=== PATIENT | male | born 1940 ===

== ENCOUNTER 2020-08-14 17:59 | Emergency (ER) | payer MEDICARE, SELFPAY ==
--- NOTE | ~2020-08-14 | CT_ITS ---
EXAMINATION: CT abdomen pelvis wo con DATE: 08/14/2020 20:51 INDICATION: Generalized body aches, hernia TECHNIQUE: Computed tomography (CT) of the abdomen and pelvis was performed without intravenous contr ast. The dose-length product (DLP) was 477.69 mGy-cm. Automated exposure control and iterative recons truction technique were employed. COMPARISON: None FINDINGS: The examination is limited by the absence of intravenous contrast. There are moderate size right and small left pleural effusions. Cardiomegaly is noted. There is a moderate volume of ascites. Diffuse anasarca is noted. There is mild splenomegaly. An area of linear calcification in the right hepatic lobe may reflect prior injury. The pancreas and adrenal glands are normal. A stone is present in the nondistended gallbladder. Cysts of the kidneys measure up to 3.5 cm on the right. There is ca lcified atherosclerosis of the aorta and many of the other arteries. No pathologically enlarged abdom inal or pelvic lymph nodes are identified. There is no free intraperitoneal gas or evidence of bowel obstruction. Colonic diverticulosis is present without evidence of diverticulitis. There is mild circ umferential thickening of the bladder wall. There is a right inguinal hernia containing a short segme nt of nonobstructed small bowel. A small volume of ascites is also present in the hernia. There are c hanges of anterior fusion at L5-S1. There is moderate lower thoracic spondylosis. IMPRESSION: 1. Moderate size right and small left pleural effusions. 2. Moderate volume of ascites. 3. Mild bladder wall thickening which could reflect cystitis or chronic outlet obstruction. 4. Right inguinal hernia containing a short segment of nonobstructed small bowel. 5. Cholelithiasis. Reviewed, dictated and finalized at location A. ICAL ENGINEERING PROFESSOR IMPRESSION: 1. Moderate size right and small left pleural effusions. 2. Moderate volume of ascites. 3. Mild bladder wall thickening which could reflect cystitis or chronic outlet obstruction. 4. Right inguinal hernia containing a short segment of nonobstructed small sánchez l. 5. Cholelithiasis.
--- NOTE | ~2020-08-14 | XR_ITS ---
EXAMINATION: XR chest 2V DATE: 08/14/2020 19:24 INDICATION: Shortness of breath TECHNIQUE: AP and lateral views of the chest are obtained. COMPARISON: 06/01/2018 FINDINGS: Patchy bilateral opacities are present throughout the lungs. Cardiomegaly is noted. There a re small pleural effusions. No pneumothorax is identified. Calcified atherosclerosis is noted. There is mild thoracic spondylosis. IMPRESSION: 1. Cardiomegaly. 2. Diffuse opacities of the lungs which could reflect chronic interstitial lung disease and/or pneumo mickey and/or pulmonary edema. 3. Small pleural effusions. Reviewed, dictated and finalized at location A. R SECURITY ARCHITECT IMPRESSION: 1. Cardiomegaly. 2. Diffuse opacities of the lungs which could reflect chronic interstitial lung disease and/or pneumonia and/or pulmonary edema. 3. Small pleural effusions.
--- NOTE | ~2020-08-14 | CT_ITS ---
EXAMINATION: CT soft tissue neck chest wo DATE: 08/14/2020 20:51 INDICATION: Right-sided facial edema TECHNIQUE: Computed tomography (CT) of the neck and chest was performed without intravenous contrast. The dose-length product (DLP) was 650.78 mGy-cm. Automated exposure control and iterative reconstruc tion technique were employed. COMPARISON: None FINDINGS: NECK: The examination is limited by absence of intravenous contrast. There is an increase in number o f nonpathologically enlarged cervical lymph nodes. No neck soft tissue mass is identified. The airway is widely patent. CHEST: There are multiple nodules in the upper lobes. The lungs. The largest measures 1.9 x 1.3 cm in the right lung apex. There is moderate emphysema. There are moderate-sized right and small left pleu ral effusions with passive atelectasis of the lower lobes. Cardiomegaly is noted. There is right axil anil and subpectoral lymphadenopathy. Mediastinal lymphadenopathy is also noted. There is calcified c oronary artery atherosclerosis. No pneumothorax is identified. There is moderate thoracic spondylosis . IMPRESSION: 1. Multiple nodules in the upper lobes of the lungs which could reflect multifocal pneumonia. Recomme nd CT follow-up in three months. 2. Mediastinal lymphadenopathy, reactive versus metastatic disease. 3. Right axillary lymphadenopathy which could reflect metastatic disease, lymphoma, or be reactive re lated to COVID vaccination if the shot was administered in the right arm. 4. Moderate size right and small left pleural effusions with passive atelectasis of the lower lobes. 5. Unremarkable noncontrast CT of the neck. Reviewed, dictated and finalized at location A. LL MACHINE OPERATOR IMPRESSION: 1. Multiple nodules in the upper lobes of the lungs which could reflect multifo jean pneumonia. Recommend CT follow-up in three months. 2. Mediastinal lymphadenopathy, reactive versus metastatic disease. 3. Right axillary lymphadenopathy which could reflect metastatic disease, lymph joyec, or be reactive related to COVID vaccination if the shot was administered i n the right arm. 4. Moderate size right and small left pleural effusions with passive atelectasi s of the lower lobes. 5. Unremarkable noncontrast CT of the neck.
[2020-08-14 18:22] VITALS: BP 135/64; PULSE 88; RESP 22; TEMP 36.4; O2SAT 92
--- NOTE | 2020-08-14 18:51 | ECG_ITS ---
Measurements Intervals [place] Rate: 84 P: 67 MS: 162 QRS: 85 QRSD: 124 T: 187 QT: 403 QTc: 477 Interpretive Statements SINUS OR ECTOPIC ATRIAL RHYTHM INTRAVENTRICULAR CONDUCTION DELAY BORDERLINE ST-T WAVE ABNORMALITY- DIFFUSE LEADS BORDERLINE ECG Electronically Signed On 08-15-2020 6:55:06 AUTOMOBILE SALES REPRESENTATIVE by Huang Ramirez D.O.
[2020-08-14 19:02] VITALS: BP 150/74; PULSE 88; RESP 20; O2SAT 90
[2020-08-14 19:13] LABS: Hematocrit 39.8 % (37.0-46.0); Hemoglobin 12.6 g/dL (12.4-15.3); Mean Corpuscular HGB Conc 31.7 g/dL (32.0-36.0); Mean Corpuscular Hemoglobin 31.8 pg (27.0-31.0); Mean Corpuscular Volume 100.5 fL (78.0-102.0); Mean Platelet Volume 12.6 fl (8.7-11.0); Platelet Count Result 111 K/mm3 (150-420); Red Blood Count 3.96 M/mm3 (4.70-6.10); Red Cell Distribution Width 19.3 % (11.6-14.4)
[2020-08-14 19:13] LABS: Add Urine Microscopic? YES; Bilirubin Urine Negative (Negative); Blood Urine Negative (Negative); Color Urine Yellow (Yellow); Glucose Urine UA Negative (Negative); Ketones Urine Negative (Negative); Leukocyte Esterase Ur Negative (Negative); Nitrate Urine Negative (Negative); Protein Urine 2+ (Negative); Specific Grav Ur >= 1.030 (1.010-1.020); pH Urine 5.5 (5.0-8.0)
[2020-08-14 19:19] LABS: White Blood Count 35.1 K/mm3 (4.8-10.8)
[2020-08-14 19:27] LABS: Appearance Urine Cloudy (Clear); Bacteria Urine 4+ /hpf; Granular Casts Urine P /lpf; Squamous Epithelial Cell Urine Few /hpf (Few)
[2020-08-14 19:28] LABS: Mucus Urine Heavy /lpf; White Blood Cell Casts Urine Present /lpf
[2020-08-14 19:30] LABS: BNP 475 pg/mL (0-100)
[2020-08-14 19:31] LABS: Lactic Acid Reflex 1.6 mmol/L (0.4-2.0)
--- NOTE | 2020-08-14 19:34 | ED.WEAKNESS ---
HPI - Weakness General Chief complaint: Weakness Stated complaint: pain Time Seen by Provider: 08/14/20 18:30 Source: patient and family Mode of arrival: ambulatory Limitations: no limitations History of Present Illness HPI Narrative: Patient comes in stating he has been weak, not feeling well, and has had some generalized body aches. He has a right inguinal hernia that has been aggravating him, but not really causing pain. He has had a cough, with clear sputum production. He denies fever or chills. he has had some mild to moderate shortness of breath lately. He complains of breathing hard. He has had malaise. This all started several days ago after he got his covid shot. Covid shot was in left arm. MD Complaint: generalized weakness Onset (ago): day(s) Duration: progressively worsening Location: generalized Related Data Home Medications Medication Instructions Recorded Confirmed allopurinol 300 mg PO DAILY 08/14/20 08/14/20 atorvastatin 40 mg PO HS 08/14/20 08/14/20 duloxetine 30 mg PO BID 08/14/20 08/14/20 finasteride 5 mg PO DAILY 08/14/20 08/14/20 furosemide 40 mg PO BID 08/14/20 08/14/20 lamotrigine 100 mg PO DAILY 08/14/20 08/14/20 levothyroxine 50 mcg PO DAILY 08/14/20 08/14/20 mirtazapine 30 mg PO DAILY 08/14/20 08/14/20 oxycodone-acetaminophen 1 tablet PO QID 08/14/20 08/14/20 pregabalin [Lyrica] 300 mg PO TID 08/14/20 08/14/20 tamsulosin 0.4 mg PO DAILY 08/14/20 08/14/20 zolpidem 5 mg PO DAILY 08/14/20 08/14/20 Allergies Allergy/AdvReac Type Severity Reaction Status Date / Time No Known Allergies Allergy Verified 08/14/20 18:31 Review of Systems Constitutional: Constitutional: Reports no additional constitutional complaints Eyes: Eyes: Reports no additional eye complaints ENT: Reports system reviewed and no additional complaints, except as documented Cardiovascular: Cardiovascular: Reports no additional cardiovascular complaints Respiratory: Respiratory: Reports cough and Reports dyspnea Gastrointestinal: Gastrointestinal: Reports no additional gastrointestinal complaints Genitourinary: Genitourinary: Reports no additional male genitourinary complaints Musculoskeletal: Musculoskeletal: Reports no additional musculoskeletal complaints Integumentary/Breasts: Skin/Breast: Reports system reviewed and no additional complaints, except as docu Neurologic: Reports system reviewed and no additional complaints, except as documented Psychiatric: Psychiatric: Reports no additional psychiatric complaints Endocrine: Endocrine: Reports no additional endocrine complaints Hematologic/Lymphatic: Hematologic/Lymphatic: Reports no additional hematologic/lymphatic complaints Allergic/Immunologic: Allergic/Immunologic: Reports no additional allergic/immunologic complaints PMFSH Past Medical History Medical History (Updated 08/15/20 @ 01:54 by Juan Mahoney MD) Back pain BPH (benign prostatic hyperplasia) Depression Gout Hyperlipidemia Hypothyroid Surgical History Surgical History (Updated 08/15/20 @ 01:36 by Juan Mahoney MD) History of arthroscopic knee surgery Previous back surgery S/P insertion of iliac artery stent Family History Family History (Updated 08/15/20 @ 01:37 by Juan Mahoney MD) Father Alcoholic Mother Skin cancer Social History Social History (Updated 08/15/20 @ 01:38 by Juan Mahoney MD) Social History: smoker since teens 1 PPD Smoking status: Current every day smoker Tobacco type: cigarettes Alcohol use details: denies alcohol use Living arrangements: with family Gender identity (if verbalized by the patient): Male Sexual Orientation (if Verbalized by the Patient): Straight or Heterosexual Exam Const: General: no acute distress and alert Orientation/consciousness: patient oriented x3 Other: Right side of face, and right eye is moderately swollen. HENMT: Head: normal to inspection Ears: external ears normal and TM's normal bi
[2020-08-14 19:37] LABS: Alanine Aminotransferase 17 U/L (16-63); Albumin Level 3.8 g/dL (3.4-5.0); Alkaline Phosphatase 117 U/L (46-116); Anion Gap 11 mmol/L (8-16); Aspartate Amino Transferase 13 U/L (15-37); Bilirubin,Total 0.7 mg/dL (0.00-1.00); Blood Urea Nitrogen 22 mg/dL (7-18); Calcium 8.2 mg/dL (8.5-10.1); Carbon Dioxide 27 mmol/L (21-32); Chloride 104 mmol/L (98-108); Estimated CRCL calculation 24 ml/min; Estimated Glomerular Filt Rate 28; Glucose 188 mg/dL (70-99); Magnesium 2.5 mg/dL (1.8-2.4); Osmolality Calculated 302 mOsm/kg (285-295); Phosphorus 4.9 mg/dL (2.6-4.7); Potassium 3.7 mmol/L (3.5-5.1); Sodium 142 mmol/L (136-145); Total Protein 6.5 g/dL (6.4-8.2)
[2020-08-14 19:42] LABS: Band Neutrophils Percent 3 % (0-6); Basophils Absolute Manual 0.35 K/mm3 (0-0.1); Basophils Percent Manual 1 % (0-1); Eosinophils Absolute Manual 0.35 K/mm3 (0.02-0.5); Eosinophils Percent Manual 1 % (1-6); Lymphocytes Absolute Manual 8.07 K/mm3 (1.1-4.5); Lymphocytes Percent Manual 23 % (18-44); Monocytes Absolute Manual 9.47 K/mm3 (0.1-0.90); Monocytes Percent Manual 27 % (3-9); Neutrophils Absolute Manual 16.84 K/mm3 (1.3-6.7); Neutrophils Percent Manual 45 % (46-73); Platelet Estimate Adequate (Adequate); Total Cells Counted 100
[2020-08-14 19:43] LABS: Anisocytosis 3+ (NORMAL); Large Platelets Present; Macrocytosis 1+ (NORMAL); Microcytosis 2+ (NORMAL); Polychromasia 1+ (NORMAL)
[2020-08-14 19:44] LABS: Atypical Lymphocytes Present; Burr Cells 1+ (NORMAL)
[2020-08-14 19:50] VITALS: O2SAT 88
[2020-08-14 19:55] VITALS: BP 132/69; PULSE 75; RESP 20; O2SAT 95
[2020-08-14 20:50] LABS: SARS-CoV-2 Ag Negative (Negative)
[2020-08-14 21:03] LABS: CRP 1.1 mg/dL (0.0-0.9)
[2020-08-14 21:40] VITALS: BP 128/65; PULSE 80; RESP 20; O2SAT 98
[2020-08-14 22:21] LABS: Erythrocyte Sedimentation Rate 5 mm/hr (0-20)
[2020-08-14 23:03] VITALS: BP 123/69; PULSE 81; RESP 20; O2SAT 95
--- NOTE | 2020-08-15 00:12 | PC.NURSE ---
PT RESTING PER COT , PLAYING ON CELL PHONE. FEMALE AT BEDSIDE. PT DENIES ANY NEEDS AT THIS TIME. CALL TO [facility] PER DR FOR TRANSFER.
[2020-08-15 01:10] LABS: INR 1.2; Partial Thromboplastin Time 31.9 SEC (23.90-30.70); Prothrombin Time 12.3 Seconds (9.50-12.10)
[2020-08-15] MEDS: SODIUM CHLORIDE 0.9% IV 1,000 ML 250 ML IV CONT (01:25)
[2020-08-15 01:54] VITALS: BP 134/58; PULSE 79; RESP 20; TEMP 36.9; O2SAT 99
--- NOTE | 2020-08-15 01:59 | PC.NURSE ---
[facility] CALLED FOR TRANSFER. AWAITING ARRIVAL\
[2020-08-15 02:22] VITALS: BP 132/69; PULSE 76; RESP 20; TEMP 36.9; O2SAT 97
== END 2020-08-15 02:27 | disposition short-term general hospital (02) ==
PROVIDERS: Emergency Provider Emergency Medicine
DX: J18.9 Pneumonia, unspecified organism (principal); Z20.822 Contact with and (suspected) exposure to COVID-19; R06.02 Shortness of breath; E78.5 Hyperlipidemia, unspecified; E03.9 Hypothyroidism, unspecified; F17.200 Nicotine dependence, unspecified, uncomplicated
CPT/HCPCS: 36415; 70490; 71046; 71250; 74176; 80053; 81001; 83605; 83735; 83880; 84100; 84484; 85025; 85610; 85652; 85730; 86140; 87040; 87086; 87426; 93005; 96365; 96374; 99285; C9803; J0456; J0696; J7030

== ENCOUNTER 2020-08-15 03:15 | Inpatient (IN) | payer MEDICARE, SELFPAY ==
[2020-08-15] VITALS (11 sets, daily range): BP systolic 119–150; BP diastolic 50–85; PULSE 68–97; RESP 16–24; TEMP 36.1–36.2; O2SAT 94–99; BMI 24.8
--- NOTE | 2020-08-15 | ECHO_ITS ---
Patient Info Name: John Mohr Age: 80 years : 1940 Gender: Male Ht: 70 in Wt: 173 lbs BSA: 1.98 m2 HR: 77 bpm BP: 150 / 53 mmHg Heart Rhythm: Sinus Rhythm Technical Quality: Good Exam Date: 08/15/2020 1:25 PM Exam Location: [facility] Room: [facility] Patient Status: Inpatient Admit Date: 08/15/2020 Staff Ordering Physician: Arpan Cook MD Assembly Line Machine Operator: Luna Jenkins RDCS Attending Provider: Sarika Abdi PA-C Exam Type: CA echo doppler color flow Study Info Indications - ASSESS LV FXN Complete two-dimensional, color flow and Doppler transthoracic echocardiogram is performed. Summary 1. Complete two-dimensional, color flow and Doppler transthoracic echocardiogram is performed. 2. Left ventricular chamber dimension is moderately enlarged. 3. Left ventricular systolic function is severely reduced, estimated at 25-30%. 4. There is moderate to severe aortic valve stenosis with a peak velocity of 261 cm/s, mean gradient of 15 mmHg, and aortic valve area of 1.0 cm2. 5. The non coronary cusp is heavily calcified and immobilized. There is some excursion of the coronary cusps. 6. Left atrial chamber dimension is moderately enlarged. 7. Moderate tricuspid insufficiency with velocities indicating at least mildly elevated pulmonary artery pressure. Left Ventricle Left ventricular chamber dimension is moderately enlarged. Left ventricular systolic function is severely reduced, estimated at 25-30%. The left ventricular diastolic function is grade I diastolic dysfunction. Right Ventricle Right ventricular chamber dimension is mildly enlarged. Left Atria Left atrial chamber dimension is moderately enlarged. Right Atria Right atrial chamber dimension is normal. Aortic Valve The aortic valve is trileaflet. There is moderate to severe aortic valve stenosis with a peak velocity of 261 cm/s, mean gradient of 15 mmHg, and aortic valve area of 1.0 cm2. There is mild aortic valve regurgitation. The non coronary cusp is heavily calcified and immobilized. There is some excursion of the coronary cusps. Pulmonic Valve The pulmonic valve is normal. There is mild pulmonic regurgitation. Mitral Valve The mitral valve has normal leaflets. There is mild mitral valve regurgitation. Tricuspid Valve The tricuspid valve leaflets are normal. There is moderate tricuspid valve regurgitation. Mild pulmonary hypertension, estimated pulmonary arterial systolic pressure is 39 mmHg. Pericardium/Pleural The pericardium appears normal. Aorta The aortic root size at the sinus of Valsalva is normal. Left Ventricular Outflow Tract Name Value Normal LVOT 2D LVOT Diameter 2.0 cm LVOT Doppler LVOT Peak Velocity 96 cm/s LVOT Peak Gradient 4 mmHg LVOT Mean Gradient 2 mmHg LVOT VTI 19 cm LVOT VTI/AV VTI Ratio 0.3 LVOT Stroke Volume 63 ml LVOT CO 13.3 l/min LVOT CI
--- NOTE | ~2020-08-15 | XR_ITS ---
XR chest 2V 08/31/2020 10:11 Indication: Pleuritic chest pain. CHF. Shortness of breath. Procedure: AP and lateral views of the chest Comparison: No prior studies for comparison. Findings: Cardiomegaly with interstitial edema. Small pleural effusions. There is atherosclerosis. No pneumothorax. No acute osseous abnormality. Impression: 1: Cardiomegaly with interstitial edema. Reviewed, dictated and finalized at location A. Impression: 1: Cardiomegaly with interstitial edema.
--- NOTE | ~2020-08-15 | US_ITS ---
EXAMINATION: US renal BI DATE: 09/04/2020 08:26 INDICATION: Acute kidney injury TECHNIQUE: Multiple grayscale and Doppler ultrasound images of the kidneys were obtained. COMPARISON: None. FINDINGS: The right kidney measures 12.3 x 4.5 x 4.4 cm. Cysts of the right kidney measured 3.7 and 1 .6 cm The left kidney measures 9.7 x 4.2 x 4.6 cm. The kidneys demonstrate normal parenchymal echogen icity. There is no hydronephrosis. The bladder is normal. IMPRESSION: 1. Unremarkable kidneys without hydronephrosis. Reviewed, dictated and finalized at location A.
--- NOTE | ~2020-08-15 | US_ITS ---
EXAMINATION: US thoracentesis DATE: 08/15/2020 15:05 INDICATION: pleural effusion TECHNIQUE: The procedure and its risks, benefits, and alternatives were discussed with the patient. P otential risks discussed included bleeding, infection, and pneumothorax. The patient understood the r isks and agreed to proceed. The skin was prepped and draped in sterile fashion. 1% lidocaine was used for local anesthesia. Under ultrasound guidance, a 5 Fr catheter with trochar was advanced into the right pleural effusion. Fluid was aspirated. The catheter was removed, and a dressing was applied. Th ere were no immediate complications. FINDINGS: Ultrasound images demonstrate a right pleural effusion and the catheter within the fluid. IMPRESSION: 1. Successful ultrasound-guided thoracentesis yielding 1000 mL of joseph-colored fluid. Reviewed, dictated and finalized at location A. ACUTE CARE NURSE IMPRESSION: 1. Successful ultrasound-guided thoracentesis yielding 1000 mL of joseph-colore d fluid.
--- NOTE | ~2020-08-15 | BM_ITS ---
EXAMINATION: CCL bone marrow asp w bx diag DATE: 08/16/2020 10:12 INDICATION: Leukocytosis. TECHNIQUE: A time-out was performed to verify the patient's name, date of , and procedure to b e performed. The procedure including the risks, benefits, and alternatives was discussed with the pat ient. Risks discussed included bleeding and infection. The patient understood the risks and agreed to proceed. The skin overlying the left ilium was prepped and draped in usual sterile fashion. Anesth etic was administered with 1% lidocaine subcutaneously. 50 mcg fentanyl IV was given for pain control . An 11 gauge needle was inserted into the ilium with fluoroscopic guidance. Bone marrow was aspirat ed. An 8 gauge needle was then inserted into the ilium with fluoroscopic guidance. A core bone marrow biopsy was obtained. There were no immediate complications. Fluoroscopy exposure time was 0.0 minute s. The total number of images was 8. FINDINGS: Real-time fluoroscopy demonstrates a marker overlying the left posterior superior iliac spi ne. IMPRESSION: 1. Fluoro-guided bone marrow aspiration. 2. Fluoro-guided bone marrow core biopsy. Reviewed, dictated and finalized at location A. 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
--- NOTE | ~2020-08-15 | NM_ITS ---
EXAMINATION: NM lung vent and perfusion DATE: 08/31/2020 13:45 INDICATION: Pleuritic chest pain. Shortness of breath. TECHNIQUE: 5 mCi Tc-99m MAA administered by intravenous route. Scintigraphic images of the chest wer e obtained. COMPARISON: Chest radiograph dated 08/31/2020 FINDINGS: Nonsegmental perfusion defects at the posterior and lateral aspect of the bilateral lower lobes corre sponding to small bilateral pleural effusions on prior chest radiograph. There is relatively homogene ous perfusion throughout the main tear of the lungs with no other perfusion defects identified. Cardi omegaly. IMPRESSION: 1. Nonsegmental perfusion defects at the bilateral posterior and lateral lung bases corresponding to small bilateral pleural effusions consistent with low probability for pulmonary embolism. Reviewed, dictated and finalized at location A. IMPRESSION: 1. Nonsegmental perfusion defects at the bilateral posterior and lateral lung b ases corresponding to small bilateral pleural effusions consistent with low pro bability for pulmonary embolism.
--- NOTE | ~2020-08-15 | XR_ITS ---
EXAMINATION: XR chest 1V portable INDICATION: Shortness of breath, right pleural effusion TECHNIQUE: Portable AP chest at 0528 hours COMPARISON: 08/14/2020 FINDINGS: Patchy bilateral opacities persist without significant change. There are small pleural fusi ons which is decreased. Cardiomegaly is noted. There is no pneumothorax. IMPRESSION: 1. Decreasing pleural effusions. 2. Patchy bilateral airspace opacities, possibly multifocal pneumonia. Reviewed, dictated and finalized at location A. 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
--- NOTE | ~2020-08-15 | XR_ITS ---
XR chest 2V 09/05/2020 08:54 Indication: CHF. Dyspnea. Procedure: AP and lateral views of the chest Comparison: Comparison to multiple prior studies sequentially, with oldest reviewed study dated 08/17. Findings: Cardiomegaly. Bilateral infiltrates predominantly of the mid and lower lung zones, right gr eater than left. Small pleural effusions. Impression: 1: Extensive bilateral infiltrates, right greater than left, differential diagnosis includes intersti tial edema and pneumonia. 2: Small pleural effusions. 3: Cardiomegaly. Reviewed, dictated and finalized at location B. Impression: 1: Extensive bilateral infiltrates, right greater than left, differential diagn osis includes interstitial edema and pneumonia. 2: Small pleural effusions. 3: Cardiomegaly.
--- NOTE | ~2020-08-15 | XR_ITS ---
EXAMINATION: [id number]_CR DATE: 08/15/2020 14:58 INDICATION: Right pleural effusion status post thoracentesis. TECHNIQUE: Frontal and lateral views of the chest were obtained. COMPARISON: Chest 2 views 08/14/2020, CT abdomen and pelvis 08/14/2020 FINDINGS: There is a diffuse interstitial pattern in the lungs, consistent with mild pulmonary edema. There are small pleural effusions. No pneumothorax. Cardiomegaly is noted. There is mild chronic ant erior wedging of multiple vertebral bodies. IMPRESSION: 1. Mild pulmonary edema. 2. Small pleural effusions. 3. Cardiomegaly. Reviewed, dictated and finalized at location A. 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
--- NOTE | ~2020-08-15 | XR_ITS ---
EXAMINATION: XR chest 1V portable EXAM DATE: 09/08/2020 13:24 INDICATION: Fluid overload. TECHNIQUE: Portable AP frontal chest x-ray was obtained. Comparison is made to prior examination from 09/05/2020. FINDINGS: There is cardiomegaly and pulmonary vascular congestion. Hazy ill-defined bibasilar airspac e disease which is probably combination of layering pleural effusions and edema. Pneumonia not exclud able. No pneumothorax. There is aortic arteriosclerosis. There are no osseous abnormalities identifie d. Mild progression compared to 09/05 x-ray. IMPRESSION: 1. Findings consistent with CHF exacerbation. 2. Pneumonia not excludable. Reviewed, dictated and finalized at location A.
--- NOTE | ~2020-08-15 | NM_ITS ---
EXAMINATION: NM juan stress w perfusion DATE: 09/07/2020 10:14 INDICATION: Congestive heart failure with reduced ejection fraction. TECHNIQUE: Rest images were obtained following intravenous administration of 10 mCi Tc99m tetrofosmin (Myoview). The patient was infused intravenously with Lexiscan (Regadenoson). Then, 31.9 mCi Tc99m t etrofosmin (Myoview) was administered intravenously, and stress images were obtained. Data was recons tructed into short axis and horizontal and vertical long axis SPECT images. Gated SPECT images were a lso obtained. COMPARISON: None. FINDINGS: Moderate severity fixed perfusion defect centered at the mid inferior segment extending to a lesser degree into the inferoapical and basilar inferior segments on both the stress and rest image s. No reversible ischemia. There is mildly enlarged left ventricular chamber size with global hypokin esis resulting in a decreased left ventricular ejection fraction which measures 38%. IMPRESSION: 1. Moderate severity fixed perfusion defect along the inferior wall which could represent either an i nfarct or diaphragmatic attenuation artifact. 2. Left ventricular enlargement and global hypokinesis resulting in decreased left ventricular ejecti on fraction measuring 38%. Reviewed, dictated and finalized at location A. IMPRESSION: 1. Moderate severity fixed perfusion defect along the inferior wall which could represent either an infarct or diaphragmatic attenuation artifact. 2. Left ventricular enlargement and global hypokinesis resulting in decreased l eft ventricular ejection fraction measuring 38%.
--- NOTE | ~2020-08-15 | XR_ITS ---
EXAMINATION: XR chest 1V portable DATE: 09/02/2020 05:25 INDICATION: Wheezing and hypoxia TECHNIQUE: frontal view of the chest was obtained. COMPARISON: Chest radiograph dated 08/31/2020 FINDINGS: Increasing pulmonary vascular congestion with mild increased interstitial pattern consistent with mil d pulmonary edema. Persistent gradient of hazy airspace opacities at the bilateral lower lung zones c onsistent with small bilateral pleural effusions. No pneumothorax. Cardiomegaly. IMPRESSION: 1. Likely congestive heart failure with cardiomegaly, pulmonary vascular congestion and mild pulmonar y edema. 2. Small bilateral pleural effusions. Reviewed, dictated and finalized at location A. IMPRESSION: 1. Likely congestive heart failure with cardiomegaly, pulmonary vascular conges tion and mild pulmonary edema. 2. Small bilateral pleural effusions.
--- NOTE | ~2020-08-15 | XR_ITS ---
EXAMINATION: XR chest 2V DATE: 08/19/2020 13:04 INDICATION: Pleural effusions, congestive heart failure TECHNIQUE: AP and lateral views of the chest are obtained. COMPARISON: 08/17/2020 FINDINGS: Cardiomegaly is noted. Small pleural effusions have developed. There are new opacities of t he lung bases. No pneumothorax is identified. Calcified atherosclerosis is noted. There is moderate t horacic spondylosis. IMPRESSION: 1. Small pleural effusions with bibasilar airspace opacities, consistent with atelectasis versus pneu monia. 2. Cardiomegaly. Reviewed, dictated and finalized at location A. 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 Small pleural effusions with bibasilar airspace opacities, consistent with a telectasis versus pneumonia. 2. Cardiomegaly.
[2020-08-15] MEDS: SODIUM CHLORIDE 0.9% IV 1,000 ML 100 ML IV CONT ×2 (05:19→17:00)
[2020-08-15] MEDS: ACETAMINOPHEN 325 MG TABLET 650 MG PO (05:23)
[2020-08-15 06:11] LABS: Alanine Aminotransferase 18 U/L (4-50); Albumin Level 3.5 g/dL (3.5-5.1); Alkaline Phosphatase 88 U/L (38-126); Anion Gap 7 mmol/L (8-16); Aspartate Amino Transferase 28 U/L (17-59); Bilirubin,Total 0.5 mg/dL (0.2-1.3); Blood Urea Nitrogen 22 mg/dL (9-20); Calcium 7.9 mg/dL (8.4-10.2); Carbon Dioxide 26 mmol/L (22-30); Chloride 107 mmol/L (98-107); Estimated CRCL calculation 30 ml/min; Estimated Glomerular Filt Rate 36; Glucose 120 mg/dL (75-110); Potassium 3.4 mmol/L (3.4-5.0); Sodium 140 mmol/L (137-145)
--- NOTE | 2020-08-15 06:22 | PC.NURSE ---
Call placed to Dr. Keys for a consult. Called cell phone listed. Provider did not answer. Left message for provider to call [facility] for pt details.
[2020-08-15 06:45] LABS: Hematocrit 37.8 % (42.0-52.0); Hemoglobin 11.9 g/dL (14.0-18.0); Immature Platelet Fraction Pct 15.4 % (0.9-11.2); Mean Corpuscular HGB Conc 31.5 g/dl (32-36); Mean Corpuscular Volume 101.6 fl (80-100); Mean Platelet Volume 12.9 fl (7.4-10.4); Platelet Count Result 106 k/mm3 (150-375); Red Blood Count 3.72 M/mm3 (4.6-6.20); Red Cell Distribution Width 19.4 % (11.5-14.5); White Blood Count 44.4 K/mm3 (4.5-10.0)
[2020-08-15 07:39] LABS: Eosinophils Absolute Manual 0.88 K/mm3 (0.02-0.5); Eosinophils Percent Manual 2 % (0-4); Lymphocytes Absolute Manual 11.54 K/mm3 (1.1-4.5); Monocytes Absolute Manual 8.88 K/mm3 (0.1-0.90); Monocytes Percent Manual 20 % (3-9); Neutrophils Percent Manual 52 % (46-73); Total Cells Counted 100
[2020-08-15 07:40] LABS: Anisocytosis 1+ (NORMAL); Burr Cells 1+ (NORMAL); Microcytosis 1+ (NORMAL); Ovalocytes 1+ (NORMAL); Platelet Estimate Decreased (Adequate)
[2020-08-15 07:41] LABS: Atypical Lymphocytes Present
[2020-08-15] MEDS: allopurinoL 300 MG TABLET PO (09:40)
[2020-08-15] MEDS: LEVOTHYROXINE SODIUM 50 MCG TABLET PO (09:40)
[2020-08-15] MEDS: FINASTERIDE 5 MG TABLET PO (09:41)
[2020-08-15] MEDS: lamoTRIgine 100 MG TABLET PO (09:41)
[2020-08-15] MEDS: TAMSULOSIN HCL 0.4 MG CAPSULE PO (09:41)
[2020-08-15] MEDS: PREGABALIN (*CRX) 75 MG CAPSULE 300 MG PO ×3 (09:41→16:59)
[2020-08-15] MEDS: MIRTAZAPINE 30 MG TABLET PO (09:41)
[2020-08-15] MEDS: DULoxetine HCL 30 MG CAPSULE.DR PO ×2 (09:41→20:33)
[2020-08-15 10:01] LABS: Folic Acid 5.5 ng/mL (2.76->20)
--- NOTE | 2020-08-15 10:08 | PM.CNPUL ---
Assessment and Plan Assessment and plan (1) Dyspnea: Code(s): R06.00 - Dyspnea, unspecified Status: Acute Assessment and Plan: 08/15 Patient with 2 months worsening XIAO. Etiology includes pneumonia, lung cancer, right pleural effusion, CHF. Agree with ceftriaxone and azithromycin for now. I have ordered a right pleural thoricentesis to assess for a complicated effusion and will send for chemistries, cultures and cytology to assess for cancer. I have ordered a BNP and will order a echocardiogram to assess LV, RV and valve function. Oncology consult also ordered as well. (2) COPD (chronic obstructive pulmonary disease): Code(s): J44.9 - Chronic obstructive pulmonary disease, unspecified Status: Acute Assessment and Plan: 08/15 Patient with long history of tobacco (66 PY) and paraseptal emphysema on CT scan 08/14/2020. He has mild expiratory wheezes and I will start albuterol, ipratroprium and budesonide nebs for now. If no improvement will consider systemic steroids. Will follow with you. History of Present Illness History of Present Illness Consult date: 08/15/20 Requesting physician: Sarika Abdi PA-C Reason for consult: dyspnea Chief complaint: Leukocytosis,hypoxia,lung nodules Narrative: This an 80-year-old male with a history of benign prostatic hypertrophy, depression, gout, hyperlipidemia, hypothyroidism, inguinal hernia, back surgery x3. Patient presented to the ER on 08/14 with weakness and dyspnea on exertion. Patient states that at baseline prior to 2 months ago that he could walk 1/2 of a block but then would stop for leg pain. Over the last 2 months he has noticed worsening dyspnea on exertion such that now he can still walk a half a block but he is very short of breath while doing this. Patient states that he has no rest shortness of breath. Patient denies fever, denies rigors, denies chest pain, denies hemoptysis, denies weight loss. In the emergency room the patient was noted to have a white blood as blood cell count of 35,100, creatinine of 2.23, a C reactive protein of 1.1 a TSH 4.06, a lactic acid 1.6, SARS-CoV-[address] scan demonstrated multiple upper lobe nodules the largest on the right was 1.9 x 1.3 cm, moderate paraseptal emphysema a moderate right pleural effusion and a small left pleural effusion. There are also right axillary, mediastinal and subpectoral lymphadenopathy. patient was given ceftriaxone and azithromycin and admitted to the floor. Patient states that he is a current smoker from age 14 at 1 pack per day ( 66 pack years). Patient denies vaping or illicit drug use. 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 08/15 Overnight patient he is about the same with some XIAO. Saturations 95% on 1.5 L NC. Review of Systems Review of Systems: All systems reviewed & are unremarkable except as noted in HPI and below Eyes: Eyes: Reports no additional eye complaints ENT: Reports system reviewed and no additional complaints, except as documented and Reports sinus pressure Cardiovascular: Cardiovascular: Reports no additional cardiovascular complaints Respiratory: Respiratory: Reports no additional respiratory complaints Gastrointestinal: Gastrointestinal: Reports no additional gastrointestinal complaints Musculoskeletal: Musculoskeletal: Reports no additional musculoskeletal complaints Integumentary/Breasts: Skin/Breast: Reports system reviewed and no additional complaints, except as docu Neurologic: Reports system reviewed and no additional complaints, except as documented and Reports behavioral changes Psychiatric: Psychiatric: Reports no additional psychiatric complaints and Reports behavioral changes E
[2020-08-15 10:43] LABS: Lactate Dehydrogenase 539 U/L (313-618)
[2020-08-15 10:48] LABS: Platelet Count Result 111 k/mm3 (150-375)
[2020-08-15] MEDS: NICOTINE (*PBKC) 21 MG PATCH 1 PATCH TRANSDERM (10:53)
[2020-08-15 10:57] LABS: Free T4 Free Thyroxine Reflex 0.93 ng/dL (0.78-2.19)
[2020-08-15 11:05] LABS: NT Pro B Type Natriuretic Pept 9100 PG/ML (5-100)
[2020-08-15 11:06] LABS: INR 1.2; Prothrombin Time 15.7 Seconds (11.1-14.7)
[2020-08-15 11:07] LABS: Partial Thromboplastin Time 33.2 SECONDS (22.3-36.8)
--- NOTE | 2020-08-15 11:11 | PM.IMHP ---
H&P: HPI History of Present Illness Date/Time: 08/15/20 11:11 Chief Complaint: XIAO Narrative: John Mohr is a 80 year old male with a past medical history of gout, hyperlipidemia, neuropathy, and enlarged prostate who is a current smoker who presented emergency room for dyspnea on exertion and weakness. Patient states this has been going on for quite some time now but within the last week he started noting some dyspnea on exertion. He says when he is walking around he feels short of breath, has back pain, and his legs hurt. All of these improve once he sits down. He has no chest pain, diaphoresis, arm pain or jaw pain with this. He has never had a blood clot. He denies nausea, vomiting, fevers, chills, night sweats, leg swelling, diarrhea but has had some constipation intermittently. He is a current smoker. He says the back pain hurts in the midback and feels better when he sits down or leans forward. His leg pain is a crampy pain that alleviates when he sits down. He says over 10 years ago he thinks he got a stent in his leg after they did some kind of ultrasound but denies history of PAD or coronary artery disease. He had a stress test a number of years ago but cannot tell me when or which doctor did it. He also had a colonoscopy but he cannot even tell me if it has been in the last 10 years or which doctor performed it. He has had no history of falls or trauma to his back. He states when he was younger he had a doctor tell me he needed some surgery for his valve and he declined to do it. He was then told when he was 78 he would eventually need surgery. He declines a history of kidney disease. Of note, he got a COVID vaccine in his left arm recently. Review of Systems Review of Systems: All systems reviewed & are unremarkable except as noted in HPI and below PMFSH Past Medical History Medical History (Updated 08/15/20 @ 11:49 by Sarika Abdi PA-C) Back pain BPH (benign prostatic hyperplasia) Depression Gout Hyperlipidemia Hypothyroid Neuropathy Surgical History Surgical History History of arthroscopic knee surgery Previous back surgery S/P insertion of iliac artery stent Family History Family History (Updated 08/15/20 @ 01:37 by Juan Mahoney MD) Father Alcoholic Mother Skin cancer Social History Social History (Updated 08/15/20 @ 11:23 by Sarika Abdi PA-C) Social History: Patient does not drink alcohol but smokes 1 pack per day and has done so since he was 14 years old. 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 He would like to be a full code but he would not want to be on life support for a prolonged period of time. He would like his children to be his surrogate decision makers Smoking status: Former smoker Tobacco type: cigarettes Alcohol intake: never Substance use: never Substance use type: does not use Gender identity (if verbalized by the patient): Male Spiritual care concerns: No Meds Home Medications and Allergies Home Medications Medication Instructions Recorded Confirmed Type allopurinol 300 mg PO DAILY 08/14/20 08/15/20 History atorvastatin 40 mg PO HS 08/14/20 08/15/20 History duloxetine 30 mg PO BID 08/14/20 08/15/20 History finasteride 5 mg PO DAILY 08/14/20 08/15/20 History furosemide 40 mg PO BID 08/14/20 08/15/20 History lamotrigine 100 mg PO DAILY 08/14/20 08/15/20 History levothyroxine 50 mcg PO DAILY 08/14/20 08/15/20 History mirtazapine 30 mg PO DAILY 08/14/20 08/15/20 History oxycodone-acetaminophen 1 tablet PO QID 08/14/20 08/15/20 History pregabalin [Lyrica] 300 mg PO TID 08/14/20 08/15/20 History tamsulosin 0.4 mg PO DAILY 08/14/20 08/15/20 History zolpidem 5 mg PO HS 08/14/20 08/15/20 History Allergies Allergy/AdvReac Type Severity Reaction Status Date / Time No Known Allergies Allergy Verified 08/15/20 04:53 Vital Signs Vital Signs - 24 hr 08/15/20 03:2
[2020-08-15 11:26] LABS: D Dimer 0.36 ug/mL (<0.48)
[2020-08-15 11:32] LABS: Influenza Control Positive
[2020-08-15 12:00] LABS: Total Triiodothyronine (T3) 0.68 NG/ML (0.97-1.69)
--- NOTE | 2020-08-15 13:31 | PCOTNOTE ---
Attempted OT evaluation, patient receiving echo. Will continue to attempt.
--- NOTE | 2020-08-15 14:30 | PC.NURSE ---
Patient taken to thoracentesis per stretcher.
[2020-08-15 15:14] LABS: pH Pleural Fluid 7.407 (7.210-7.500)
[2020-08-15 17:04] LABS: Appearance Pleural Fluid Cloudy (Clear); Color Pleural Fluid Yellow (Colorless); Pleural fluid source Pleural fluid
[2020-08-15 17:05] LABS: Lymphocytes Pleural Fluid 28 %; Macrophages Pleural Fluid 61 %; Neutrophils Pleural Fluid 11 % (0-25)
[2020-08-15] MEDS: polyethylene glycoL 3350 17 GM POWD.PACK PO (17:43)
--- NOTE | 2020-08-15 17:49 | PDONCCN ---
HPI - Date of Consult Date/Time: 08/15/20 17:49 Requesting Physician: Sarika Abdi PA-C Primary Care Provider: Peewee Martinez, - Consult Narrative Reason for consult: Leukocytosis, anemia and thrombocytopenia. Narrative: John Mohr is a 80 year old male with history of hyperlipidemia and gout came into the emergency department with complain of generalized weakness and dyspnea on exertion. This symptoms started about a week ago. He denies any fevers and chills. She has also been complaining of lower extremity pain. He denies any night sweats. Denies any new lungs lungs and lymphadenopathy. He denies any melena and hematochezia. Labs showed elevated WBC count of 44,000 with mild anemia with platelet count of 385589. Chest x-ray showed bilateral pleural effusion. He had thoracentesis done with removal of 1000 cc of fluid from the right lung. Review of Systems - Review of Systems All systems reviewed & are unremarkable except as noted in HPI and bel - Neurologic Reports system reviewed and no additional complaints, except as documented, Reports behavioral changes [facility] Medical History: Medical History (Last Updated 08/15/20 @ 11:21 by Sarika Abdi PA-C) Back pain BPH (benign prostatic hyperplasia) Depression Gout Hyperlipidemia Hypothyroid Neuropathy Surgical History: Surgical History (Last Reviewed 08/15/20 @ 11:22 by Sarika Abdi PA-C) History of arthroscopic knee surgery Previous back surgery S/P insertion of iliac artery stent Family History: Family History (Last Updated 08/15/20 @ 01:37 by Juan Mahoney MD) Father Alcoholic Mother Skin cancer - Social History Social History: Social History (Last Updated 08/15/20 @ 11:23 by Sarika Abdi PA-C) Gender Identity: Gender identity (if verbalized by the patient): Male Alcohol Use: Alcohol intake: never Substance Use: Substance use: never Substance use type: does not use Others: Spiritual care concerns: No Smoking Status: Smoking status: Former smoker Tobacco type: cigarettes Approximate Smoking End Date: quit 4 days ago Meds Home Medications Medication Instructions Recorded Confirmed Type allopurinol 300 mg PO DAILY 08/14/20 08/15/20 History atorvastatin 40 mg PO HS 08/14/20 08/15/20 History duloxetine 30 mg PO BID 08/14/20 08/15/20 History finasteride 5 mg PO DAILY 08/14/20 08/15/20 History furosemide 40 mg PO BID 08/14/20 08/15/20 History lamotrigine 100 mg PO DAILY 08/14/20 08/15/20 History levothyroxine 50 mcg PO DAILY 08/14/20 08/15/20 History mirtazapine 30 mg PO DAILY 08/14/20 08/15/20 History oxycodone-acetaminophen 1 tablet PO QID 08/14/20 08/15/20 History pregabalin [Lyrica] 300 mg PO TID 08/14/20 08/15/20 History tamsulosin 0.4 mg PO DAILY 08/14/20 08/15/20 History zolpidem 5 mg PO HS 08/14/20 08/15/20 History Allergies Allergy/AdvReac Type Severity Reaction Status Date / Time No Known Allergies Allergy Verified 08/15/20 04:53 Results - Labs CBC & Chem 7: 08/15/20 10:33 08/15/20 05:03 Labs: Short CBC 08/15/20 08/15/20 Range/Units 05:03 10:33 WBC 44.4 H (4.5-10.0) K/mm3 Hgb 11.9 L (14.0-18.0) g/dL Hct 37.8 L (42.0-52.0) % Plt Count 106 L 111 L (150-375) k/mm3 BMP 08/15/20 05:03 Sodium 140 Potassium 3.4 Chloride 107 Carbon Dioxide 26 BUN 22 H Creatinine 1.80 H Glucose 120 H Calcium 7.9 L Liver Function 08/15/20 Range/Units 05:03 Total Bilirubin 0.5 (0.2-1.3) mg/dL AST 28 (17-59) U/L ALT 18 (4-50) U/L Alkaline Phosphatase 88 (38-126) U/L Albumin 3.5 (3.5-5.1) g/dL Assessment and Plan - Additional Plan Leukocytosis, thrombocytopenia and mild anemia. Patient came into the hospital with complain of generalized weakness and shortness of breath along with dyspnea on exertion for at least couple of weeks duration. Chest x-ray showe
[2020-08-15 18:22] LABS: Iron 77 ug/dL (49-181)
[2020-08-15 18:31] LABS: Percent Iron Saturation 31 % (20-50)
[2020-08-15] MEDS: ATORVASTATIN 40 MG TABLET PO (20:33)
[2020-08-15] MEDS: ZOLPIDEM TARTRATE (*CRX) 5 MG TABLET PO (20:33)
[2020-08-16] VITALS (23 sets, daily range): BP systolic 105–139; BP diastolic 47–68; PULSE 66–83; RESP 16–22; TEMP 35.9–36.4; O2SAT 90–100
[2020-08-16 05:24] LABS: Hemoglobin 11.4 g/dL (14.0-18.0); Mean Corpuscular HGB Conc 31.7 g/dl (32-36); Mean Corpuscular Hemoglobin 32.1 pg (26-34); Mean Corpuscular Volume 101.4 fl (80-100); Mean Platelet Volume 12.5 fl (7.4-10.4); Platelet Count Result 100 k/mm3 (150-375); Red Blood Count 3.55 M/mm3 (4.6-6.20); Red Cell Distribution Width 19.3 % (11.5-14.5); White Blood Count 38.9 K/mm3 (4.5-10.0)
[2020-08-16 05:38] LABS: Anion Gap 7 mmol/L (8-16); Blood Urea Nitrogen 26 mg/dL (9-20); Carbon Dioxide 24 mmol/L (22-30); Chloride 108 mmol/L (98-107); Estimated CRCL calculation 30 ml/min; Estimated Glomerular Filt Rate 36; Glucose 100 mg/dL (75-110); Magnesium 2.3 mg/dL (1.6-2.3); Potassium 3.8 mmol/L (3.4-5.0); Sodium 139 mmol/L (137-145)
[2020-08-16] MEDS: LEVOTHYROXINE SODIUM 50 MCG TABLET PO (06:14)
[2020-08-16] MEDS: SODIUM CHLORIDE 0.9% IV 1,000 ML 100 ML IV CONT (06:15)
[2020-08-16 06:36] LABS: Band Neutrophils Percent 2 % (0-6); Basophils Absolute Manual 0.38 K/mm3 (0.0-0.1); Basophils Percent Manual 1 % (0-1); Blastocytes 6 %; Eosinophils Absolute Manual 0.38 K/mm3 (0.02-0.5); Eosinophils Percent Manual 1 % (0-4); Monocytes Absolute Manual 10.11 K/mm3 (0.1-0.90); Monocytes Percent Manual 26 % (3-9); Neutrophils Absolute Manual 18.67 K/mm3 (1.3-6.7); Neutrophils Percent Manual 46 % (46-73); Total Cells Counted 100
[2020-08-16 06:37] LABS: Platelet Estimate Decreased (Adequate)
[2020-08-16 06:39] LABS: Anisocytosis 2+ (NORMAL); Atypical Lymphocytes Present; Poikilocytosis 1+ (NORMAL)
--- NOTE | 2020-08-16 08:36 | PM.PNPUL ---
Progress Note: A&P Assessment and Plan (1) Dyspnea: Code(s): R06.00 - Dyspnea, unspecified Status: Acute Assessment and Plan: 08/15 Patient with 2 months worsening XIAO. Etiology includes pneumonia, lung cancer, right pleural effusion, CHF. Agree with ceftriaxone and azithromycin for now. I have ordered a right pleural thoricentesis to assess for a complicated effusion and will send for chemistries, cultures and cytology to assess for cancer. I have ordered a BNP and will order a echocardiogram to assess LV, RV and valve function. Oncology consult also ordered as well. 08/16 improved dyspnea post thoricentesis of 100 ml joseph fluid with normal pH, differential mac 61%, N11%, L28%, gram stain with no organisms and no WBC. Other chemistry pending. D dimer negative so unlikely PE, BNP elevated and echo pending. To have bone marrow biopsy later today. No focal infilterates post thoricentesis, continue ceftraixone and azithro for now. Cultures negative. (2) COPD (chronic obstructive pulmonary disease): Code(s): J44.9 - Chronic obstructive pulmonary disease, unspecified Status: Acute Assessment and Plan: 08/15 Patient with long history of tobacco (66 PY) and paraseptal emphysema on CT scan 08/14/2020. He has mild expiratory wheezes and I will start albuterol, ipratroprium and budesonide nebs for now. If no improvement will consider systemic steroids. 08/16 Continue albuterol, ipratroprium and budesonide nebs for now. Will follow with you. Subjective Date/time seen: 08/16/20 08:36 Interval history: 08/15 Narrative: This an 80-year-old male with a history of benign prostatic hypertrophy, depression, gout, hyperlipidemia, hypothyroidism, inguinal hernia, back surgery x3. Patient presented to the ER on 08/14 with weakness and dyspnea on exertion. Patient states that at baseline prior to 2 months ago that he could walk 1/2 of a block but then would stop for leg pain. Over the last 2 months he has noticed worsening dyspnea on exertion such that now he can still walk a half a block but he is very short of breath while doing this. Patient states that he has no rest shortness of breath. Patient denies fever, denies rigors, denies chest pain, denies hemoptysis, denies weight loss. In the emergency room the patient was noted to have a white blood as blood cell count of 35,100, creatinine of 2.23, a C reactive protein of 1.1 a TSH 4.06, a lactic acid 1.6, SARS-CoV-[address] scan demonstrated multiple upper lobe nodules the largest on the right was 1.9 x 1.3 cm, moderate paraseptal emphysema a moderate right pleural effusion and a small left pleural effusion. There are also right axillary, mediastinal and subpectoral lymphadenopathy. patient was given ceftriaxone and azithromycin and admitted to the floor. Patient states that he is a current smoker from age 14 at 1 pack per day ( 66 pack years). Patient denies vaping or illicit drug use. 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 08/15 Overnight patient he is about the same with some XIAO. Saturations 95% on 1.5 L NC. S/P right thoricentesis with 1000 mlamber fluid removed, pH7.41, no cell count as clotted with differential mac 61%, N11,L28%, gram stain with no organisms and no WBC. Other chemistry pending. 08/16 Patient states he had improved breathing immediately post the thoricentesis and states he is breathing better than he has in the last 3 months. Still with XIAO. Saturations 99% on 2 L. Some expiratory wheezes. Review of Systems Review of Systems: All systems reviewed & are unremarkable except as noted in HPI and below Eyes: Eyes: Reports no additional eye complaints ENT: Reports system reviewed and no javad
[2020-08-16] MEDS: PREGABALIN (*CRX) 75 MG CAPSULE 300 MG PO ×3 (09:25→16:23)
[2020-08-16] MEDS: allopurinoL 300 MG TABLET PO (09:25)
[2020-08-16] MEDS: DULoxetine HCL 30 MG CAPSULE.DR PO ×2 (09:25→20:14)
[2020-08-16] MEDS: lamoTRIgine 100 MG TABLET PO (09:25)
[2020-08-16] MEDS: TAMSULOSIN HCL 0.4 MG CAPSULE PO (09:25)
[2020-08-16] MEDS: MIRTAZAPINE 30 MG TABLET PO (09:25)
[2020-08-16] MEDS: FINASTERIDE 5 MG TABLET PO (09:25)
--- NOTE | 2020-08-16 09:36 | PC.NURSE ---
Patient off floor for bone marrow biopsy in bed. IV intact.
--- NOTE | 2020-08-16 09:51 | PCPTNOTE ---
Attempted therapy session, Pt was out of room for procedure. Will attempt therapy again.
--- NOTE | 2020-08-16 10:29 | PC.NURSE ---
S/p bone biopsy to left posterior hip. Tolerated well. Drsg dry and intact to left posterior hip. No c/o pain
--- NOTE | 2020-08-16 10:38 | PC.NURSE ---
Patient returned to room via bed. IV intact. Received report from RN in chest pain center. Patient to be bedrest x1hr
[2020-08-16] MEDS: ALBUTEROL SULFATE NEB 2.5 MG/0.5 ML INH INHALATION ×3 (14:26→20:37)
[2020-08-16] MEDS: IPRATROPIUM BR 0.02% INH SOLN 0.5 MG/2.5 ML VIAL INHALATION ×3 (14:26→20:37)
--- NOTE | 2020-08-16 17:47 | PM.IMPN ---
Progress Note: A&P Assessment and Plan (1) Dyspnea on exertion: Code(s): R06.00 - Dyspnea, unspecified Status: Acute Assessment and Plan: Likely multifactorial. May have in part been related to pleural effusion as he is feeling better after thoracentesis. Pleural studies pending, gram stain negative. pH normal. Could also be due to possible pneumonia, continue azithromycin and ceftriaxone. Could be related to CHF - echo demonstrates EF 25-30%. Possible myelodysplasia - heme/onc following. May need to eventually get a stress test Pulmonology is starting inhalers for COPD (2) Pleural effusion: Code(s): J90 - Pleural effusion, not elsewhere classified Status: Acute Assessment and Plan: R thoracentesis 08/15 yielded 1L joseph fluid. Patient feeling improved. Awaiting further studies. (3) Pneumonia: Qualifiers: Laterality: bilateral Lung location: unspecified part of lung Pneumonia type: due to unspecified organism Qualified Code(s): J18.9 - Pneumonia, unspecified organism Code(s): J18.9 - Pneumonia, unspecified organism Status: Inactive Assessment and Plan: Continue ceftriaxone and azithromycin (4) Thrombocytosis: Code(s): D47.3 - Essential (hemorrhagic) thrombocythemia Status: Acute Assessment and Plan: Very concerning for bone marrow disorder. Could also be due to infection although seems less likely. Peripheral smear reviewed. Appreciate heme/onc recommendations. (5) ELZBIETA (acute kidney injury): Code(s): N17.9 - Acute kidney failure, unspecified Status: Acute Assessment and Plan: Patient's creatinine 2.3 and is improved with IV fluids now stopped. Unknown history or baseline. Monitor renal function and urine output. (6) Lymphadenopathy: Code(s): R59.1 - Generalized enlarged lymph nodes Status: Acute Assessment and Plan: Noted on CT and concerning given his labs, see above. R axillary and mediastinal. Continue heme/onc recommendations. Subjective Date/time seen: 08/16/20 1430 Interval history: Mr. Mohr is a pleasant 80 yo M admitted with dyspnea on exertion, pleural effusions, leukocytosis concerning for a bone marrow disorder. He has underwent thoracentesis yesterday and bone marrow biopsy earlier this morning. He reports his breathing is improved s/p thoracentesis. Denies chest pain. No SOB at rest. He notes penile swelling without much pain that he noticed just this morning which made it a little difficult to urinate. Review of Systems Review of Systems: All systems reviewed & are unremarkable except as noted in HPI and below Exam Narrative: Exam Narrative: General:Male resting comfortably in bedside chair in no acute distress. HEENT: Normocephalic, EOMI, oral mucosa moist. Neck: Supple Resp: Relatively good air movement with some minor crackles at the bases. Tolerating room air. Respirations even and nonlabored. Heart: Rate and rhythm regular. Soft systolic murmur over LSB. Abd: Soft, nontender. No pain to palpation. Positive bowel sounds Skin: Warm and dry Extremities: No swelling, erythema or pain to palpation to the lower extremities. 2+ pedal pulses Neuro: Alert and Oriented x4 . CN 2-12 intact. No focal neurological deficits. Speech is clear. : Palpable inguinal hernia is reducible without color change. Penile swelling + patient says started this morning. Scrotum does not appear edematous. Objective Data Vital Signs Vital Signs: Last Vital Signs Temp 97.6 F 08/16/20 22:00 Pulse 71 08/17/20 04:00 Resp 18 08/17/20 03:03 BP 144/65 H 08/17/20 02:16 Pulse Ox 99 08/17/20 02:16 Intake/Output Intake/Outp
[2020-08-16] MEDS: ZOLPIDEM TARTRATE (*CRX) 5 MG TABLET PO (20:14)
[2020-08-16] MEDS: ATORVASTATIN 40 MG TABLET PO (20:14)
[2020-08-16] MEDS: BUDESONIDE RESPULE NEB 0.5 MG/2 ML AMP INHALATION ×2 (20:34→20:38)
[2020-08-17] VITALS (23 sets, daily range): BP systolic 112–144; BP diastolic 47–65; PULSE 67–88; RESP 16–20; TEMP 36.1–36.3; O2SAT 91–99
--- NOTE | 2020-08-17 02:15 | PC.NURSE ---
Pt woke up feeling short of breath spo2 90% O2 started 2 L and spo2 up to 98%, O2 then decreased to 1 L and spo2 stayed at 98%, skin warm and dry B/P 144/68. Pt repositioned in bed and hob elevated.
[2020-08-17] MEDS: IPRATROPIUM BR 0.02% INH SOLN 0.5 MG/2.5 ML VIAL INHALATION ×4 (02:54→19:43)
[2020-08-17] MEDS: ALBUTEROL SULFATE NEB 2.5 MG/0.5 ML INH INHALATION ×4 (02:54→19:43)
[2020-08-17 05:07] LABS: Hemoglobin 11.2 g/dL (14.0-18.0); Mean Corpuscular Hemoglobin 31.6 pg (26-34); Mean Corpuscular Volume 98.9 fl (80-100); Mean Platelet Volume 11.9 fl (7.4-10.4); Platelet Count Result 105 k/mm3 (150-375); Red Blood Count 3.54 M/mm3 (4.6-6.20); Red Cell Distribution Width 18.7 % (11.5-14.5); White Blood Count 41.1 K/mm3 (4.5-10.0)
[2020-08-17 05:21] LABS: Alanine Aminotransferase 16 U/L (4-50); Albumin Level 3.4 g/dL (3.5-5.1); Alkaline Phosphatase 85 U/L (38-126); Anion Gap 7 mmol/L (8-16); Aspartate Amino Transferase 26 U/L (17-59); Bilirubin,Total 0.5 mg/dL (0.2-1.3); Blood Urea Nitrogen 29 mg/dL (9-20); Calcium 8.1 mg/dL (8.4-10.2); Carbon Dioxide 25 mmol/L (22-30); Chloride 104 mmol/L (98-107); Estimated CRCL calculation 31 ml/min; Estimated Glomerular Filt Rate 39; Glucose 105 mg/dL (75-110); Magnesium 2.3 mg/dL (1.6-2.3); Potassium 3.8 mmol/L (3.4-5.0); Sodium 136 mmol/L (137-145)
[2020-08-17] MEDS: LEVOTHYROXINE SODIUM 50 MCG TABLET PO (05:58)
[2020-08-17 06:14] LABS: Basophils Absolute Manual 0.41 K/mm3 (0.0-0.1); Basophils Percent Manual 1 % (0-1); Eosinophils Absolute Manual 0.41 K/mm3 (0.02-0.5); Eosinophils Percent Manual 1 % (0-4); Lymphocytes Absolute Manual 3.28 K/mm3 (1.1-4.5); Monocytes Absolute Manual 20.13 K/mm3 (0.1-0.90); Monocytes Percent Manual 49 % (3-9); Neutrophils Percent Manual 41 % (46-73); Total Cells Counted 100
[2020-08-17 06:15] LABS: Anisocytosis 1+ (NORMAL); Atypical Lymphocytes Present; Platelet Estimate Decreased (Adequate); Smudge Cells MODERATE
[2020-08-17] MEDS: allopurinoL 300 MG TABLET PO (08:50)
[2020-08-17] MEDS: DULoxetine HCL 30 MG CAPSULE.DR PO ×2 (08:50→20:25)
[2020-08-17] MEDS: FINASTERIDE 5 MG TABLET PO (08:50)
[2020-08-17] MEDS: lamoTRIgine 100 MG TABLET PO (08:51)
[2020-08-17] MEDS: MIRTAZAPINE 30 MG TABLET PO (08:52)
[2020-08-17] MEDS: TAMSULOSIN HCL 0.4 MG CAPSULE PO (08:52)
[2020-08-17] MEDS: PREGABALIN (*CRX) 75 MG CAPSULE 300 MG PO ×3 (08:58→17:17)
--- NOTE | 2020-08-17 09:13 | PM.PNPUL ---
Progress Note: A&P Assessment and Plan (1) Dyspnea: Code(s): R06.00 - Dyspnea, unspecified Status: Acute Assessment and Plan: 08/15 Patient with 2 months worsening XIAO. Etiology includes pneumonia, lung cancer, right pleural effusion, CHF. Agree with ceftriaxone and azithromycin for now. I have ordered a right pleural thoricentesis to assess for a complicated effusion and will send for chemistries, cultures and cytology to assess for cancer. I have ordered a BNP and will order a echocardiogram to assess LV, RV and valve function. Oncology consult also ordered as well. 08/16 improved dyspnea post thoricentesis of 1000 ml joseph fluid with normal pH, differential mac 61%, N11%, L28%, gram stain with no organisms and no WBC. Other chemistry pending. D dimer negative so unlikely PE, BNP elevated and echo pending. To have bone marrow biopsy later today. No focal infilterates post thoricentesis, continue ceftraixone and azithro for now. Cultures negative. 08/17 Remains with XIAO. No reaccumulation of right effusion on CXR. Spoke with pathologist regarding pleural fluid and monocytic looking cells. Patient has 9% blasts on his flow cytometry of bone marrow on preliminary results, further studies at [facility] pending. Other etiologies of dyspnea include patient with LV EF 25-30%, moderate to severe with valve area 1.0 and mean gradient 15. (2) COPD (chronic obstructive pulmonary disease): Code(s): J44.9 - Chronic obstructive pulmonary disease, unspecified Status: Acute Assessment and Plan: 08/15 Patient with long history of tobacco (66 PY) and paraseptal emphysema on CT scan 08/14/2020. He has mild expiratory wheezes and I will start albuterol, ipratroprium and budesonide nebs for now. If no improvement will consider systemic steroids. 08/16 Continue albuterol, ipratroprium and budesonide nebs for now. 08/17 Continued wheezes and I will start solumedrol 40 Q 6 today, continue albuterol, ipratroprium and budesonide nebs for now. On ceftriaxone and azitho. Will follow with you. Subjective Date/time seen: 08/17/20 09:13 Interval history: 08/15 Narrative: This an 80-year-old male with a history of benign prostatic hypertrophy, depression, gout, hyperlipidemia, hypothyroidism, inguinal hernia, back surgery x3. Patient presented to the ER on 08/14 with weakness and dyspnea on exertion. Patient states that at baseline prior to 2 months ago that he could walk 1/2 of a block but then would stop for leg pain. Over the last 2 months he has noticed worsening dyspnea on exertion such that now he can still walk a half a block but he is very short of breath while doing this. Patient states that he has no rest shortness of breath. Patient denies fever, denies rigors, denies chest pain, denies hemoptysis, denies weight loss. In the emergency room the patient was noted to have a white blood as blood cell count of 35,100, creatinine of 2.23, a C reactive protein of 1.1 a TSH 4.06, a lactic acid 1.6, SARS-CoV-[address] scan demonstrated multiple upper lobe nodules the largest on the right was 1.9 x 1.3 cm, moderate paraseptal emphysema a moderate right pleural effusion and a small left pleural effusion. There are also right axillary, mediastinal and subpectoral lymphadenopathy. patient was given ceftriaxone and azithromycin and admitted to the floor. Patient states that he is a current smoker from age 14 at 1 pack per day ( 66 pack years). Patient denies vaping or illicit drug use. 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 08/15 Overnight patient he is about the same with some XIAO. Saturations 95% on 1.5 L NC. S/P right thoricentesis with 1000 mlamber fluid removed, pH7.41, no cell count
[2020-08-17] MEDS: BUDESONIDE RESPULE NEB 0.5 MG/2 ML AMP INHALATION ×2 (09:44→19:43)
[2020-08-17] MEDS: lisinopriL 2.5 MG TABLET PO (10:46)
[2020-08-17] MEDS: methylPREDNISolone SOD SUCC 40 MG VIAL IV PUSH ×2 (10:46→17:18)
[2020-08-17] MEDS: FUROSEMIDE 40 MG TABLET PO (10:46)
[2020-08-17] MEDS: METOPROLOL SUCCINATE EXT REL 12.5 MG TABCR PO (10:47)
--- NOTE | 2020-08-17 11:14 | PC.NURSE ---
1100 Pt states he only takes 150mg TID of lyrica, current order is 300mg Yesika MARTIN on floor made aware. She asked medical underwriter to correct on home medication list and she would change the order.
--- NOTE | 2020-08-17 11:45 | PM.IMPN ---
Progress Note: A&P Assessment and Plan (1) Dyspnea on exertion: Code(s): R06.00 - Dyspnea, unspecified Status: Acute Assessment and Plan: Likely multifactorial. Pleural effusions, , cardiomyopathy, possible PNA can be contributing. Pleural studies pending, gram stain negative. pH normal. Could also be due to possible pneumonia, continue azithromycin and ceftriaxone. Could be related to cardiomyopathy - echo demonstrates EF 25-30% with mod to severe aortic stenosis. Suspected myelodysplasia vs. malignancy - heme/onc following. Pulmonology is starting inhalers for COPD and started IV solu-medrol today. (2) Cardiomyopathy: Qualifiers: Cardiomyopathy type: unspecified Qualified Code(s): I42.9 - Cardiomyopathy, unspecified Code(s): I42.9 - Cardiomyopathy, unspecified Status: Acute Assessment and Plan: Echo demonstrates EF 25% with mod to severe . Started beta blockade and low-dose CARLOS inhibitor. Resumed his home oral lasix at half the dose. Appreciate cardiology input on this complex case. Discussed case with Dr Tilley. Patient will benefit from further ischemic workup. It is noted given the complexity of his case it is possible patient could require higher level of care pending final heme/onc diagnosis awaiting final pathology reports. Further cardiac workup could be performed here if patient does not require transfer. We will await final pathology reports and formulate a plan with Dr Wellington. (3) Aortic stenosis: Qualifiers: Cardiac valve disease etiology: etiology unspecified Qualified Code(s): I35.0 - Nonrheumatic aortic (valve) stenosis Code(s): I35.0 - Nonrheumatic aortic (valve) stenosis Status: Acute Assessment and Plan: See above. Further recommendations to come. (4) Pleural effusion: Code(s): J90 - Pleural effusion, not elsewhere classified Status: Acute Assessment and Plan: R thoracentesis 08/15 yielded 1L joseph fluid. Patient feeling improved. Awaiting final path reports (5) Thrombocytosis: Code(s): D47.3 - Essential (hemorrhagic) thrombocythemia Status: Acute Assessment and Plan: Very concerning for bone marrow disorder. Discussed preliminary path results with Dr Cook and Dr Wellington. Concerning for myelodysplasia or acute leukemia. Peripheral smear reviewed. Appreciate heme/onc recommendations. (6) Pneumonia: Qualifiers: Laterality: bilateral Lung location: unspecified part of lung Pneumonia type: due to unspecified organism Qualified Code(s): J18.9 - Pneumonia, unspecified organism Code(s): J18.9 - Pneumonia, unspecified organism Status: Inactive Assessment and Plan: Continue ceftriaxone and azithromycin (day 3) (7) ELZBIETA (acute kidney injury): Code(s): N17.9 - Acute kidney failure, unspecified Status: Acute Assessment and Plan: Patient's creatinine 2.3 and is improved with IV fluids now stopped. Unknown history or baseline. Monitor renal function and urine output. (8) Lymphadenopathy: Code(s): R59.1 - Generalized enlarged lymph nodes Status: Acute Assessment and Plan: Noted on CT and concerning given his labs, see above. R axillary and mediastinal. Continue heme/onc recommendations. (9) Inguinal hernia: Qualifiers: Obstruction and gangrene presence: without obstruction or gangrene Laterality: unilateral Recurrence: not specified as recurrent Qualified Code(s): K40.90 - Unilateral inguinal hernia, without obstruction or gangrene, not specified as recurrent
--- NOTE | 2020-08-17 13:23 | PCOTNOTE ---
Attempted to see patient this pm, however patient sleeping upon entering and too tired at this time.
--- NOTE | 2020-08-17 14:02 | PCOTNOTE ---
Attempted to see patient this pm, however patient sleeping soundly. Did not disturb patient for this reason.
--- NOTE | 2020-08-17 14:32 | PM.CNCAR ---
Assessment and Plan Assessment and plan (1) Cardiomyopathy: Code(s): I42.9 - Cardiomyopathy, unspecified Status: Acute Assessment and Plan: severe with an EF of 25%. Will increase his metoprolol succinate 25 mg p.o. daily. obviously this is a complicated situation given his likely severe aortic stenosis, underlying cardiomyopathy as well as new malignancy diagnosis. Will await formal biopsy results and Multi disciplinary team will need to formulated a plan/strategy for best treatment protocol. This will likely result in transfer and treatment at a tertiary care facility. Obviously angiogram / left and right heart catheterization to be performed here for further evaluation is cardiomyopathy and aortic stenosis if so desired although again given the complexity of his situation, higher level care may be needed (2) Aortic stenosis: Code(s): I35.0 - Nonrheumatic aortic (valve) stenosis Status: Acute Assessment and Plan: as above. Gentle diuresis but try to avoid over-diuresis given his aortic stenosis. (3) Chronic systolic (congestive) heart failure: Code(s): I50.22 - Chronic systolic (congestive) heart failure Status: Acute Assessment and Plan: Beta-bia and gentle diuresis. Caution with CARLOS-inhibitor given his aortic stenosis (4) Tobacco abuse: Code(s): Z72.0 - Tobacco use Status: Acute Assessment and Plan: recently stopped History of Present Illness History of Present Illness Consult date/time: 08/17/20 14:32 Requesting physician: Yesika Hdz PA-C Consult reason: congestive heart failure Reason For Visit: Leukocytosis,hypoxia,lung nodules Narrative: Date of service 08/17/2020: History: Patient is a 80-year-old male who has a history of murmur and was told he would need a heart operation at some point in time. He however has not routinely seen a boat painter in several years. He came to the hospital because of worsening dyspnea on exertion and weakness. He was found have a pleural effusion significantly elevated white blood cell count as well as COPD and nodules that are concerning for lymphoma. The process of having the workup performed an echocardiogram was performed showing moderate to severe aortic stenosis with severe LV dysfunction. Cardiology consultation was therefore requested. Patient states he has been progressively losing strength in his legs for several months. He has also had some worsening edema for several years. He has been short of breath also for the past couple of months. He is short of breath by doing simple activities such as walking around the house. He denies any syncope, chest pain, paroxysmal nocturnal dyspnea, orthopnea, palpitations or presyncope. He currently is feeling okay at this point but is a bit somnolent upon talking to him today Review of Systems Review of Systems: All systems reviewed & are unremarkable except as noted in HPI and below Constitutional: Constitutional: Reports fatigue, Reports lethargy and Reports weakness Eyes: Eyes: Denies blurry vision ENT: Reports Normal hearing present Cardiovascular: Cardiovascular: Denies chest pain and Reports leg edema Respiratory: Respiratory: Reports dyspnea and Reports dyspnea on exertion Gastrointestinal: Gastrointestinal: Denies abdominal pain Genitourinary: Genitourinary: Denies dysuria and Denies urinary frequency Musculoskeletal: Musculoskeletal: Denies back pain and Denies neck pain Integumentary/Breasts: Skin/Breast: Denies dry skin Neurologic: Denies headache(s) Psychiatric: Psychiatric: Denies anxiety and Denies confusion Endocrine: Endocrine: Denies excessive sweating and Denies fatigue Hematologic/Lymphatic: Hematologic/Lymphatic: Denies easy bleeding Allergic/Immunologic: Allergic/Immunologic: Denies GI upset with certain foods PMFSH Past Medical History Medical History (Reviewed 08/17/20 @ 14:36 by Jared Cortez
--- NOTE | 2020-08-17 15:31 | PC.NURSE ---
On 08/17/20, the student, [Latricia Beltre ], provided care and completed [employer] documentation on this patient. I have reviewed the student's documentation and agree with the findings.
[2020-08-17 17:20] LABS: SARS-CoV-2 RNA PCR Negative
--- NOTE | 2020-08-17 17:26 | WPDONCPN ---
Progress Note: A/P - Additional Plan Leukocytosis, thrombocytopenia and mild anemia. Patient is not status post bone marrow aspiration and biopsy. Initial report showed 9% myeloblast in the bone marrow flow. Final report is pending. This could very well be secondary to myelodysplasia. Patient was started to follow with me in the office for further recommendations. Pleural effusion. Status post right-sided thoracentesis. Final cytology report remains pending. - Time Spent With Patient Total time spent is greater than 50% in coordination of care (as documented) at patient's floor/unit and/or counseling patient: 15 - 25 minutes Subjective Interval history: Leukocytosis Thrombocytopenia and anemia Review of Systems - Review of Systems All systems reviewed & are unremarkable except as noted in HPI and bel - Neurologic Reports system reviewed and no additional complaints, except as documented, Reports hearing normal, Reports behavioral changes, Reports weakness, Denies confusion, Denies headache(s) Exam Vital signs: Temp Pulse Resp BP Pulse Ox 36.1 C L 71 20 125/52 L 91 08/17/20 13:42 08/17/20 16:00 08/17/20 15:15 08/17/20 13:42 08/17/20 15:05 PN: Objective Data - Labs CBC & Chem 7: 08/17/20 04:58 08/17/20 04:58 Labs: Laboratory Results - last 24 hr 08/17/20 08/17/20 04:58 04:58 WBC 41.1 H RBC 3.54 L Hgb 11.2 L Hct 35.0 L MCV 98.9 MCH 31.6 MCHC 32.0 RDW 18.7 H Plt Count 105 L MPV 11.9 H Immature Gran % (Auto) Not Reportable Neut % (Auto) Not Reportable Lymph % (Auto) Not Reportable [place] % (Auto) Not Reportable Eos % (Auto) Not Reportable Baso % (Auto) Not Reportable Lymph # (Auto) Not Reportable [place] # (Auto) Not Reportable Eos # (Auto) Not Reportable Baso # (Auto) Not Reportable Abs Immat Gran (auto) Not Reportable Absolute Neuts (auto) Not Reportable Absolute Nucleated RBC Not Reportable Total Counted 100 Neutrophils % (Manual) 41 L Lymphocytes % (Manual) 8.0 L Monocytes % (Manual) 49 H Eosinophils % (Manual) 1 Basophils % (Manual) 1 Nucleated RBC % Not Reportable Abs Lymphs (Manual) 3.28 Abs Monocytes (Manual) 20.13 H Absolute Eos (Manual) 0.41 Abs Basophils (Manual) 0.41 H Atypical Lymphocytes Present Smudge Cells Moderate Platelet Estimate Decreased Anisocytosis 1+ Sodium 136 L Potassium 3.8 Chloride 104 Carbon Dioxide 25 Anion Gap 7 L BUN 29 H Creatinine 1.70 H Estim Creat Clear Calc 31 Estimated GFR 39 L Glucose 105 Calcium 8.1 L Magnesium 2.3 Total Bilirubin 0.5 AST 26 ALT 16 Alkaline Phosphatase 85 Total Protein 6.0 L Albumin 3.4 L Exam - Vital Signs Vital Signs - 24 hr 08/16/20 20:00 08/16/20 20:38 08/16/20 20:52 Temperature Pulse Rate 83 77 74 Respiratory Rate 18 18 18 Blood Pressure Pulse Oximetry 96 92 08/16/20 22:00 08/17/20 00:00 08/17/20 02:16 Temperature 36.4 C Pulse Rate 73 70 88 Respiratory Rate 18 20 Blood Pressure 131/51 L 144/65 H Pulse Oximetry 95 99 08/17/20 02:54 08/17/20 03:03 08/17/20 04:00 Temperature Pulse Rate 69 67 71 Respiratory Rate 18 18 Blood Pressure Pulse Oximetry 08/17/20 05:48 08/17/20 08:00 08/17/20 09:00 Temperature 36.3 C L 36.1 C L Pulse Rate 73 78 76 Respiratory Rate 18 20 Blood Pressure 113/57 L 126/60 Pulse Oximetry 94 94 08/17/20 09:45 08/17/20 09:55 08/17/20 10:47 Temperature Pulse Rate 86 85 83 Respiratory Rate 20 20 Blood Pressure Pulse Oximetry 99 08/17/20 12:00 08/17/20 13:42 08/17/20 15:05 Temperature 36.1 C L Pulse Rate 80 77 Respiratory Rate 16 Blood Pressure 125/52 L Pulse Oximetry 95 91 08/17/20 15:07 08/17/20 15:15 08/17/20 16:00 Temperature Pulse Rate 76 75 71 Respiratory Rate 20 20 Blood Pressure Pulse Oximetry - Exam HEENT: EOMI, PERRLA Neck: supple. N
[2020-08-17 19:22] LABS: Glucose Pleural Fluid 108 mg/dL; LDH Pleural Fluid 119 U/L; Total Protein Pleural Fluid <3.0 g/dL
[2020-08-17] MEDS: ATORVASTATIN 40 MG TABLET PO (20:25)
[2020-08-17 21:48] LABS: Amylase, Pleural Fluid 40 U/L
[2020-08-18] VITALS (21 sets, daily range): BP systolic 104–127; BP diastolic 49–55; PULSE 69–84; RESP 16–20; TEMP 35.9–36.8; O2SAT 87–95
[2020-08-18] MEDS: ZOLPIDEM TARTRATE (*CRX) 5 MG TABLET PO ×2 (00:16→20:53)
[2020-08-18] MEDS: methylPREDNISolone SOD SUCC 40 MG VIAL IV PUSH ×4 (00:17→17:02)
[2020-08-18] MEDS: IPRATROPIUM BR 0.02% INH SOLN 0.5 MG/2.5 ML VIAL INHALATION ×4 (01:57→20:24)
[2020-08-18] MEDS: ALBUTEROL SULFATE NEB 2.5 MG/0.5 ML INH INHALATION ×4 (01:57→20:24)
[2020-08-18 05:30] LABS: INR 1.2; Prothrombin Time 15.9 Seconds (11.1-14.7)
[2020-08-18 05:58] LABS: Hematocrit 33.6 % (42.0-52.0); Hemoglobin 10.8 g/dL (14.0-18.0); Mean Corpuscular HGB Conc 32.1 g/dl (32-36); Mean Corpuscular Volume 99.4 fl (80-100); Mean Platelet Volume 12.7 fl (7.4-10.4); Platelet Count Result 104 k/mm3 (150-375); Red Blood Count 3.38 M/mm3 (4.6-6.20); Red Cell Distribution Width 18.9 % (11.5-14.5); White Blood Count 34.4 K/mm3 (4.5-10.0)
[2020-08-18] MEDS: LEVOTHYROXINE SODIUM 50 MCG TABLET PO (06:01)
[2020-08-18 06:03] LABS: Alanine Aminotransferase 15 U/L (4-50); Albumin Level 3.4 g/dL (3.5-5.1); Alkaline Phosphatase 79 U/L (38-126); Anion Gap 9 mmol/L (8-16); Aspartate Amino Transferase 21 U/L (17-59); Bilirubin,Total 0.3 mg/dL (0.2-1.3); Blood Urea Nitrogen 34 mg/dL (9-20); Calcium 8.6 mg/dL (8.4-10.2); Carbon Dioxide 22 mmol/L (22-30); Chloride 103 mmol/L (98-107); Estimated CRCL calculation 31 ml/min; Estimated Glomerular Filt Rate 39; Glucose 183 mg/dL (75-110); Magnesium 2.4 mg/dL (1.6-2.3); Potassium 4.3 mmol/L (3.4-5.0); Sodium 134 mmol/L (137-145)
[2020-08-18 06:27] LABS: Eosinophils Absolute Manual 1.03 K/mm3 (0.02-0.5); Eosinophils Percent Manual 3 % (0-4); Lymphocytes Absolute Manual 4.47 K/mm3 (1.1-4.5); Monocytes Absolute Manual 6.53 K/mm3 (0.1-0.90); Monocytes Percent Manual 19 % (3-9); Neutrophils Percent Manual 65 % (46-73); Platelet Estimate Decreased (Adequate); Total Cells Counted 100
[2020-08-18 06:28] LABS: Crenated RBC 1+ (NORMAL)
[2020-08-18 06:29] LABS: Helmet Cells 1+ (NORMAL)
[2020-08-18] MEDS: BUDESONIDE RESPULE NEB 0.5 MG/2 ML AMP INHALATION ×2 (08:52→20:24)
--- NOTE | 2020-08-18 09:15 | PM.PNCARD ---
Progress Note: A&P Assessment and Plan (1) Cardiomyopathy: Qualifiers: Cardiomyopathy type: unspecified Qualified Code(s): I42.9 - Cardiomyopathy, unspecified Code(s): I42.9 - Cardiomyopathy, unspecified Status: Acute Assessment and Plan: severe with an EF of 25%. Continue metoprolol succinate 25 mg p.o. daily. obviously this is a complicated situation given his likely severe aortic stenosis, underlying cardiomyopathy as well as new malignancy diagnosis. Will await formal biopsy results and Multi disciplinary team will need to formulated a plan/strategy for best treatment protocol. This will likely result in transfer and treatment at a tertiary care facility. Obviously angiogram / left and right heart catheterization to be performed here for further evaluation is cardiomyopathy and aortic stenosis if so desired although again given the complexity of his situation, higher level care may be needed (2) Aortic stenosis: Qualifiers: Cardiac valve disease etiology: etiology unspecified Qualified Code(s): I35.0 - Nonrheumatic aortic (valve) stenosis Code(s): I35.0 - Nonrheumatic aortic (valve) stenosis Status: Acute Assessment and Plan: as above. Gentle diuresis but try to avoid over-diuresis given his aortic stenosis. (3) Chronic systolic (congestive) heart failure: Code(s): I50.22 - Chronic systolic (congestive) heart failure Status: Acute Assessment and Plan: Beta-bia and gentle diuresis. Caution with CARLOS-inhibitor given his aortic stenosis Furosemide 20 mg IV x1 now (4) Tobacco abuse: Code(s): Z72.0 - Tobacco use Status: Acute Assessment and Plan: recently stopped Subjective Date/time seen: 08/18/20 09:15 Interval history: Mr. Mohr is a pleasant 80 yo M admitted with dyspnea on exertion, pleural effusions, leukocytosis concerning for a bone marrow disorder. Date of service 08/18/2020: He feels okay but does have some scrotal and penile edema. No chest pain. Breathing is easier. Review of Systems Review of Systems: All systems reviewed & are unremarkable except as noted in HPI and below Constitutional: Constitutional: Denies excessive sweating, Denies fatigue, Denies headache(s), Reports lethargy and Reports weakness Eyes: Eyes: Denies blurry vision ENT: Reports Normal hearing present, Denies headache(s) and Denies neck pain Cardiovascular: Cardiovascular: Denies chest pain, Reports leg edema, Reports dyspnea and Reports dyspnea on exertion Respiratory: Respiratory: Reports dyspnea and Reports dyspnea on exertion Gastrointestinal: Gastrointestinal: Denies abdominal pain Genitourinary: Genitourinary: Denies dysuria and Denies urinary frequency Musculoskeletal: Musculoskeletal: Denies back pain and Denies neck pain Integumentary/Breasts: Skin/Breast: Denies dry skin Neurologic: Reports Normal hearing present, Denies confusion, Denies headache(s) and Reports weakness Psychiatric: Psychiatric: Denies anxiety and Denies confusion Endocrine: Endocrine: Denies excessive sweating and Denies fatigue Hematologic/Lymphatic: Hematologic/Lymphatic: Denies easy bleeding Allergic/Immunologic: Allergic/Immunologic: Denies GI upset with certain foods Exam Narrative: Exam Narrative: Alert and oriented. Appears to be in no acute distress. Appears stated age Const: General: comfortable and no acute distress; No confusion Orientation/consciousness: No confusion HENMT: General nose exam: Normal nares present Eyes: Sclera: sclerae normal Neck: Neck: no JVD Resp: Auscultation: clear to auscultation bilaterally Cardio: Rate: regular rate Rhythm: regular rhythm Heart sounds: Murmur heart sound present GI: GI Palp: Yes Soft to palpation : Other: Scrotal and penile edema noted Skin: General skin exam: normal color Neuro: General: No confusion Cranial nerves: Yes Normal hearing present
--- NOTE | 2020-08-18 09:24 | PM.PNPUL ---
Progress Note: A&P Assessment and Plan (1) Dyspnea: Code(s): R06.00 - Dyspnea, unspecified Status: Acute Assessment and Plan: 08/15 Patient with 2 months worsening XIAO. Etiology includes pneumonia, lung cancer, right pleural effusion, CHF. Agree with ceftriaxone and azithromycin for now. I have ordered a right pleural thoricentesis to assess for a complicated effusion and will send for chemistries, cultures and cytology to assess for cancer. I have ordered a BNP and will order a echocardiogram to assess LV, RV and valve function. Oncology consult also ordered as well. 08/16 improved dyspnea post thoricentesis of 1000 ml joseph fluid with normal pH, differential mac 61%, N11%, L28%, gram stain with no organisms and no WBC. Other chemistry pending. D dimer negative so unlikely PE, BNP elevated and echo pending. To have bone marrow biopsy later today. No focal infilterates post thoricentesis, continue ceftraixone and azithro for now. Cultures negative. 08/17 Remains with XIAO. No reaccumulation of right effusion on CXR. Spoke with pathologist regarding pleural fluid and monocytic looking cells. Patient has 9% blasts on his flow cytometry of bone marrow on preliminary results, further studies at [facility] pending. Other etiologies of dyspnea include patient with LV EF 25-30%, moderate to severe with valve area 1.0 and mean gradient 15 with fluid overload. 08/18 Edema worsening, transudative pleural effusion with LDH 119/serum 539=0.22, T prot < 3/serum 6.0=>0.5, pH 7.41, glucose 108, amylase 40, cultures no growth and bacterial, fungal and AFB stains negative. Wheezes end expiratory today. Day 4 antibiotics. I suspect cardiac disease with fluid overload is major component of SOB, XIAO and wheezes. (2) COPD (chronic obstructive pulmonary disease): Code(s): J44.9 - Chronic obstructive pulmonary disease, unspecified Status: Acute Assessment and Plan: 08/15 Patient with long history of tobacco (66 PY) and paraseptal emphysema on CT scan 08/14/2020. He has mild expiratory wheezes and I will start albuterol, ipratroprium and budesonide nebs for now. If no improvement will consider systemic steroids. 08/16 Continue albuterol, ipratroprium and budesonide nebs for now. Wheezes persist. 08/17 Continued wheezes and I will start solumedrol 40 Q 6 today, continue albuterol, ipratroprium and budesonide nebs for now. On ceftriaxone and azitho (day 3). 08/18 Improved wheezes and will continue solumedrol 40 Q 6 today, continue albuterol, ipratroprium and budesonide nebs for now. Will follow with you. Subjective Date/time seen: 08/18/20 09:24 Interval history: 08/15 Narrative: This an 80-year-old male with a history of benign prostatic hypertrophy, depression, gout, hyperlipidemia, hypothyroidism, inguinal hernia, back surgery x3. Patient presented to the ER on 08/14 with weakness and dyspnea on exertion. Patient states that at baseline prior to 2 months ago that he could walk 1/2 of a block but then would stop for leg pain. Over the last 2 months he has noticed worsening dyspnea on exertion such that now he can still walk a half a block but he is very short of breath while doing this. Patient states that he has no rest shortness of breath. Patient denies fever, denies rigors, denies chest pain, denies hemoptysis, denies weight loss. In the emergency room the patient was noted to have a white blood as blood cell count of 35,100, creatinine of 2.23, a C reactive protein of 1.1 a TSH 4.06, a lactic acid 1.6, SARS-CoV-[address] scan demonstrated multiple upper lobe nodules the largest on the right was 1.9 x 1.3 cm, moderate paraseptal emphysema a moderate right pleural effusion and a small left pleural effusion. There are also right axillary, mediastinal and subpectoral lymphadenopathy. patient was given ceftriaxone and azithromycin and admitted to the floor. Patient states that he is a current smoker from age 14 at 1 pack per day ( 64
--- NOTE | 2020-08-18 09:46 | PM.IMPN ---
Progress Note: A&P Assessment and Plan (1) Dyspnea on exertion: Code(s): R06.00 - Dyspnea, unspecified Status: Acute Assessment and Plan: Likely multifactorial. Pleural effusions, , cardiomyopathy, possible PNA can be contributing. Pleural studies pending, gram stain negative. pH normal. Could also be due to possible pneumonia, continue azithromycin and ceftriaxone. Could be related to cardiomyopathy - echo demonstrates EF 25-30% with mod to severe aortic stenosis. Suspected myelodysplasia vs. malignancy - heme/onc following. Appreciate cardiology and pulmonology input. Discussed case with Dr Joey rutherford and plan to continue IV steroids and nebulizers. (2) Cardiomyopathy: Qualifiers: Cardiomyopathy type: unspecified Qualified Code(s): I42.9 - Cardiomyopathy, unspecified Code(s): I42.9 - Cardiomyopathy, unspecified Status: Acute Assessment and Plan: Echo demonstrates EF 25% with mod to severe . Started beta blockade and low-dose CARLOS inhibitor. Resumed his home oral lasix at half the dose. Appreciate cardiology input on this complex case. Discussed case with Dr Tilley. Patient will benefit from further ischemic workup. It is noted given the complexity of his case it is possible patient could require higher level of care pending final heme/onc diagnosis awaiting final pathology reports. Further cardiac workup could be performed here if patient does not require transfer. We will await final pathology reports and formulate a plan with Dr Wellington. (3) Aortic stenosis: Qualifiers: Cardiac valve disease etiology: etiology unspecified Qualified Code(s): I35.0 - Nonrheumatic aortic (valve) stenosis Code(s): I35.0 - Nonrheumatic aortic (valve) stenosis Status: Acute Assessment and Plan: See above. Further recommendations to come. (4) Pleural effusion: Code(s): J90 - Pleural effusion, not elsewhere classified Status: Acute Assessment and Plan: R thoracentesis 08/15 yielded 1L joseph fluid. Awaiting final path reports. (5) Thrombocytosis: Code(s): D47.3 - Essential (hemorrhagic) thrombocythemia Status: Acute Assessment and Plan: Very concerning for bone marrow disorder. Discussed preliminary path results with Dr Cook and Dr Wellington. Concerning for myelodysplasia or acute leukemia while awaiting final pathology reports. Peripheral smear reviewed. Appreciate heme/onc recommendations. (6) Pneumonia: Qualifiers: Laterality: bilateral Lung location: unspecified part of lung Pneumonia type: due to unspecified organism Qualified Code(s): J18.9 - Pneumonia, unspecified organism Code(s): J18.9 - Pneumonia, unspecified organism Status: Inactive Assessment and Plan: Continue ceftriaxone and azithromycin (day 4) (7) ELZBIETA (acute kidney injury): Code(s): N17.9 - Acute kidney failure, unspecified Status: Acute Assessment and Plan: Patient's creatinine 2.3 and is improved with IV fluids now stopped. Cr remains at 1.7 today. Unknown history or baseline. Monitor renal function and urine output. (8) Lymphadenopathy: Code(s): R59.1 - Generalized enlarged lymph nodes Status: Acute Assessment and Plan: Noted on CT and concerning given his labs, see above. R axillary and mediastinal. Continue heme/onc recommendations. (9) Inguinal hernia: Qualifiers: Laterality: unilateral Obstruction and gangrene presence: without obstruction or gangrene Recurrence: not specified as recurrent Qualified Code(s): K40.90 - Un
[2020-08-18] MEDS: DULoxetine HCL 30 MG CAPSULE.DR PO ×2 (09:51→20:51)
[2020-08-18] MEDS: allopurinoL 300 MG TABLET PO (09:51)
[2020-08-18] MEDS: FINASTERIDE 5 MG TABLET PO (09:51)
[2020-08-18] MEDS: FUROSEMIDE 40 MG TABLET PO (09:51)
[2020-08-18] MEDS: lamoTRIgine 100 MG TABLET PO (09:52)
[2020-08-18] MEDS: lisinopriL 2.5 MG TABLET PO (09:52)
[2020-08-18] MEDS: METOPROLOL SUCCINATE EXT REL 25 MG TABCR PO (09:53)
[2020-08-18] MEDS: TAMSULOSIN HCL 0.4 MG CAPSULE PO (09:53)
[2020-08-18] MEDS: MIRTAZAPINE 30 MG TABLET PO (09:53)
[2020-08-18] MEDS: PREGABALIN (*CRX) 75 MG CAPSULE 150 MG PO ×3 (09:59→17:01)
[2020-08-18] MEDS: FUROSEMIDE INJ 40 MG/4 ML VIAL 20 MG IV PUSH (10:01)
--- NOTE | 2020-08-18 12:12 | PC.NURSE ---
[facility]istic Specialist clarified with Dr. Tilley he only wanted pt to receive one dose of 20mg IVP lasix.
[2020-08-18] MEDS: ATORVASTATIN 40 MG TABLET PO (20:51)
[2020-08-19] VITALS (21 sets, daily range): BP systolic 107–134; BP diastolic 47–60; PULSE 63–82; RESP 16–20; TEMP 35.7–36.8; O2SAT 92–97
[2020-08-19] MEDS: methylPREDNISolone SOD SUCC 40 MG VIAL IV PUSH ×2 (00:34→05:42)
[2020-08-19] MEDS: IPRATROPIUM BR 0.02% INH SOLN 0.5 MG/2.5 ML VIAL INHALATION ×4 (03:21→20:51)
[2020-08-19] MEDS: ALBUTEROL SULFATE NEB 2.5 MG/0.5 ML INH INHALATION ×4 (03:21→20:51)
[2020-08-19] MEDS: LEVOTHYROXINE SODIUM 50 MCG TABLET PO (05:42)
[2020-08-19 05:50] LABS: Alanine Aminotransferase 18 U/L (4-50); Albumin Level 3.5 g/dL (3.5-5.1); Alkaline Phosphatase 77 U/L (38-126); Anion Gap 6 mmol/L (8-16); Aspartate Amino Transferase 24 U/L (17-59); Bilirubin,Total 0.2 mg/dL (0.2-1.3); Blood Urea Nitrogen 42 mg/dL (9-20); Calcium 8.7 mg/dL (8.4-10.2); Carbon Dioxide 23 mmol/L (22-30); Chloride 105 mmol/L (98-107); Estimated CRCL calculation 28 ml/min; Estimated Glomerular Filt Rate 34; Glucose 228 mg/dL (75-110); Magnesium 2.5 mg/dL (1.6-2.3); Potassium 4.4 mmol/L (3.4-5.0); Sodium 134 mmol/L (137-145)
[2020-08-19 07:06] LABS: Hematocrit 35.2 % (42.0-52.0); Hemoglobin 11.1 g/dL (14.0-18.0); Mean Corpuscular HGB Conc 31.5 g/dl (32-36); Mean Corpuscular Hemoglobin 31.9 pg (26-34); Mean Corpuscular Volume 101.1 fl (80-100); Mean Platelet Volume 12.8 fl (7.4-10.4); Platelet Count Result 105 k/mm3 (150-375); Red Blood Count 3.48 M/mm3 (4.6-6.20); Red Cell Distribution Width 19.2 % (11.5-14.5)
[2020-08-19 07:07] LABS: White Blood Count 55.8 K/mm3 (4.5-10.0)
[2020-08-19 07:09] LABS: Lymphocytes Absolute Manual 36.27 K/mm3 (1.1-4.5); Monocytes Absolute Manual 11.16 K/mm3 (0.1-0.90); Monocytes Percent Manual 20 % (3-9); Neutrophils Percent Manual 15 % (46-73); Total Cells Counted 100
[2020-08-19 07:11] LABS: Anisocytosis 1+ (NORMAL); Burr Cells 1+ (NORMAL); Ovalocytes 1+ (NORMAL)
[2020-08-19 07:12] LABS: Atypical Lymphocytes Present
[2020-08-19] MEDS: BUDESONIDE RESPULE NEB 0.5 MG/2 ML AMP INHALATION ×2 (07:20→20:51)
--- NOTE | 2020-08-19 08:45 | PM.PNPUL ---
Progress Note: A&P Assessment and Plan (1) Dyspnea: Code(s): R06.00 - Dyspnea, unspecified Status: Acute Assessment and Plan: 08/15 Patient with 2 months worsening XIAO. Etiology includes pneumonia, lung cancer, right pleural effusion, CHF. Agree with ceftriaxone and azithromycin for now. I have ordered a right pleural thoricentesis to assess for a complicated effusion and will send for chemistries, cultures and cytology to assess for cancer. I have ordered a BNP and will order a echocardiogram to assess LV, RV and valve function. Oncology consult also ordered as well. 08/16 improved dyspnea post thoricentesis of 1000 ml joseph fluid with normal pH, differential mac 61%, N11%, L28%, gram stain with no organisms and no WBC. Other chemistry pending. D dimer negative so unlikely PE, BNP elevated and echo pending. To have bone marrow biopsy later today. No focal infilterates post thoricentesis, continue ceftraixone and azithro for now. Cultures negative. 08/17 Remains with XIAO. No reaccumulation of right effusion on CXR. Spoke with pathologist regarding pleural fluid and monocytic looking cells. Patient has 9% blasts on his flow cytometry of bone marrow on preliminary results, further studies at [facility] pending. Other etiologies of dyspnea include patient with LV EF 25-30%, moderate to severe with valve area 1.0 and mean gradient 15 with fluid overload. 08/18 Edema worsening, transudative pleural effusion with LDH 119/serum 539=0.22, T prot < 3/serum 6.0=>0.5, pH 7.41, glucose 108, amylase 40, cultures no growth and bacterial, fungal and AFB stains negative. Wheezes end expiratory today. Day 4 antibiotics. I suspect cardiac disease with fluid overload is major component of SOB, XIAO and wheezes. 08/19 Remains fluid positive with worsening oxygenation, now on 3L. Cardiology and hospitlist to aggressively diurese as toelrated by cardiac and renal systems. (2) COPD (chronic obstructive pulmonary disease): Code(s): J44.9 - Chronic obstructive pulmonary disease, unspecified Status: Acute Assessment and Plan: 08/15 Patient with long history of tobacco (66 PY) and paraseptal emphysema on CT scan 08/14/2020. He has mild expiratory wheezes and I will start albuterol, ipratroprium and budesonide nebs for now. If no improvement will consider systemic steroids. 08/16 Continue albuterol, ipratroprium and budesonide nebs for now. Wheezes persist. 08/17 Continued wheezes and I will start solumedrol 40 Q 6 today, continue albuterol, ipratroprium and budesonide nebs for now. On ceftriaxone and azitho (day 2). 08/18 Improved wheezes and will continue solumedrol 40 Q 6 today, continue albuterol, ipratroprium and budesonide nebs for now. D 3 antibiotics. 08/19 Cpontinued wheezes despite 48 hours high dose steroids. Suspect wheezing and worsing oxygenation due to fluid overload and doubt related to COPD exacerbation and change to prednisone 50 Q day, continue albuterol, ipratroprium and budesonide nebs for now. D4 antibiotics. DC azithro on 08/20 and continue ceftriaxone through 08/22. Will follow with you. (3) Bone marrow disease: Code(s): D75.9 - Disease of blood and blood-forming organs, unspecified Status: Acute Assessment and Plan: Patient with 9% blasts on bone marrow biopsy. Oncology to guide treatment options. Subjective Date/time seen: 08/19/20 08:45 Interval history: 08/15 Narrative: This an 80-year-old male with a history of benign prostatic hypertrophy, depression, gout, hyperlipidemia, hypothyroidism, inguinal hernia, back surgery x3. Patient presented to the ER on 08/14 with weakness and dyspnea on exertion. Patient states that at baseline prior to 2 months ago that he could walk 1/2 of a block but then would stop for leg pain. Over the last 2 months he has noticed worsening dyspnea on exertion such that now he can still walk a half a block but he is very short of breath while doing this. Patient states that he h
--- NOTE | 2020-08-19 09:48 | PM.PNCARD ---
Progress Note: A&P Assessment and Plan (1) Cardiomyopathy: Qualifiers: Cardiomyopathy type: unspecified Qualified Code(s): I42.9 - Cardiomyopathy, unspecified Code(s): I42.9 - Cardiomyopathy, unspecified Status: Acute Assessment and Plan: severe with an EF of 25%. Will increase his metoprolol succinate 25 mg p.o. daily. obviously this is a complicated situation given his likely severe aortic stenosis, underlying cardiomyopathy as well as new malignancy diagnosis. Will await formal biopsy results and Multi disciplinary team will need to formulate a plan/strategy for best treatment protocol. This will likely result in transfer and treatment at a tertiary care facility. Obviously angiogram / left and right heart catheterization to be performed here for further evaluation is cardiomyopathy and aortic stenosis if so desired although again given the complexity of his situation, higher level care may be needed. Continue oral furosemide but will give a small boost of IV furosemide at 20 mg x 1 because of worsening dyspnea today. Nebulizer to be given also (2) Aortic stenosis: Qualifiers: Cardiac valve disease etiology: etiology unspecified Qualified Code(s): I35.0 - Nonrheumatic aortic (valve) stenosis Code(s): I35.0 - Nonrheumatic aortic (valve) stenosis Status: Acute Assessment and Plan: as above. Gentle diuresis but try to avoid over-diuresis given his aortic stenosis. (3) Chronic systolic (congestive) heart failure: Code(s): I50.22 - Chronic systolic (congestive) heart failure Status: Acute Assessment and Plan: Beta-bia and gentle diuresis. Caution with CARLOS-inhibitor given his aortic stenosis (4) Tobacco abuse: Code(s): Z72.0 - Tobacco use Status: Acute Assessment and Plan: recently stopped Subjective Date/time seen: 08/19/20 09:48 Interval history: Mr. Mohr is a pleasant 80 yo M admitted with dyspnea on exertion, pleural effusions, leukocytosis concerning for a bone marrow disorder. Date of service 08/19/2020: Scrotal and penile edema have improved. He is more short of breath today and wheezy. No chest pain. Review of Systems Review of Systems: All systems reviewed & are unremarkable except as noted in HPI and below Constitutional: Constitutional: Denies excessive sweating, Denies fatigue, Denies headache(s), Reports lethargy and Reports weakness Eyes: Eyes: Denies blurry vision ENT: Reports Normal hearing present, Denies headache(s) and Denies neck pain Cardiovascular: Cardiovascular: Denies chest pain, Reports leg edema, Reports dyspnea and Reports dyspnea on exertion Respiratory: Respiratory: Reports dyspnea and Reports dyspnea on exertion Gastrointestinal: Gastrointestinal: Denies abdominal pain Genitourinary: Genitourinary: Denies dysuria and Denies urinary frequency Musculoskeletal: Musculoskeletal: Denies back pain and Denies neck pain Integumentary/Breasts: Skin/Breast: Denies dry skin Neurologic: Reports Normal hearing present, Denies confusion, Denies headache(s) and Reports weakness Psychiatric: Psychiatric: Denies anxiety and Denies confusion Endocrine: Endocrine: Denies excessive sweating and Denies fatigue Hematologic/Lymphatic: Hematologic/Lymphatic: Denies easy bleeding Allergic/Immunologic: Allergic/Immunologic: Denies GI upset with certain foods Exam Narrative: Exam Narrative: Alert and oriented. Appears to be in no acute distress. Appears stated age Const: General: comfortable and no acute distress; No confusion Orientation/consciousness: No confusion HENMT: General nose exam: Normal nares present Eyes: Sclera: sclerae normal Neck: Neck: no JVD Resp: Auscultation: wheezes Cardio: Rate: regular rate Rhythm: regular rhythm Heart sounds: Murmur heart sound present : Other: Scrotal and penile edema noted Skin: General skin exam: normal color Neuro
[2020-08-19] MEDS: allopurinoL 300 MG TABLET PO (10:19)
[2020-08-19] MEDS: FINASTERIDE 5 MG TABLET PO (10:20)
[2020-08-19] MEDS: lamoTRIgine 100 MG TABLET PO (10:20)
[2020-08-19] MEDS: MIRTAZAPINE 30 MG TABLET PO (10:21)
[2020-08-19] MEDS: FUROSEMIDE 40 MG TABLET PO (10:21)
[2020-08-19] MEDS: METOPROLOL SUCCINATE EXT REL 25 MG TABCR PO (10:22)
[2020-08-19] MEDS: TAMSULOSIN HCL 0.4 MG CAPSULE PO (10:23)
[2020-08-19] MEDS: DULoxetine HCL 30 MG CAPSULE.DR PO ×2 (10:23→20:24)
[2020-08-19] MEDS: lisinopriL 2.5 MG TABLET PO (10:24)
[2020-08-19] MEDS: PREGABALIN (*CRX) 75 MG CAPSULE 150 MG PO ×3 (10:24→17:48)
[2020-08-19] MEDS: predniSONE 10 MG TABLET 50 MG PO (10:30)
[2020-08-19] MEDS: FUROSEMIDE INJ 40 MG/4 ML VIAL 20 MG IV PUSH (10:58)
--- NOTE | 2020-08-19 12:55 | PCOTNOTE ---
Attempted OT treatment, but unable to complete as patient leaving room for a chest x-ray. Will attempt again later.
--- NOTE | 2020-08-19 13:57 | PC.NURSE ---
On 08/19/20, the student, [Costa Logan ], provided care and completed [employer] documentation on this patient. I have reviewed the student's documentation and agree with the findings.
--- NOTE | 2020-08-19 14:32 | WPDONCPN ---
Progress Note: A/P - Additional Plan Leukocytosis, thrombocytopenia and anemia. Status post bone marrow biopsy. Bone marrow biopsy flow cytometry showed 9% myeloblasts concerning for myelodysplasia/myeloproliferative disorder. Final pathology report is pending. Patient will follow-up with me in the office to discuss final pathology report and further recommendations. If this turned out to be myelodysplasia/myeloproliferative disorder then we will try hypomethylating agent in my office. I have also discussed this case with Dr. Tilley in cardiology. Based on his final pathology report cardiac treatment will be decided. Pleural effusion. Cytology came back negative for malignancy. This is likely secondary to cardiomyopathy. Continue medical treatment with diuretics under the supervision of Dr. Tilley. - Time Spent With Patient Total time spent is greater than 50% in coordination of care (as documented) at patient's floor/unit and/or counseling patient: 15 - 25 minutes Subjective Interval history: Leukocytosis Thrombocytopenia and anemia Review of Systems - Review of Systems Patient seems to be doing better and denies any worsening of shortness of breath. Denies any fevers and chills. No bleeding and bruising. - Neurologic Reports system reviewed and no additional complaints, except as documented, Reports hearing normal, Reports behavioral changes, Reports weakness, Denies confusion, Denies headache(s) Exam Narrative: Lungs are clear to auscultation bilaterally with occasional wheezing Cardiovascular regular rate rhythm no murmurs Abdomen soft nontender nondistended bowel sounds are positive Extremities no edema PN: Objective Data - Labs CBC & Chem 7: 08/19/20 05:15 08/19/20 05:15 Labs: Laboratory Results - last 24 hr 08/19/20 08/19/20 05:15 05:15 WBC 55.8 H* RBC 3.48 L Hgb 11.1 L Hct 35.2 L MCV 101.1 H MCH 31.9 MCHC 31.5 L RDW 19.2 H Plt Count 105 L MPV 12.8 H Immature Gran % (Auto) Not Reportable Neut % (Auto) Not Reportable Lymph % (Auto) Not Reportable Cascade % (Auto) Not Reportable Eos % (Auto) Not Reportable Baso % (Auto) Not Reportable Lymph # (Auto) Not Reportable Cascade # (Auto) Not Reportable Eos # (Auto) Not Reportable Baso # (Auto) Not Reportable Abs Immat Gran (auto) Not Reportable Absolute Neuts (auto) Not Reportable Absolute Nucleated RBC Not Reportable Total Counted 100 Neutrophils % (Manual) 15 L Lymphocytes % (Manual) 65.0 H Monocytes % (Manual) 20 H Nucleated RBC % Not Reportable Abs Lymphs (Manual) 36.27 H Abs Monocytes (Manual) 11.16 H Atypical Lymphocytes Present Platelet Estimate Slightly decreased Anisocytosis 1+ Ovalocytes 1+ Damian Cells 1+ Sodium 134 L Potassium 4.4 Chloride 105 Carbon Dioxide 23 Anion Gap 6 L BUN 42 H Creatinine 1.90 H Estim Creat Clear Calc 28 Estimated GFR 34 L Glucose 228 H Calcium 8.7 Magnesium 2.5 H Total Bilirubin 0.2 AST 24 ALT 18 Alkaline Phosphatase 77 Total Protein 6.0 L Albumin 3.5
--- NOTE | 2020-08-19 17:50 | PM.IMPN ---
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 Status: Acute Assessment and Plan: Patient presented with weakness and marked leukocytosis. Bone marrow biopsy performed 08/17. Discussed with pathologist from [facility] as well as Dr Wellington late this afternoon regarding the final path report from biopsy which is consistent with chronic myelomonocytic leukemia (CMML). Dr Wellington recommends patient can be discharged from heme/onc standpoint and follow up with him in the office in 1 to 2 weeks. He described treatment plan may be close observation/monitoring vs. if he would develop a critical cytopenia he may be a candidate to start with hypomethylating agent therapy. It seems the patient will benefit now choosing to pursue further cardiac intervention at this point (cath/discussion of TAVR). Will discuss with team tomorrow if this needs to happen as a tertiary care transfer or short-interval outpatient referral after discharge. (2) Dyspnea on exertion: Code(s): R06.00 - Dyspnea, unspecified Status: Acute Assessment and Plan: Likely multifactorial. Pleural effusions, , cardiomyopathy, possible PNA, emphysema/COPD can be contributing. Appreciate cardiology and pulmonology input. (3) Cardiomyopathy: Qualifiers: Cardiomyopathy type: unspecified Qualified Code(s): I42.9 - Cardiomyopathy, unspecified Code(s): I42.9 - Cardiomyopathy, unspecified Status: Acute Assessment and Plan: Echo demonstrates EF 25% with mod to severe . Started beta blockade and low-dose CARLOS inhibitor. Diuresing with Lasix limited by renal function. Appreciate cardiology input on this complex case. Discussed case with Dr Tilley. Patient will benefit from further ischemic workup and could potentially benefit from TAVR. Have been awaiting final pathology reports to create a treatment plan. (4) Aortic stenosis: Qualifiers: Cardiac valve disease etiology: etiology unspecified Qualified Code(s): I35.0 - Nonrheumatic aortic (valve) stenosis Code(s): I35.0 - Nonrheumatic aortic (valve) stenosis Status: Acute Assessment and Plan: See above. (5) Pleural effusion: Code(s): J90 - Pleural effusion, not elsewhere classified Status: Acute Assessment and Plan: R thoracentesis 08/15 yielded 1L joseph fluid. Pleural fluid Gram stain is negative. Studies consistent with transudative effusion likely related to CHF. Pleural fluid path with no malignant cells. (6) 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 Qualified Code(s): J43.9 - Emphysema, unspecified Code(s): J44.9 - Chronic obstructive pulmonary disease, unspecified Status: Chronic Assessment and Plan: Appreciate pulmonology input. IV solu-medrol transitioned to oral prednisone. Continues on nebulized bronchodilator therapy. (7) Pneumonia: Qualifiers: Laterality: bilateral Lung location: unspecified part of lung Pneumonia type: due to unspecified organism Qualified Code(s): J18.9 - Pneumonia, unspecified organism Code(s): J18.9 - Pneumonia, unspecified organism Status: Inactive Assessment and Plan: Continue ceftriaxone and azithromycin (day 4) (8) ELZBIETA (acute kidney injury): Code(s): N17.9 - Acute kidney kristina
[2020-08-19] MEDS: polyethylene glycoL 3350 17 GM POWD.PACK PO (18:31)
[2020-08-19] MEDS: ZOLPIDEM TARTRATE (*CRX) 5 MG TABLET PO (20:24)
[2020-08-19] MEDS: ATORVASTATIN 40 MG TABLET PO (20:24)
[2020-08-20] VITALS (19 sets, daily range): BP systolic 103–132; BP diastolic 52–62; PULSE 62–81; RESP 14–22; TEMP 35.8–36.4; O2SAT 92–100
[2020-08-20] MEDS: IPRATROPIUM BR 0.02% INH SOLN 0.5 MG/2.5 ML VIAL INHALATION ×4 (01:58→20:07)
[2020-08-20] MEDS: ALBUTEROL SULFATE NEB 2.5 MG/0.5 ML INH INHALATION ×4 (01:58→20:07)
[2020-08-20 05:49] LABS: Hematocrit 34.9 % (42.0-52.0); Hemoglobin 11.2 g/dL (14.0-18.0); Mean Corpuscular HGB Conc 32.1 g/dl (32-36); Mean Corpuscular Hemoglobin 31.5 pg (26-34); Mean Corpuscular Volume 98.3 fl (80-100); Mean Platelet Volume 12.9 fl (7.4-10.4); Platelet Count Result 122 k/mm3 (150-375); Red Blood Count 3.55 M/mm3 (4.6-6.20); Red Cell Distribution Width 18.9 % (11.5-14.5)
[2020-08-20 06:03] LABS: Alanine Aminotransferase 28 U/L (4-50); Albumin Level 3.5 g/dL (3.5-5.1); Alkaline Phosphatase 78 U/L (38-126); Anion Gap 8 mmol/L (8-16); Aspartate Amino Transferase 34 U/L (17-59); Bilirubin,Total 0.3 mg/dL (0.2-1.3); Blood Urea Nitrogen 49 mg/dL (9-20); Calcium 8.5 mg/dL (8.4-10.2); Carbon Dioxide 23 mmol/L (22-30); Chloride 104 mmol/L (98-107); Estimated CRCL calculation 28 ml/min; Estimated Glomerular Filt Rate 34; Glucose 210 mg/dL (75-110); INR 1.2; Magnesium 2.4 mg/dL (1.6-2.3); Potassium 4.4 mmol/L (3.4-5.0); Prothrombin Time 15.8 Seconds (11.1-14.7); Sodium 135 mmol/L (137-145)
[2020-08-20] MEDS: LEVOTHYROXINE SODIUM 50 MCG TABLET PO (06:06)
[2020-08-20 06:56] LABS: White Blood Count 63.6 K/mm3 (4.5-10.0)
[2020-08-20 07:08] LABS: Band Neutrophils Percent 2 % (0-6); Lymphocytes Absolute Manual 18.44 K/mm3 (1.1-4.5); Monocytes Absolute Manual 6.36 K/mm3 (0.1-0.90); Monocytes Percent Manual 10 % (3-9); Neutrophils Absolute Manual 38.79 K/mm3 (1.3-6.7); Neutrophils Percent Manual 59 % (46-73); Total Cells Counted 100
[2020-08-20 07:14] LABS: Anisocytosis 1+ (NORMAL); Burr Cells 1+ (NORMAL); Platelet Estimate Decreased (Adequate)
[2020-08-20] MEDS: PREGABALIN (*CRX) 75 MG CAPSULE 150 MG PO ×3 (08:03→17:47)
[2020-08-20] MEDS: TAMSULOSIN HCL 0.4 MG CAPSULE PO (08:04)
[2020-08-20] MEDS: MIRTAZAPINE 30 MG TABLET PO (08:04)
[2020-08-20] MEDS: METOPROLOL SUCCINATE EXT REL 25 MG TABCR PO (08:04)
[2020-08-20] MEDS: lisinopriL 2.5 MG TABLET PO (08:04)
[2020-08-20] MEDS: predniSONE 10 MG TABLET 50 MG PO (08:04)
[2020-08-20] MEDS: allopurinoL 300 MG TABLET PO (08:04)
[2020-08-20] MEDS: lamoTRIgine 100 MG TABLET PO (08:04)
[2020-08-20] MEDS: FUROSEMIDE 40 MG TABLET PO (08:04)
[2020-08-20] MEDS: polyethylene glycoL 3350 17 GM POWD.PACK PO (08:04)
[2020-08-20] MEDS: FINASTERIDE 5 MG TABLET PO (08:04)
[2020-08-20] MEDS: DULoxetine HCL 30 MG CAPSULE.DR PO ×2 (08:04→22:18)
[2020-08-20] MEDS: BUDESONIDE RESPULE NEB 0.5 MG/2 ML AMP INHALATION ×2 (08:46→20:07)
--- NOTE | 2020-08-20 09:55 | PM.IMPN ---
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 Status: Acute Assessment and Plan: Patient presented with weakness and marked leukocytosis. Bone marrow biopsy performed 08/17. WBC 63,000 today. Discussed with pathologist from [facility] as well as Dr Wellington late yesterday regarding the final path report from biopsy which is consistent with chronic myelomonocytic leukemia (CMML). I explained to patient this morning. Dr Wellington recommends patient can be discharged from heme/onc standpoint and follow up with him in the office in 1 to 2 weeks. He described he may be a candidate to start with hypomethylating agent therapy outpatient. (2) Dyspnea on exertion: Code(s): R06.00 - Dyspnea, unspecified Status: Acute Assessment and Plan: Likely multifactorial. Pleural effusions, , cardiomyopathy, possible PNA, emphysema/COPD can be contributing. Appreciate cardiology and pulmonology input. (3) Cardiomyopathy: Qualifiers: Cardiomyopathy type: unspecified Qualified Code(s): I42.9 - Cardiomyopathy, unspecified Code(s): I42.9 - Cardiomyopathy, unspecified Status: Acute Assessment and Plan: Echo demonstrates EF 25% with mod to severe . Started beta blockade and low-dose CARLOS inhibitor. More aggressive diuresis with Lasix limited by renal function. Appreciate cardiology input on this complex case. Discussed with Dr Rolon. Cath +/- TAVR workup would be performed elsewhere. (4) Aortic stenosis: Qualifiers: Cardiac valve disease etiology: etiology unspecified Qualified Code(s): I35.0 - Nonrheumatic aortic (valve) stenosis Code(s): I35.0 - Nonrheumatic aortic (valve) stenosis Status: Acute Assessment and Plan: See above. (5) Pleural effusion: Code(s): J90 - Pleural effusion, not elsewhere classified Status: Acute Assessment and Plan: R thoracentesis 08/15 yielded 1L joseph fluid. Pleural fluid Gram stain is negative. Studies consistent with transudative effusion likely related to CHF. Pleural fluid path with no malignant cells. (6) 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 Qualified Code(s): J43.9 - Emphysema, unspecified Code(s): J44.9 - Chronic obstructive pulmonary disease, unspecified Status: Chronic Assessment and Plan: Appreciate pulmonology input. Maintained on oral prednisone. Continues on nebulized bronchodilator therapy. (7) Pneumonia: Qualifiers: Laterality: bilateral Lung location: unspecified part of lung Pneumonia type: due to unspecified organism Qualified Code(s): J18.9 - Pneumonia, unspecified organism Code(s): J18.9 - Pneumonia, unspecified organism Status: Inactive Assessment and Plan: Continue ceftriaxone and azithromycin (day 5) (8) ELZBIETA (acute kidney injury): Code(s): N17.9 - Acute kidney failure, unspecified Status: Acute Assessment and Plan: Patient's creatinine remains at 1.9 today. Unknown history or baseline. Monitor renal function and urine output. (9) Lymphadenopathy: Code(s): R59.1 - Generalized enlarged lymph nodes Status: Acute Assessment and Plan: Noted on CT also with MARY lung nodules, see above. Angie gayle
--- NOTE | 2020-08-20 17:22 | PM.PNCARD ---
Progress Note: A&P Assessment and Plan (1) Cardiomyopathy: Qualifiers: Cardiomyopathy type: unspecified Qualified Code(s): I42.9 - Cardiomyopathy, unspecified Code(s): I42.9 - Cardiomyopathy, unspecified Status: Acute Assessment and Plan: severe with an EF of 25%. Continue metoprolol succinate 25 mg p.o. daily. Discussed multiple options including risks and benefits with worsening renal failure, stroke, bleeding complications with coronary angiography and possible percutaneous intervention/stent implantation depending on anatomy and or possible need for CABG due to severe multivessel CAD. Patient is not the best candidate for systemic anticoagulation and or dual antiplatelet therapy due to thrombocytopenia and recent MDS. Etiology of cardiomyopathy remains unknown at this time. Also discussed nonischemic etiologies. Oncology recommends outpatient follow-up to discuss therapy for therapy options. We discussed risks and limitations with invasive workup in general and particular limitations if initiated at this hospital vs referral to tertiary center with surgical backup. Patient verbalized understanding and agreed with plan of care. At this time, the plan will be to further optimize medical therapy in hopes to improve his symptoms with further recommendations based upon his response to therapy. (2) Aortic stenosis: Qualifiers: Cardiac valve disease etiology: etiology unspecified Qualified Code(s): I35.0 - Nonrheumatic aortic (valve) stenosis Code(s): I35.0 - Nonrheumatic aortic (valve) stenosis Status: Acute Assessment and Plan: Moderate to severe. Further clarification would be beneficial but likely on an outpatient basis. Gentle diuresis trying to avoid over-diuresis, however, patient remains uncomfortable and significantly short of breath with current management. Explained the dangers with hypotension. (3) Chronic systolic (congestive) heart failure: Code(s): I50.22 - Chronic systolic (congestive) heart failure Status: Acute Assessment and Plan: Remains significant volume overload and decompensated. Will give IV Lasix 40 mg IV tonight and observe response carefully. Arsenio BB thus far. Caution with CARLOS-inhibitor given his aortic stenosis (4) Tobacco abuse: Code(s): Z72.0 - Tobacco use Status: Acute Assessment and Plan: recently stopped (5) ELZBIETA (acute kidney injury): Code(s): N17.9 - Acute kidney failure, unspecified Status: Acute Assessment and Plan: We also discussed at length complicated management particular given his renal failure in combination with for LV function, severe aortic stenosis, underlying lung disease, new diagnosis MDS, and decompensated heart failure. We also discussed renal failure risks with contrast exposure with coronary angiography the potential serious complications in this regard. Subjective Date/time seen: Date of service: 08/20/20 17:22 Interval history: Mr. Mohr is a pleasant 80 yo M admitted with dyspnea on exertion, pleural effusions, MDS, cardiomyopathy, aortic stenosis Complains of ongoing severe shortness of breath with any activity. It coughing, complains of ongoing scrotal and penile edema. Does not feel all that well in general. No chest pain. Very lengthy discussion held with the patient 36 minutes at bedside. All questions answered to his satisfaction Review of Systems Review of Systems: All systems reviewed & are unremarkable except as noted in HPI and below Constitutional: Constitutional: Denies excessive sweating, Denies fatigue, Denies headache(s), Reports lethargy and Reports weakness Eyes: Eyes: Denies blurry vision ENT: Reports Normal hearing present, Denies headache(s) and Denies neck pain Cardiovascular: Cardiovascular: Denies chest pain, Reports leg edema, Reports dyspnea and Reports dyspnea on exertion Respiratory: Respiratory: Reports dyspnea and Re
[2020-08-20] MEDS: FUROSEMIDE INJ 40 MG/4 ML VIAL IV PUSH (18:38)
--- NOTE | 2020-08-20 19:04 | PM.PNPUL ---
Progress Note: A&P Assessment and Plan (1) Dyspnea: Code(s): R06.00 - Dyspnea, unspecified Status: Acute Assessment and Plan: 08/15 Patient with 2 months worsening XIAO. Etiology includes pneumonia, lung cancer, right pleural effusion, CHF. Agree with ceftriaxone and azithromycin for now. I have ordered a right pleural thoracentesis to assess for a complicated effusion and will send for chemistries, cultures and cytology to assess for cancer. I have ordered a BNP and will order a echocardiogram to assess LV, RV and valve function. Oncology consult also ordered as well. 08/16 improved dyspnea post thoracentesis of 1000 ml joseph fluid with normal pH, differential mac 61%, N11%, L28%, gram stain with no organisms and no WBC. Other chemistry pending. D dimer negative so unlikely PE, BNP elevated and echo pending. To have bone marrow biopsy later today. No focal infiltrates post thoracentesis, continue ceftriaxone and azithro for now. Cultures negative. 08/17 Remains with XIAO. No reaccumulation of right effusion on . Spoke with pathologist regarding pleural fluid and monocytic looking cells. Patient has 9% blasts on his flow cytometry of bone marrow on preliminary results, further studies at [facility] pending. Other etiologies of dyspnea include patient with LV EF 25-30%, moderate to severe with valve area 1.0 and mean gradient 15 with fluid overload. 08/18 Edema worsening, transudative pleural effusion with LDH 119/serum 539=0.22, T prot < 3/serum 6.0=>0.5, pH 7.41, glucose 108, amylase 40, cultures no growth and bacterial, fungal and AFB stains negative. Wheezes end expiratory today. Day 4 antibiotics. I suspect cardiac disease with fluid overload is major component of SOB, XIAO and wheezes. 08/19 Remains fluid positive with worsening oxygenation, now on 3L. Cardiology and hospitalist to aggressively diurese as tolerated by cardiac and renal systems. 08/20 Increased diuretic with good output. O2 at 2 L/min, lower. 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 He has mild expiratory wheezes and I will start albuterol, ipratroprium and budesonide nebs for now. If no improvement will consider systemic steroids. 08/16 Continue albuterol, ipratroprium and budesonide nebs for now. Wheezes persist. 08/17 Continued wheezes and I will start solumedrol 40 Q 6 today, continue albuterol, ipratropium and budesonide nebs for now. On ceftriaxone and azitho (day 2). 08/18 Improved wheezes and will continue solumedrol 40 Q 6 today, continue albuterol, ipratropium and budesonide nebs for now. D 3 antibiotics. 08/19 Continued wheezes despite 48 hours high dose steroids. Suspect wheezing and worsening oxygenation due to fluid overload and doubt related to COPD exacerbation and change to prednisone 50 Q day, continue albuterol, ipratropium and budesonide nebs for now. D4 antibiotics. DC azithro on 08/20 and continue ceftriaxone through 08/22. (3) Bone marrow disease: Code(s): D75.9 - Disease of blood and blood-forming organs, unspecified Status: Acute Assessment and Plan: Patient with 9% blasts on bone marrow biopsy. Oncology to guide treatment options. Subjective Date/time seen: 08/20/20 19:04 John oMhr is an 80 year old man with pleural effusions and shortness of breath, had 1 L thoracentesis 08/15/2020 with no evidence of lung malignancy. His bone marrow bx shows 9% blasts, and he will f/u w Dr Wellington as an outpatient for possible Rx of myelodysplastic d/o if path is consistent with MDS. He has a visitor at the bedside. Diuretic was increased, and he is responding well. Will be here a few more
[2020-08-20] MEDS: ATORVASTATIN 40 MG TABLET PO (22:18)
[2020-08-20] MEDS: ZOLPIDEM TARTRATE (*CRX) 5 MG TABLET PO (22:19)
[2020-08-20] MEDS: CALCIUM CARBONATE (TUMS) 500 MG (200 MG ELEMENTAL) PO (22:19)
[2020-08-21] VITALS (24 sets, daily range): BP systolic 117–143; BP diastolic 49–87; PULSE 68–81; RESP 16–22; TEMP 35.8–36.5; O2SAT 92–95
[2020-08-21] MEDS: IPRATROPIUM BR 0.02% INH SOLN 0.5 MG/2.5 ML VIAL INHALATION ×4 (01:47→19:35)
[2020-08-21] MEDS: ALBUTEROL SULFATE NEB 2.5 MG/0.5 ML INH INHALATION ×4 (01:47→19:35)
--- NOTE | 2020-08-21 03:07 | PC.NURSE ---
Daylight Savings Time For Daylight Savings Time Ending in the Fall - Clocks are moved back. For Daylight Savings Time Beginning in the Spring - Clocks are moved ahead. For [facility], the time of change occurs at 0200 hrs. Time is taken from the tray server. This entry on the patient's chart recognizes the change in time reflected during documentation. Example: 2 entries for vital signs may be charted for 0200 hrs.
[2020-08-21 05:26] LABS: Hematocrit 33.5 % (42.0-52.0); Hemoglobin 10.8 g/dL (14.0-18.0); Mean Corpuscular HGB Conc 32.2 g/dl (32-36); Mean Corpuscular Hemoglobin 31.4 pg (26-34); Mean Corpuscular Volume 97.4 fl (80-100); Mean Platelet Volume 12.5 fl (7.4-10.4); Platelet Count Result 128 k/mm3 (150-375); Red Blood Count 3.44 M/mm3 (4.6-6.20); Red Cell Distribution Width 18.9 % (11.5-14.5)
[2020-08-21 05:42] LABS: Alanine Aminotransferase 46 U/L (4-50); Albumin Level 3.4 g/dL (3.5-5.1); Alkaline Phosphatase 82 U/L (38-126); Anion Gap 5 mmol/L (8-16); Aspartate Amino Transferase 38 U/L (17-59); Bilirubin,Total 0.3 mg/dL (0.2-1.3); Blood Urea Nitrogen 51 mg/dL (9-20); Calcium 8.4 mg/dL (8.4-10.2); Carbon Dioxide 27 mmol/L (22-30); Chloride 103 mmol/L (98-107); Estimated CRCL calculation 30 ml/min; Estimated Glomerular Filt Rate 36; Glucose 264 mg/dL (75-110); Magnesium 2.4 mg/dL (1.6-2.3); Potassium 4.6 mmol/L (3.4-5.0); Sodium 135 mmol/L (137-145)
[2020-08-21] MEDS: LEVOTHYROXINE SODIUM 50 MCG TABLET PO (05:45)
[2020-08-21 05:50] LABS: White Blood Count 51.5 K/mm3 (4.5-10.0)
[2020-08-21 05:53] LABS: Band Neutrophils Percent 2 % (0-6); Lymphocytes Absolute Manual 15.45 K/mm3 (1.1-4.5); Monocytes Absolute Manual 7.72 K/mm3 (0.1-0.90); Monocytes Percent Manual 15 % (3-9); Neutrophils Absolute Manual 28.32 K/mm3 (1.3-6.7); Neutrophils Percent Manual 53 % (46-73); Platelet Estimate Adequate (Adequate); Total Cells Counted 100
[2020-08-21] MEDS: BUDESONIDE RESPULE NEB 0.5 MG/2 ML AMP INHALATION ×2 (08:17→19:35)
[2020-08-21] MEDS: SALINE 0.65% NAS SOLN 44 ML BTL 1 SPRAY NASAL (08:45)
[2020-08-21] MEDS: allopurinoL 300 MG TABLET PO (08:46)
[2020-08-21] MEDS: METOPROLOL SUCCINATE EXT REL 25 MG TABCR PO (08:46)
[2020-08-21] MEDS: PREGABALIN (*CRX) 75 MG CAPSULE 150 MG PO ×3 (08:46→16:28)
[2020-08-21] MEDS: TAMSULOSIN HCL 0.4 MG CAPSULE PO (08:46)
[2020-08-21] MEDS: DULoxetine HCL 30 MG CAPSULE.DR PO ×2 (08:46→20:47)
[2020-08-21] MEDS: MIRTAZAPINE 30 MG TABLET PO (08:46)
[2020-08-21] MEDS: lamoTRIgine 100 MG TABLET PO (08:47)
[2020-08-21] MEDS: polyethylene glycoL 3350 17 GM POWD.PACK PO (08:47)
[2020-08-21] MEDS: FINASTERIDE 5 MG TABLET PO (08:47)
[2020-08-21] MEDS: predniSONE 10 MG TABLET 50 MG PO (08:47)
[2020-08-21] MEDS: FUROSEMIDE INJ 40 MG/4 ML VIAL IV PUSH ×2 (08:54→16:28)
[2020-08-21 09:53] LABS: Hemoglobin A1C 6.1 % (<5.7)
--- NOTE | 2020-08-21 15:17 | PM.PNCARD ---
Progress Note: A&P Assessment and Plan (1) Cardiomyopathy: Qualifiers: Cardiomyopathy type: unspecified Qualified Code(s): I42.9 - Cardiomyopathy, unspecified Code(s): I42.9 - Cardiomyopathy, unspecified Status: Acute Assessment and Plan: EF 25%. Continue metoprolol succinate 25 mg p.o. daily. Discussed multiple options including risks and benefits with worsening renal failure, stroke, bleeding complications with coronary angiography and possible percutaneous intervention/stent implantation depending on anatomy and or possible need for CABG due to severe multivessel CAD. Patient is not the best candidate for systemic anticoagulation and or dual antiplatelet therapy due to thrombocytopenia and recent MDS. Etiology of cardiomyopathy remains unknown at this time. Also discussed nonischemic etiologies. - Focus on symptomatic management at this time diuresis as tolerated. Further workup and evaluation as clinically appropriate once he is further stabilized. (2) Aortic stenosis: Qualifiers: Cardiac valve disease etiology: etiology unspecified Qualified Code(s): I35.0 - Nonrheumatic aortic (valve) stenosis Code(s): I35.0 - Nonrheumatic aortic (valve) stenosis Status: Acute Assessment and Plan: Moderate to severe. Further clarification would be beneficial but likely on an outpatient basis. Gentle diuresis trying to avoid over-diuresis, however, patient remains uncomfortable and significantly short of breath with current management. Explained the dangers with hypotension. (3) Chronic systolic (congestive) heart failure: Code(s): I50.22 - Chronic systolic (congestive) heart failure Status: Acute Assessment and Plan: Remains significant volume overload and decompensated. Continue IV Lasix b.i.d. although per documentation +fluid balance to date. Inotrope a consideration,will monitor Arsenio BB thus far. Caution with CARLOS-inhibitor given his aortic stenosis. Entresto vs CARLOS-I or ARB as renal function permits (4) Tobacco abuse: Code(s): Z72.0 - Tobacco use Status: Acute Assessment and Plan: Recently quit smoking (5) ELZBIETA (acute kidney injury): Code(s): N17.9 - Acute kidney failure, unspecified Status: Acute Assessment and Plan: Stable, creatinine 1.8. Continue to monitor closely. Electrolytes stable. (6) 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 Qualified Code(s): J43.9 - Emphysema, unspecified Code(s): J44.9 - Chronic obstructive pulmonary disease, unspecified Status: Chronic Assessment and Plan: Significant diffuse expiratory wheezes. continue bronchodilator therapy, currently on prednisone per pulmonology. 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 New diagnosis. Subjective Date/time seen: Date of service:08/21/20 15:17 Interval history: Mr. Mohr is a pleasant 80 yo M admitted with dyspnea on exertion, pleural effusions, MDS, cardiomyopathy, aortic stenosis States he still feels quite short of breath but admits may be a little bit better today. He is urinating much more with IV Lasix. Edema about the same. No chest pain. No new issues overnight. Review of Systems Review of Systems: All systems reviewed & are unremarkable except as noted in HPI and below Constitutional: Constitutional: Denies excessive sweating, Denies fatigue, Denies headache(s), Reports lethargy and Reports weakness Eyes: Eyes: Denies blurry vision ENT: Reports Normal hearing present, Denies headache(s
--- NOTE | 2020-08-21 15:21 | PM.IMPN ---
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 Bone marrow biopsy performed 08/17. WBC 51,500 today. Final path report from biopsy is consistent with chronic myelomonocytic leukemia (CMML). Has been discussed with patient. Patient also had bilateral lung nodules. Dr Wellington recommends patient can be discharged from heme/onc standpoint and follow up with him in the office in 1 to 2 weeks. He described he may be a candidate to start with hypomethylating agent therapy outpatient. (2) Dyspnea on exertion: Code(s): R06.00 - Dyspnea, unspecified Status: Acute Assessment and Plan: Likely multifactorial. Pleural effusions, , cardiomyopathy and fluid overload, possible PNA, emphysema/COPD can be contributing. Appreciate cardiology and pulmonology input. (3) Cardiomyopathy: Qualifiers: Cardiomyopathy type: unspecified Qualified Code(s): I42.9 - Cardiomyopathy, unspecified Code(s): I42.9 - Cardiomyopathy, unspecified Status: Acute Assessment and Plan: Echo demonstrates EF 25% with mod to severe . Appreciate cardiology input on this complex case. Discussed with Dr Rolon. Cath +/- TAVR workup would be performed elsewhere. Maintained on metoprolol, lisinopril held. Remains on IV Lasix 40mg BID. (4) Aortic stenosis: Qualifiers: Cardiac valve disease etiology: etiology unspecified Qualified Code(s): I35.0 - Nonrheumatic aortic (valve) stenosis Code(s): I35.0 - Nonrheumatic aortic (valve) stenosis Status: Acute Assessment and Plan: See above. (5) Pleural effusion: Code(s): J90 - Pleural effusion, not elsewhere classified Status: Acute Assessment and Plan: R thoracentesis 08/15 yielded 1L joseph fluid. Pleural fluid Gram stain is negative. Studies consistent with transudative effusion likely related to CHF. Pleural fluid path with no malignant cells. (6) 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 Qualified Code(s): J43.9 - Emphysema, unspecified Code(s): J44.9 - Chronic obstructive pulmonary disease, unspecified Status: Chronic Assessment and Plan: Appreciate pulmonology input. Maintained on oral prednisone. Continues on nebulized bronchodilator therapy. (7) Pneumonia: Qualifiers: Laterality: bilateral Lung location: unspecified part of lung Pneumonia type: due to unspecified organism Qualified Code(s): J18.9 - Pneumonia, unspecified organism Code(s): J18.9 - Pneumonia, unspecified organism Status: Inactive Assessment and Plan: Completed 5-day course of ceftriaxone and azithromycin. (8) ELZBIETA (acute kidney injury): Code(s): N17.9 - Acute kidney failure, unspecified Status: Acute Assessment and Plan: Patient's creatinine remains at 1.8 today. Unknown history or baseline. Monitor renal function and urine output. (9) Lymphadenopathy: Code(s): R59.1 - Generalized enlarged lymph nodes Status: Acute Assessment and Plan: Noted on CT also with MARY lung nodules, see above. R axillary and mediastinal lymphadenopathy. Continue heme/onc recomm
[2020-08-21] MEDS: ATORVASTATIN 40 MG TABLET PO (20:47)
[2020-08-21] MEDS: ZOLPIDEM TARTRATE (*CRX) 5 MG TABLET PO (20:47)
[2020-08-22] VITALS (20 sets, daily range): BP systolic 120–141; BP diastolic 56–78; PULSE 66–88; RESP 16–20; TEMP 35.9–36.1; O2SAT 92–100
[2020-08-22] MEDS: ALBUTEROL SULFATE NEB 2.5 MG/0.5 ML INH INHALATION ×4 (02:25→20:48)
[2020-08-22] MEDS: IPRATROPIUM BR 0.02% INH SOLN 0.5 MG/2.5 ML VIAL INHALATION ×4 (02:25→20:48)
[2020-08-22 04:51] LABS: Hematocrit 33.6 % (42.0-52.0); Hemoglobin 10.8 g/dL (14.0-18.0); Mean Corpuscular HGB Conc 32.1 g/dl (32-36); Mean Corpuscular Hemoglobin 31.7 pg (26-34); Mean Corpuscular Volume 98.5 fl (80-100); Mean Platelet Volume 11.8 fl (7.4-10.4); Platelet Count Result 114 k/mm3 (150-375); Red Blood Count 3.41 M/mm3 (4.6-6.20); Red Cell Distribution Width 19.2 % (11.5-14.5)
[2020-08-22 05:08] LABS: Anion Gap 5 mmol/L (8-16); Blood Urea Nitrogen 54 mg/dL (9-20); Calcium 8.4 mg/dL (8.4-10.2); Carbon Dioxide 28 mmol/L (22-30); Chloride 103 mmol/L (98-107); Estimated CRCL calculation 33 ml/min; Estimated Glomerular Filt Rate 42; Glucose 283 mg/dL (75-110); Magnesium 2.4 mg/dL (1.6-2.3); Potassium 4.5 mmol/L (3.4-5.0); Sodium 136 mmol/L (137-145)
[2020-08-22 05:19] LABS: White Blood Count 51.5 K/mm3 (4.5-10.0)
[2020-08-22 05:28] LABS: Band Neutrophils Percent 2 % (0-6); Lymphocytes Absolute Manual 24.72 K/mm3 (1.1-4.5); Monocytes Absolute Manual 7.21 K/mm3 (0.1-0.90); Monocytes Percent Manual 14 % (3-9); Neutrophils Absolute Manual 19.57 K/mm3 (1.3-6.7); Neutrophils Percent Manual 36 % (46-73); Total Cells Counted 100
[2020-08-22 05:29] LABS: Platelet Estimate Adequate (Adequate)
[2020-08-22] MEDS: LEVOTHYROXINE SODIUM 50 MCG TABLET PO (05:53)
[2020-08-22] MEDS: BUDESONIDE RESPULE NEB 0.5 MG/2 ML AMP INHALATION ×2 (08:07→20:48)
[2020-08-22] MEDS: MIRTAZAPINE 30 MG TABLET PO (09:05)
[2020-08-22] MEDS: FINASTERIDE 5 MG TABLET PO (09:05)
[2020-08-22] MEDS: METOPROLOL SUCCINATE EXT REL 25 MG TABCR PO (09:05)
[2020-08-22] MEDS: FUROSEMIDE INJ 40 MG/4 ML VIAL IV PUSH (09:05)
[2020-08-22] MEDS: PREGABALIN (*CRX) 75 MG CAPSULE 150 MG PO ×3 (09:05→17:40)
[2020-08-22] MEDS: DULoxetine HCL 30 MG CAPSULE.DR PO ×2 (09:05→20:39)
[2020-08-22] MEDS: allopurinoL 300 MG TABLET PO (09:05)
[2020-08-22] MEDS: predniSONE 10 MG TABLET 50 MG PO (09:05)
[2020-08-22] MEDS: TAMSULOSIN HCL 0.4 MG CAPSULE PO (09:05)
--- NOTE | 2020-08-22 10:10 | PM.PNPUL ---
Progress Note: A&P Assessment and Plan (1) Dyspnea: Code(s): R06.00 - Dyspnea, unspecified Status: Acute Assessment and Plan: 08/15 Patient with 2 months worsening XIAO. Etiology includes pneumonia, lung cancer, right pleural effusion, CHF. Agree with ceftriaxone and azithromycin for now. I have ordered a right pleural thoracentesis to assess for a complicated effusion and will send for chemistries, cultures and cytology to assess for cancer. I have ordered a BNP and will order a echocardiogram to assess LV, RV and valve function. Oncology consult also ordered as well. 08/16 improved dyspnea post thoracentesis of 1000 ml joseph fluid with normal pH, differential mac 61%, N11%, L28%, gram stain with no organisms and no WBC. Other chemistry pending. D dimer negative so unlikely PE, BNP elevated and echo pending. To have bone marrow biopsy later today. No focal infiltrates post thoracentesis, continue ceftriaxone and azithro for now. Cultures negative. 08/17 Remains with XIAO. No reaccumulation of right effusion on . Spoke with pathologist regarding pleural fluid and monocytic looking cells. Patient has 9% blasts on his flow cytometry of bone marrow on preliminary results, further studies at [facility] pending. Other etiologies of dyspnea include patient with LV EF 25-30%, moderate to severe with valve area 1.0 and mean gradient 15 with fluid overload. 08/18 Edema worsening, transudative pleural effusion with LDH 119/serum 539=0.22, T prot < 3/serum 6.0=>0.5, pH 7.41, glucose 108, amylase 40, cultures no growth and bacterial, fungal and AFB stains negative. Wheezes end expiratory today. Day 4 antibiotics. I suspect cardiac disease with fluid overload is major component of SOB, XIAO and wheezes. 08/19 Remains fluid positive with worsening oxygenation, now on 3L. Cardiology and hospitalist to aggressively diurese as tolerated by cardiac and renal systems. 08/20 Increased diuretic with good output. O2 at 2 L/min, lower. 08/21 Continue diuresis as toelrated by renal and cardiac systems (cardiomyopathy and ). 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 He has mild expiratory wheezes and I will start albuterol, ipratroprium and budesonide nebs for now. If no improvement will consider systemic steroids. 08/16 Continue albuterol, ipratroprium and budesonide nebs for now. Wheezes persist. 08/17 Continued wheezes and I will start solumedrol 40 Q 6 today, continue albuterol, ipratropium and budesonide nebs for now. On ceftriaxone and azitho (day 2). 08/18 Improved wheezes and will continue solumedrol 40 Q 6 today, continue albuterol, ipratropium and budesonide nebs for now. D 3 antibiotics. 08/19 Continued wheezes despite 48 hours high dose steroids. Suspect wheezing and worsening oxygenation due to fluid overload and doubt related to COPD exacerbation and change to prednisone 50 Q day, continue albuterol, ipratropium and budesonide nebs for now. D4 antibiotics. DC azithro on 08/20 and continue ceftriaxone through 08/22. 08/22 DC prednisone later today after 6 days. continue albuterol, ipratropium and budesonide nebs for now. Lasdt dose of ceftriaxone today. Spoke with son Tyrone regarding lung issues of COPD and fluid overload. He is aware of cancer in bone marrow as well. (3) Bone marrow disease: Code(s): D75.9 - Disease of blood and blood-forming organs, unspecified Status: Acute Assessment and Plan: Patient with 9% blasts on bone marrow biopsy. Oncology to guide treatment options as outpatient. Subjective Date/time seen: 08/22/20 10:10 Interval history: 08/15 Narrative: This an 8
--- NOTE | 2020-08-22 10:15 | PM.PNCARD ---
Progress Note: A&P Assessment and Plan (1) Cardiomyopathy: Qualifiers: Cardiomyopathy type: unspecified Qualified Code(s): I42.9 - Cardiomyopathy, unspecified Code(s): I42.9 - Cardiomyopathy, unspecified Status: Acute Assessment and Plan: EF 25%. Continue metoprolol succinate 25 mg p.o. daily. Prognosis guarded given multiple comorbidities. Patient well aware. - Focus on symptomatic management at this time diuresis as tolerated. Further workup at outside facility and evaluation as clinically appropriate once he is further stabilized. -Ideally, would add Spironolactone but given renal failure will need to be very cautious. (2) Aortic stenosis: Qualifiers: Cardiac valve disease etiology: etiology unspecified Qualified Code(s): I35.0 - Nonrheumatic aortic (valve) stenosis Code(s): I35.0 - Nonrheumatic aortic (valve) stenosis Status: Acute Assessment and Plan: Moderate to severe. Further clarification would be beneficial but likely on an outpatient basis. Gentle diuresis trying to avoid over-diuresis, however, patient remains uncomfortable and significantly short of breath with current management. Explained the dangers with hypotension. (3) Chronic systolic (congestive) heart failure: Code(s): I50.22 - Chronic systolic (congestive) heart failure Status: Acute Assessment and Plan: Remains significant volume overload and decompensated. - DC IV Lasix. Change to Bumex 1 mg IV BID. Arsenio BB thus far. Would favor Entresto, start very low half tablet 24/26mg BID. Will consider in AM if BP and renal function remain stable. (4) Tobacco abuse: Code(s): Z72.0 - Tobacco use Status: Acute Assessment and Plan: Recently quit smoking (5) ELZBIETA (acute kidney injury): Code(s): N17.9 - Acute kidney failure, unspecified Status: Acute Assessment and Plan: Stable, creatinine 1.6 Slightly improved. Continue to monitor closely. Electrolytes stable. (6) 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 Qualified Code(s): J43.9 - Emphysema, unspecified Code(s): J44.9 - Chronic obstructive pulmonary disease, unspecified Status: Chronic Assessment and Plan: Expiratory wheezes improved. continue bronchodilator therapy, currently on prednisone per pulmonology. 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 New diagnosis. Subjective Date/time seen: Date of service: 08/22/20 10:15 Interval history: Mr. Mohr is a pleasant 80 yo M admitted with dyspnea on exertion, pleural effusions, MDS, cardiomyopathy, aortic stenosis He does feel better today. Less wheezing, still short of breath with activity but improved. Notes he urinates a bit more weak after Lasix. No dizziness. No palpitations or chest pain. Intermittent coughing and wheezing. Review of Systems Review of Systems: All systems reviewed & are unremarkable except as noted in HPI and below Constitutional: Constitutional: Denies excessive sweating, Denies fatigue, Denies headache(s), Reports lethargy and Reports weakness Eyes: Eyes: Denies blurry vision ENT: Reports Normal hearing present, Denies headache(s) and Denies neck pain Cardiovascular: Cardiovascular: Denies chest pain, Reports leg edema, Reports dyspnea and Reports dyspnea on exertion Respiratory: Respiratory: Reports dyspnea and Reports dyspnea on exertion Gastrointestinal: Gastrointestinal: Denies abdominal pain Genitourinary: Genitourinary: Denies dysuria and Denies urinary f
[2020-08-22] MEDS: lamoTRIgine 100 MG TABLET PO (11:21)
--- NOTE | 2020-08-22 16:10 | PM.IMPN ---
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 <Yesika Hdz PA-C - Last Filed: 08/22/20 20:59> Code(s): C93.10 - 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 <Yesika Hdz PA-C - Last Filed: 08/22/20 20:59> Status: Acute <Yesika Hdz PA-C - Last Filed: 08/22/20 20:59> Assessment and Plan: Patient presented with weakness, XIAO and marked leukocytosis. WBC 51,500 today. Final path report from bone marrow biopsy 08/17 is consistent with chronic myelomonocytic leukemia (CMML). Has been discussed with patient and family. Patient also has bilateral lung nodules. Dr Wellington recommends patient can be discharged from heme/onc standpoint and follow up with him in the office in 1 to 2 weeks. He described he may be a candidate to start with hypomethylating agent therapy outpatient. <Yesika Hdz PA-C - Last Filed: 08/22/20 20:59> (2) Dyspnea on exertion: Code(s): R06.00 - Dyspnea, unspecified <Yesika Hdz PA-C - Last Filed: 08/22/20 20:59> Status: Acute <Yesika Hdz PA-C - Last Filed: 08/22/20 20:59> Assessment and Plan: Likely multifactorial. Pleural effusions, , cardiomyopathy and fluid overload, possible PNA, emphysema/COPD can be contributing. Appreciate cardiology and pulmonology input. <Yesika Hdz PA-C - Last Filed: 08/22/20 20:59> (3) Cardiomyopathy: Qualifiers: Cardiomyopathy type: unspecified Qualified Code(s): I42.9 - Cardiomyopathy, unspecified <JIMMY CrawfordC - Last Filed: 08/22/20 20:59> Code(s): I42.9 - Cardiomyopathy, unspecified <JIMMY CrawfordC - Last Filed: 08/22/20 20:59> Status: Acute <JIMMY CrawfordC - Last Filed: 08/22/20 20:59> Assessment and Plan: Echo demonstrates EF 25% with mod to severe . Decompensated with fluid overload. Appreciate cardiology input on this complex case. Discussed with Dr Rolon. Cath +/- TAVR workup would be performed elsewhere. Maintained on metoprolol, lisinopril held. Had been on Lasix 40mg IV BID which cardiology has changed to Bumex today. Continue aggressive diuresis as hemodynamics and renal function can tolerate. <JIMMY CrawfordC - Last Filed: 08/22/20 20:59> (4) Aortic stenosis: Qualifiers: Cardiac valve disease etiology: etiology unspecified Qualified Code(s): I35.0 - Nonrheumatic aortic (valve) stenosis <Yesika Hdz PA-C - Last Filed: 08/22/20 20:59> Code(s): I35.0 - Nonrheumatic aortic (valve) stenosis <JIMMY CrawfordC - Last Filed: 08/22/20 20:59> Status: Acute <JIMMY CrawfordC - Last Filed: 08/22/20 20:59> Assessment and Plan: See above. <JIMMY CrawfordC - Last Filed: 08/22/20 20:59> (5) Pleural effusion: Code(s): J90 - Pleural effusion, not elsewhere classified <Yesika Hdz PA-C - Last Filed: 08/22/20 20:59> Status: Acute <Yesika Hdz PA-C - Last Filed: 08/22/20 20:59> Assessment and Plan: R thoracentesis 08/15 yielded 1L joseph fluid. Pleural fluid Gram stain is negative. Studies consistent with transudative effusion likely related to CHF. Pleural fluid path with no malignant cells. Continue diuresis. <Yesika Hdz PA-C - Last Filed: 08/22/20 20:59> (6) 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 type: unspec
[2020-08-22] MEDS: BUMETANIDE INJ 1 MG/4 ML VIAL IV PUSH (17:41)
[2020-08-22] MEDS: ATORVASTATIN 40 MG TABLET PO (20:39)
[2020-08-22 21:20] LABS: Glucose Point of Care 373 (65-105)
[2020-08-22] MEDS: ZOLPIDEM TARTRATE (*CRX) 5 MG TABLET PO (23:56)
[2020-08-23] VITALS (30 sets, daily range): BP systolic 113–136; BP diastolic 42–76; PULSE 71–88; RESP 16–20; TEMP 36.1–36.4; O2SAT 86–97
[2020-08-23 00:01] LABS: Glucose Point of Care 353 (65-105)
[2020-08-23] MEDS: IPRATROPIUM BR 0.02% INH SOLN 0.5 MG/2.5 ML VIAL INHALATION ×5 (02:00→21:46)
[2020-08-23] MEDS: ALBUTEROL SULFATE NEB 2.5 MG/0.5 ML INH INHALATION ×5 (02:00→21:46)
[2020-08-23] MEDS: LEVOTHYROXINE SODIUM 50 MCG TABLET PO (05:39)
[2020-08-23 05:40] LABS: Hematocrit 35.3 % (42.0-52.0); Hemoglobin 11.2 g/dL (14.0-18.0); Mean Corpuscular HGB Conc 31.7 g/dl (32-36); Mean Corpuscular Hemoglobin 31.7 pg (26-34); Mean Platelet Volume 11.8 fl (7.4-10.4); Platelet Count Result 117 k/mm3 (150-375); Red Blood Count 3.53 M/mm3 (4.6-6.20); Red Cell Distribution Width 19.1 % (11.5-14.5)
[2020-08-23 05:52] LABS: Alanine Aminotransferase 69 U/L (4-50); Albumin Level 3.7 g/dL (3.5-5.1); Alkaline Phosphatase 100 U/L (38-126); Anion Gap 5 mmol/L (8-16); Aspartate Amino Transferase 47 U/L (17-59); Bilirubin,Total 0.4 mg/dL (0.2-1.3); Blood Urea Nitrogen 51 mg/dL (9-20); Calcium 8.8 mg/dL (8.4-10.2); Carbon Dioxide 30 mmol/L (22-30); Chloride 102 mmol/L (98-107); Estimated CRCL calculation 38 ml/min; Estimated Glomerular Filt Rate 49; Glucose 259 mg/dL (75-110); Magnesium 2.3 mg/dL (1.6-2.3); Potassium 4.3 mmol/L (3.4-5.0); Sodium 137 mmol/L (137-145)
[2020-08-23 06:04] LABS: White Blood Count 56.1 K/mm3 (4.5-10.0)
[2020-08-23 06:09] LABS: Atypical Lymphocytes Present; Lymphocytes Absolute Manual 7.85 K/mm3 (1.1-4.5); Monocytes Absolute Manual 16.26 K/mm3 (0.1-0.90); Monocytes Percent Manual 29 % (3-9); Neutrophils Percent Manual 57 % (46-73); Platelet Estimate Decreased (Adequate); Total Cells Counted 100
[2020-08-23] MEDS: BUDESONIDE RESPULE NEB 0.5 MG/2 ML AMP INHALATION (07:21)
[2020-08-23] MEDS: INSULIN ASPART (*BKC) 100 UNITS/ML SUB-Q ×3 (07:41→17:50)
[2020-08-23] MEDS: DULoxetine HCL 30 MG CAPSULE.DR PO ×2 (09:08→20:28)
[2020-08-23] MEDS: METOPROLOL SUCCINATE EXT REL 25 MG TABCR PO (09:08)
[2020-08-23] MEDS: FINASTERIDE 5 MG TABLET PO (09:08)
[2020-08-23] MEDS: lamoTRIgine 100 MG TABLET PO (09:08)
[2020-08-23] MEDS: PREGABALIN (*CRX) 75 MG CAPSULE 150 MG PO ×3 (09:08→17:42)
[2020-08-23] MEDS: MIRTAZAPINE 30 MG TABLET PO (09:08)
[2020-08-23] MEDS: allopurinoL 300 MG TABLET PO (09:08)
[2020-08-23] MEDS: BUMETANIDE INJ 1 MG/4 ML VIAL IV PUSH ×2 (09:08→17:43)
[2020-08-23] MEDS: TAMSULOSIN HCL 0.4 MG CAPSULE PO (09:08)
[2020-08-23 09:39] LABS: Glucose Point of Care 202 (65-105)
--- NOTE | 2020-08-23 09:40 | PM.PNPUL ---
Progress Note: A&P Assessment and Plan (1) Dyspnea: Code(s): R06.00 - Dyspnea, unspecified Status: Acute Assessment and Plan: 08/15 Patient with 2 months worsening XIAO. Etiology includes pneumonia, lung cancer, right pleural effusion, CHF. Agree with ceftriaxone and azithromycin for now. I have ordered a right pleural thoracentesis to assess for a complicated effusion and will send for chemistries, cultures and cytology to assess for cancer. I have ordered a BNP and will order a echocardiogram to assess LV, RV and valve function. Oncology consult also ordered as well. 08/16 improved dyspnea post thoracentesis of 1000 ml joseph fluid with normal pH, differential mac 61%, N11%, L28%, gram stain with no organisms and no WBC. Other chemistry pending. D dimer negative so unlikely PE, BNP elevated and echo pending. To have bone marrow biopsy later today. No focal infiltrates post thoracentesis, continue ceftriaxone and azithro for now. Cultures negative. 08/17 Remains with XIAO. No reaccumulation of right effusion on . Spoke with pathologist regarding pleural fluid and monocytic looking cells. Patient has 9% blasts on his flow cytometry of bone marrow on preliminary results, further studies at [facility] pending. Other etiologies of dyspnea include patient with LV EF 25-30%, moderate to severe with valve area 1.0 and mean gradient 15 with fluid overload. 08/18 Edema worsening, transudative pleural effusion with LDH 119/serum 539=0.22, T prot < 3/serum 6.0=>0.5, pH 7.41, glucose 108, amylase 40, cultures no growth and bacterial, fungal and AFB stains negative. Wheezes end expiratory today. Day 4 antibiotics. I suspect cardiac disease with fluid overload is major component of SOB, XIAO and wheezes. 08/19 Remains fluid positive with worsening oxygenation, now on 3L. Cardiology and hospitalist to aggressively diurese as tolerated by cardiac and renal systems. 08/20 Increased diuretic with good output. O2 at 2 L/min, lower. 08/21 Continue diuresis as tolerated by renal and cardiac systems (has cardiomyopathy and ). 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 He has mild expiratory wheezes and I will start albuterol, ipratroprium and budesonide nebs for now. If no improvement will consider systemic steroids. 08/16 Continue albuterol, ipratroprium and budesonide nebs for now. Wheezes persist. 08/17 Continued wheezes and I will start solumedrol 40 Q 6 today, continue albuterol, ipratropium and budesonide nebs for now. On ceftriaxone and azitho (day 2). 08/18 Improved wheezes and will continue solumedrol 40 Q 6 today, continue albuterol, ipratropium and budesonide nebs for now. D 3 antibiotics. 08/19 Continued wheezes despite 48 hours high dose steroids. Suspect wheezing and worsening oxygenation due to fluid overload and doubt related to COPD exacerbation and change to prednisone 50 Q day, continue albuterol, ipratropium and budesonide nebs for now. D4 antibiotics. DC azithro on 08/20 and continue ceftriaxone through 08/22. 08/22 DC prednisone later today after 6 days. continue albuterol, ipratropium and budesonide nebs for now. Last dose of ceftriaxone today. Spoke with son Tyrone regarding lung issues of COPD and fluid overload. He is aware of cancer in bone marrow as well. 08/23 Improving off systemic steroids and antibiotics. Will change albuterol and ipratroprium to Q 6 while awake and discontinue budesonide 0.5 mg Q 12 neb. Will order home O2 assessment today and apnea link on room air tonight to determine if he qualifies for oxygen. (3) Bone marrow disease: Code(s): D75.9 - Disease of blood a
--- NOTE | 2020-08-23 10:42 | PCDIET ---
Weekly nutritional screen. Patient is tolerating current diet with adequate intake. BMI 24.9. No nutritional needs at this time.
[2020-08-23 11:43] LABS: Glucose Point of Care 299 (65-105)
--- NOTE | 2020-08-23 11:53 | HOMEO2EVAL ---
Home Oxygen Evaluation RC: Home Oxygen (O2) Evaluation Start: 08/23/20 10:07 Freq: ONCE Status: Active Protocol: RPE Activity Type Activity Date Activity User E-Sign Co-Sign Detail Recorded Client Recorded Date Recorded By Document 08/23/20 11:20 CLARKE [id number] 08/23/20 11:53 CLARKE Document 08/23/20 11:22 CLARKE [email or web address] 08/23/20 11:53 CLARKE Document 08/23/20 11:25 CLARKE [email or web address] 08/23/20 11:53 CLARKE Document 08/23/20 11:26 CLARKE [email or web address] 08/23/20 11:53 CLARKE Document 08/23/20 11:27 CLARKE [email or web address] 08/23/20 11:53 CLARKE Document 08/23/20 11:40 CLARKE [id number] 08/23/20 11:53 CLARKE 08/23/20 08/23/20 08/23/20 11:20 11:22 11:25 Home O2 Evaluation Test Phase Resting Resting Exercise Oxygen Delivery Room Air Nasal Cannula Nasal Cannula Oxygen Flow Rate (L/min) 1 1 Pulse Oximetry (90-100 %) 87 L 92 86 L Ambulation Distance (feet) Home Oxygen Evaluation Comments Treatment Charges O2 Evaluation - Inpatient 08/23/20 08/23/20 08/23/20 11:26 11:27 11:40 Home O2 Evaluation Test Phase Exercise Exercise Resting Oxygen Delivery Nasal Cannula Nasal Cannula Nasal Cannula Oxygen Flow Rate (L/min) 2 3 1 Pulse Oximetry (90-100 %) 87 L 90 93 Ambulation Distance (feet) 250 Home Oxygen Evaluation Comments Pt requires 1 liter at rest and 3 liters with exertion. Pt used walker with gait belt Treatment Charges
--- NOTE | 2020-08-23 11:58 | PCRCNOTE ---
Home O2 eval done, pt requires 1 l rest and 3 l withe exertion. Will arrange o2 set up with [facility] contact from [facility] is Lainey at [phone]. Tank will be brought to hospital room for transport home prior to d/c
--- NOTE | 2020-08-23 13:57 | PCPTNOTE ---
The PT treatment was unable to be completed today due to patient refusal. Will continue per Plan of Care frequency and duration.
--- NOTE | 2020-08-23 16:20 | PM.PNCARD ---
Progress Note: A&P Assessment and Plan (1) Cardiomyopathy: Qualifiers: Cardiomyopathy type: unspecified Qualified Code(s): I42.9 - Cardiomyopathy, unspecified Code(s): I42.9 - Cardiomyopathy, unspecified Status: Acute Assessment and Plan: EF 25%. Continue metoprolol succinate 25 mg p.o. daily. Prognosis guarded given multiple comorbidities. Patient well aware. - Focus on symptomatic management at this time diuresis as tolerated. Further workup at outside facility and evaluation as clinically appropriate once he is further stabilized. -Ideally, would add Spironolactone but given renal failure will need to be very cautious. (2) Aortic stenosis: Qualifiers: Cardiac valve disease etiology: etiology unspecified Qualified Code(s): I35.0 - Nonrheumatic aortic (valve) stenosis Code(s): I35.0 - Nonrheumatic aortic (valve) stenosis Status: Acute Assessment and Plan: Moderate to severe. Further clarification would be beneficial but likely on an outpatient basis. Gentle diuresis trying to avoid over-diuresis, however, patient remains uncomfortable and significantly short of breath with current management. Explained the dangers with hypotension. (3) Chronic systolic (congestive) heart failure: Code(s): I50.22 - Chronic systolic (congestive) heart failure Status: Acute Assessment and Plan: Remains significant volume overload and decompensated. -Continue Bumex 1 mg IV BID. Arsenio BB thus far. Would favor Entresto, start very low half tablet 24/26mg BID concerned about severity. -Not making much progress, respiratory status improved predominantly due to steroids and bronchodilator therapy. -Add Metolazone 2.5mg daily in AM. (4) Tobacco abuse: Code(s): Z72.0 - Tobacco use Status: Acute Assessment and Plan: Recently quit smoking (5) ELZBIETA (acute kidney injury): Code(s): N17.9 - Acute kidney failure, unspecified Status: Acute Assessment and Plan: Stable, creatinine 1.4 Slightly improved. Continue to monitor closely. Electrolytes stable. (6) 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 Qualified Code(s): J43.9 - Emphysema, unspecified Code(s): J44.9 - Chronic obstructive pulmonary disease, unspecified Status: Chronic Assessment and Plan: Expiratory wheezes improved. Continue bronchodilator therapy, steroids completed. Appreciate pulmonology recommendations. 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 New diagnosis. Subjective Date/time seen: Date of service:08/23/20 16:20 Interval history: Mr. Mohr is a pleasant 80 yo M admitted with dyspnea on exertion, pleural effusions, MDS, cardiomyopathy, aortic stenosis Breathing is little easier but still short of breath with activity. States he is urinating more on Bumex but still has significant edema and feels that this progresses quite slow. No chest pain, palpitations or dizziness. No other new complaints. Review of Systems Review of Systems: All systems reviewed & are unremarkable except as noted in HPI and below Constitutional: Constitutional: Denies excessive sweating, Denies fatigue, Denies headache(s), Reports lethargy and Reports weakness Eyes: Eyes: Denies blurry vision ENT: Reports Normal hearing present, Denies headache(s) and Denies neck pain Cardiovascular: Cardiovascular: Denies chest pain, Reports leg edema, Reports dyspnea and Reports dyspnea on exertion Respiratory: Respiratory: Reports dyspnea and Reports
--- NOTE | 2020-08-23 17:44 | PM.IMPN ---
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 Status: Acute Assessment and Plan: Will follow up in the outpatient setting with Hem/Onc Supportive care (2) Chronic systolic (congestive) heart failure: Code(s): I50.22 - Chronic systolic (congestive) heart failure Status: Acute Assessment and Plan[facility] ([facility]) Aortic stenosis: Qualifiers: Cardiac valve disease etiology: etiology unspecified Qualified Code(s): I35.0 - Nonrheumatic aortic (valve) stenosis Code(s): I35.0 - Nonrheumatic aortic (valve) stenosis Status: Acute Assessment and Plan: on beta blockade (4) Cardiomyopathy: Qualifiers: Cardiomyopathy type: unspecified Qualified Code(s): I42.9 - Cardiomyopathy, unspecified Code(s): I42.9 - Cardiomyopathy, unspecified Status: Acute Assessment and Plan: EF=25% (5) Lymphadenopathy: Code(s): R59.1 - Generalized enlarged lymph nodes Status: Acute Assessment and Plan: Likely secondary to cml (6) Thrombocytosis: Code(s): D47.3 - Essential (hemorrhagic) thrombocythemia Status: Acute Assessment and Plan: Continue to monitor (7) Pleural effusion: Code(s): J90 - Pleural effusion, not elsewhere classified Status: Acute Assessment and Plan: S/l thoracentesis (8) Dyspnea on exertion: Code(s): R06.00 - Dyspnea, unspecified Status: Acute Assessment and Plan: Multiple factors contributing Supportive care (9) 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 Qualified Code(s): J43.9 - Emphysema, unspecified Code(s): J44.9 - Chronic obstructive pulmonary disease, unspecified Status: Chronic Assessment and Plan: Continue breathing treatments. Subjective Date/time seen: 08/23/20 17:44 'I feel ok Review of Systems Review of Systems: Narrative: Still sob Constitutional: Comments: generalized malaise, generalized weakness. Cardiovascular: Comments: sob. Respiratory: Comments: sob Gastrointestinal: Comments: no n/v/abdominal pain Exam Narrative: Exam Narrative: Lying in bed. Const: General: no acute distress and ill appearing Nutritional Appearance: average body habitus Orientation/consciousness: patient oriented x3 HENMT: Head: normocephalic Ears: hearing grossly normal bilaterally General nose exam: Normal external nose present Face and sinus: normal facial exam Eyes: General: appearance normal, both eyes and all related structures Pupils: Equal, round and reactive pupils present EOM: EOMs intact bilaterally Neck: Neck: no lymphadenopathy, supple and no JVD Resp: Effort & Inspection: normal respiratory effort and able to speak in complete sentences Auscultation: clear to auscultation bilaterally Cardio: Rate: regular rate Rhythm: regular rhythm GI: GI Palp: Yes Soft to palpation and Yes No hepatosplenomegaly present Skin: Rashes: no rashes Neuro: General: patient oriented x3 and CN's II-XI intact bilaterally Cranial nerves: Yes CN's II-XII intact bilaterally and Yes Equal, round and reactive pupils present Cognition (Neuro): normal cognition Speech: normal speech Motor exam (neuro): 5/5 motor strength present throughout Extrem: General: no pedal edema Objective Data Vital Signs Vital Signs: Vital Signs - 24 hr 08/22/20 20:00 08/22/20 20:48 08/22/20 21:04 Temperature Pulse Rate 83 74 77 Respiratory Rate 20 18 Blood Pressure Pulse Oximetry 92 08/22/20 22:57 08/23/20 00:00 08/23/20 02:00 Tem
[2020-08-23 17:55] LABS: Glucose Point of Care 226 (65-105)
[2020-08-23] MEDS: ATORVASTATIN 40 MG TABLET PO (20:29)
[2020-08-23] MEDS: ZOLPIDEM TARTRATE (*CRX) 5 MG TABLET PO (20:29)
[2020-08-23 21:12] LABS: Glucose Point of Care 222 (65-105)
[2020-08-24] VITALS (24 sets, daily range): BP systolic 103–124; BP diastolic 44–60; PULSE 69–83; RESP 14–20; TEMP 35.8–36.6; O2SAT 92–96
[2020-08-24] MEDS: LEVOTHYROXINE SODIUM 50 MCG TABLET PO (06:22)
[2020-08-24 07:54] LABS: Glucose Point of Care 107 (65-105)
[2020-08-24] MEDS: ALBUTEROL SULFATE NEB 2.5 MG/0.5 ML INH INHALATION ×4 (08:12→20:09)
[2020-08-24] MEDS: IPRATROPIUM BR 0.02% INH SOLN 0.5 MG/2.5 ML VIAL INHALATION ×4 (08:12→20:09)
[2020-08-24] MEDS: MIRTAZAPINE 30 MG TABLET PO (08:24)
[2020-08-24] MEDS: METOPROLOL SUCCINATE EXT REL 25 MG TABCR PO (08:24)
[2020-08-24] MEDS: FINASTERIDE 5 MG TABLET PO (08:24)
[2020-08-24] MEDS: allopurinoL 300 MG TABLET PO (08:24)
[2020-08-24] MEDS: PREGABALIN (*CRX) 75 MG CAPSULE 150 MG PO ×3 (08:24→17:09)
[2020-08-24] MEDS: DULoxetine HCL 30 MG CAPSULE.DR PO ×2 (08:24→20:42)
[2020-08-24] MEDS: BUMETANIDE INJ 1 MG/4 ML VIAL IV PUSH ×2 (08:24→17:09)
[2020-08-24] MEDS: lamoTRIgine 100 MG TABLET PO (08:24)
[2020-08-24] MEDS: TAMSULOSIN HCL 0.4 MG CAPSULE PO (08:24)
[2020-08-24] MEDS: metOLazone 2.5 MG TABLET PO (08:25)
--- NOTE | 2020-08-24 08:25 | PM.PNPUL ---
Progress Note: A&P Assessment and Plan (1) Dyspnea: Code(s): R06.00 - Dyspnea, unspecified Status: Acute Assessment and Plan: 08/15 Patient with 2 months worsening XIAO. Etiology includes pneumonia, lung cancer, right pleural effusion, CHF. Agree with ceftriaxone and azithromycin for now. I have ordered a right pleural thoracentesis to assess for a complicated effusion and will send for chemistries, cultures and cytology to assess for cancer. I have ordered a BNP and will order a echocardiogram to assess LV, RV and valve function. Oncology consult also ordered as well. 08/16 improved dyspnea post thoracentesis of 1000 ml joseph fluid with normal pH, differential mac 61%, N11%, L28%, gram stain with no organisms and no WBC. Other chemistry pending. D dimer negative so unlikely PE, BNP elevated and echo pending. To have bone marrow biopsy later today. No focal infiltrates post thoracentesis, continue ceftriaxone and azithro for now. Cultures negative. 08/17 Remains with XIAO. No reaccumulation of right effusion on . Spoke with pathologist regarding pleural fluid and monocytic looking cells. Patient has 9% blasts on his flow cytometry of bone marrow on preliminary results, further studies at [facility] pending. Other etiologies of dyspnea include patient with LV EF 25-30%, moderate to severe with valve area 1.0 and mean gradient 15 with fluid overload. 08/18 Edema worsening, transudative pleural effusion with LDH 119/serum 539=0.22, T prot < 3/serum 6.0=>0.5, pH 7.41, glucose 108, amylase 40, cultures no growth and bacterial, fungal and AFB stains negative. Wheezes end expiratory today. Day 4 antibiotics. I suspect cardiac disease with fluid overload is major component of SOB, XIAO and wheezes. 08/19 Remains fluid positive with worsening oxygenation, now on 3L. Cardiology and hospitalist to aggressively diurese as tolerated by cardiac and renal systems. 08/20 Increased diuretic with good output. O2 at 2 L/min, lower. 08/21 Continue diuresis as tolerated by renal and cardiac systems (has cardiomyopathy and which will require further outpatient workup). Hospitalist and [employer]er [employer] managing. 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 He has mild expiratory wheezes and I will start albuterol, ipratroprium and budesonide nebs for now. 08/16 Continue albuterol, ipratroprium and budesonide nebs for now. Wheezes persist. 08/17 Continued wheezes and I will start solumedrol 40 Q 6 today, continue albuterol, ipratropium and budesonide nebs for now. On ceftriaxone and azitho (day 2). 08/18 Improved wheezes and will continue solumedrol 40 Q 6 today, continue albuterol, ipratropium and budesonide nebs for now. D 3 antibiotics. 08/19 Continued wheezes despite 48 hours high dose steroids. Suspect wheezing and worsening oxygenation due to fluid overload and doubt related to COPD exacerbation and change to prednisone 50 Q day, continue albuterol, ipratropium and budesonide nebs for now. D4 antibiotics. DC azithro on 08/20 and continue ceftriaxone through 08/22. 08/22 DC prednisone later today after 6 days. continue albuterol, ipratropium and budesonide nebs for now. Last dose of ceftriaxone today. Spoke with son Tyrone regarding lung issues of COPD and fluid overload. He is aware of cancer in bone marrow as well. 08/23 Improving off systemic steroids and antibiotics. Will change albuterol and ipratroprium to Q 6 while awake and discontinue budesonide 0.5 mg Q 12 neb. Will order home O2 assessment today and apnea link on room air tonight to determine if he qualifies for oxygen. 08/24 On 2L NC with sats 96%. Patient w
--- NOTE | 2020-08-24 10:53 | PM.PNCARD ---
Progress Note: A&P Assessment and Plan (1) Cardiomyopathy: Qualifiers: Cardiomyopathy type: unspecified Qualified Code(s): I42.9 - Cardiomyopathy, unspecified Code(s): I42.9 - Cardiomyopathy, unspecified Status: Acute Assessment and Plan: EF 25%. Continue metoprolol succinate 25 mg p.o. daily. Prognosis guarded given multiple comorbidities. Patient well aware. Ideally would add Entresto 1/2 tablet twice daily as BP and renal function allow but severity also a concern. Check BMP in a.m.. -Add spironolactone 25mg in AM. - Focus on symptomatic management at this time diuresis as tolerated. Further workup at outside facility and evaluation as clinically appropriate once he is further stabilized. (2) Aortic stenosis: Qualifiers: Cardiac valve disease etiology: etiology unspecified Qualified Code(s): I35.0 - Nonrheumatic aortic (valve) stenosis Code(s): I35.0 - Nonrheumatic aortic (valve) stenosis Status: Acute Assessment and Plan: Moderate to severe. Further clarification would be beneficial but likely on an outpatient basis. Gentle diuresis trying to avoid over-diuresis, however, patient remains uncomfortable and significantly short of breath with current management. Explained the dangers with hypotension. (3) Chronic systolic (congestive) heart failure: Code(s): I50.22 - Chronic systolic (congestive) heart failure Status: Acute Assessment and Plan: Remains significant volume overload and decompensated and is not ready for discharge at this point. We have been very cautious with diuresis to avoid potential dangers and symptomatic hypotension and worsening renal failure. Balance with aggressive diuresis with safety difficult. Tolerating thus far. -Continue Bumex 1 mg IV BID and metolazone. Anticipate metolazone to be short-term use. Arsenio BB thus far. Would favor Entresto, start very low half tablet 24/26mg BID concerned about severity. -Not making much progress, respiratory status improved predominantly due to steroids and bronchodilator therapy. 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 Continue bronchodilator therapy, steroids completed. Appreciate pulmonology recommendations. 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 New diagnosis. Subjective Date/time seen: Date of service: 08/24/20 10:53 Interval history: Mr. Mohr is a pleasant 80 yo M admitted with dyspnea on exertion, pleural effusions, MDS, cardiomyopathy, aortic stenosis Breathing is little easier but still short of breath with activity. States he is still quite uncomfortable and having more pain near his groin due to swelling. He states he is urinating more is afraid if he stops the IV and medicine and is sent home he will feel worse. No chest pain, dizziness. Review of Systems Review of Systems: All systems reviewed & are unremarkable except as noted in HPI and below Constitutional: Constitutional: Denies excessive sweating, De
[2020-08-24 11:46] LABS: Glucose Point of Care 155 (65-105)
--- NOTE | 2020-08-24 14:47 | PM.IMPN ---
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 Status: Acute Assessment and Plan: Status post bone marrow bx WITH FOLLOW-UP IN THE OUTPATIENT SETTING WITH HEM/ONC (2) Tobacco abuse: Code(s): Z72.0 - Tobacco use Status: Acute Assessment and Plan: Nicotine patch as needed With concern regarding tobacco cessation (3) Cardiomyopathy: Qualifiers: Cardiomyopathy type: unspecified Qualified Code(s): I42.9 - Cardiomyopathy, unspecified Code(s): I42.9 - Cardiomyopathy, unspecified Status: Acute Assessment and Plan: Ejection fraction calculated at 20 to 25% Currently diuresing Very tenuous situation as patient with significant aortic stenosis as well Strict I/O's Monitor electrolytes Monitor BUN and creatinine Appreciate cardiology note Overall guarded prognosis (4) Thrombocytosis: Code(s): D47.3 - Essential (hemorrhagic) thrombocythemia Status: Acute Assessment and Plan: Likely secondary to myelodysplastic syndrome Follow-up with Hem/Onc (5) Pleural effusion: Code(s): J90 - Pleural effusion, not elsewhere classified Status: Acute Assessment and Plan: A status post thoracentesis Repeat chest x-ray does not show reaccumulation of fluid (6) Dyspnea on exertion: Code(s): R06.00 - Dyspnea, unspecified Status: Acute Assessment and Plan: Some improvement Cardiac largest component (7) 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 Qualified Code(s): J43.9 - Emphysema, unspecified Code(s): J44.9 - Chronic obstructive pulmonary disease, unspecified Status: Chronic Assessment and Plan: Does not appear to be exacerbated Appreciate Pulmonology note. (8) Chronic systolic (congestive) heart failure: Code(s): I50.22 - Chronic systolic (congestive) heart failure Status: Acute Assessment and Plan: Diuresing Follow cardiology recs Subjective Date/time seen: 08/24/20 14:47 Patient is still with shortness of breath Review of Systems Review of Systems: Narrative: Shortness of breath Constitutional: Comments: No fevers, no rigors, no chills. Cardiovascular: Comments: Shortness of breath Respiratory: Comments: No cough, sputum production Gastrointestinal: Comments: No nausea, no vomiting, no abdominal pain, no diarrhea. Musculoskeletal: Comments: No muscle pain or joint pain Integumentary/Breasts: Comments: No rashes Neurologic: Comments: No sensorimotor deficit Exam Narrative: Exam Narrative: Sitting in chair participating with OT in therapy Const: General: no acute distress, alert, awake, Physically active and ill appearing Nutritional Appearance: well nourished Orientation/consciousness: patient oriented x3 HENMT: Head: normal to inspection and normocephalic Ears: hearing grossly normal bilaterally General nose exam: Normal external nose present Face and sinus: normal facial exam Eyes: General: appearance normal, both eyes and all related structures Pupils: Equal, round and reactive pupils present EOM: EOMs intact bilaterally Neck: Neck: no lymphadenopathy, supple and no JVD Resp: Auscultation: diminished lung sounds Cardio: Rate: regular rate Rhythm: regular rhythm GI: GI Palp: Yes Soft to palpation and Yes No hepatosplenomegaly present Skin: Rashes: no rashes Neuro: Cranial nerves: Yes CN's II-XII intact bilaterally and Yes Equal, round and reactive pupils present Cognition (Neuro): normal cognition Speech: normal speech Gait exam (Neuro): Normal gait present Motor exam (neuro): 10/12
--- NOTE | 2020-08-24 15:20 | PC.NURSE ---
On 08/24/20, the student, [ Kristen Galindo], provided care and completed [facility] documentation on this patient. I have reviewed the student's documentation and agree with the findings.
[2020-08-24 15:53] LABS: Hematocrit 35.8 % (42.0-52.0); Hemoglobin 11.5 g/dL (14.0-18.0); Mean Corpuscular HGB Conc 32.1 g/dl (32-36); Mean Corpuscular Hemoglobin 32.5 pg (26-34); Mean Corpuscular Volume 101.1 fl (80-100); Mean Platelet Volume 11.7 fl (7.4-10.4); Platelet Count Result 92 k/mm3 (150-375); Red Blood Count 3.54 M/mm3 (4.6-6.20); Red Cell Distribution Width 19.4 % (11.5-14.5)
[2020-08-24 16:06] LABS: Anion Gap 4 mmol/L (8-16); Blood Urea Nitrogen 52 mg/dL (9-20); Calcium 8.6 mg/dL (8.4-10.2); Carbon Dioxide 34 mmol/L (22-30); Chloride 99 mmol/L (98-107); Estimated CRCL calculation 35 ml/min; Estimated Glomerular Filt Rate 45; Glucose 167 mg/dL (75-110); Magnesium 2.2 mg/dL (1.6-2.3); Phosphorus 3.3 mg/dL (2.5-4.5); Potassium 3.6 mmol/L (3.4-5.0); Sodium 137 mmol/L (137-145)
[2020-08-24 16:29] LABS: Band Neutrophils Percent 3 % (0-6); Eosinophils Percent Manual 1 % (0-4); Monocytes Percent Manual 37 % (3-9); Neutrophils Percent Manual 41 % (46-73); Platelet Estimate Decreased (Adequate); Total Cells Counted 100
[2020-08-24 16:30] LABS: Anisocytosis 3+ (NORMAL)
[2020-08-24 16:49] LABS: Glucose Point of Care 160 (65-105)
[2020-08-24] MEDS: ZOLPIDEM TARTRATE (*CRX) 5 MG TABLET PO (20:42)
[2020-08-24] MEDS: ATORVASTATIN 40 MG TABLET PO (20:42)
[2020-08-24 21:11] LABS: Glucose Point of Care 137 (65-105)
[2020-08-25] VITALS (24 sets, daily range): BP systolic 110–122; BP diastolic 40–52; PULSE 63–97; RESP 14–20; TEMP 35.7–36.9; O2SAT 91–98
[2020-08-25 05:54] LABS: Hematocrit 34.3 % (42.0-52.0); Mean Corpuscular HGB Conc 32.1 g/dl (32-36); Mean Corpuscular Volume 99.7 fl (80-100); Mean Platelet Volume 11.8 fl (7.4-10.4); Platelet Count Result 92 k/mm3 (150-375); Red Blood Count 3.44 M/mm3 (4.6-6.20)
[2020-08-25 05:55] LABS: Anion Gap 5 mmol/L (8-16); Blood Urea Nitrogen 53 mg/dL (9-20); Calcium 8.3 mg/dL (8.4-10.2); Carbon Dioxide 35 mmol/L (22-30); Chloride 99 mmol/L (98-107); Estimated CRCL calculation 35 ml/min; Estimated Glomerular Filt Rate 45; Glucose 114 mg/dL (75-110); Magnesium 2.2 mg/dL (1.6-2.3); Potassium 3.5 mmol/L (3.4-5.0); Sodium 139 mmol/L (137-145)
[2020-08-25] MEDS: LEVOTHYROXINE SODIUM 50 MCG TABLET PO (06:21)
[2020-08-25 06:25] LABS: White Blood Count 58.2 K/mm3 (4.5-10.0)
[2020-08-25] MEDS: ALBUTEROL SULFATE NEB 2.5 MG/0.5 ML INH INHALATION ×4 (07:47→19:22)
[2020-08-25] MEDS: IPRATROPIUM BR 0.02% INH SOLN 0.5 MG/2.5 ML VIAL INHALATION ×4 (07:48→19:22)
[2020-08-25 08:42] LABS: Glucose Point of Care 120 (65-105)
[2020-08-25] MEDS: PREGABALIN (*CRX) 75 MG CAPSULE 150 MG PO ×3 (08:55→17:34)
[2020-08-25] MEDS: DULoxetine HCL 30 MG CAPSULE.DR PO ×2 (08:55→21:00)
[2020-08-25] MEDS: metOLazone 2.5 MG TABLET PO (08:56)
[2020-08-25] MEDS: FINASTERIDE 5 MG TABLET PO (08:56)
[2020-08-25] MEDS: allopurinoL 300 MG TABLET PO (08:56)
[2020-08-25] MEDS: METOPROLOL SUCCINATE EXT REL 25 MG TABCR PO (08:56)
[2020-08-25] MEDS: BUMETANIDE INJ 1 MG/4 ML VIAL IV PUSH ×2 (08:56→17:34)
[2020-08-25] MEDS: lamoTRIgine 100 MG TABLET PO (08:56)
[2020-08-25] MEDS: TAMSULOSIN HCL 0.4 MG CAPSULE PO (08:56)
[2020-08-25] MEDS: SPIRONOLACTONE 25 MG TABLET PO (08:56)
[2020-08-25] MEDS: MIRTAZAPINE 30 MG TABLET PO (08:56)
[2020-08-25 11:39] LABS: Glucose Point of Care 163 (65-105)
--- NOTE | 2020-08-25 15:07 | PM.PNCARD ---
Progress Note: A&P Assessment and Plan (1) Cardiomyopathy: Qualifiers: Cardiomyopathy type: unspecified Qualified Code(s): I42.9 - Cardiomyopathy, unspecified Code(s): I42.9 - Cardiomyopathy, unspecified Status: Acute Assessment and Plan: EF 25%. Very complicated clinical picture and management. Several alternative options but all with significant risk. Discussed continues IV Lasix, however, patient is not demonstrated adequate response to Lasix and Bumex thus far. Given severe LV dysfunction may benefit more from inotrope therapy. Significant risk particularly if tachyarrhythmia and or hypotension given severity of aortic stenosis. Will initiate low-dose dobutamine at 2.5 micrograms/kilogram per minute and observe very closely. If significant hypotension SBP <100mmHg and/or tachyarrhythmia discontinue. I discussed these risks and potential benefits in detail. Patient states he needs something as he is very uncomfortable and needs help. In that case, patient should be transferred to tertiary facility for further workup and management on an inpatient basis. Our options are very limited here at [facility]. -Need to hold off on adding Entresto 1/2 tablet twice daily as yet. Prognosis guarded given multiple comorbidities. Patient well aware. (2) Aortic stenosis: Qualifiers: Cardiac valve disease etiology: etiology unspecified Qualified Code(s): I35.0 - Nonrheumatic aortic (valve) stenosis Code(s): I35.0 - Nonrheumatic aortic (valve) stenosis Status: Acute Assessment and Plan: Moderate to severe. Further clarification would be beneficial but likely on an outpatient basis. As above. Explained the dangers with hypotension. (3) Chronic systolic (congestive) heart failure: Code(s): I50.22 - Chronic systolic (congestive) heart failure Status: Acute Assessment and Plan: Remains significant volume overload and decompensated and is not ready for discharge at this point. We have been very cautious with diuresis to avoid potential dangers and symptomatic hypotension and worsening renal failure. Balance with aggressive diuresis with safety difficult. Tolerating thus far. -Continue Bumex 1 mg IV BID and metolazone. -hold spironolactone on dobutamine. Arsenio BB thus far. Would favor Entresto, start very low half tablet 24/26mg BID concerned about severity. -Not making much progress, respiratory status improved predominantly due to steroids and bronchodilator therapy. 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 Continue bronchodilator therapy, steroids completed. Appreciate pulmonology recommendations. 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 New diagnosis. Subjective Date/time seen: Date of service: 08/25/20 15:07 Interval history: Mr. Mohr is a pleasant 80 yo M admitted with dyspnea on exertion, pleural effusions, MDS, cardiomyopathy, aortic stenosis Breathing is little easier but still short of breath
--- NOTE | 2020-08-25 15:55 | PM.IMPN ---
Progress Note: A&P Assessment and Plan (1) Cardiomyopathy: Qualifiers: Cardiomyopathy type: unspecified Qualified Code(s): I42.9 - Cardiomyopathy, unspecified Code(s): I42.9 - Cardiomyopathy, unspecified Status: Acute Assessment and Plan: patient with advanced congestive heart failure ejection fraction of 20-25 % appreciate cardiology note agree with transfer to tertiary center (2) Chronic systolic (congestive) heart failure: Code(s): I50.22 - Chronic systolic (congestive) heart failure Status: Acute Assessment and Plan: some refractoriness to diuretic therapy not much improvement (3) CMML (chronic myelomonocytic leukemia): Qualifiers: Leukemia Active/Remission status: without remission Qualified Code(s): C93.10 - 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 Code(s): C93.10 - 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 Status: Acute Assessment and Plan: oncology follow-up (4) Thrombocytosis: Code(s): D47.3 - Essential (hemorrhagic) thrombocythemia Status: Acute Assessment and Plan: likely secondary to myeloproliferative disease (5) Dyspnea on exertion: Code(s): R06.00 - Dyspnea, unspecified Status: Acute Assessment and Plan: not much improvement most likely secondary to his advanced congestive heart failure (6) 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 Qualified Code(s): J43.9 - Emphysema, unspecified Code(s): J44.9 - Chronic obstructive pulmonary disease, unspecified Status: Chronic Assessment and Plan: does not appear to be exacerbated Subjective Date/time seen: 08/25/20 15:55 I feel very uncomfortable. Review of Systems Review of Systems: Narrative: scrotal and b/l le swelling. Cardiovascular: Comments: sob, swelling of the LE. Respiratory: Comments: sob. Exam Const: General: comfortable, no acute distress, well developed, alert and awake Nutritional Appearance: average body habitus Orientation/consciousness: patient oriented x3 HENMT: Head: normal to inspection, normocephalic and atraumatic Ears: hearing grossly normal bilaterally Face and sinus: normal facial exam Eyes: General: appearance normal, both eyes and all related structures Pupils: Equal, round and reactive pupils present EOM: EOMs intact bilaterally Neck: Neck: full ROM, no lymphadenopathy and no JVD Thyroid: thyroid normal Lymphatic: no lymphadenopathy noted Resp: Effort & Inspection: normal respiratory effort and able to speak in complete sentences Auscultation: clear to auscultation bilaterally Cardio: Jugular venous distension: no JVD Rate: regular rate Rhythm: regular rhythm Heart sounds: S1 normal heart sound present and S2 normal heart sound present GI: GI Palp: Yes Soft to palpation and Yes No hepatosplenomegaly present : General: Yes other (scrotal edema.) Skin: Rashes: no rashes Wounds: no wounds Neuro: General: patient oriented x3 and CN's II-XI intact bilaterally Cranial nerves: Yes CN's II-XII intact bilaterally and Yes Equal, round and reactive pupils present Cognition (Neuro): normal cognition Speech: normal speech Gait exam (Neuro): Normal gait present Motor exam (neuro): 5/5 motor strength present throughout Extrem: General: edema bilateral (3+) Objective Data Vital Signs Vital Signs: Vital Signs - 24 hr 08/24/20 16:00 08/24/20 16:15 08/24/20 16:20 Temperature Pulse Rate 70 76 76 Respiratory Rate 18 18 Blood Pressure Pulse Oximetry 08/24/20 18:00 08/24/20 20:00 08/24/20 20:05 Temperature 97.4 F L Pulse Rate 75 80 83 Respiratory Rate 16 18 Blood Pressure 111/44 L Pulse Oximetry 92 95 08/24/20 20:09 08/24/20 20:17 08/24/20 21:46 Temperature 97.8 F Pulse Rate 79 80 83 Respiratory Rate 18 18 16
--- NOTE | 2020-08-25 16:25 | PC.NURSE ---
This patient, John Mohr, was transferred to [facility] on 08/25/20 at 1625. Personal belongings sent with patient. Report given to PRAKASH Lopez. Appropriate documentation sent with patient.
--- NOTE | 2020-08-25 16:30 | PC.NURSE ---
This patient, John Mohr, was received from [facility] on 08/25/20 at 1630. Report received from PRAKASH Disla. Patient oriented to unit policies and routines
[2020-08-25] MEDS: DOBUTamine 250 MG/D5W 250 ML 250 MG/250 ML BAG 11.79 MG IV CONT (16:35)
[2020-08-25 17:15] LABS: Glucose Point of Care 198 (65-105)
[2020-08-25 20:33] LABS: Glucose Point of Care 186 (65-105)
[2020-08-25] MEDS: ATORVASTATIN 40 MG TABLET PO (21:00)
[2020-08-25] MEDS: ZOLPIDEM TARTRATE (*CRX) 5 MG TABLET PO (21:00)
[2020-08-26] VITALS (25 sets, daily range): BP systolic 105–129; BP diastolic 39–54; PULSE 73–91; RESP 16–26; TEMP 35.8–36.4; O2SAT 90–98
[2020-08-26 05:43] LABS: Alanine Aminotransferase 66 U/L (4-50); Albumin Level 3.5 g/dL (3.5-5.1); Alkaline Phosphatase 97 U/L (38-126); Anion Gap 5 mmol/L (8-16); Aspartate Amino Transferase 44 U/L (17-59); Bilirubin,Total 0.6 mg/dL (0.2-1.3); Blood Urea Nitrogen 51 mg/dL (9-20); Calcium 8.6 mg/dL (8.4-10.2); Carbon Dioxide 35 mmol/L (22-30); Chloride 96 mmol/L (98-107); Estimated CRCL calculation 35 ml/min; Estimated Glomerular Filt Rate 45; Glucose 122 mg/dL (75-110); Potassium 3.7 mmol/L (3.4-5.0); Sodium 136 mmol/L (137-145)
[2020-08-26] MEDS: LEVOTHYROXINE SODIUM 50 MCG TABLET PO (06:12)
[2020-08-26 07:15] LABS: Glucose Point of Care 127 (65-105)
[2020-08-26] MEDS: IPRATROPIUM BR 0.02% INH SOLN 0.5 MG/2.5 ML VIAL INHALATION ×4 (08:42→20:36)
[2020-08-26] MEDS: ALBUTEROL SULFATE NEB 2.5 MG/0.5 ML INH INHALATION ×4 (08:42→20:36)
[2020-08-26] MEDS: metOLazone 2.5 MG TABLET PO (09:30)
[2020-08-26] MEDS: MIRTAZAPINE 30 MG TABLET PO (09:30)
[2020-08-26] MEDS: allopurinoL 300 MG TABLET PO (09:30)
[2020-08-26] MEDS: DULoxetine HCL 30 MG CAPSULE.DR PO ×2 (09:30→20:30)
[2020-08-26] MEDS: FINASTERIDE 5 MG TABLET PO (09:30)
[2020-08-26] MEDS: BUMETANIDE INJ 1 MG/4 ML VIAL IV PUSH ×2 (09:30→17:29)
[2020-08-26] MEDS: lamoTRIgine 100 MG TABLET PO (09:30)
[2020-08-26] MEDS: TAMSULOSIN HCL 0.4 MG CAPSULE PO (09:30)
[2020-08-26] MEDS: SPIRONOLACTONE 25 MG TABLET PO (09:31)
[2020-08-26] MEDS: PREGABALIN (*CRX) 75 MG CAPSULE 150 MG PO ×3 (09:33→17:28)
--- NOTE | 2020-08-26 10:41 | PM.PNCARD ---
Progress Note: A&P Additional Plan 80-year-old man with: Decompensated congestive heart failure due to left ventricular systolic failure as well as aortic valve stenosis. After reviewing the entire chart the patient seems to have significant but probably not critical aortic valve stenosis. Valve area was 1.0 cm2. I am going to recommend starting a modest dose of Entresto today which will probably help quite a bit in terms of treating his systolic heart failure. I told the patient today that I would probably not recommend transferring him to a tertiary care center since we do not have a definitive diagnosis regarding his hematologic malignancy and certainly aortic valve replacement should not be considered an option until we have a more definitive decision in that regard. Hopefully he will tolerate addition of a very small dose of Entresto. Obviously a challenging/difficult clinical situation but at this point I do not believe there is good reason to transfer this gentleman to a tertiary care center as a workup is a candidate for aortic valve replacement until we have his hematologic malignancy clarified. Arpan Mcadams MD [facility] Subjective Date/time seen: Date of service: 08/26/20 10:41 Interval history: Mr. Mohr is a pleasant 80 yo M admitted with dyspnea on exertion, pleural effusions, MDS, cardiomyopathy, aortic stenosis. Preliminary bone marrow results indicate patient have some sort of chronic monocytic leukemia. Final results apparently pending analysis at [facility] laboratory. Patient is sitting in bed eating his breakfast appears to be in no distress reports that his breathing is much better than it was on admission he still has a fair amount of lower extremity edema, penile and scrotal edema. This however does seem to be getting better now. Exam Narrative: Exam Narrative: Alert and oriented. Appears to be in no acute distress. Appears stated age Const: General: comfortable and no acute distress; No confusion Orientation/consciousness: No confusion HENMT: General nose exam: Normal nares present Eyes: Sclera: sclerae normal Neck: Neck: no JVD Resp: Auscultation: crackles (faint crackles at bases), wheezes expiratory wheezes (Much improved aeration, minimal wheezing) and diminished lung sounds Cardio: Rate: regular rate Rhythm: regular rhythm Heart sounds: Murmur heart sound present systolic GI: Inspection: Abdominal wall edema (subcutaneous edema) and distended : Other: Scrotal and penile edema noted tender lower abdomen to palpation no erythema redness noted. Skin: General skin exam: normal color Neuro: General: No confusion Cranial nerves: Yes Normal hearing present Cognition (Neuro): normal cognition Speech: normal speech Extrem: General: edema (2+ up to lower back) bilateral Psych: Mental Status: mental status grossly normal Objective Data Vital Signs Vital Signs: Vital Signs - 24 hr 08/25/20 10:52 08/25/20 11:48 08/25/20 11:50 Temperature 36.8 C Pulse Rate 90 97 89 Respiratory Rate 20 20 20 Blood Pressure 122/51 L Pulse Oximetry 96 91 08/25/20 12:00 08/25/20 14:00 08/25/20 16:04 Temperature 35.7 C L Pulse Rate 79 75 68 Respiratory Rate 20 20 Blood Pressure 115/52 L Pulse Oximetry 96 08/25/20 16:30 08/25/20 16:35 08/25/20 17:28 Temperature 36.9 C Pulse Rate 74 74 70 Respiratory Rate 16 Blood Pressure 110/52 L 110/52 L Pulse Oximetry 96 94 08/25/20 18:00 08/25/20 19:23 08/25/20 19:32 Temperature Pulse Rate 82 80 78 Respiratory Rate 14 18 Blood Pressure Pulse Oximetry 94 08/25/20 20:00 08/25/20 22:00 08/25/20 23:42 Temperature 36.3 C L 36.0 C L Pulse Rate 80 88 80 Respiratory Rate 16 16 Blood Pressure 119/51 L 122/48 L Pulse Oximetry 95 96 08/26/20 00:00 08/26/20 02:00 08/26/20 04:00 Temperature 36.2 C L Pulse Rate 77 78 76 Respiratory Rate 18 Blood Pressure 119/47 L Pulse
[2020-08-26 11:57] LABS: Glucose Point of Care 191 (65-105)
--- NOTE | 2020-08-26 11:58 | PCOTNOTE ---
Per RN, hold therapy this date due to patient on Dobutamine drip. Will need to check with Physician tomorrow prior to continuing therapy services.
[2020-08-26] MEDS: DOBUTamine 250 MG/D5W 250 ML 250 MG/250 ML BAG 11.79 MG IV CONT (12:34)
--- NOTE | 2020-08-26 12:52 | PCPTNOTE ---
Per RN to hold therapy today due to Dobutamine drip and check w/ Dr tomorrow for continuing therapy services.
--- NOTE | 2020-08-26 15:37 | PM.IMPN ---
Progress Note: A&P Assessment and Plan (1) Acute on chronic systolic (congestive) heart failure: Code(s): I50.23 - Acute on chronic systolic (congestive) heart failure Status: Acute Assessment and Plan: patient is still with significant edema in bilateral lower extremity and scrotal diuresing cardiology planning to start him on Entresto appreciate cardiology note strict i/o (2) Cardiomyopathy: Qualifiers: Cardiomyopathy type: unspecified Qualified Code(s): I42.9 - Cardiomyopathy, unspecified Code(s): I42.9 - Cardiomyopathy, unspecified Status: Acute Assessment and Plan: will be started on Entresto (3) Aortic stenosis: Qualifiers: Cardiac valve disease etiology: etiology unspecified Qualified Code(s): I35.0 - Nonrheumatic aortic (valve) stenosis Code(s): I35.0 - Nonrheumatic aortic (valve) stenosis Status: Acute Assessment and Plan: continue to monitor patient with significant comorbidities (4) Tobacco abuse: Code(s): Z72.0 - Tobacco use Status: Acute Assessment and Plan: encouraged cessation (5) Dyspnea on exertion: Code(s): R06.00 - Dyspnea, unspecified Status: Acute Assessment and Plan: improved (6) 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 Qualified Code(s): J43.9 - Emphysema, unspecified Code(s): J44.9 - Chronic obstructive pulmonary disease, unspecified Status: Chronic Assessment and Plan: does not appear to be on exacerbation (7) CMML (chronic myelomonocytic leukemia): Qualifiers: Leukemia Active/Remission status: without remission Qualified Code(s): C93.10 - 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 Code(s): C93.10 - 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 Status: Acute Assessment and Plan: will follow-up in the outpatient setting supportive care in the meantime Subjective Date/time seen: 08/26/20 15:37 I feel better Review of Systems Review of Systems: Narrative: patient with shortness of breath however improved today no new complaint All systems reviewed & are unremarkable except as noted in HPI and below Constitutional: Comments: no fevers no rigors no chills Cardiovascular: Comments: bilateral lower extremity swelling Respiratory: Comments: no cough no sputum produced Gastrointestinal: Comments: no nausea no vomiting no diarrhea Genitourinary: Comments: scrotal swelling Musculoskeletal: Comments: bilateral lower extremity swelling Integumentary/Breasts: Comments: no rashes Neurologic: Comments: no sensorimotor deficit Exam Const: General: comfortable, no acute distress, well developed, alert and awake Nutritional Appearance: average body habitus Orientation/consciousness: patient oriented x3 HENMT: Head: normal to inspection, normocephalic and atraumatic Ears: hearing grossly normal bilaterally Face and sinus: normal facial exam Eyes: General: appearance normal, both eyes and all related structures Pupils: Equal, round and reactive pupils present EOM: EOMs intact bilaterally Neck: Neck: full ROM, no lymphadenopathy and no JVD Thyroid: thyroid normal Lymphatic: no lymphadenopathy noted Resp: Effort & Inspection: normal respiratory effort and able to speak in complete sentences Auscultation: clear to auscultation bilaterally Cardio: Jugular venous distension: no JVD Rate: regular rate Rhythm: regular rhythm Heart sounds: S1 normal heart sound present, S2 normal heart sound present and Murmur heart sound present GI: GI Palp: Yes Soft to palpation and Yes No hepatosplenomegaly present : General: Yes deferred Skin: Rashes: no rashes Wounds: no wounds Neuro: General: patient oriented x3 and CN's II-XI intact bilaterally Cranial nerves: Yes CN's II
[2020-08-26 17:29] LABS: Glucose Point of Care 135 (65-105)
[2020-08-26 20:22] LABS: Glucose Point of Care 183 (65-105)
[2020-08-26] MEDS: ATORVASTATIN 40 MG TABLET PO (20:30)
[2020-08-26] MEDS: SACUBITRIL/VALSARTAN 12-13 MG TABLET 1 TAB PO (20:31)
[2020-08-26] MEDS: ZOLPIDEM TARTRATE (*CRX) 5 MG TABLET PO (22:48)
[2020-08-27] VITALS (27 sets, daily range): BP systolic 76–119; BP diastolic 38–64; PULSE 74–90; RESP 16–26; TEMP 35.7–36.3; O2SAT 89–96
[2020-08-27] MEDS: LEVOTHYROXINE SODIUM 50 MCG TABLET PO (05:48)
[2020-08-27] MEDS: IPRATROPIUM BR 0.02% INH SOLN 0.5 MG/2.5 ML VIAL INHALATION ×3 (07:42→20:12)
[2020-08-27] MEDS: ALBUTEROL SULFATE NEB 2.5 MG/0.5 ML INH INHALATION ×3 (07:42→20:12)
--- NOTE | 2020-08-27 07:46 | PCOTNOTE ---
Per Physician, patient medically okay to continue therapy services. RN and physician request orthostatics be taken when treating patient. Therapy team notified.
--- NOTE | 2020-08-27 08:11 | PC.NURSE ---
Pt BP 78/[address] Mims notified. New order to hold all BP medications at this time as well as Dobutamine drip. Will recheck later and reasses BP medications at that time.
--- NOTE | 2020-08-27 08:16 | PCPTNOTE ---
Hold therapy this date per RN. Pt's BP is too low and Pt will be unable to tolerate therapy this date. Will continue per POC 08/28/20.
--- NOTE | 2020-08-27 08:16 | PCOTNOTE ---
Per RN, hold therapy this date due to low BP. Check with RN/Physician tomorrow for medical appropriateness to continue therapy services or put patient on therapy hold.
--- NOTE | 2020-08-27 08:17 | PCPTNOTE ---
Per nursing, patient's BP is very low, lying supine in bed, and he is deferred for therapy treatment today. Will see tomorrow as appropriate
[2020-08-27 08:25] LABS: Hematocrit 32.1 % (42.0-52.0); Hemoglobin 10.5 g/dL (14.0-18.0); Immature Platelet Fraction Pct 9.9 % (0.9-11.2); Mean Corpuscular HGB Conc 32.7 g/dl (32-36); Mean Corpuscular Hemoglobin 31.7 pg (26-34); Mean Platelet Volume 12.3 fl (7.4-10.4); Platelet Count Result 64 k/mm3 (150-375); Red Blood Count 3.31 M/mm3 (4.6-6.20); Red Cell Distribution Width 18.6 % (11.5-14.5)
[2020-08-27] MEDS: MIRTAZAPINE 30 MG TABLET PO (08:25)
[2020-08-27] MEDS: PREGABALIN (*CRX) 75 MG CAPSULE 150 MG PO ×3 (08:25→16:56)
[2020-08-27] MEDS: DULoxetine HCL 30 MG CAPSULE.DR PO ×2 (08:25→20:10)
[2020-08-27] MEDS: allopurinoL 300 MG TABLET PO (08:25)
[2020-08-27] MEDS: lamoTRIgine 100 MG TABLET PO (08:26)
[2020-08-27] MEDS: FINASTERIDE 5 MG TABLET PO (08:26)
[2020-08-27] MEDS: TAMSULOSIN HCL 0.4 MG CAPSULE PO (08:26)
[2020-08-27 08:33] LABS: White Blood Count 50.5 K/mm3 (4.5-10.0)
[2020-08-27 08:41] LABS: Alanine Aminotransferase 49 U/L (4-50); Albumin Level 3.5 g/dL (3.5-5.1); Alkaline Phosphatase 93 U/L (38-126); Anion Gap 5 mmol/L (8-16); Aspartate Amino Transferase 34 U/L (17-59); Bilirubin,Total 0.7 mg/dL (0.2-1.3); Blood Urea Nitrogen 54 mg/dL (9-20); Calcium 8.5 mg/dL (8.4-10.2); Carbon Dioxide 38 mmol/L (22-30); Chloride 93 mmol/L (98-107); Estimated CRCL calculation 28 ml/min; Estimated Glomerular Filt Rate 34; Glucose 146 mg/dL (75-110); Potassium 3.8 mmol/L (3.4-5.0); Sodium 136 mmol/L (137-145)
[2020-08-27 09:02] LABS: Anisocytosis 1+ (NORMAL); Band Neutrophils Percent 2 % (0-6); Hypochromasia 1+ (NORMAL); Lymphocytes Absolute Manual 8.58 K/mm3 (1.1-4.5); Monocytes Absolute Manual 18.18 K/mm3 (0.1-0.90); Monocytes Percent Manual 36 % (3-9); Neutrophils Absolute Manual 23.73 K/mm3 (1.3-6.7); Neutrophils Percent Manual 45 % (46-73); Ovalocytes 1+ (NORMAL); Platelet Estimate Decreased (Adequate); Total Cells Counted 100
[2020-08-27 09:03] LABS: Poikilocytosis 1+ (NORMAL); Stomatocytes 1+ (NORMAL)
[2020-08-27 10:02] LABS: Glucose Point of Care 150 (65-105)
--- NOTE | 2020-08-27 10:08 | PC.NURSE ---
Rechecked BP after holding Dobutamine for 2 hours and non-administering BP medications this AM. BP in right arm was 62/41, BP in left arm was 67/40. Pt is asymptomatic at this time. Notified Dr. Mims of current BP readings. New order for 250ml bolus to run over 2 hours and recheck BP one hour after completion of bolus. Manual BP in left arm was. 76/44
--- NOTE | 2020-08-27 10:23 | PM.PNCARD ---
Progress Note: A&P Assessment and Plan (1) Cardiomyopathy: Qualifiers: Cardiomyopathy type: unspecified Qualified Code(s): I42.9 - Cardiomyopathy, unspecified Code(s): I42.9 - Cardiomyopathy, unspecified Status: Acute Assessment and Plan: EF 25%. Very complicated clinical picture and management. Prognosis guarded given multiple comorbidities. Patient well aware. (2) Aortic stenosis: Qualifiers: Cardiac valve disease etiology: etiology unspecified Qualified Code(s): I35.0 - Nonrheumatic aortic (valve) stenosis Code(s): I35.0 - Nonrheumatic aortic (valve) stenosis Status: Acute Assessment and Plan: Moderate to severe. Further clarification would be beneficial but likely on an outpatient basis. (3) Chronic systolic (congestive) heart failure: Code(s): I50.22 - Chronic systolic (congestive) heart failure Status: Acute Assessment and Plan: Patient has responded well to dobutamine 2.5 mcgs with no arrhythmias, Bumex 1 mg IV BID and metolazone, diuresing with smaller effusions and less edema.. Between that and starting Entresto last night he has low blood pressure this morning so the dobutamine and other medications have been held. Giving 250 cc of normal saline bolus and will follow-up later on today. (4) Hypotension: Code(s): I95.9 - Hypotension, unspecified Status: Acute Assessment and Plan: Holding diuretics and meds, giving IV NS. 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 Continue bronchodilator therapy, steroids completed. Appreciate pulmonology recommendations. 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 New diagnosis. OPT FU planned. Subjective Date/time seen: 08/27/20 10:23 Interval history: Mr. Mohr is a pleasant 80 yo M admitted with dyspnea on exertion, pleural effusions, MDS, cardiomyopathy, aortic stenosis. Preliminary bone marrow results indicate patient have some sort of chronic monocytic leukemia. Final results apparently pending analysis at [facility] laboratory. 08/26/2020: Patient is sitting in bed eating his breakfast appears to be in no distress reports that his breathing is much better than it was on admission he still has a fair amount of lower extremity edema, penile and scrotal edema. This however does seem to be getting better now. Was started on Entresto 24/26 mg half a tablet daily. Date of service 08/27/2020: Patient has had trouble with low blood pressure this morning, in the 80s earlier, and most recently in 60's. No distress. Dobutamine and morning meds were held. Diuresed 1700 cc yesterday and already 2300 cc today. Patient happy to report his breathing is fine and his scrotal and leg edema improved. Remains on O2. Review of Systems Constitutional: Constitutional: Denies weakness E
[2020-08-27] MEDS: SODIUM CHLORIDE 0.9% IV 250 ML 100 ML IV CONT (10:30)
[2020-08-27 11:52] LABS: Glucose Point of Care 142 (65-105)
--- NOTE | 2020-08-27 15:19 | PM.IMPN ---
Progress Note: A&P Assessment and Plan (1) Hypotension: Code(s): I95.9 - Hypotension, unspecified Status: Acute Assessment and Plan: blood pressure was in the 60s systolic he has responded well to a 250 cc bolus appreciate cardiology note (2) Acute on chronic systolic (congestive) heart failure: Code(s): I50.23 - Acute on chronic systolic (congestive) heart failure Status: Acute Assessment and Plan: the patient has being aggressively diuresed further diuresis is defer to cardiology Strict I/O's (3) CMML (chronic myelomonocytic leukemia): Qualifiers: Leukemia Active/Remission status: without remission Qualified Code(s): C93.10 - 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 Code(s): C93.10 - 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 Status: Acute Assessment and Plan: workup in progress (4) Cardiomyopathy: Qualifiers: Cardiomyopathy type: unspecified Qualified Code(s): I42.9 - Cardiomyopathy, unspecified Code(s): I42.9 - Cardiomyopathy, unspecified Status: Acute Assessment and Plan: supportive care continue home med patient was started on Entresto however holding meds due to his hypotension this morning (5) 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 Qualified Code(s): J43.9 - Emphysema, unspecified Code(s): J44.9 - Chronic obstructive pulmonary disease, unspecified Status: Chronic Assessment and Plan: does not appear to be exacerbated not actively wheezing (6) Tobacco abuse: Code(s): Z72.0 - Tobacco use Status: Acute Assessment and Plan: encouraged tobacco cessation Subjective Date/time seen: 08/27/20 15:19 patient presently asleep Review of Systems Review of Systems: Narrative: has expressed his improvement in his shortness of breath scrotal edema bilateral lower extremity Exam Const: General: comfortable, no acute distress, well developed, alert and awake Nutritional Appearance: average body habitus Orientation/consciousness: patient oriented x3 HENMT: Head: normal to inspection, normocephalic and atraumatic Ears: hearing grossly normal bilaterally Face and sinus: normal facial exam Eyes: General: appearance normal, both eyes and all related structures Pupils: Equal, round and reactive pupils present EOM: EOMs intact bilaterally Neck: Neck: full ROM, no lymphadenopathy and no JVD Thyroid: thyroid normal Lymphatic: no lymphadenopathy noted Resp: Effort & Inspection: normal respiratory effort and able to speak in complete sentences Auscultation: clear to auscultation bilaterally Cardio: Jugular venous distension: no JVD Rate: regular rate Rhythm: regular rhythm Heart sounds: S1 normal heart sound present and S2 normal heart sound present GI: GI Palp: Yes Soft to palpation and Yes No hepatosplenomegaly present : General: Yes deferred Skin: Rashes: no rashes Wounds: no wounds Neuro: General: patient oriented x3 and CN's II-XI intact bilaterally Cranial nerves: Yes CN's II-XII intact bilaterally and Yes Equal, round and reactive pupils present Cognition (Neuro): normal cognition Speech: normal speech Gait exam (Neuro): Normal gait present Motor exam (neuro): 5/5 motor strength present throughout Extrem: General: normal to inspection, full ROM, no joint enlargement and edema bilateral Objective Data Vital Signs Vital Signs: Vital Signs - 24 hr 08/26/20 16:00 08/26/20 16:19 08/26/20 16:29 Temperature 97.1 F L Pulse Rate 83 80 84 Respiratory Rate 20 18 18 Blood Pressure 128/54 L Pulse Oximetry 98 08/26/20 17:56 08/26/20 18:00 08/26/20 20:00 Temperature 96.9 F L Pulse Rate 85 91 88 Respiratory Rate 18 Blood Pressure 129/48 L Pulse Oximetry 94 08/26/20 20:38 08/26/20 20:47 08/26/20
[2020-08-27 16:13] LABS: Glucose Point of Care 113 (65-105)
[2020-08-27] MEDS: BUMETANIDE INJ 1 MG/4 ML VIAL IV PUSH (16:56)
[2020-08-27] MEDS: ATORVASTATIN 40 MG TABLET PO (20:09)
[2020-08-27 20:19] LABS: Glucose Point of Care 133 (65-105)
[2020-08-27] MEDS: ZOLPIDEM TARTRATE (*CRX) 5 MG TABLET PO (23:17)
[2020-08-28] VITALS (25 sets, daily range): BP systolic 96–143; BP diastolic 47–67; PULSE 53–94; RESP 18–22; TEMP 35.6–36.5; O2SAT 92–97
[2020-08-28] MEDS: LEVOTHYROXINE SODIUM 50 MCG TABLET PO (06:12)
[2020-08-28] MEDS: ALBUTEROL SULFATE NEB 2.5 MG/0.5 ML INH INHALATION ×3 (08:33→20:44)
[2020-08-28] MEDS: IPRATROPIUM BR 0.02% INH SOLN 0.5 MG/2.5 ML VIAL INHALATION ×3 (08:33→20:45)
[2020-08-28 08:37] LABS: Glucose Point of Care 91 (65-105)
[2020-08-28] MEDS: lamoTRIgine 100 MG TABLET PO (08:46)
[2020-08-28] MEDS: allopurinoL 300 MG TABLET PO (08:46)
[2020-08-28] MEDS: PREGABALIN (*CRX) 75 MG CAPSULE 150 MG PO ×3 (08:46→18:23)
[2020-08-28] MEDS: BUMETANIDE INJ 1 MG/4 ML VIAL IV PUSH (08:46)
[2020-08-28] MEDS: DULoxetine HCL 30 MG CAPSULE.DR PO ×2 (08:46→20:23)
[2020-08-28] MEDS: FINASTERIDE 5 MG TABLET PO (08:47)
[2020-08-28] MEDS: metOLazone 2.5 MG TABLET PO (08:47)
[2020-08-28] MEDS: TAMSULOSIN HCL 0.4 MG CAPSULE PO (08:47)
[2020-08-28] MEDS: MIRTAZAPINE 30 MG TABLET PO (08:47)
[2020-08-28] MEDS: polyethylene glycoL 3350 17 GM POWD.PACK PO (09:02)
--- NOTE | 2020-08-28 10:06 | PM.PNCARD ---
Progress Note: A&P Assessment and Plan (1) Chronic systolic (congestive) heart failure: Code(s): I50.22 - Chronic systolic (congestive) heart failure Status: Acute Assessment and Plan: Patient has responded well to dobutamine 2.5 mcgs with no arrhythmias, Bumex 1 mg IV BID and metolazone, diuresed. Unfortunately between that and starting Entresto he developed hypotension with BP in the 60s and 70s 08/27/20, so the dobutamine and other medications were held and he was given a saline bolus. Bumex resumed last night. BP better this morning. Resume metoprolol. Cont Bumex, spironolactone and metolazone. Perhaps try an CARLOS or retry low dose Entresto when diuretics reduced and fluid status re-equilibrates. Order daily BMPs. (2) Cardiomyopathy: Qualifiers: Cardiomyopathy type: unspecified Qualified Code(s): I42.9 - Cardiomyopathy, unspecified Code(s): I42.9 - Cardiomyopathy, unspecified Status: Acute Assessment and Plan: EF 25%. Very complicated clinical picture and management. Prognosis guarded given multiple comorbidities. Patient well aware. (3) Aortic stenosis: Qualifiers: Cardiac valve disease etiology: etiology unspecified Qualified Code(s): I35.0 - Nonrheumatic aortic (valve) stenosis Code(s): I35.0 - Nonrheumatic aortic (valve) stenosis Status: Acute Assessment and Plan: Moderate to severe. Further clarification would be beneficial but likely on an outpatient basis. Management may need to be modified depending on tx of leukemia. (4) Hypotension: Code(s): I95.9 - Hypotension, unspecified Status: Acute Assessment and Plan: Resolved. 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 Continue bronchodilator therapy, steroids completed. Appreciate pulmonology recommendations. 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 New diagnosis. OPT FU planned. Subjective Date/time seen: 08/28/20 10:06 Interval history: Mr. Mohr is a pleasant 80 yo M admitted with dyspnea on exertion, pleural effusions, MDS, cardiomyopathy, aortic stenosis. Preliminary bone marrow results indicate patient have some sort of chronic monocytic leukemia. Final results apparently pending analysis at [facility] laboratory. 08/26/2020: Patient is sitting in bed eating his breakfast appears to be in no distress reports that his breathing is much better than it was on admission he still has a fair amount of lower extremity edema, penile and scrotal edema. This however does seem to be getting better now. Was started on Entresto 24/26 mg half a tablet daily. 08/27/2020: Patient has had trouble with low blood pressure this morning, in the 80s earlier, and most recently in 60's. No distress. Dobutamine and morning meds were held. Diuresed 1700 cc yesterday and already 2300 cc to
[2020-08-28 11:00] LABS: Anion Gap 7 mmol/L (8-16); Blood Urea Nitrogen 66 mg/dL (9-20); Calcium 8.8 mg/dL (8.4-10.2); Carbon Dioxide 39 mmol/L (22-30); Chloride 92 mmol/L (98-107); Estimated CRCL calculation 24 ml/min; Estimated Glomerular Filt Rate 29; Glucose 125 mg/dL (75-110); Potassium 3.4 mmol/L (3.4-5.0); Sodium 138 mmol/L (137-145)
[2020-08-28] MEDS: SPIRONOLACTONE 25 MG TABLET PO (12:15)
[2020-08-28 12:22] LABS: Glucose Point of Care 108 (65-105)
--- NOTE | 2020-08-28 13:59 | PM.IMPN ---
Progress Note: A&P Assessment and Plan (1) Hypotension: Code(s): I95.9 - Hypotension, unspecified Status: Acute Assessment and Plan: much improved appreciate cardiology and follow cardiology recommendations (2) Acute on chronic systolic (congestive) heart failure: Code(s): I50.23 - Acute on chronic systolic (congestive) heart failure Status: Acute Assessment and Plan: improved patient with ejection fraction 20-25% agree with Entresto once patient more compensated from hemodynamics standpoint however patient with blood tanmay proliferative disorder which complicates picture (3) CMML (chronic myelomonocytic leukemia): Qualifiers: Leukemia Active/Remission status: without remission Qualified Code(s): C93.10 - 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 Code(s): C93.10 - 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 Status: Acute Assessment and Plan: is status post bone marrow biopsy awaiting results will follow-up in the outpatient setting with hematology oncology (4) Tobacco abuse: Code(s): Z72.0 - Tobacco use Status: Acute Assessment and Plan: will concern regarding tobacco cessation (5) Cardiomyopathy: Qualifiers: Cardiomyopathy type: unspecified Qualified Code(s): I42.9 - Cardiomyopathy, unspecified Code(s): I42.9 - Cardiomyopathy, unspecified Status: Acute Assessment and Plan: planning to start Entresto once patient has reach a more balanced euvolemic status (6) Dyspnea on exertion: Code(s): R06.00 - Dyspnea, unspecified Status: Acute Assessment and Plan: improved (7) 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 Qualified Code(s): J43.9 - Emphysema, unspecified Code(s): J44.9 - Chronic obstructive pulmonary disease, unspecified Status: Chronic Assessment and Plan: continue home meds does not appear to be exacerbated continue to monitor Subjective Date/time seen: 08/28/20 13:59 I feel much better Review of Systems Review of Systems: Narrative: patient is still with some swelling of bilateral lower extremities and scrotum Constitutional: Comments: no fevers no rigors no chest Cardiovascular: Comments: no chest pain Respiratory: Comments: no cough no sputum production Gastrointestinal: Comments: no nausea no vomiting no diarrhea no abdominal Genitourinary: Comments: scrotal swelling Musculoskeletal: Comments: no muscle or joint pain Integumentary/Breasts: Comments: no rashes Neurologic: Comments: no sensorimotor deficit Exam Const: General: comfortable, no acute distress, well developed, alert and awake Nutritional Appearance: average body habitus Orientation/consciousness: patient oriented x3 HENMT: Head: normal to inspection, normocephalic and atraumatic Ears: hearing grossly normal bilaterally Face and sinus: normal facial exam Eyes: General: appearance normal, both eyes and all related structures Pupils: Equal, round and reactive pupils present EOM: EOMs intact bilaterally Neck: Neck: full ROM, no lymphadenopathy and no JVD Thyroid: thyroid normal Lymphatic: no lymphadenopathy noted Resp: Effort & Inspection: normal respiratory effort and able to speak in complete sentences Auscultation: clear to auscultation bilaterally Cardio: Jugular venous distension: no JVD Rate: regular rate Rhythm: regular rhythm Heart sounds: S1 normal heart sound present and S2 normal heart sound present GI: GI Palp: Yes Soft to palpation and Yes No hepatosplenomegaly present : General: Yes deferred Skin: Rashes: no rashes Wounds: no wounds Neuro: General: patient oriented x3 and CN's II-XI intact bilaterally Cranial nerves: Yes CN's II-XII intact bilaterally and Yes Equal, round and reactive pupil
[2020-08-28 16:26] LABS: Glucose Point of Care 127 (65-105)
[2020-08-28 20:08] LABS: Glucose Point of Care 138 (65-105)
[2020-08-28] MEDS: ATORVASTATIN 40 MG TABLET PO (20:23)
[2020-08-28] MEDS: ZOLPIDEM TARTRATE (*CRX) 5 MG TABLET PO (23:17)
[2020-08-29] VITALS (24 sets, daily range): BP systolic 92–122; BP diastolic 45–75; PULSE 71–91; RESP 18–22; TEMP 35.9–36.3; O2SAT 91–100
[2020-08-29 04:56] LABS: Anion Gap 6 mmol/L (8-16); Blood Urea Nitrogen 66 mg/dL (9-20); Calcium 8.7 mg/dL (8.4-10.2); Carbon Dioxide 37 mmol/L (22-30); Chloride 94 mmol/L (98-107); Estimated CRCL calculation 27 ml/min; Estimated Glomerular Filt Rate 32; Glucose 117 mg/dL (75-110); Potassium 3.9 mmol/L (3.4-5.0); Sodium 137 mmol/L (137-145)
[2020-08-29] MEDS: LEVOTHYROXINE SODIUM 50 MCG TABLET PO (06:05)
[2020-08-29 08:08] LABS: Glucose Point of Care 96 (65-105)
[2020-08-29] MEDS: ALBUTEROL SULFATE NEB 2.5 MG/0.5 ML INH INHALATION ×3 (08:52→20:11)
[2020-08-29] MEDS: IPRATROPIUM BR 0.02% INH SOLN 0.5 MG/2.5 ML VIAL INHALATION ×3 (08:52→20:11)
--- NOTE | 2020-08-29 09:05 | PM.PNCARD ---
Progress Note: A&P Additional Plan 80-year-old man with: Congestive heart failure LV systolic dysfunction and at least moderate if not severe aortic valve stenosis. Patient is approaching clinical state of euvolemia. He will soon be able to be discharged. Unfortunately hemodynamics did not tolerate even a very small amount of Entresto which I attempted to start over the weekend. I will resume Bumex orally in anticipation of discharge relatively soon. He will follow up with Oncology regarding the final hematologic diagnosis regarding his leukemia and we will determine after we have that prognosis clarified whether he is a candidate for aortic valve procedures. Arpna Mcadams MD [facility] Subjective Date/time seen: 08/29/20 09:05 Interval history: Mr. Mohr is a pleasant 80 yo M admitted with dyspnea on exertion, pleural effusions, MDS, cardiomyopathy, aortic stenosis. Preliminary bone marrow results indicate patient have some sort of chronic monocytic leukemia. Final results apparently pending analysis at [facility] laboratory. 08/26/2020: Patient is sitting in bed eating his breakfast appears to be in no distress reports that his breathing is much better than it was on admission he still has a fair amount of lower extremity edema, penile and scrotal edema. This however does seem to be getting better now. Was started on Entresto 24/26 mg half a tablet daily. 08/27/2020: Patient has had trouble with low blood pressure this morning, in the 80s earlier, and most recently in 60's. No distress. Dobutamine and morning meds were held. Diuresed 1700 cc yesterday and already 2300 cc today. Patient happy to report his breathing is fine and his scrotal and leg edema improved. Remains on O2. Date of service 08/28/2020: Feeling good this morning, no shortness breath or dizziness when up to the bathroom. Lower extremity edema and scrotal edema has improved. BP is better this morning. Remains on 2 L nasal prong. Bumex resumed yesterday afternoon, Good diuresis yesterday, -[address] Maza, going to start physical therapy. No BMP yet today. Date of service 08/29/2020: Patient continues to diurese well. He offers no significant complaints no longer short of breath. Has minimal lower extremity edema at this time. Told patient that it is not likely that this will completely resolve at the time of his discharge. No further problems with hypotension after Entresto was discontinued. Exam Narrative: Exam Narrative: Old male in bed, alert and no distress Const: General: comfortable and no acute distress; No confusion Orientation/consciousness: No confusion HENMT: General nose exam: Normal nares present and no epistaxis Mouth: Yes moist mucous membranes Eyes: Sclera: sclerae normal EOM: EOMs intact bilaterally Neck: Neck: supple and no JVD Resp: Effort & Inspection: normal respiratory effort Auscultation: crackles (faint crackles at bases), wheezes (Scattered mild wheezes) expiratory wheezes (Much improved aeration, minimal wheezing) and diminished lung sounds Other: Decreased breath sounds in the right lower lobe, left side is clear Cardio: Rate: regular rate Rhythm: regular rhythm Heart sounds: Murmur heart sound present (2/6 harsh YU upper sternal border) systolic GI: Inspection: Abdominal wall edema (subcutaneous edema) and distended Other: May still have some ascites : Other: Minimal bipedal edema remains. Skin: General skin exam: normal color and no rashes or lesions noted Neuro: General: deep tendon reflexes 2+ bilaterally and No confusion Cranial nerves: Yes Normal hearing present Cognition (Neuro): normal cognition Speech: normal speech Extrem: General: edema (Mild lower tibial edema right more than left) bilateral Psych: Mental Status: mental status grossly normal Affect: normal affect Objective Data Vital Signs Vital Signs: Vital Signs - 24 hr
[2020-08-29] MEDS: lamoTRIgine 100 MG TABLET PO (09:57)
[2020-08-29] MEDS: PREGABALIN (*CRX) 75 MG CAPSULE 150 MG PO ×3 (09:57→18:03)
[2020-08-29] MEDS: SPIRONOLACTONE 25 MG TABLET PO (09:57)
[2020-08-29] MEDS: MIRTAZAPINE 30 MG TABLET PO (09:57)
[2020-08-29] MEDS: TAMSULOSIN HCL 0.4 MG CAPSULE PO (09:57)
[2020-08-29] MEDS: allopurinoL 300 MG TABLET PO (09:57)
[2020-08-29] MEDS: FINASTERIDE 5 MG TABLET PO (09:57)
[2020-08-29] MEDS: DULoxetine HCL 30 MG CAPSULE.DR PO ×2 (09:57→20:12)
[2020-08-29 11:47] LABS: Glucose Point of Care 129 (65-105)
--- NOTE | 2020-08-29 12:49 | PM.IMPN ---
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 Status: Acute Assessment and Plan: patient is status post bone marrow biopsy will follow in the outpatient setting with Hematology-Oncology (3) Hypotension: Code(s): I95.9 - Hypotension, unspecified Status: Acute Assessment and Plan: has improved will continue to monitor patient with ejection fraction of 20-25 most likely this would remain a problem for the patient (4) Cardiomyopathy: Qualifiers: Cardiomyopathy type: unspecified Qualified Code(s): I42.9 - Cardiomyopathy, unspecified Code(s): I42.9 - Cardiomyopathy, unspecified Status: Acute Assessment and Plan: not able to start Entresto continue supportive continue beta blockers (5) 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 Qualified Code(s): J43.9 - Emphysema, unspecified Code(s): J44.9 - Chronic obstructive pulmonary disease, unspecified Status: Chronic Assessment and Plan: does not appear to be excessively not actively with continue home med (6) Tobacco abuse: Code(s): Z72.0 - Tobacco use Status: Acute Assessment and Plan: patient is still a current day every day smoker encourage tobacco cessation Subjective Date/time seen: I feel much better Review of Systems Review of Systems: Narrative: patient with shortness of breath with exertion and at rest bilateral lower extremity edema and scrotal edema patient states that the edema has gone down significantly she denies any other issues at this time Constitutional: Comments: no fevers no rigors no chills Cardiovascular: Comments: no PND no orthopnea Respiratory: Comments: no cough no sputum for Gastrointestinal: Comments: no nausea no vomiting no diarrhea no constipation no abdominal pain Genitourinary: Comments: scrotal and penile edema Musculoskeletal: Comments: bilateral lower extremity edema Integumentary/Breasts: Comments: no rashes Neurologic: Comments: no sensorimotor deficit Exam Narrative: Exam Narrative: chronically ill-looking in laying in bed in no acute distress Const: General: comfortable, no acute distress, well developed, alert and awake Nutritional Appearance: average body habitus Orientation/consciousness: patient oriented x3 HENMT: Head: normal to inspection, normocephalic and atraumatic Ears: hearing grossly normal bilaterally Face and sinus: normal facial exam Eyes: General: appearance normal, both eyes and all related structures Pupils: Equal, round and reactive pupils present EOM: EOMs intact bilaterally Neck: Neck: full ROM, no lymphadenopathy and no JVD Thyroid: thyroid normal Lymphatic: no lymphadenopathy noted Resp: Effort & Inspection: normal respiratory effort and able to speak in complete sentences Auscultation: clear to auscultation bilaterally Cardio: Jugular venous distension: no JVD Rate: regular rate Rhythm: regular rhythm Heart sounds: S1 normal heart sound present and S2 normal heart sound present GI: GI Palp: Yes Soft to palpation and Yes No hepatosplenomegaly present : General: Yes deferred Skin: Rashes: no rashes Wounds: no wounds Neuro: General: patient oriented x3 and CN's II-XI intact bilaterally Cranial nerves:
[2020-08-29 13:27] LABS: Hematocrit 36.4 % (42.0-52.0); Hemoglobin 11.8 g/dL (14.0-18.0); Mean Corpuscular HGB Conc 32.4 g/dl (32-36); Mean Corpuscular Hemoglobin 31.9 pg (26-34); Mean Corpuscular Volume 98.4 fl (80-100); Mean Platelet Volume 13.2 fl (7.4-10.4); Platelet Count Result 68 k/mm3 (150-375); Red Cell Distribution Width 18.5 % (11.5-14.5)
[2020-08-29 13:39] LABS: Anion Gap 5 mmol/L (8-16); Blood Urea Nitrogen 65 mg/dL (9-20); Calcium 9.2 mg/dL (8.4-10.2); Carbon Dioxide 38 mmol/L (22-30); Chloride 95 mmol/L (98-107); Estimated CRCL calculation 27 ml/min; Estimated Glomerular Filt Rate 32; Glucose 95 mg/dL (75-110); Potassium 4.3 mmol/L (3.4-5.0); Sodium 138 mmol/L (137-145)
[2020-08-29 13:51] LABS: White Blood Count 50.5 K/mm3 (4.5-10.0)
[2020-08-29 13:54] LABS: Atypical Lymphocytes Present; Eosinophils Absolute Manual 1.01 K/mm3 (0.02-0.5); Eosinophils Percent Manual 2 % (0-4); Lymphocytes Absolute Manual 11.61 K/mm3 (1.1-4.5); Monocytes Absolute Manual 18.18 K/mm3 (0.1-0.90); Monocytes Percent Manual 36 % (3-9); Neutrophils Percent Manual 39 % (46-73); Platelet Estimate Decreased (Adequate); Total Cells Counted 100
[2020-08-29 13:57] LABS: Anisocytosis 1+ (NORMAL); Poikilocytosis 1+ (NORMAL)
[2020-08-29] MEDS: BUMETANIDE 1 MG TABLET PO ×2 (14:09→18:04)
[2020-08-29] MEDS: METOPROLOL SUCCINATE EXT REL 25 MG TABCR PO (14:09)
[2020-08-29 17:09] LABS: Glucose Point of Care 116 (65-105)
[2020-08-29] MEDS: ZOLPIDEM TARTRATE (*CRX) 5 MG TABLET PO (20:12)
[2020-08-29] MEDS: ATORVASTATIN 40 MG TABLET PO (20:12)
[2020-08-29 20:36] LABS: Glucose Point of Care 148 (65-105)
[2020-08-30] VITALS (21 sets, daily range): BP systolic 97–116; BP diastolic 41–58; PULSE 70–86; RESP 16–22; TEMP 36.3–36.6; O2SAT 91–98
[2020-08-30] MEDS: LEVOTHYROXINE SODIUM 50 MCG TABLET PO (05:51)
[2020-08-30] MEDS: BUMETANIDE 1 MG TABLET PO ×2 (05:51→17:21)
[2020-08-30 08:46] LABS: Glucose Point of Care 167 (65-105)
[2020-08-30] MEDS: IPRATROPIUM BR 0.02% INH SOLN 0.5 MG/2.5 ML VIAL INHALATION ×3 (08:57→19:29)
[2020-08-30] MEDS: ALBUTEROL SULFATE NEB 2.5 MG/0.5 ML INH INHALATION ×3 (08:57→19:29)
--- NOTE | 2020-08-30 09:10 | PM.PNCARD ---
Progress Note: A&P Assessment and Plan (1) Chronic systolic (congestive) heart failure: Code(s): I50.22 - Chronic systolic (congestive) heart failure Status: Acute Assessment and Plan: Smptomatically better. BP better this morning. Continue current medical treatment including gentle diuresis. Monitor electrolytes and renal function closely. Caution with spironolactone due to renal failure. (2) Cardiomyopathy: Qualifiers: Cardiomyopathy type: unspecified Qualified Code(s): I42.9 - Cardiomyopathy, unspecified Code(s): I42.9 - Cardiomyopathy, unspecified Status: Acute Assessment and Plan: EF 25%. Prognosis guarded given multiple comorbidities. Patient well aware. (3) Aortic stenosis: Qualifiers: Cardiac valve disease etiology: etiology unspecified Qualified Code(s): I35.0 - Nonrheumatic aortic (valve) stenosis Code(s): I35.0 - Nonrheumatic aortic (valve) stenosis Status: Acute Assessment and Plan: Patient will need evaluation by hematology oncology to assess his overall prognosis. If patient has reasonable life expectancy, then would recommend outpatient dobutamine echo to differentiate between pseudo versus true aortic stenosis in light of underlying LV systolic dysfunction. (4) Hypotension: Code(s): I95.9 - Hypotension, unspecified Status: Acute Assessment and Plan: Resolved. 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 Continue bronchodilator therapy, steroids completed. Appreciate pulmonology recommendations. 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 New diagnosis. OPT FU planned. Subjective Date/time seen: 08/30/20 09:10 Interval history: Mr. Mohr is a pleasant 80 yo M admitted with dyspnea on exertion, pleural effusions, MDS, cardiomyopathy, aortic stenosis. Preliminary bone marrow results indicate patient have some sort of chronic monocytic leukemia. Final results apparently pending analysis at [facility] laboratory. 08/26/2020: Patient is sitting in bed eating his breakfast appears to be in no distress reports that his breathing is much better than it was on admission he still has a fair amount of lower extremity edema, penile and scrotal edema. This however does seem to be getting better now. Was started on Entresto 24/26 mg half a tablet daily. 08/27/2020: Patient has had trouble with low blood pressure this morning, in the 80s earlier, and most recently in 60's. No distress. Dobutamine and morning meds were held. Diuresed 1700 cc yesterday and already 2300 cc today. Patient happy to report his breathing is fine and his scrotal and leg edema improved. Remains on O2. Date of service 08/28/2020: Feeling good this morning, no shortness breath or dizziness when up to the bathroom. Lower extremity edema and scrotal
[2020-08-30] MEDS: FINASTERIDE 5 MG TABLET PO (10:38)
[2020-08-30] MEDS: allopurinoL 300 MG TABLET PO (10:38)
[2020-08-30] MEDS: SPIRONOLACTONE 25 MG TABLET PO (10:38)
[2020-08-30] MEDS: PREGABALIN (*CRX) 75 MG CAPSULE 150 MG PO ×2 (10:38→17:21)
[2020-08-30] MEDS: DULoxetine HCL 30 MG CAPSULE.DR PO ×2 (10:38→21:09)
[2020-08-30] MEDS: TAMSULOSIN HCL 0.4 MG CAPSULE PO (10:38)
[2020-08-30] MEDS: lamoTRIgine 100 MG TABLET PO (10:38)
[2020-08-30] MEDS: MIRTAZAPINE 30 MG TABLET PO (10:38)
[2020-08-30] MEDS: polyethylene glycoL 3350 17 GM POWD.PACK PO (10:39)
--- NOTE | 2020-08-30 10:59 | PM.IMPN ---
Progress Note: A&P Assessment and Plan (1) Hypotension: Code(s): I95.9 - Hypotension, unspecified Status: Acute Assessment and Plan: who currently holding p.o. 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 Status: Acute Assessment and Plan: will follow-up in the outpatient setting status post bone marrow biopsy (4) Tobacco abuse: Code(s): Z72.0 - Tobacco use Status: Acute Assessment and Plan: counseling regarding tobacco cessation (5) Aortic stenosis: Qualifiers: Cardiac valve disease etiology: etiology unspecified Qualified Code(s): I35.0 - Nonrheumatic aortic (valve) stenosis Code(s): I35.0 - Nonrheumatic aortic (valve) stenosis Status: Acute Assessment and Plan: moderate to severe according to echocardiogram however pay patient with new proliferative blood disorder complicates picture and halts/ obscures further management (6) Cardiomyopathy: Qualifiers: Cardiomyopathy type: unspecified Qualified Code(s): I42.9 - Cardiomyopathy, unspecified Code(s): I42.9 - Cardiomyopathy, unspecified Status: Acute Assessment and Plan: has been unable to start Entresto due to hypotension (7) Dyspnea on exertion: Code(s): R06.00 - Dyspnea, unspecified Status: Acute Assessment and Plan: improved after diuretics (8) 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 Qualified Code(s): J43.9 - Emphysema, unspecified Code(s): J44.9 - Chronic obstructive pulmonary disease, unspecified Status: Chronic Assessment and Plan: not actively wheezing continue breathing treatments as needed Subjective Date/time seen: 08/30/20 10:59 Objective Data Vital Signs Vital Signs: Vital Signs - 24 hr 08/29/20 12:00 08/29/20 14:00 08/29/20 14:09 Temperature 96.7 F L Pulse Rate 78 80 77 Respiratory Rate 20 Blood Pressure 107/75 Pulse Oximetry 97 08/29/20 14:36 08/29/20 14:43 08/29/20 16:00 Temperature Pulse Rate 84 83 80 Respiratory Rate 18 18 Blood Pressure Pulse Oximetry 94 08/29/20 17:26 08/29/20 18:00 08/29/20 20:00 Temperature 96.8 F L 97.2 F L Pulse Rate 77 79 76 Respiratory Rate 22 H 18 Blood Pressure 100/46 L 92/50 L Pulse Oximetry 95 98 08/29/20 20:11 08/29/20 20:23 08/29/20 22:00 Temperature Pulse Rate 71 79 81 Respiratory Rate 18 18 Blood Pressure Pulse Oximetry 93 08/29/20 23:44 08/29/20 23:50 08/30/20 00:00 Temperature 97.4 F L Pulse Rate 91 77 Respiratory Rate 18 Blood Pressure 100/45 L Pulse Oximetry 91 94 08/30/20 02:00 08/30/20 04:00 08/30/20 06:00 Temperature 97.3 F L Pulse Rate 78 73 70 Respiratory Rate 18 Blood Pressure 107/41 L Pulse Oximetry 96 08/30/20 08:00 08/30/20 08:58 08/30/20 09:07 Temperature 97.9 F Pulse Rate 79 76 77 Respiratory Rate 20 20 20 Blood Pressure 114/41 L Pulse Oximetry 98 93 Intake/Output Intake/Output: Intake & Output 08/27/20 08/28/20 08/29/20 08/30/20 23:59 23:59 23:59 23:59 Intake Total 723 1360 1240 Output Total 3300 1975 1800 900 [facility] -[phone] Meds/Results Medications: Active Med
--- NOTE | 2020-08-30 11:02 | PCDIET ---
Weekly nutritional screen. Patient is tolerating current diet with adequate intake. Patient reports appetite is even better than is was at home. Weight loss appears to be related to diuresis. No nutritional needs at this time.
[2020-08-30 12:31] LABS: Glucose Point of Care 103 (65-105)
[2020-08-30 17:08] LABS: Glucose Point of Care 131 (65-105)
[2020-08-30] MEDS: METOPROLOL SUCCINATE EXT REL 25 MG TABCR PO (17:21)
[2020-08-30] MEDS: ZOLPIDEM TARTRATE (*CRX) 5 MG TABLET PO (21:09)
[2020-08-30] MEDS: ATORVASTATIN 40 MG TABLET PO (21:09)
[2020-08-31] VITALS (28 sets, daily range): BP systolic 79–112; BP diastolic 40–59; PULSE 66–102; RESP 16–22; TEMP 36.1–36.6; O2SAT 86–99
[2020-08-31] MEDS: LEVOTHYROXINE SODIUM 50 MCG TABLET PO (06:44)
[2020-08-31] MEDS: BUMETANIDE 1 MG TABLET PO ×2 (06:44→17:51)
[2020-08-31] MEDS: lamoTRIgine 100 MG TABLET PO (08:16)
[2020-08-31] MEDS: DULoxetine HCL 30 MG CAPSULE.DR PO ×2 (08:16→21:10)
[2020-08-31] MEDS: SPIRONOLACTONE 25 MG TABLET PO (08:16)
[2020-08-31] MEDS: TAMSULOSIN HCL 0.4 MG CAPSULE PO (08:16)
[2020-08-31] MEDS: FINASTERIDE 5 MG TABLET PO (08:16)
[2020-08-31] MEDS: PREGABALIN (*CRX) 75 MG CAPSULE 150 MG PO ×3 (08:16→17:51)
[2020-08-31] MEDS: allopurinoL 300 MG TABLET PO (08:16)
[2020-08-31] MEDS: MIRTAZAPINE 30 MG TABLET PO (08:18)
[2020-08-31 08:25] LABS: Glucose Point of Care 77 (65-105)
[2020-08-31] MEDS: ALBUTEROL SULFATE NEB 2.5 MG/0.5 ML INH INHALATION ×3 (09:21→20:57)
[2020-08-31] MEDS: IPRATROPIUM BR 0.02% INH SOLN 0.5 MG/2.5 ML VIAL INHALATION ×3 (09:21→20:57)
--- NOTE | 2020-08-31 09:22 | PM.PNCARD ---
Progress Note: A&P Assessment and Plan (1) Chest pain: Code(s): R07.9 - Chest pain, unspecified Status: Acute Assessment and Plan: New pleuritic CP this a.m. Most likely muscle strain for paroxysms of coughing but need to r/o PE. Hesitant to start full AC while awaiting for results as pt has progressive thrombocytopenia, 68K this a.m. START DVT prophylaxis with Lovenox CXR, VQ scan (not able to do CTA 2nd renal dysfxn) (2) Chronic systolic (congestive) heart failure: Code(s): I50.22 - Chronic systolic (congestive) heart failure Status: Acute Assessment and Plan: Symptomatically better. BP stable Continue current medical treatment including gentle diuresis. Caution with spironolactone due to renal failure, will need periodic check of potassium level. Might retry [place] as an outpatient when he is not undergoing active diuresis, add at a low-dose. Check BMP today, check home O2 needs, perhaps home today? (3) Cardiomyopathy: Qualifiers: Cardiomyopathy type: unspecified Qualified Code(s): I42.9 - Cardiomyopathy, unspecified Code(s): I42.9 - Cardiomyopathy, unspecified Status: Acute Assessment and Plan: EF 25%. Prognosis guarded given multiple comorbidities. Patient well aware. (4) Aortic stenosis: Qualifiers: Cardiac valve disease etiology: etiology unspecified Qualified Code(s): I35.0 - Nonrheumatic aortic (valve) stenosis Code(s): I35.0 - Nonrheumatic aortic (valve) stenosis Status: Acute Assessment and Plan: Reviewed again with patient. Patient will need evaluation by hematology oncology to assess his overall prognosis. If patient has reasonable life expectancy, then would recommend outpatient dobutamine echo to differentiate between pseudo versus true aortic stenosis in light of underlying LV systolic dysfunction. (5) Hypotension: Code(s): I95.9 - Hypotension, unspecified Status: Acute Assessment and Plan: Resolved. (6) ELZBIETA (acute kidney injury): Code(s): N17.9 - Acute kidney failure, unspecified Status: Acute Assessment and Plan: Stable, follow renal function and electrolytes daily No BMP yet available today. 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 Continue bronchodilator therapy, steroids completed. Appreciate pulmonology recommendations. 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 New diagnosis. Progressive thrombocytopenia -- needs to be followed OPT FU planned. Subjective Date/time seen: 08/31/20 09:22 Interval history: Mr. Mohr is a pleasant 80 yo M admitted with dyspnea on exertion, pleural effusions, CHF, cardiomyopathy, aortic stenosis. Preliminary bone marrow results indicate patient have some sort of chronic monocytic leukemia. Final results apparently pending analysis at [facility] laboratory. 08/26/2020: Patient is sitting in bed eating his breakfast appears to be in no distress reports that his breathing is much bett
--- NOTE | 2020-08-31 09:24 | PCPTNOTE ---
Attempted to see patient this am. Patient reported 5/10 dull chest pain with deep breathing at subjective portion of session. Therapist informed R.N. R.N advised to come back later. Patient's bed alarm donned. Will plan to continue treatment per plan of care.
--- NOTE | 2020-08-31 09:55 | ECG_ITS ---
Measurements Intervals [place] Rate: 81 P: GA: 0 QRS: 71 QRSD: 122 T: -87 QT: 395 QTc: 460 Interpretive Statements ECTOPIC ARIAL RHYTHM ATRIAL TRIPLET INTRAVENTRICULAR CONDUCTION DELAY ST-T WAVE ABNORMALITY IN LATERAL LEADS- CONSIDER ISCHEMIA ABNORMAL ECG Electronically Signed On 08-31-2020 13:04:01 CDT by Huang Ramirez D.O.
[2020-08-31 10:16] LABS: Anion Gap 11 mmol/L (8-16); Blood Urea Nitrogen 73 mg/dL (9-20); Calcium 8.8 mg/dL (8.4-10.2); Carbon Dioxide 31 mmol/L (22-30); Chloride 97 mmol/L (98-107); Estimated CRCL calculation 23 ml/min; Estimated Glomerular Filt Rate 27; Glucose 131 mg/dL (75-110); Potassium 3.8 mmol/L (3.4-5.0); Sodium 139 mmol/L (137-145)
[2020-08-31 10:54] LABS: Troponin I < 0.012 ng/mL (0.000-0.034)
--- NOTE | 2020-08-31 11:07 | HOMEO2EVAL ---
Home Oxygen Evaluation RC: Home Oxygen (O2) Evaluation Start: 08/31/20 09:30 Freq: ONCE Status: Active Protocol: RPE Activity Type Activity Date Activity User E-Sign Co-Sign Detail Recorded Client Recorded Date Recorded By Document 08/31/20 10:00 [email or web address] [email or web address] 08/31/20 11:07 DJO Document 08/31/20 10:05 [email or web address] [email or web address] 08/31/20 11:07 DJO Document 08/31/20 10:15 [email or web address] [email or web address] 08/31/20 11:07 DJO Document 08/31/20 10:15 [email or web address] [email or web address] 08/31/20 11:07 DJO Document 08/31/20 11:04 [email or web address] [email or web address] 08/31/20 11:07 DJO 08/31/20 08/31/20 08/31/20 10:00 10:05 10:15 Home O2 Evaluation Test Phase Resting Exercise Exercise Oxygen Delivery Room Air Room Air Nasal Cannula Oxygen Flow Rate (L/min) 1 Pulse Oximetry (90-100 %) 93 86 L 88 L Pulse Rate (60-100 beats/min) 73 95 99 Ambulation Distance (feet) Treatment Charges O2 Evaluation - Inpatient 08/31/20 08/31/20 10:15 11:04 Home O2 Evaluation Test Phase Resting Exercise Oxygen Delivery Room Air Nasal Cannula Oxygen Flow Rate (L/min) 2 Pulse Oximetry (90-100 %) 93 90 Pulse Rate (60-100 beats/min) 89 98 Ambulation Distance (feet) 100 Treatment Charges
--- NOTE | 2020-08-31 11:09 | HOMEO2EVAL ---
Home Oxygen Evaluation RC: Home Oxygen (O2) Evaluation Start: 08/31/20 09:30 Freq: ONCE Status: Active Protocol: RPE Activity Type Activity Date Activity User E-Sign Co-Sign Detail Recorded Client Recorded Date Recorded By Document 08/31/20 10:00 [email or web address] [email or web address] 08/31/20 11:07 DJO Document 08/31/20 10:05 [email or web address] [email or web address] 08/31/20 11:07 DJO Document 08/31/20 10:15 [email or web address] [email or web address] 08/31/20 11:07 DJO Document 08/31/20 10:35 [email or web address] [email or web address] 08/31/20 11:07 DJO Document 08/31/20 10:20 [email or web address] [email or web address] 08/31/20 11:07 DJO 08/31/20 08/31/20 08/31/20 10:00 10:05 10:15 Home O2 Evaluation Test Phase Resting Exercise Exercise Oxygen Delivery Room Air Room Air Nasal Cannula Oxygen Flow Rate (L/min) 1 Pulse Oximetry (90-100 %) 93 86 L 88 L Pulse Rate (60-100 beats/min) 73 95 99 Ambulation Distance (feet) Treatment Charges O2 Evaluation - Inpatient 08/31/20 08/31/20 10:35 10:20 Home O2 Evaluation Test Phase Resting Exercise Oxygen Delivery Room Air Nasal Cannula Oxygen Flow Rate (L/min) 2 Pulse Oximetry (90-100 %) 93 90 Pulse Rate (60-100 beats/min) 89 98 Ambulation Distance (feet) 100 Treatment Charges
[2020-08-31 13:05] LABS: Glucose Point of Care 143 (65-105)
--- NOTE | 2020-08-31 16:23 | PCPTNOTE ---
The patient treatment was not able to be completed on 08-31-2020 due to patient declined due to fatigue. Will plan to continue treatment per plan of care.
[2020-08-31 16:30] LABS: Glucose Point of Care 156 (65-105)
--- NOTE | 2020-08-31 16:50 | PM.IMPN ---
Progress Note: A&P Assessment and Plan (1) Hypotension: Code(s): I95.9 - Hypotension, unspecified Status: Acute Assessment and Plan: imprved and resolved. with stopping his entresto. 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 (4) Tobacco abuse: Code(s): Z72.0 - Tobacco use Status: Acute Assessment and Plan: counseling regarding tobacco cessation (5) Aortic stenosis: Qualifiers: Cardiac valve disease etiology: etiology unspecified Qualified Code(s): I35.0 - Nonrheumatic aortic (valve) stenosis Code(s): I35.0 - Nonrheumatic aortic (valve) stenosis Status: Acute Assessment and Plan: moderate to severe according to echocardiogram however patient with new proliferative blood disorder complicates picture and halts/ obscures further management (6) Cardiomyopathy: Qualifiers: Cardiomyopathy type: unspecified Qualified Code(s): I42.9 - Cardiomyopathy, unspecified Code(s): I42.9 - Cardiomyopathy, unspecified Status: Acute Assessment and Plan: has been unable to start Entresto due to hypotension (7) Dyspnea on exertion: Code(s): R06.00 - Dyspnea, unspecified Status: Acute Assessment and Plan: improved after diuretics (8) 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 he has some swelling in the legs. no nasuea, vomitg. eating well. no fever, chills. Review of Systems Review of Systems: All systems reviewed & are unremarkable except as noted in HPI and below Constitutional: Constitutional: Denies body ache(s), Denies fatigue, Denies lethargy and Reports weakness Eyes: Eyes: Denies blurry vision and Denies photophobia ENT: Denies Normal hearing present and Denies tinnitus Cardiovascular: Cardiovascular: Denies chest pain, Denies diaphoresis, Denies lightheadedness and Denies palpitations Respiratory: Respiratory: Denies dyspnea and Denies dyspnea on exertion Gastrointestinal: Gastrointestinal: Denies melena, Denies nausea and Denies vomiting Genitourinary: Genitourinary: Denies dysuria and Denies urinary frequency Musculoskeletal: Musculoskeletal: Denies back pain and Denies joint swelling Integumentary/Breasts: Skin/Breast: Denies dry skin and Denies rash Neurologic: Denies headache(s) and Denies numbness Psychiatric: Psychiatric: Denies anxiety, Denies confusion and Denies depression Exam Narrative: Exam Narrative: chronically ill-looking Const: General: comfortable, no acute distress, well developed, alert, awake, Physically active and ill appearing Nutritional Appearance: average body habitus and well nourished Orientation/consciousness: patient oriented x3 HENMT: Head: normal to i
[2020-08-31] MEDS: METOPROLOL SUCCINATE EXT REL 25 MG TABCR PO (17:51)
[2020-08-31 20:18] LABS: Glucose Point of Care 201 (65-105)
[2020-08-31] MEDS: ZOLPIDEM TARTRATE (*CRX) 5 MG TABLET PO (21:10)
[2020-08-31] MEDS: ATORVASTATIN 40 MG TABLET PO (21:10)
[2020-08-31] MEDS: SODIUM CHLORIDE 0.9% IV 500 ML 999 ML IV CONT (23:53)
[2020-09-01] VITALS (21 sets, daily range): BP systolic 84–116; BP diastolic 40–78; PULSE 58–85; RESP 12–931; TEMP 36.2–36.8; O2SAT 93–100
[2020-09-01] MEDS: SODIUM CHLORIDE 0.9% IV 500 ML IV CONT (02:45)
[2020-09-01 05:12] LABS: Hematocrit 32.9 % (42.0-52.0); Hemoglobin 10.7 g/dL (14.0-18.0); Immature Platelet Fraction Pct 17.8 % (0.9-11.2); Mean Corpuscular HGB Conc 32.5 g/dl (32-36); Mean Corpuscular Hemoglobin 31.9 pg (26-34); Mean Corpuscular Volume 98.2 fl (80-100); Mean Platelet Volume 13.7 fl (7.4-10.4); Platelet Count Result 61 k/mm3 (150-375); Red Blood Count 3.35 M/mm3 (4.6-6.20); Red Cell Distribution Width 18.1 % (11.5-14.5)
[2020-09-01 05:29] LABS: Anion Gap 10 mmol/L (8-16); Blood Urea Nitrogen 85 mg/dL (9-20); Calcium 8.5 mg/dL (8.4-10.2); Carbon Dioxide 27 mmol/L (22-30); Chloride 101 mmol/L (98-107); Estimated CRCL calculation 19 ml/min; Estimated Glomerular Filt Rate 22; Glucose 146 mg/dL (75-110); Potassium 4.3 mmol/L (3.4-5.0); Sodium 138 mmol/L (137-145)
[2020-09-01 06:14] LABS: White Blood Count 55.1 K/mm3 (4.5-10.0)
[2020-09-01] MEDS: LEVOTHYROXINE SODIUM 50 MCG TABLET PO (06:43)
[2020-09-01] MEDS: ALBUTEROL SULFATE NEB 2.5 MG/0.5 ML INH INHALATION ×3 (07:52→19:37)
[2020-09-01] MEDS: IPRATROPIUM BR 0.02% INH SOLN 0.5 MG/2.5 ML VIAL INHALATION ×3 (07:52→19:37)
[2020-09-01 08:34] LABS: Glucose Point of Care 113 (65-105)
[2020-09-01] MEDS: TAMSULOSIN HCL 0.4 MG CAPSULE PO (09:32)
[2020-09-01] MEDS: allopurinoL 300 MG TABLET PO (09:32)
[2020-09-01] MEDS: DULoxetine HCL 30 MG CAPSULE.DR PO ×2 (09:32→20:54)
[2020-09-01] MEDS: lamoTRIgine 100 MG TABLET PO (09:32)
[2020-09-01] MEDS: FINASTERIDE 5 MG TABLET PO (09:32)
[2020-09-01] MEDS: MIRTAZAPINE 30 MG TABLET PO (09:32)
[2020-09-01] MEDS: polyethylene glycoL 3350 17 GM POWD.PACK PO (09:34)
--- NOTE | 2020-09-01 11:17 | PM.IMPN ---
Progress Note: A&P Assessment and Plan (1) Hypotension: Code(s): I95.9 - Hypotension, unspecified Status: Acute Assessment and Plan: ejection fraction of 20-25% Will adjust the medications to address the hypertension. 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 (4) Tobacco abuse: Code(s): Z72.0 - Tobacco use Status: Acute Assessment and Plan: counseling regarding tobacco cessation (5) Aortic stenosis: Qualifiers: Cardiac valve disease etiology: etiology unspecified Qualified Code(s): I35.0 - Nonrheumatic aortic (valve) stenosis Code(s): I35.0 - Nonrheumatic aortic (valve) stenosis Status: Acute Assessment and Plan: moderate to severe according to echocardiogram however patient with new proliferative blood disorder complicates picture and halts/ obscures further management (6) Cardiomyopathy: Qualifiers: Cardiomyopathy type: unspecified Qualified Code(s): I42.9 - Cardiomyopathy, unspecified Code(s): I42.9 - Cardiomyopathy, unspecified Status: Acute Assessment and Plan: has been unable to start Entresto due to hypotension (7) Dyspnea on exertion: Code(s): R06.00 - Dyspnea, unspecified Status: Acute Assessment and Plan: improved after diuretics (8) 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 Additional Plan Will continue current plan of care and treatment. Patient blood pressure medications were put on hold off on no blood pressure. Will continue to monitor patient. Patient creatinine is getting worse. Will consult nephrology. Monitor labs. Subjective Date/time seen: 09/01/20 11:17 Interval history: Patient was seen during the morning rounds today. Patient complains of having generalized weakness. Mild shortness of breath no chest pain. No abdominal pain, no nausea or vomiting. Mood stable. Review of Systems Review of Systems: All systems reviewed & are unremarkable except as noted in HPI and below Constitutional: Constitutional: Denies body ache(s), Denies fatigue, Denies headache(s), Denies lethargy and Reports weakness Eyes: Eyes: Denies blurry vision and Denies photophobia ENT: Denies Normal hearing present, Denies headache(s) and Denies tinnitus Cardiovascular: Cardiovascular: Denies chest pain, Denies diaphoresis, Denies lightheadedness, Denies palpitations, Denies dyspnea and Denies dyspnea on exertion Respiratory: Respiratory: Denies dyspnea and Denies dyspnea on exertion Gastrointestinal: Gastrointestinal: Denies melena, Denies nausea and Denies vomiting Genitourinary: Genito
[2020-09-01 12:34] LABS: Glucose Point of Care 100 (65-105)
--- NOTE | 2020-09-01 14:28 | PM.PNCARD ---
Progress Note: A&P Assessment and Plan (1) Chronic systolic (congestive) heart failure: Code(s): I50.22 - Chronic systolic (congestive) heart failure Status: Acute Assessment and Plan: Cardiomyopathy, EF 25%. Symptomatically better, near euvolemic. BP low at times, 80-105 mmHg. Metoprolol has been DC'd because of his blood pressure and worsening renal failure. Hope to resume in the next couple of days; the only cardiomyopathy medication he is still taking is spironolactone, and that with caution due to his ELZBIETA. Might retry Amber as an outpatient when he is not undergoing active diuresis, add at a low-dose. (2) Paroxysmal atrial fibrillation: Code(s): I48.0 - Paroxysmal atrial fibrillation Status: Acute Assessment and Plan: New problem of atrial fib, noted on telemetry/rhythm strips. Heart rate is controlled. Cannot anticoagulate because of thrombocytopenia. Will start amiodarone 200 mg b.i.d.. (3) Aortic stenosis: Qualifiers: Cardiac valve disease etiology: etiology unspecified Qualified Code(s): I35.0 - Nonrheumatic aortic (valve) stenosis Code(s): I35.0 - Nonrheumatic aortic (valve) stenosis Status: Acute Assessment and Plan: Reviewed again with patient. Patient will need evaluation by hematology oncology to assess his overall prognosis. If patient has reasonable life expectancy, then would recommend outpatient dobutamine echo to differentiate between pseudo versus true aortic stenosis in light of underlying LV systolic dysfunction. Could also consider transesophageal ECHO to planimetry of the aortic valve area. Thrombocytopenia may interfere with any TAVR plans as well. (4) ELZBIETA (acute kidney injury): Code(s): N17.9 - Acute kidney failure, unspecified Status: Acute Assessment and Plan: Acute kidney injury/chronic kidney disease. Likely due to diuretics, poor perfusion (2nd to cardiomyopathy and a fib) and low blood pressure. Patient looks near euvolemic; will stop his Bumex and metolazone Give back some fluid, starting with NS 250 cc's at 75 cc's/hr, unless renal disagrees. (5) Hypotension: Code(s): I95.9 - Hypotension, unspecified Status: Acute Assessment and Plan: An ongoing problem especially during IV diuresis. Will hold diuretics (Bumex 1 mg qd and metolazone 2.5 mg qd). May need to discontinue finasteride or tamsulosin all is well because of low blood pressures. 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 New diagnosis. Progressive thrombocytopenia -- needs to be followed OPT FU planned. (7) Chest pain: Code(s): R07.9 - Chest pain, unspecified Status: Acute Assessment and Plan: New pleuritic CP 08/31/2020 Most likely muscle strain for paroxysms of coughing. V/Q scan was negative. Resolved. Subjective Date/time seen: 09/01/20 14:28 Interval history: Mr. Mohr is a pleasant 80 yo M admitted with dyspnea on exertion, pleural effusions, CHF, cardiomyopathy, aortic stenosis. Preliminary bone marrow results indicate patient have some sort of chronic monocytic leukemia. Final results apparently pending analysis at [facility] laboratory. 08/26/2020: Patient is sitting in bed eating his breakfast appears to be in no distress reports that his breathing is much better than it was on admissio
--- NOTE | 2020-09-01 15:26 | PM.CNNEP ---
Assessment and Plan Assessment and plan (1) ELZBIETA (acute kidney injury): Code(s): N17.9 - Acute kidney failure, unspecified Status: Acute Assessment and Plan: unclear what baseline kidney function/creatinine is however, suspect he has some underlying renal insufficiency [age, vascular disease, diuretics, component of cardiorenal syndrome(?)] cysts on kidney from abdominal CT scan associated with atherosclerotic disease check formal renal ultrasound urine electroltyes, urine eosinophils and assess for proteinuria agree with trial of IVFs today follow repeat labs (2) Acute on chronic systolic (congestive) heart failure: Code(s): I50.23 - Acute on chronic systolic (congestive) heart failure Status: Acute Assessment and Plan: as noted by Echo -- EF 20 - 25% complicated by aortic stenosis as well Cardiology diuretics on hold given #1 and hypotension agree with trial of IVFs today (3) Hypotension: Code(s): I95.9 - Hypotension, unspecified Status: Acute Assessment and Plan: due to cardiomyopathy versus overdiuresis trial of IVFs today follow hemodynamics off anti-HTN medications (4) Aortic stenosis: Qualifiers: Cardiac valve disease etiology: etiology unspecified Qualified Code(s): I35.0 - Nonrheumatic aortic (valve) stenosis Code(s): I35.0 - Nonrheumatic aortic (valve) stenosis Status: Acute Assessment and Plan: Cardiology recommendations noted will further testing once acute medical issues stabilize (5) Leukocytosis: Code(s): D72.829 - Elevated white blood cell count, unspecified Status: Acute Assessment and Plan: in association with anemia and thrombocytopenia s/p bone marrow biopsy -- flow cytometry showed 9% myeloblasts 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 His voume status is better but given his cardiomyopathy, decreased renal perfusion, persistent hypotension, dialysis maybe challenging and difficult for him to tolerate in general -- furthermore, this may not change his prognosis with regard to his aortic stenosis and possible myelodysplasia/myeloproliferative disorder. He was not very receptive to the idea of dialysis although he did not specifically say he would not do it either. Will continue to follow. History of Present Illness Reason for Consult Consult date: 09/01/20 Reason for consult: acute renal failure (on chronic disease[?]) Chief Complaint Chief complaint: Leukocytosis,hypoxia,lung nodules History of Present Illness Narrative: 80 year old male with a past medical history as outlined below who presented to [facility] ER with complaints of shortness of breath and weakness approximately 2 weeks ago. The patient states the symptoms have been going on for quite a while now but was only in the last week prior to admission that he noticed the symptoms worsening particularly with regard to his shortness of breath and noticeable dyspnea on exertion. Specifically, he says he feels short of breath with any type of physical activity including walking associated with back pain and leg pain. The symptoms usually improve when he rests or sits down. He denies any chest pain, diaphoresis, nausea, vomiting, fevers, chills, night sweats, diarrhea or worsening lower extremity edema. Workup and evaluation emergency room demonstrated the patient to be hemodynamically stable but routine blood tests demonstrated a significant leukocytosis, mild anemia, and thrombocytopenia. His chest x-ray was significant for a right pleural effusion as well. There was some concern that these laboratory abnormalities may be a suggesti
[2020-09-01 16:54] LABS: Glucose Point of Care 104 (65-105)
[2020-09-01] MEDS: AMIODARONE HCL 200 MG TABLET PO (17:24)
[2020-09-01] MEDS: SODIUM CHLORIDE 0.9% IV 250 ML 75 ML IV CONT (17:25)
[2020-09-01] MEDS: ATORVASTATIN 40 MG TABLET PO (20:53)
[2020-09-01 21:04] LABS: Glucose Point of Care 189 (65-105)
[2020-09-02] VITALS (26 sets, daily range): BP systolic 98–131; BP diastolic 43–59; PULSE 57–87; RESP 12–24; TEMP 35.9–36.6; O2SAT 93–99
[2020-09-02] MEDS: IPRATROPIUM BR 0.02% INH SOLN 0.5 MG/2.5 ML VIAL INHALATION ×3 (02:10→21:29)
[2020-09-02 02:16] LABS: Alveolar/Arterial O2 Gradient 88.7 mmHg; Carboxyhemoglobin 0.6 % THb (0-2.0); Fractional Inspired Oxygen 28 %; HCO3 ABG 23.1 mEq/l (22.0-26.0); Methemoglobin ABG 0.2 %THb (0-1.5); Oxygen Content ABG 15.1 %vol (16.0-22.0); Oxyhemoglobin 90.2 % THb (90.0-100.0); PCO2 ABG 36.4 mmHg (35.0-45.0); PO2 FiO2 Ratio Arterial Blood 2.43 %; Total Hemoglobin 11.9 g/dL (12.0-18.0); pH ABG 7.421 (7.350-7.450)
[2020-09-02 02:17] LABS: Device NASAL CANNULA; Modified Allen's Test Pass; Site Drawn LEFT RADIAL
[2020-09-02 02:47] LABS: Hemoglobin 10.9 g/dL (14.0-18.0); Immature Platelet Fraction Pct 19.6 % (0.9-11.2); Mean Corpuscular Hemoglobin 32.2 pg (26-34); Mean Corpuscular Volume 97.3 fl (80-100); Platelet Count Result 64 k/mm3 (150-375); Red Blood Count 3.39 M/mm3 (4.6-6.20)
[2020-09-02 03:00] LABS: Phosphorus 8.2 mg/dL (2.5-4.5); Uric Acid 6.5 mg/dL (3.5-8.5)
[2020-09-02 03:01] LABS: Anion Gap 13 mmol/L (8-16); Blood Urea Nitrogen 97 mg/dL (9-20); Calcium 8.6 mg/dL (8.4-10.2); Carbon Dioxide 26 mmol/L (22-30); Chloride 100 mmol/L (98-107); Estimated CRCL calculation 17 ml/min; Estimated Glomerular Filt Rate 19; Glucose 126 mg/dL (75-110); Potassium 4.5 mmol/L (3.4-5.0); Sodium 139 mmol/L (137-145)
[2020-09-02 03:03] LABS: White Blood Count 57.5 K/mm3 (4.5-10.0)
--- NOTE | 2020-09-02 03:07 | PM.EVENT ---
Event Note Event Note Event Note: Nursing staff called me to tell me that the patient was having visual hallucinations. The patient was reporting that his hallucinations were starting out is benign in nature but were becoming terrifying. Review of patient's chart demonstrates that the patient has significant uremia. Stat BMP CBC, uric acid and phosphorus levels were drawn. The patient's BUN has continued to climb from 222 on 08/14/2020 up to 97 currently. I have requested that nursing staff call Nephrology in the morning to update them as to the trend in the patient's labs. The patient was also noted have hyperphosphatemia. Will defer management to Nephrology. Uric acid was normal at 6.5. The patient's leukocytosis remains in the mid 70s consistent with his recent diagnosis of CMML.
[2020-09-02] MEDS: LEVOTHYROXINE SODIUM 50 MCG TABLET PO (05:21)
[2020-09-02 07:58] LABS: Glucose Point of Care 126 (65-105)
[2020-09-02] MEDS: AMIODARONE HCL 200 MG TABLET PO ×2 (08:16→16:50)
[2020-09-02] MEDS: MIRTAZAPINE 30 MG TABLET PO (08:16)
[2020-09-02] MEDS: lamoTRIgine 100 MG TABLET PO (08:16)
[2020-09-02] MEDS: allopurinoL 300 MG TABLET PO (08:16)
[2020-09-02] MEDS: DULoxetine HCL 30 MG CAPSULE.DR PO ×2 (08:16→20:59)
[2020-09-02] MEDS: ALBUTEROL SULFATE NEB 2.5 MG/0.5 ML INH INHALATION ×3 (08:39→21:29)
--- NOTE | 2020-09-02 09:59 | PM.IMPN ---
Progress Note: A&P Assessment and Plan (1) Hypotension: Code(s): I95.9 - Hypotension, unspecified Status: Acute Assessment and Plan: ejection fraction of 20-25% Blood pressure is slightly better today. 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 (4) Tobacco abuse: Code(s): Z72.0 - Tobacco use Status: Acute Assessment and Plan: counseling regarding tobacco cessation (5) Aortic stenosis: Qualifiers: Cardiac valve disease etiology: etiology unspecified Qualified Code(s): I35.0 - Nonrheumatic aortic (valve) stenosis Code(s): I35.0 - Nonrheumatic aortic (valve) stenosis Status: Acute Assessment and Plan: moderate to severe according to echocardiogram however patient with new proliferative blood disorder complicates picture and halts/ obscures further management (6) Cardiomyopathy: Qualifiers: Cardiomyopathy type: unspecified Qualified Code(s): I42.9 - Cardiomyopathy, unspecified Code(s): I42.9 - Cardiomyopathy, unspecified Status: Acute Assessment and Plan: has been unable to start Entresto due to hypotension (7) Dyspnea on exertion: Code(s): R06.00 - Dyspnea, unspecified Status: Acute Assessment and Plan: improved after diuretics (8) 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 Additional Plan Will continue current plan of care and treatment. Patient blood pressure medications were put on hold off on no blood pressure. Will continue to monitor patient. Patient creatinine is getting worse. Nephrology consult noted. Monitor labs. Continue physical therapy. Subjective Date/time seen: 09/02/20 09:59 Interval history: Patient was seen during the morning rounds today. Patient weakness is slightly better. Patient still has mild shortness of breath. No chest pain. No abdominal pain, no nausea or vomiting. Mood stable. No other complaints. Review of Systems Review of Systems: All systems reviewed & are unremarkable except as noted in HPI and below Constitutional: Constitutional: Denies body ache(s), Denies fatigue, Denies headache(s), Denies lethargy and Reports weakness Eyes: Eyes: Denies blurry vision and Denies photophobia ENT: Denies Normal hearing present, Denies headache(s) and Denies tinnitus Cardiovascular: Cardiovascular: Denies chest pain, Denies diaphoresis, Denies lightheadedness, Denies palpitations, Denies dyspnea and Denies dyspnea on exertion Respiratory: Respiratory: Denies dyspnea and Denies dyspnea on exertion Gastrointestinal: Gastrointestinal: Denies melena, Denies nausea a
--- NOTE | 2020-09-02 10:29 | PCOTNOTE ---
Attempted to see patient, patient sleeping soundly. Patient asked therapist to attempt this PM to be seen for OT. Will try again then.
--- NOTE | 2020-09-02 11:38 | PCPTNOTE ---
PT attempted to see patient 2x this A.M.. Patient sleeping on first attempt and patient requested PT return in afternoon on second attempt. Patient states he did not feel well due to lack of sleep last night. PT will continue to follow per plan of care.
--- NOTE | 2020-09-02 12:09 | P.PNNP_ITS ---
Progress Note: A&P Assessment and Plan (1) ELZBIETA (acute kidney injury): Code(s): N17.9 - Acute kidney failure, unspecified Status: Acute Assessment and Plan: * unclear what baseline kidney function/creatinine is * however, suspect he has some underlying renal insufficiency due multiple risk factors [age, vascular disease, diuretics, component of cardiorenal syndrome(?)] * cysts on kidney from abdominal CT scan associated with atherosclerotic disease * check formal renal ultrasound * urine electrolytes, urine eosinophils and assess for proteinuria * although elevated BUN/azotemia concerning, would watch for another day as perhaps better BP may help improve renal perfusion and overal kidney function * follow repeat labs and UOP (2) Acute on chronic systolic (congestive) heart failure: Code(s): I50.23 - Acute on chronic systolic (congestive) heart failure Status: Acute Assessment and Plan: * as noted by Echo -- EF 20 - 25% * complicated by aortic stenosis as well * Cardiology * diuretics on hold given #1 and hypotension (3) Hypotension: Code(s): I95.9 - Hypotension, unspecified Status: Acute Assessment and Plan: * due to cardiomyopathy versus overdiuresis * follow hemodynamics off anti-HTN medications (4) Aortic stenosis: Qualifiers: Cardiac valve disease etiology: etiology unspecified Qualified Code(s): I35.0 - Nonrheumatic aortic (valve) stenosis Code(s): I35.0 - Nonrheumatic aortic (valve) stenosis Status: Acute Assessment and Plan: * Cardiology recommendations noted * will need further testing once acute medical issues stabilize (5) Leukocytosis: Code(s): D72.829 - Elevated white blood cell count, unspecified Status: Acute Assessment and Plan: * in association with anemia and thrombocytopenia * s/p bone marrow biopsy -- flow cytometry showed 9% myeloblasts 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 Subjective Date/time seen: 09/02/20 12:09 Visual hallucination yesterday evening (patient was aware of it as well) with the concern uremia/azotemia maybe to blame for this; breathing/respiratory status seems stable in spite of worsening renal function; hemodynamics appear better today as well in comparison to yesterday (diuretics and BP medications are all on hold). Exam Narrative: Exam Narrative: General: elderly male in [facility] Heart: normal S1 and S2; no rub Lungs: clear to auscultation anteriorly Abdomen: soft, nontender, nondistended, positive bowel sounds Extremities: no cyanosis or clubbing; trace edema Skin: warm and dry Objective Data Vital Signs Vital Signs: Vital Signs Temp Pulse Resp BP Pulse Ox 09/02/20 10:07 65 20 95 09/02/20 10:00 62 09/02/20 08:43 65 20 09/02/20 08:16 59 L 09/02/20 08:00 60 97 09/02/20 07:34 36.1 C L 72 22 H 98/52 L 97 09/02/20 06:00 60 09/02/20 04:00 36.6 C 57 L 22 H 106/43 L 99 09/02/20 02:23 78 20 09/02/20 02:10 83 22 H 95 09/02/20 02:09 99 09/02/20 02:00 87 09/02/20 00:00 82 09/01/20 23:47 36.2 C L 71 20 116/44 L 99 09/01/20 22:00 66 09/01/20 20:00 36.3 C L 65 20 101/40 L 100 09/01/20 19:47 61 18
--- NOTE | 2020-09-02 12:09 | PM.PNNEP ---
Progress Note: A&P Assessment and Plan (1) ELZBIETA (acute kidney injury): Code(s): N17.9 - Acute kidney failure, unspecified Status: Acute Assessment and Plan: unclear what baseline kidney function/creatinine is however, suspect he has some underlying renal insufficiency due multiple risk factors [age, vascular disease, diuretics, component of cardiorenal syndrome(?)] cysts on kidney from abdominal CT scan associated with atherosclerotic disease check formal renal ultrasound urine electrolytes, urine eosinophils and assess for proteinuria although elevated BUN/azotemia concerning, would watch for another day as perhaps better BP may help improve renal perfusion and overal kidney function follow repeat labs and UOP (2) Acute on chronic systolic (congestive) heart failure: Code(s): I50.23 - Acute on chronic systolic (congestive) heart failure Status: Acute Assessment and Plan: as noted by Echo -- EF 20 - 25% complicated by aortic stenosis as well Cardiology diuretics on hold given #1 and hypotension (3) Hypotension: Code(s): I95.9 - Hypotension, unspecified Status: Acute Assessment and Plan: due to cardiomyopathy versus overdiuresis follow hemodynamics off anti-HTN medications (4) Aortic stenosis: Qualifiers: Cardiac valve disease etiology: etiology unspecified Qualified Code(s): I35.0 - Nonrheumatic aortic (valve) stenosis Code(s): I35.0 - Nonrheumatic aortic (valve) stenosis Status: Acute Assessment and Plan: Cardiology recommendations noted will need further testing once acute medical issues stabilize (5) Leukocytosis: Code(s): D72.829 - Elevated white blood cell count, unspecified Status: Acute Assessment and Plan: in association with anemia and thrombocytopenia s/p bone marrow biopsy -- flow cytometry showed 9% myeloblasts 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 Subjective Date/time seen: 09/02/20 12:09 Visual hallucination yesterday evening (patient was aware of it as well) with the concern uremia/azotemia maybe to blame for this; breathing/respiratory status seems stable in spite of worsening renal function; hemodynamics appear better today as well in comparison to yesterday (diuretics and BP medications are all on hold). Exam Narrative: Exam Narrative: General: elderly male in [place] Heart: normal S1 and S2; no rub Lungs: clear to auscultation anteriorly Abdomen: soft, nontender, nondistended, positive bowel sounds Extremities: no cyanosis or clubbing; trace edema Skin: warm and dry Objective Data Vital Signs Vital Signs: Vital Signs Temp Pulse Resp BP Pulse Ox 09/02/20 10:07 65 20 95 09/02/20 10:00 62 09/02/20 08:43 65 20 09/02/20 08:16 59 L 09/02/20 08:00 60 97 09/02/20 07:34 36.1 C L 72 22 H 98/52 L 97 09/02/20 06:00 60 09/02/20 04:00 36.6 C 57 L 22 H 106/43 L 99 09/02/20 02:23 78 20 09/02/20 02:10 83 22 H 95 09/02/20 02:09 99 09/02/20 02:00 87 09/02/20 00:00 82 09/01/20 23:47 36.2 C L 71 20 116/44 L 99 09/01/20 22:00 66 09/01/20 20:00 36.3 C L 65 20 101/40 L 100 09/01/20 19:47 61 18 09/01/20 19:37 67 16 93 09/01/20 18:00 64 09/01/20 17:24 69 09/01/20 16:00 36.6 C 59 L 12 113/66 95 09/01/20 14:07 69 18 09/01/20 14:00 85 09/01/20 13:57 67 18 Intake/Output Intake/Output: Intake & Output 08/30/20 08/31/20 09/01/20 09/02/20 23:59 23:59 23:59 23:59 Intake Total 1070 1110 1390 270 Output Total 1840 1500 940 150 Balance -770 -390 450 120 Meds/Results Medications: Active Medications Generic Name Dose Route Start Last Admin Trade Name Courtney PRN Reason Stop Dose Admin Acetaminophen 650 mg 08/15/20 04:49 08/15/20 05:2
--- NOTE | 2020-09-02 12:18 | PM.PNCARD ---
Progress Note: A&P Additional Plan 80-year-old man with: Complex picture of congestive heart failure with LV systolic dysfunction and at least moderate if not severe aortic valve stenosis. Heart failure is reasonably well compensated in terms of volume overload at this time but management has been very challenging because of hypotension and now because of worsening renal insufficiency. Hallucinations last evening are probably the result of azotemia. Diuretics are on hold. Patient also developed atrial fibrillation during this hospitalization he is receiving amiodarone and is maintaining sinus rhythm at this time. Concurrent diagnosis of myelomonocytic leukemia with prognosis potentially significantly affecting his decisions regarding long-term treatment of aortic valve disease. Simply observe the patient today and hopefully with holding diuretics his azotemia will improve and I would support decision to discharge him relatively soon so had that his oncologist can provide follow-up regarding his malignancy and prognosis. Arpan Mcadams MD [facility] Subjective Date/time seen: 09/02/20 12:18 Interval history: Mr. Mohr is a pleasant 80 yo M admitted with dyspnea on exertion, pleural effusions, CHF, cardiomyopathy, aortic stenosis. Preliminary bone marrow results indicate patient have some sort of chronic monocytic leukemia. Final results apparently pending analysis at [facility] laboratory. 08/26/2020: Patient is sitting in bed eating his breakfast appears to be in no distress reports that his breathing is much better than it was on admission he still has a fair amount of lower extremity edema, penile and scrotal edema. This however does seem to be getting better now. Was started on Entresto 24/26 mg half a tablet daily. 08/27/2020: Patient has had trouble with low blood pressure this morning, in the 80s earlier, and most recently in 60's. No distress. Dobutamine and morning meds were held. Diuresed 1700 cc yesterday and already 2300 cc today. Patient happy to report his breathing is fine and his scrotal and leg edema improved. Remains on O2. 08/28/2020: Feeling good this morning, no shortness breath or dizziness when up to the bathroom. Lower extremity edema and scrotal edema has improved. BP is better this morning. Remains on 2 L nasal prong. Bumex resumed yesterday afternoon, Good diuresis yesterday, -[address] Maza, going to start physical therapy. No BMP yet today. 08/29/2020: Patient continues to diurese well. He offers no significant complaints no longer short of breath. Has minimal lower extremity edema at this time. Told patient that it is not likely that this will completely resolve at the time of his discharge. No further problems with hypotension after Entresto was discontinued. 08/30/2020-Patient reports improvement in shortness of breath. Denies chest pain, dizziness, palpitations. 08/31/2020: Patient feels pretty well, up and about in his room with no shortness of breath or lightheadedness. Mentioned some pleuritic CP, an ache, in center of chest that started this a.m. Says he coughs a lot in the morning, brings up milky sputum. Still has some edema. Still on oxygen, 2 L. No recent BMP; ordered. V-Q scan was neg for PE. Date of service 09/01/2020: Patient went into atrial fibrillation last night with a controlled ventricular response, converted to sinus rhythm. Patient feels he is back to normal except when he tries to walk ?all hell breaks loose.? He gets very weak and shaky and has poor balance. Denies any troubles with lightheadedness or shortness of breath. No further CP. Physical tx working w/ pt. Date of service 09/01/2020: Patient is very comfortable sleeping flat in bed when I entered the room to see him upon awakening offers no significant complaints. No longer having any shortness of breath. As noted in the chart he had some significant visual hallu
[2020-09-02 12:39] LABS: Glucose Point of Care 126 (65-105)
[2020-09-02 16:31] LABS: Glucose Point of Care 167 (65-105)
[2020-09-02 20:44] LABS: Glucose Point of Care 182 (65-105)
[2020-09-02] MEDS: TAMSULOSIN HCL 0.4 MG CAPSULE PO (20:59)
[2020-09-02] MEDS: FINASTERIDE 5 MG TABLET PO (20:59)
[2020-09-02] MEDS: ATORVASTATIN 40 MG TABLET PO (20:59)
[2020-09-03] VITALS (21 sets, daily range): BP systolic 113–135; BP diastolic 40–46; PULSE 64–73; RESP 18–22; TEMP 36–36.2; O2SAT 92–98
[2020-09-03] MEDS: ALPRAZolam (*CRX) 0.5 MG TABLET PO (02:02)
[2020-09-03] MEDS: ALBUTEROL SULFATE NEB 2.5 MG/0.5 ML INH 5 MG INHALATION (04:43)
[2020-09-03 05:16] LABS: Hematocrit 31.1 % (42.0-52.0); Hemoglobin 10.3 g/dL (14.0-18.0); Immature Platelet Fraction Pct 16.3 % (0.9-11.2); Mean Corpuscular HGB Conc 33.1 g/dl (32-36); Mean Corpuscular Volume 96.6 fl (80-100); Mean Platelet Volume 13.8 fl (7.4-10.4); Platelet Count Result 74 k/mm3 (150-375); Red Blood Count 3.22 M/mm3 (4.6-6.20); Red Cell Distribution Width 17.8 % (11.5-14.5); White Blood Count 43.2 K/mm3 (4.5-10.0)
[2020-09-03 05:26] LABS: Anion Gap 9 mmol/L (8-16); Blood Urea Nitrogen 95 mg/dL (9-20); Calcium 8.5 mg/dL (8.4-10.2); Carbon Dioxide 28 mmol/L (22-30); Chloride 101 mmol/L (98-107); Estimated CRCL calculation 20 ml/min; Estimated Glomerular Filt Rate 23; Glucose 114 mg/dL (75-110); Potassium 3.7 mmol/L (3.4-5.0); Sodium 138 mmol/L (137-145)
[2020-09-03] MEDS: LEVOTHYROXINE SODIUM 50 MCG TABLET PO (07:04)
[2020-09-03] MEDS: ALBUTEROL SULFATE NEB 2.5 MG/0.5 ML INH INHALATION ×3 (07:55→19:18)
[2020-09-03] MEDS: IPRATROPIUM BR 0.02% INH SOLN 0.5 MG/2.5 ML VIAL INHALATION ×3 (07:55→19:18)
--- NOTE | 2020-09-03 09:05 | PM.IMPN ---
Progress Note: A&P Assessment and Plan (1) Hypotension: Code(s): I95.9 - Hypotension, unspecified Status: Acute Assessment and Plan: ejection fraction of 20-25% bp stable. (2) Acute on chronic systolic (congestive) heart failure: Code(s): I50.23 - Acute on chronic systolic (congestive) heart failure Status: Acute Assessment and Plan: seems to be to have reached a more euvolemic status, renal function is slightly better today. 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 (4) Tobacco abuse: Code(s): Z72.0 - Tobacco use Status: Acute Assessment and Plan: counseling regarding tobacco cessation (5) Aortic stenosis: Qualifiers: Cardiac valve disease etiology: etiology unspecified Qualified Code(s): I35.0 - Nonrheumatic aortic (valve) stenosis Code(s): I35.0 - Nonrheumatic aortic (valve) stenosis Status: Acute Assessment and Plan: moderate to severe according to echocardiogram however patient with new proliferative blood disorder complicates picture and halts/ obscures further management (6) Cardiomyopathy: Qualifiers: Cardiomyopathy type: unspecified Qualified Code(s): I42.9 - Cardiomyopathy, unspecified Code(s): I42.9 - Cardiomyopathy, unspecified Status: Acute Assessment and Plan: has been unable to start Entresto due to hypotension (7) Dyspnea on exertion: Code(s): R06.00 - Dyspnea, unspecified Status: Acute Assessment and Plan: improved after diuretics (8) 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 renal function slightly better today. resumptionof diureiss per renal team. Subjective Date/time seen: 09/03/20 09:05 Interval history: no overnight events, he reports some shortness of breath on exertion but else doing okay. no other new complaints. he denies any increase in swelling in legs. no cough no chest pain. he wants to get something to be able to cough out his mucus Review of Systems Review of Systems: All systems reviewed & are unremarkable except as noted in HPI and below Constitutional: Constitutional: Denies body ache(s), Denies fatigue, Denies headache(s), Denies lethargy and Reports weakness Eyes: Eyes: Denies blurry vision and Denies photophobia ENT: Denies Normal hearing present, Denies headache(s) and Denies tinnitus Cardiovascular: Cardiovascular: Denies chest pain, Denies diaphoresis, Denies lightheadedness, Denies palpitations, Reports dyspnea and Reports dyspnea on exertion Respiratory: Respiratory: Reports dyspnea and Reports dyspnea on exertion Gastrointestinal: Gastrointestinal: Denies melena, Denies nausea and Denies vomiting Genitourinary: Genitourinary: Denies dysuria and Denies urinary frequency Musculoskeletal: Musculoskeletal: Denies back pain, Denies joint swelling and Denies numbness Integumentary/Breasts: Skin/Breast: Den
[2020-09-03] MEDS: SPIRONOLACTONE 25 MG TABLET PO (09:45)
[2020-09-03] MEDS: MIRTAZAPINE 30 MG TABLET PO (09:45)
[2020-09-03] MEDS: AMIODARONE HCL 200 MG TABLET PO ×2 (09:45→16:50)
[2020-09-03] MEDS: DULoxetine HCL 30 MG CAPSULE.DR PO ×2 (09:46→20:31)
[2020-09-03] MEDS: allopurinoL 300 MG TABLET PO (09:46)
[2020-09-03] MEDS: lamoTRIgine 100 MG TABLET PO (09:46)
--- NOTE | 2020-09-03 10:35 | PM.PNCARD ---
Progress Note: A&P Assessment and Plan (1) Chronic systolic (congestive) heart failure: Code(s): I50.22 - Chronic systolic (congestive) heart failure Status: Acute Assessment and Plan: Cardiomyopathy, EF 25%. Symptomatically better, near euvolemic. BP low at times, 80-105 mmHg. Metoprolol has been DC'd because of his blood pressure and worsening renal failure. Hope to resume in the next couple of days; the only cardiomyopathy medication he is still taking is spironolactone, and that with caution due to his ELZBIETA. Will reinitiate low-dose metoprolol 6.25 mg p.o. b.i.d. (2) Paroxysmal atrial fibrillation: Code(s): I48.0 - Paroxysmal atrial fibrillation Status: Acute Assessment and Plan: New problem of atrial fib, noted on telemetry/rhythm strips. Heart rate is controlled. Cannot anticoagulate because of thrombocytopenia. Continue amiodarone 200 mg b.i.d.. (3) Aortic stenosis: Qualifiers: Cardiac valve disease etiology: etiology unspecified Qualified Code(s): I35.0 - Nonrheumatic aortic (valve) stenosis Code(s): I35.0 - Nonrheumatic aortic (valve) stenosis Status: Acute Assessment and Plan: Reviewed again with patient. Patient will need evaluation by hematology oncology to assess his overall prognosis. If patient has reasonable life expectancy, then would recommend outpatient dobutamine echo to differentiate between pseudo versus true aortic stenosis in light of underlying LV systolic dysfunction. Could also consider transesophageal ECHO to planimetry of the aortic valve area. Thrombocytopenia may interfere with any TAVR plans as well. (4) ELZBIETA (acute kidney injury): Code(s): N17.9 - Acute kidney failure, unspecified Status: Acute Assessment and Plan: Kidney injury is stable and creatinine is slightly better today (5) Hypotension: Code(s): I95.9 - Hypotension, unspecified Status: Acute Assessment and Plan: An ongoing problem especially during IV diuresis. Will hold diuretics (Bumex 1 mg qd) May need to discontinue finasteride or tamsulosin all is well because of low blood pressures. 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 New diagnosis. Progressive thrombocytopenia -- needs to be followed OPT FU planned. (7) Chest pain: Code(s): R07.9 - Chest pain, unspecified Status: Acute Assessment and Plan: New pleuritic CP 08/31/2020 Most likely muscle strain for paroxysms of coughing. V/Q scan was negative. Resolved. Subjective Date/time seen: 09/03/20 10:35 Interval history: Mr. Mohr is a pleasant 80 yo M admitted with dyspnea on exertion, pleural effusions, CHF, cardiomyopathy, aortic stenosis. Preliminary bone marrow results indicate patient have some sort of chronic monocytic leukemia. Final results apparently pending analysis at [facility] laboratory. 08/26/2020: Patient is sitting in bed eating his breakfast appears to be in no distress reports that his breathing is much better than it was on admission he still has a fair amount of lower extremity edema, penile and scrotal edema. This however does seem to be getting better now. Was started on Entresto 24/26 mg half a tablet daily. 08/27/2020: Patient has had trouble with low blood pressure this morning, in the 80s earlier, and most recently i
[2020-09-03] MEDS: HYDROcodone/acetaminophen (*CRX) 5-325 MG TABLET 1 TAB PO (13:24)
--- NOTE | 2020-09-03 13:37 | PC.NURSE ---
This patient, John Mohr, was transferred to [facility] on 09/03/20 at 1337. Personal belongings sent with patient. Report given to Candy RANDALL. Appropriate documentation sent with patient.
--- NOTE | 2020-09-03 13:46 | PC.NURSE ---
This patient, John Mohr, was received from IMU on 09/03/20 at 1347. Patient/family oriented to unit policies and routines. Report received from PRAKASH Alanis.
--- NOTE | 2020-09-03 14:34 | PM.PNNEP ---
Progress Note: A&P Assessment and Plan (1) ELZBIETA (acute kidney injury): Code(s): N17.9 - Acute kidney failure, unspecified Status: Acute Assessment and Plan: unclear what baseline kidney function/creatinine is however, suspect he has some underlying renal insufficiency due multiple risk factors [age, vascular disease, diuretics, component of cardiorenal syndrome(?)] cysts on kidney from abdominal CT scan associated with atherosclerotic disease although elevated BUN/azotemia concerning, would continue watchful waiting for now as perhaps better BP may help improve renal perfusion and overall kidney function follow repeat labs and UOP (2) Acute on chronic systolic (congestive) heart failure: Code(s): I50.23 - Acute on chronic systolic (congestive) heart failure Status: Acute Assessment and Plan: as noted by Echo -- EF 20 - 25% complicated by aortic stenosis as well Cardiology diuretics on hold (aside from spironolactone) given #1 and hypotension (3) Hypotension: Code(s): I95.9 - Hypotension, unspecified Status: Acute Assessment and Plan: doing better at this time due to cardiomyopathy versus overdiuresis follow hemodynamics off anti-HTN medications (4) Aortic stenosis: Qualifiers: Cardiac valve disease etiology: etiology unspecified Qualified Code(s): I35.0 - Nonrheumatic aortic (valve) stenosis Code(s): I35.0 - Nonrheumatic aortic (valve) stenosis Status: Acute Assessment and Plan: Cardiology recommendations noted will need further testing once acute medical issues stabilize (5) Leukocytosis: Code(s): D72.829 - Elevated white blood cell count, unspecified Status: Acute Assessment and Plan: in association with anemia and thrombocytopenia s/p bone marrow biopsy -- flow cytometry showed 9% myeloblasts 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 Subjective Date/time seen: 09/03/20 14:34 Swelling and edema are stable but states he feels a little short of breath today; however, better urine output overnight and since this AM (only on spironolactone currently); blood pressure appears to be doing significantly better; no issues/events overnight or earlier this AM. Exam Narrative: Exam Narrative: General: elderly male in NAD Heart: normal S1 and S2; no rub Lungs: clear to auscultation anteriorly Abdomen: soft, nontender, nondistended, positive bowel sounds Extremities: no cyanosis or clubbing; noedema Skin: warm and intact Objective Data Vital Signs Vital Signs: Vital Signs Temp Pulse Resp BP Pulse Ox 09/03/20 13:53 66 20 09/03/20 13:46 67 20 09/03/20 12:00 36.1 C L 70 18 125/45 L 97 09/03/20 10:00 67 09/03/20 09:45 70 09/03/20 08:05 66 20 09/03/20 08:00 66 92 09/03/20 07:57 69 20 92 09/03/20 07:42 36.2 C L 66 20 135/44 L 97 09/03/20 06:00 67 09/03/20 04:52 70 20 09/03/20 04:43 69 20 09/03/20 04:00 36.1 C L 70 20 121/40 L 96 09/03/20 02:00 72 09/03/20 00:00 70 09/02/20 23:59 35.9 C L 75 20 130/59 L 98 09/02/20 23:52 98 09/02/20 22:00 64 09/02/20 21:43 62 20 09/02/20 21:32 60 20 95 09/02/20 21:29 60 20 09/02/20 20:00 36.1 C L 70 24 H 131/53 L 97 09/02/20 18:00 67 09/02/20 16:50 65 09/02/20 16:00 36.1 C L 66 12 112/52 L 95 Intake/Output Intake/Output: Intake & Output 08/31/20 09/01/20 09/02/20 09/03/20 23:59 23:59 23:59 23:59 Intake Total 1110 1390 510 852 Output Total 1500 229 870 2918 Balance -390 981 -117 -398 Meds/Results Medications: Active Medications Generic Name Dose Route Start Last Admin Trade Name Leobardoq PRN Reason Stop Dose Admin Acetaminophen 650 mg 08/15/20 04:49 08/15/20 05:23 Acetaminophen 325 Mg Tablet
[2020-09-03] MEDS: FINASTERIDE 5 MG TABLET PO (20:31)
[2020-09-03] MEDS: guaiFENesin 12 HR 600 MG TABCR PO (20:31)
[2020-09-03] MEDS: ATORVASTATIN 40 MG TABLET PO (20:31)
[2020-09-03] MEDS: TAMSULOSIN HCL 0.4 MG CAPSULE PO (20:32)
[2020-09-03] MEDS: PREGABALIN (*CRX) 50 MG CAPSULE PO (20:32)
[2020-09-03] MEDS: METOPROLOL TARTRATE 6.25 MG TABLET PO (21:16)
[2020-09-03 21:51] LABS: Creatinine Urine 59.2 mg/dL; Total Protein Urine Random 74 mg/dL; Ur Ttl Prot Creatinine Ratio 1.25 mg/mg (0-0.20)
[2020-09-03 21:54] LABS: Sodium Urine Random 46 meq/L
[2020-09-03 22:30] LABS: Eosinophil Urine None Seen % (None Seen)
--- NOTE | 2020-09-03 22:39 | PC.NURSE ---
2100 Lopressor dose was not scanning. It would say medication not found. Called Pharmacy, Alfonso three times and he trialed many things and couldn't resolve the issue as to why it wouldn't scan. Administered drug had another nurse, Jenny Vazquez driver license reviewing officer it with me.
[2020-09-04] VITALS (17 sets, daily range): BP systolic 104–128; BP diastolic 45–58; PULSE 54–79; RESP 18–20; TEMP 35.9–36.4; O2SAT 93–97
[2020-09-04] MEDS: LEVOTHYROXINE SODIUM 50 MCG TABLET PO (05:34)
[2020-09-04 05:56] LABS: Albumin Level 3.4 g/dL (3.5-5.1); Anion Gap 8 mmol/L (8-16); Blood Urea Nitrogen 79 mg/dL (9-20); Calcium 8.7 mg/dL (8.4-10.2); Carbon Dioxide 29 mmol/L (22-30); Chloride 104 mmol/L (98-107); Estimated CRCL calculation 20 ml/min; Estimated Glomerular Filt Rate 23; Glucose 116 mg/dL (75-110); Phosphorus 5.1 mg/dL (2.5-4.5); Potassium 3.9 mmol/L (3.4-5.0); Sodium 141 mmol/L (137-145)
[2020-09-04] MEDS: guaiFENesin 12 HR 600 MG TABCR PO ×2 (08:45→20:52)
[2020-09-04] MEDS: DULoxetine HCL 30 MG CAPSULE.DR PO ×2 (08:45→20:52)
[2020-09-04] MEDS: PREGABALIN (*CRX) 50 MG CAPSULE PO ×2 (08:45→20:52)
[2020-09-04] MEDS: MIRTAZAPINE 30 MG TABLET PO (08:45)
[2020-09-04] MEDS: lamoTRIgine 100 MG TABLET PO (08:45)
[2020-09-04] MEDS: SPIRONOLACTONE 25 MG TABLET PO (08:45)
[2020-09-04] MEDS: AMIODARONE HCL 200 MG TABLET PO (08:46)
[2020-09-04] MEDS: allopurinoL 300 MG TABLET PO (08:46)
--- NOTE | 2020-09-04 08:54 | PM.PNCARD ---
Progress Note: A&P Assessment and Plan (1) Chronic systolic (congestive) heart failure: Code(s): I50.22 - Chronic systolic (congestive) heart failure Status: Acute Assessment and Plan: Cardiomyopathy, EF 25%. Symptomatically better, near euvolemic. BP low at times, 80-105 mmHg. Metoprolol has been DC'd because of his blood pressure and worsening renal failure. Hope to resume in the next couple of days; the only cardiomyopathy medication he is still taking is spironolactone, and that with caution due to his ELZBIETA. Continue low-dose metoprolol 6.25 mg p.o. b.i.d. (2) Paroxysmal atrial fibrillation: Code(s): I48.0 - Paroxysmal atrial fibrillation Status: Acute Assessment and Plan: New problem of atrial fib, noted on telemetry/rhythm strips. Heart rate is controlled. Cannot anticoagulate because of thrombocytopenia. Reduce amiodarone 200 mg p.o. daily (3) Aortic stenosis: Qualifiers: Cardiac valve disease etiology: etiology unspecified Qualified Code(s): I35.0 - Nonrheumatic aortic (valve) stenosis Code(s): I35.0 - Nonrheumatic aortic (valve) stenosis Status: Acute Assessment and Plan: Reviewed again with patient. Patient will need evaluation by hematology oncology to assess his overall prognosis. If patient has reasonable life expectancy, then would recommend outpatient dobutamine echo to differentiate between pseudo versus true aortic stenosis in light of underlying LV systolic dysfunction. Could also consider transesophageal ECHO to planimetry of the aortic valve area. Thrombocytopenia may interfere with any TAVR plans as well. (4) ELZBIETA (acute kidney injury): Code(s): N17.9 - Acute kidney failure, unspecified Status: Acute Assessment and Plan: Kidney injury is stable and creatinine is slightly better today (5) Hypotension: Code(s): I95.9 - Hypotension, unspecified Status: Acute Assessment and Plan: Will hold diuretics (Bumex 1 mg qd) May need to discontinue finasteride or tamsulosin all is well because of low blood pressures. 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 New diagnosis. Progressive thrombocytopenia -- needs to be followed OPT FU planned. (7) Chest pain: Code(s): R07.9 - Chest pain, unspecified Status: Acute Assessment and Plan: New pleuritic CP 08/31/2020 Most likely muscle strain for paroxysms of coughing. V/Q scan was negative. Resolved. Subjective Date/time seen: 09/04/20 08:54 Interval history: Mr. Mohr is a pleasant 80 yo M admitted with dyspnea on exertion, pleural effusions, CHF, cardiomyopathy, aortic stenosis. Preliminary bone marrow results indicate patient have some sort of chronic monocytic leukemia. Final results apparently pending analysis at [facility] laboratory. 08/26/2020: Patient is sitting in bed eating his breakfast appears to be in no distress reports that his breathing is much better than it was on admission he still has a fair amount of lower extremity edema, penile and scrotal edema. This however does seem to be getting better now. Was started on Entresto 24/26 mg half a tablet daily. 08/27/2020: Patient has had trouble with low blood pressure this morning, in the 80s earlier, and most recently in 60's. No distress. Dobutamine and morning meds were
[2020-09-04] MEDS: polyethylene glycoL 3350 17 GM POWD.PACK PO (09:00)
[2020-09-04] MEDS: METOPROLOL TARTRATE 6.25 MG TABLET PO ×2 (09:03→21:50)
--- NOTE | 2020-09-04 09:23 | PM.IMPN ---
Progress Note: A&P Assessment and Plan (1) Hypotension: Code(s): I95.9 - Hypotension, unspecified Status: Acute Assessment and Plan: ejection fraction of 20-25% Blood pressure is slightly better today. Will continue current treatment and monitor blood pressure closely. 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 (4) Tobacco abuse: Code(s): Z72.0 - Tobacco use Status: Acute Assessment and Plan: counseling regarding tobacco cessation (5) Aortic stenosis: Qualifiers: Cardiac valve disease etiology: etiology unspecified Qualified Code(s): I35.0 - Nonrheumatic aortic (valve) stenosis Code(s): I35.0 - Nonrheumatic aortic (valve) stenosis Status: Acute Assessment and Plan: moderate to severe according to echocardiogram however patient with new proliferative blood disorder complicates picture and halts/ obscures further management (6) Cardiomyopathy: Qualifiers: Cardiomyopathy type: unspecified Qualified Code(s): I42.9 - Cardiomyopathy, unspecified Code(s): I42.9 - Cardiomyopathy, unspecified Status: Acute Assessment and Plan: has been unable to start Entresto due to hypotension (7) Dyspnea on exertion: Code(s): R06.00 - Dyspnea, unspecified Status: Acute Assessment and Plan: improving with diuretics (8) 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 Additional Plan Will continue current plan of care and treatment. Will continue to monitor patient's blood pressure closely. Nephrology consult noted. Monitor labs. Continue physical therapy. Subjective Date/time seen: 09/04/20 09:23 Interval history: Mr. Mohr is a pleasant 80 yo M admitted with dyspnea on exertion, pleural effusions, CHF, cardiomyopathy, aortic stenosis. Preliminary bone marrow results indicate patient have some sort of chronic monocytic leukemia. Final results apparently pending analysis at [facility] laboratory. Patient was seen during the morning rounds today. Her mild shortness of breath. No chest pain. No abdominal pain, no nausea, no vomiting. Mood stable. Review of Systems Review of Systems: All systems reviewed & are unremarkable except as noted in HPI and below Constitutional: Constitutional: Denies body ache(s), Denies fatigue, Denies headache(s), Denies lethargy and Reports weakness Eyes: Eyes: Denies blurry vision and Denies photophobia ENT: Denies Normal hearing present, Denies headache(s) and Denies tinnitus Cardiovascular: Cardiovascular: Denies chest pain, Denies diaphoresis, Denies lighthead
--- NOTE | 2020-09-04 12:28 | PM.PNNEP ---
Progress Note: A&P Assessment and Plan (1) ELZBIETA (acute kidney injury): Code(s): N17.9 - Acute kidney failure, unspecified Status: Acute Assessment and Plan: unclear what baseline kidney function/creatinine is however, suspect he has some underlying renal insufficiency due multiple risk factors [age, vascular disease, diuretics, component of cardiorenal syndrome(?)] cysts on kidney from abdominal CT scan associated with atherosclerotic disease although elevated BUN/azotemia concerning, would continue watchful waiting for now as perhaps better BP may help improve renal perfusion and overall kidney function this may be a situation where we have to accept a higher creatinine given his need for diuretics/cardiac medications to keep his cardiac and volume status stable follow repeat labs and UOP (2) Acute on chronic systolic (congestive) heart failure: Code(s): I50.23 - Acute on chronic systolic (congestive) heart failure Status: Acute Assessment and Plan: as noted by Echo -- EF 20 - 25% complicated by aortic stenosis as well Cardiology diuretics on hold (aside from spironolactone) given #1 and hypotension however, will eventually need to restart loop diuretics (particularly given his complaints of shortness of breath) (3) Hypotension: Code(s): I95.9 - Hypotension, unspecified Status: Acute Assessment and Plan: doing better at this time due to cardiomyopathy versus overdiuresis(?) follow hemodynamics off anti-HTN medications (4) Aortic stenosis: Qualifiers: Cardiac valve disease etiology: etiology unspecified Qualified Code(s): I35.0 - Nonrheumatic aortic (valve) stenosis Code(s): I35.0 - Nonrheumatic aortic (valve) stenosis Status: Acute Assessment and Plan: Cardiology recommendations noted will need further testing once acute medical issues stabilize (5) Leukocytosis: Code(s): D72.829 - Elevated white blood cell count, unspecified Status: Acute Assessment and Plan: in association with anemia and thrombocytopenia s/p bone marrow biopsy -- flow cytometry showed 9% myeloblasts 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 Subjective Date/time seen: 09/04/20 12:28 He appears to be doing fairly well -- does report some mild shortness of breath although it is more pronouced with exertional activities; no other apparent issues or complaints voiced at this time; reasonable urine output in the last 24 - 48 hours (only taking spironolactone) associated with better hemodynamics. Exam Narrative: Exam Narrative: General: elderly male in NAD Heart: normal S1 and S2; no rub Lungs: clear to auscultation anteriorly Abdomen: soft, nontender, nondistended, positive bowel sounds Extremities: no cyanosis or clubbing; no edema Skin: no rash or nodules Objective Data Vital Signs Vital Signs: Vital Signs Temp Pulse Resp BP Pulse Ox 09/04/20 12:00 35.9 C L 61 20 118/46 L 95 09/04/20 11:57 62 09/04/20 09:03 64 09/04/20 08:46 64 09/04/20 08:36 65 95 09/04/20 08:00 35.9 C L 70 20 93 09/04/20 04:00 36.4 C L 64 18 104/49 L 96 09/04/20 00:00 35.9 C L 67 20 109/46 L 97 09/03/20 21:16 73 09/03/20 20:00 36.0 C L 73 22 H 113/46 L 97 09/03/20 19:19 66 20 94 09/03/20 16:50 64 09/03/20 16:00 68 09/03/20 15:41 67 95 09/03/20 13:53 66 20 09/03/20 13:46 67 20 Intake/Output Intake/Output: Intake & Output 09/01/20 09/02/20 09/03/20 09/04/20 23:59 23:59 23:59 23:59 Intake Total 7009 500 4290 480 Output Total 652 794 0833 500 Balance 450 -190 -478 -20 Meds/Results Medications: Active Medications Generic Name Dose Route Start Last Admin Trade Name Freq PRN Reason Stop Dose Admin Acetaminophen 650 mg 08/15/20 04:49
[2020-09-04] MEDS: ALBUTEROL SULFATE NEB 2.5 MG/0.5 ML INH INHALATION ×2 (13:03→19:40)
[2020-09-04] MEDS: IPRATROPIUM BR 0.02% INH SOLN 0.5 MG/2.5 ML VIAL INHALATION ×2 (13:04→19:41)
[2020-09-04] MEDS: ATORVASTATIN 40 MG TABLET PO (20:52)
[2020-09-04] MEDS: FINASTERIDE 5 MG TABLET PO (20:52)
[2020-09-04] MEDS: TAMSULOSIN HCL 0.4 MG CAPSULE PO (20:52)
--- NOTE | 2020-09-04 21:00 | PC.NURSE ---
09/04/2020 21:00 Lopressor isn't scanning. I called pharmacy and they were unable to solve the problem. I was told by pharmacy I will have to administer medication without scanning. Maria L Chung and I verified it was the correct medication and dosage.
[2020-09-05] VITALS (23 sets, daily range): BP systolic 98–123; BP diastolic 48–62; PULSE 48–99; RESP 16–20; TEMP 36.1–36.7; O2SAT 93–99
[2020-09-05] MEDS: ALPRAZolam (*CRX) 0.5 MG TABLET PO (01:49)
[2020-09-05] MEDS: LEVOTHYROXINE SODIUM 50 MCG TABLET PO (05:30)
[2020-09-05 05:33] LABS: Immature Platelet Fraction Pct 14.9 % (0.9-11.2); Mean Corpuscular HGB Conc 32.3 g/dl (32-36); Mean Corpuscular Hemoglobin 31.3 pg (26-34); Mean Corpuscular Volume 97.2 fl (80-100); Mean Platelet Volume 13.3 fl (7.4-10.4); Platelet Count Result 61 k/mm3 (150-375); Red Blood Count 3.19 M/mm3 (4.6-6.20); White Blood Count 41.4 K/mm3 (4.5-10.0)
[2020-09-05 05:45] LABS: Alanine Aminotransferase 71 U/L (4-50); Alkaline Phosphatase 143 U/L (38-126); Anion Gap 6 mmol/L (8-16); Aspartate Amino Transferase 47 U/L (17-59); Bilirubin,Total 0.7 mg/dL (0.2-1.3); Blood Urea Nitrogen 74 mg/dL (9-20); Calcium 8.8 mg/dL (8.4-10.2); Carbon Dioxide 29 mmol/L (22-30); Chloride 103 mmol/L (98-107); Estimated CRCL calculation 20 ml/min; Estimated Glomerular Filt Rate 23; Glucose 150 mg/dL (75-110); Potassium 3.9 mmol/L (3.4-5.0); Sodium 138 mmol/L (137-145)
[2020-09-05] MEDS: IPRATROPIUM BR 0.02% INH SOLN 0.5 MG/2.5 ML VIAL INHALATION ×3 (07:45→20:17)
[2020-09-05] MEDS: ALBUTEROL SULFATE NEB 2.5 MG/0.5 ML INH INHALATION ×3 (07:45→20:17)
[2020-09-05] MEDS: MIRTAZAPINE 30 MG TABLET PO (08:25)
[2020-09-05] MEDS: PREGABALIN (*CRX) 50 MG CAPSULE PO ×2 (08:25→21:17)
[2020-09-05] MEDS: DULoxetine HCL 30 MG CAPSULE.DR PO ×2 (08:25→21:18)
[2020-09-05] MEDS: allopurinoL 300 MG TABLET PO (08:25)
[2020-09-05] MEDS: SPIRONOLACTONE 25 MG TABLET PO (08:25)
[2020-09-05] MEDS: guaiFENesin 12 HR 600 MG TABCR PO ×2 (08:25→21:18)
[2020-09-05] MEDS: lamoTRIgine 100 MG TABLET PO (08:25)
[2020-09-05] MEDS: AMIODARONE HCL 200 MG TABLET PO (08:26)
[2020-09-05] MEDS: METOPROLOL TARTRATE 6.25 MG TABLET PO ×2 (09:06→21:32)
--- NOTE | 2020-09-05 09:24 | PM.PNCARD ---
Progress Note: A&P Assessment and Plan (1) Chronic systolic (congestive) heart failure: Code(s): I50.22 - Chronic systolic (congestive) heart failure Status: Acute Assessment and Plan: Cardiomyopathy, EF 25%. Symptomatically better, near euvolemic. BP low at times, 80-105 mmHg. Metoprolol has been DC'd because of his blood pressure and worsening renal failure. Hope to resume in the next couple of days; the only cardiomyopathy medication he is still taking is spironolactone, and that with caution due to his ELZBIETA. Continue low-dose metoprolol 6.25 mg p.o. b.i.d. (2) Paroxysmal atrial fibrillation: Code(s): I48.0 - Paroxysmal atrial fibrillation Status: Acute Assessment and Plan: New problem of atrial fib, noted on telemetry/rhythm strips. Heart rate is controlled. Cannot anticoagulate because of thrombocytopenia. Continue amiodarone 200 mg p.o. daily (3) Aortic stenosis: Qualifiers: Cardiac valve disease etiology: etiology unspecified Qualified Code(s): I35.0 - Nonrheumatic aortic (valve) stenosis Code(s): I35.0 - Nonrheumatic aortic (valve) stenosis Status: Acute Assessment and Plan: Reviewed again with patient. Patient will need evaluation by hematology oncology to assess his overall prognosis. If patient has reasonable life expectancy, then would recommend outpatient dobutamine echo to differentiate between pseudo versus true aortic stenosis in light of underlying LV systolic dysfunction. Could also consider transesophageal ECHO to planimetry of the aortic valve area. Thrombocytopenia may interfere with any TAVR plans as well. (4) ELZBIETA (acute kidney injury): Code(s): N17.9 - Acute kidney failure, unspecified Status: Acute Assessment and Plan: Kidney injury is stable and creatinine is slightly better today (5) Hypotension: Code(s): I95.9 - Hypotension, unspecified Status: Acute Assessment and Plan: Will Resume Bumex 1 mg daily May need to discontinue finasteride or tamsulosin all is well because of low blood pressures. 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 New diagnosis. Progressive thrombocytopenia -- needs to be followed OPT FU planned. (7) Chest pain: Code(s): R07.9 - Chest pain, unspecified Status: Acute Assessment and Plan: New pleuritic CP 08/31/2020 Most likely muscle strain for paroxysms of coughing. V/Q scan was negative. Resolved. Subjective Date/time seen: 09/05/20 09:24 Interval history: Mr. Mohr is a pleasant 80 yo M admitted with dyspnea on exertion, pleural effusions, CHF, cardiomyopathy, aortic stenosis. Preliminary bone marrow results indicate patient have some sort of chronic monocytic leukemia. Final results apparently pending analysis at [facility] laboratory. 08/26/2020: Patient is sitting in bed eating his breakfast appears to be in no distress reports that his breathing is much better than it was on admission he still has a fair amount of lower extremity edema, penile and scrotal edema. This however does seem to be getting better now. Was started on Entresto 24/26 mg half a tablet daily. 08/27/2020: Patient has had trouble with low blood pressure this morning, in the 80s earlier, and most recently in 60's. No distress. Dobutamine and morning meds were held
--- NOTE | 2020-09-05 10:29 | PCPTNOTE ---
Patient declined treatment this session due to fatigue. Patient requests PT return later today.
[2020-09-05] MEDS: BUMETANIDE 1 MG TABLET PO (10:34)
--- NOTE | 2020-09-05 12:59 | PM.IMPN ---
Progress Note: A&P Assessment and Plan (1) Acute on chronic systolic (congestive) heart failure: Code(s): I50.23 - Acute on chronic systolic (congestive) heart failure Status: Acute Assessment and Plan: Patient is a very close to euvolemic state Continue to monitor intake and output Currently on Bumex Fluid restriction Appreciate Cardiology note (2) Leukocytosis: Code(s): D72.829 - Elevated white blood cell count, unspecified Status: Acute Assessment and Plan: Likely secondary to bone marrow disease With follow-up in the outpatient setting (3) Paroxysmal atrial fibrillation: Code(s): I48.0 - Paroxysmal atrial fibrillation Status: Acute Assessment and Plan: Rate controlled On amiodarone No anticoagulation due to thrombocytopenia Continue to monitor (4) Acute on chronic renal failure: Code(s): N17.9 - Acute kidney failure, unspecified; N18.9 - Chronic kidney disease, unspecified Status: Acute Assessment and Plan: Continue to monitor Creatinine has seemed to plateau (5) Aortic stenosis: Qualifiers: Cardiac valve disease etiology: etiology unspecified Qualified Code(s): I35.0 - Nonrheumatic aortic (valve) stenosis Code(s): I35.0 - Nonrheumatic aortic (valve) stenosis Status: Acute Assessment and Plan: He is started on metoprolol at a low dose. 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 Subjective Date/time seen: 09/05/20 12:59 I feel much better my swelling has gone down. Review of Systems Review of Systems: Narrative: sob with activity ROS unobtainable: Yes unobtainable due to endotracheal tube Constitutional: Comments: No fevers no rigors no chills Cardiovascular: Comments: Shortness of breath with activity Respiratory: Comments: No cough no sputum production Gastrointestinal: Comments: No nausea no vomiting no diarrhea no abdominal pain Genitourinary: Comments: scrotal swelling Musculoskeletal: Comments: No joint or muscle pain Integumentary/Breasts: Comments: No rashes Neurologic: Comments: No sensorimotor deficit Exam Narrative: Exam Narrative: Patient is sitting in bed in no acute distress Const: General: comfortable, no acute distress, well developed, alert and awake Nutritional Appearance: average body habitus Orientation/consciousness: patient oriented x3 HENMT: Head: normal to inspection, normocephalic and atraumatic Ears: hearing grossly normal bilaterally Face and sinus: normal facial exam Eyes: General: appearance normal, both eyes and all related structures Pupils: Equal, round and reactive pupils present EOM: EOMs intact bilaterally Neck: Neck: full ROM, no lymphadenopathy and no JVD Thyroid: thyroid normal Lymphatic: no lymphadenopathy noted Resp: Effort & Inspection: normal respiratory effort and able to speak in complete sentences Auscultation: clear to auscultation bilaterally Cardio: Jugular venous distension: no JVD Rate: regular rate Rhythm: regular rhythm Heart sounds: S1 normal heart sound present and S2 normal heart sound present GI: GI Palp: Yes Soft to palpation and Yes No h
--- NOTE | 2020-09-05 14:07 | PM.PNNEP ---
Progress Note: A&P Assessment and Plan (1) ELZBIETA (acute kidney injury): Code(s): N17.9 - Acute kidney failure, unspecified Status: Acute Assessment and Plan: unclear what baseline kidney function/creatinine is however, suspect he has some underlying renal insufficiency due multiple risk factors [age, vascular disease, diuretics, component of cardiorenal syndrome(?)] cysts on kidney from abdominal CT scan associated with atherosclerotic disease although elevated BUN/azotemia concerning, would continue watchful waiting for now as perhaps better BP may help improve renal perfusion and overall kidney function this may be a situation where we have to accept a higher creatinine given his need for diuretics/cardiac medications to keep his cardiac and volume status stable follow repeat labs and UOP (2) Acute on chronic systolic (congestive) heart failure: Code(s): I50.23 - Acute on chronic systolic (congestive) heart failure Status: Acute Assessment and Plan: as noted by Echo -- EF 20 - 25% complicated by aortic stenosis as well Cardiology diuretics on hold (aside from spironolactone) given #1 and hypotension however, will eventually need to restart loop diuretics (particularly given his complaints of shortness of breath) (3) Hypotension: Code(s): I95.9 - Hypotension, unspecified Status: Acute Assessment and Plan: doing better at this time due to cardiomyopathy versus overdiuresis(?) follow hemodynamics off anti-HTN medications (4) Dyspnea: Code(s): R06.00 - Dyspnea, unspecified Status: Acute Assessment and Plan: how much is related to COPD versus cardiomyopathy versus aortic stenosis(?) versus all of it... diuretics on hold already on nebulizer treatments and supplemental oxygen (5) Aortic stenosis: Qualifiers: Cardiac valve disease etiology: etiology unspecified Qualified Code(s): I35.0 - Nonrheumatic aortic (valve) stenosis Code(s): I35.0 - Nonrheumatic aortic (valve) stenosis Status: Acute Assessment and Plan: Cardiology recommendations noted will need further testing once acute medical issues stabilize (6) Leukocytosis: Code(s): D72.829 - Elevated white blood cell count, unspecified Status: Acute Assessment and Plan: in association with anemia and thrombocytopenia s/p bone marrow biopsy -- flow cytometry showed 9% myeloblasts 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 Subjective Date/time seen: 09/05/20 14:08 States he feels a bit more short of breath today (due to lung disease rather than heart failure??) but admits his swelling/edema have improved significantly; no other acute issues or complaints voiced at this time. Exam Narrative: Exam Narrative: General: elderly male in NAD Heart: normal S1 and S2; no rub Lungs: some scattered wheezes noted Abdomen: soft, nontender, nondistended, positive bowel sounds Extremities: no cyanosis or clubbing; trace edema Skin: warm and dry Objective Data Vital Signs Vital Signs: Vital Signs Temp Pulse Resp BP Pulse Ox 09/05/20 12:00 80 09/05/20 10:39 36.1 C L 99 20 98/52 L 95 09/05/20 09:06 64 09/05/20 08:33 98 09/05/20 08:26 64 09/05/20 08:05 64 120/62 09/05/20 08:00 63 09/05/20 07:59 70 16 09/05/20 07:47 53 L 16 94 09/05/20 04:00 88 09/05/20 01:48 36.3 C L 63 20 105/52 L 99 09/05/20 00:00 71 09/04/20 21:50 70 09/04/20 21:27 36.3 C L 54 L 18 107/57 L 97 09/04/20 20:00 79 97 09/04/20 19:52 77 20 09/04/20 19:45 63 20 97 09/04/20 16:00 36.4 C L 63 20 106/45 L 96 Intake/Output Intake/Output: Intake & Output 09/02/20 09/03/20 09/04/20 09/05/20 23:59 23:59 23:59 23:59 Intake Total 510 1072 1320 370 Output Total
--- NOTE | 2020-09-05 14:07 | P.PNNP_ITS ---
Progress Note: A&P Assessment and Plan (1) ELZBIETA (acute kidney injury): Code(s): N17.9 - Acute kidney failure, unspecified Status: Acute Assessment and Plan: * unclear what baseline kidney function/creatinine is * however, suspect he has some underlying renal insufficiency due multiple risk factors [age, vascular disease, diuretics, component of cardiorenal syndrome(?)] * cysts on kidney from abdominal CT scan associated with atherosclerotic disease * although elevated BUN/azotemia concerning, would continue watchful waiting for now as perhaps better BP may help improve renal perfusion and overall kidney function * this may be a situation where we have to accept a higher creatinine given his need for diuretics/cardiac medications to keep his cardiac and volume status stable * follow repeat labs and UOP (2) Acute on chronic systolic (congestive) heart failure: Code(s): I50.23 - Acute on chronic systolic (congestive) heart failure Status: Acute Assessment and Plan: * as noted by Echo -- EF 20 - 25% * complicated by aortic stenosis as well * Cardiology * diuretics on hold (aside from spironolactone) given #1 and hypotension * however, will eventually need to restart loop diuretics (particularly given his complaints of shortness of breath) (3) Hypotension: Code(s): I95.9 - Hypotension, unspecified Status: Acute Assessment and Plan: * doing better at this time * due to cardiomyopathy versus overdiuresis(?) * follow hemodynamics off anti-HTN medications (4) Dyspnea: Code(s): R06.00 - Dyspnea, unspecified Status: Acute Assessment and Plan: * how much is related to COPD versus cardiomyopathy versus aortic stenosis(?) versus all of it... * diuretics on hold * already on nebulizer treatments and supplemental oxygen (5) Aortic stenosis: Qualifiers: Cardiac valve disease etiology: etiology unspecified Qualified Code(s): I35.0 - Nonrheumatic aortic (valve) stenosis Code(s): I35.0 - Nonrheumatic aortic (valve) stenosis Status: Acute Assessment and Plan: * Cardiology recommendations noted * will need further testing once acute medical issues stabilize (6) Leukocytosis: Code(s): D72.829 - Elevated white blood cell count, unspecified Status: Acute Assessment and Plan: * in association with anemia and thrombocytopenia * s/p bone marrow biopsy -- flow cytometry showed 9% myeloblasts 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 Subjective Date/time seen: 09/05/20 14:08 States he feels a bit more short of breath today (due to lung disease rather than heart failure??) but admits his swelling/edema have improved significantly; no other acute issues or complaints voiced at this time. Exam Narrative: Exam Narrative: General: elderly male in NAD Heart: normal S1 and S2; no rub Lungs: some scattered wheezes noted Abdomen: soft, nontender, nondistended, positive bowel sounds Extremities: no cyanosis or clubbing; trace edema Skin: warm and dry Objective Data Vital Signs Vital Signs: Vital Signs Temp Pulse Resp BP Pulse Ox 09/05/20 12:00 80 09/05/20 10:39 36.1 C L 99 20 98/52 L 95 09/05/20 09:06 64 09/05/20 08:33 98 09/05/20 08:26 64 09/05/20 08:05 64 120/62
[2020-09-05] MEDS: FINASTERIDE 5 MG TABLET PO (21:17)
[2020-09-05] MEDS: TAMSULOSIN HCL 0.4 MG CAPSULE PO (21:18)
[2020-09-05] MEDS: ATORVASTATIN 40 MG TABLET PO (21:18)
[2020-09-06] VITALS (23 sets, daily range): BP systolic 105–132; BP diastolic 52–68; PULSE 54–86; RESP 16–22; TEMP 36–36.3; O2SAT 91–98
[2020-09-06] MEDS: LEVOTHYROXINE SODIUM 50 MCG TABLET PO (05:31)
[2020-09-06] MEDS: ALBUTEROL SULFATE NEB 2.5 MG/0.5 ML INH INHALATION ×3 (08:00→20:08)
[2020-09-06] MEDS: IPRATROPIUM BR 0.02% INH SOLN 0.5 MG/2.5 ML VIAL INHALATION ×3 (08:00→20:08)
[2020-09-06 08:31] LABS: Hematocrit 31.2 % (42.0-52.0); Hemoglobin 10.2 g/dL (14.0-18.0); Immature Platelet Fraction Pct 13.1 % (0.9-11.2); Mean Corpuscular HGB Conc 32.7 g/dl (32-36); Mean Corpuscular Hemoglobin 32.1 pg (26-34); Mean Corpuscular Volume 98.1 fl (80-100); Mean Platelet Volume 12.9 fl (7.4-10.4); Platelet Count Result 56 k/mm3 (150-375); Red Blood Count 3.18 M/mm3 (4.6-6.20); Red Cell Distribution Width 18.2 % (11.5-14.5)
[2020-09-06 08:41] LABS: Albumin Level 3.9 g/dL (3.5-5.1); Anion Gap 9 mmol/L (8-16); Blood Urea Nitrogen 71 mg/dL (9-20); Calcium 8.5 mg/dL (8.4-10.2); Carbon Dioxide 26 mmol/L (22-30); Chloride 104 mmol/L (98-107); Estimated CRCL calculation 19 ml/min; Estimated Glomerular Filt Rate 22; Glucose 118 mg/dL (75-110); Phosphorus 6.3 mg/dL (2.5-4.5); Sodium 139 mmol/L (137-145)
[2020-09-06 08:59] LABS: Eosinophils Absolute Manual 0.33 K/mm3 (0.02-0.5); Eosinophils Percent Manual 1 % (0-4); Lymphocytes Absolute Manual 6.27 K/mm3 (1.1-4.5); Monocytes Absolute Manual 14.52 K/mm3 (0.1-0.90); Monocytes Percent Manual 44 % (3-9); Neutrophils Percent Manual 36 % (46-73); Platelet Estimate Decreased (Adequate); Total Cells Counted 100
[2020-09-06 09:00] LABS: Anisocytosis 1+ (NORMAL); Ovalocytes 1+ (NORMAL); Poikilocytosis 1+ (NORMAL)
[2020-09-06 09:01] LABS: Hypochromasia 1+ (NORMAL)
[2020-09-06] MEDS: guaiFENesin 12 HR 600 MG TABCR PO ×2 (09:42→20:18)
[2020-09-06] MEDS: PREGABALIN (*CRX) 50 MG CAPSULE PO ×2 (09:42→20:22)
[2020-09-06] MEDS: allopurinoL 300 MG TABLET PO (09:43)
[2020-09-06] MEDS: DULoxetine HCL 30 MG CAPSULE.DR PO ×2 (09:43→20:18)
[2020-09-06] MEDS: METOPROLOL TARTRATE 6.25 MG TABLET PO ×2 (09:43→20:23)
[2020-09-06] MEDS: AMIODARONE HCL 200 MG TABLET PO (09:45)
[2020-09-06] MEDS: lamoTRIgine 100 MG TABLET PO (09:46)
[2020-09-06] MEDS: MIRTAZAPINE 30 MG TABLET PO (09:46)
--- NOTE | 2020-09-06 11:26 | PM.PNCARD ---
Progress Note: A&P Assessment and Plan (1) Chronic systolic (congestive) heart failure: Code(s): I50.22 - Chronic systolic (congestive) heart failure Status: Acute Assessment and Plan: CHF with reduced EF, EF 25%. Moderate symptomatic improvement, near euvolemic. Continue low-dose metoprolol 6.25 mg p.o. b.i.d. Caution with spironolactone due to renal failure Since patient has renal failure at present with significantly elevated creatinine levels, will proceed with noninvasive ischemic evaluation with pharmacological MPI to check for any significant myocardial ischemia. This will help risk stratify the patient while we are waiting for his overall clinical condition including renal insufficiency to improve. (2) Paroxysmal atrial fibrillation: Code(s): I48.0 - Paroxysmal atrial fibrillation Status: Acute Assessment and Plan: New problem of atrial fib, noted on telemetry/rhythm strips. Heart rate is controlled. Cannot anticoagulate because of thrombocytopenia. Continue amiodarone 200 mg p.o. daily (3) Aortic stenosis: Qualifiers: Cardiac valve disease etiology: etiology unspecified Qualified Code(s): I35.0 - Nonrheumatic aortic (valve) stenosis Code(s): I35.0 - Nonrheumatic aortic (valve) stenosis Status: Acute Assessment and Plan: Discussed with the patient. Patient will need evaluation by hematology oncology to assess his overall prognosis. If patient has reasonable life expectancy, then would recommend outpatient dobutamine echo to differentiate between pseudo versus true aortic stenosis in light of underlying LV systolic dysfunction. Thrombocytopenia may interfere with any TAVR plans as well. 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 New diagnosis. Progressive thrombocytopenia -- needs to be followed OPT FU planned. (7) Chest pain: Code(s): R07.9 - Chest pain, unspecified Status: Acute Assessment and Plan: No recurrent chest pain. Stable at present Subjective Date/time seen: 09/06/20 11:26 Interval history: Mr. Mohr is a pleasant 80 yo M admitted with dyspnea on exertion, pleural effusions, CHF, cardiomyopathy, aortic stenosis. Preliminary bone marrow results indicate patient have some sort of chronic monocytic leukemia. Final results apparently pending analysis at [facility] laboratory. 08/26/2020: Patient is sitting in bed eating his breakfast appears to be in no distress reports that his breathing is much better than it was on admission he still has a fair amount of lower extremity edema, penile and scrotal edema. This however does seem to be getting better now. Was started on Entresto 24/26 mg half a tablet daily. 08/27/2020: Patient has had trouble with low blood pressure this morning, in the 80s earlier, and most recently in 60's. No distress. Dobutamine and morning meds were held. Diuresed 1700 cc yesterday and already 2300 cc today. Patient happy to report his breathing is fine and his scrotal and leg edema
--- NOTE | 2020-09-06 11:31 | P.PNNP_ITS ---
Progress Note: A&P Assessment and Plan (1) ELZBIETA (acute kidney injury): Code(s): N17.9 - Acute kidney failure, unspecified Status: Acute Assessment and Plan: * unclear what baseline kidney function/creatinine is * however, suspect he has some underlying renal insufficiency due multiple risk factors [age, vascular disease, diuretics, component of cardiorenal syndrome(?)] * cysts on kidney from abdominal CT scan associated with atherosclerotic disease * although elevated BUN/azotemia concerning, would continue watchful waiting for now as perhaps better BP may help improve renal perfusion and overall kidney function * this may be a situation where we have to accept a higher creatinine given his need for diuretics/cardiac medications to keep his cardiac and volume status stable * follow repeat labs and UOP (2) Acute on chronic systolic (congestive) heart failure: Code(s): I50.23 - Acute on chronic systolic (congestive) heart failure Status: Acute Assessment and Plan: * as noted by Echo -- EF 20 - 25% * complicated by aortic stenosis as well * Cardiology * restarted on bumex in conjunctio with spironolactone * follow I/Os and respiratory status (3) Hypotension: Code(s): I95.9 - Hypotension, unspecified Status: Acute Assessment and Plan: * doing better at this time * due to cardiomyopathy versus overdiuresis(?) * follow hemodynamics off anti-HTN medications (4) Dyspnea: Code(s): R06.00 - Dyspnea, unspecified Status: Acute Assessment and Plan: * how much is related to COPD versus cardiomyopathy versus aortic stenosis(?) versus all of it... * diuretics restarted * already on nebulizer treatments and supplemental oxygen (5) Aortic stenosis: Qualifiers: Cardiac valve disease etiology: etiology unspecified Qualified Code(s): I35.0 - Nonrheumatic aortic (valve) stenosis Code(s): I35.0 - Nonrheumatic aortic (valve) stenosis Status: Acute Assessment and Plan: * Cardiology recommendations noted * will need further testing once acute medical issues stabilize (6) Leukocytosis: Code(s): D72.829 - Elevated white blood cell count, unspecified Status: Acute Assessment and Plan: * in association with anemia and thrombocytopenia * s/p bone marrow biopsy -- flow cytometry showed 9% myeloblasts 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 Subjective Date/time seen: 09/06/20 11:31 Still having issues with shortness of breath although no worse than yesterday; restarted on loop diuretic therapy by Cardiology (which seems reasonably); non- invasive ischemic evaluation to be done as well; no other acute issues or complaints voiced at this time. Exam Narrative: Exam Narrative: General: elderly male in NAD Heart: normal S1 and S2; no rub Lungs: decreased at bases Abdomen: soft, nontender, nondistended, positive bowel sounds Extremities: no cyanosis or clubbing; trace edema Skin: warm and intact Objective Data Vital Signs Vital Signs: Vital Signs Temp Pulse Resp BP Pulse Ox 09/06/20 10:00 36.2 C L 63 18 114/52 L 96 09/06/20 09:45 64 09/06/20 09:43 64 09/06/20 08:58 36.3 C L 62 22 H 110/68 96 09/06/20 08:12 80 20 09/06/20 08:00 65 20 93 09/06/20 05:49 36.
--- NOTE | 2020-09-06 11:31 | PM.PNNEP ---
Progress Note: A&P Assessment and Plan (1) ELZBIETA (acute kidney injury): Code(s): N17.9 - Acute kidney failure, unspecified Status: Acute Assessment and Plan: unclear what baseline kidney function/creatinine is however, suspect he has some underlying renal insufficiency due multiple risk factors [age, vascular disease, diuretics, component of cardiorenal syndrome(?)] cysts on kidney from abdominal CT scan associated with atherosclerotic disease although elevated BUN/azotemia concerning, would continue watchful waiting for now as perhaps better BP may help improve renal perfusion and overall kidney function this may be a situation where we have to accept a higher creatinine given his need for diuretics/cardiac medications to keep his cardiac and volume status stable follow repeat labs and UOP (2) Acute on chronic systolic (congestive) heart failure: Code(s): I50.23 - Acute on chronic systolic (congestive) heart failure Status: Acute Assessment and Plan: as noted by Echo -- EF 20 - 25% complicated by aortic stenosis as well Cardiology restarted on bumex in conjunctio with spironolactone follow I/Os and respiratory status (3) Hypotension: Code(s): I95.9 - Hypotension, unspecified Status: Acute Assessment and Plan: doing better at this time due to cardiomyopathy versus overdiuresis(?) follow hemodynamics off anti-HTN medications (4) Dyspnea: Code(s): R06.00 - Dyspnea, unspecified Status: Acute Assessment and Plan: how much is related to COPD versus cardiomyopathy versus aortic stenosis(?) versus all of it... diuretics restarted already on nebulizer treatments and supplemental oxygen (5) Aortic stenosis: Qualifiers: Cardiac valve disease etiology: etiology unspecified Qualified Code(s): I35.0 - Nonrheumatic aortic (valve) stenosis Code(s): I35.0 - Nonrheumatic aortic (valve) stenosis Status: Acute Assessment and Plan: Cardiology recommendations noted will need further testing once acute medical issues stabilize (6) Leukocytosis: Code(s): D72.829 - Elevated white blood cell count, unspecified Status: Acute Assessment and Plan: in association with anemia and thrombocytopenia s/p bone marrow biopsy -- flow cytometry showed 9% myeloblasts 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 Subjective Date/time seen: 09/06/20 11:31 Still having issues with shortness of breath although no worse than yesterday; restarted on loop diuretic therapy by Cardiology (which seems reasonably); non-invasive ischemic evaluation to be done as well; no other acute issues or complaints voiced at this time. Exam Narrative: Exam Narrative: General: elderly male in NAD Heart: normal S1 and S2; no rub Lungs: decreased at bases Abdomen: soft, nontender, nondistended, positive bowel sounds Extremities: no cyanosis or clubbing; trace edema Skin: warm and intact Objective Data Vital Signs Vital Signs: Vital Signs Temp Pulse Resp BP Pulse Ox 09/06/20 10:00 36.2 C L 63 18 114/52 L 96 09/06/20 09:45 64 09/06/20 09:43 64 09/06/20 08:58 36.3 C L 62 22 H 110/68 96 09/06/20 08:12 80 20 09/06/20 08:00 65 20 93 09/06/20 05:49 36.3 C L 58 L 22 H 110/58 L 97 09/06/20 04:00 86 09/06/20 02:00 36.1 C L 75 20 105/62 98 09/06/20 00:00 72 09/05/20 21:32 76 09/05/20 21:17 36.2 C L 78 18 109/58 L 97 09/05/20 20:25 59 L 18 09/05/20 20:17 48 L 18 93 09/05/20 20:00 66 97 09/05/20 18:00 36.7 C 82 18 123/51 L 98 09/05/20 16:00 60 09/05/20 15:36 36.1 C L 81 16 97 09/05/20 15:17 36.2 C L 59 L 20 102/48 L 95 09/05/20 15:07 62 18 09/05/20 14:57 57 L 18 09/05/20 12:00 80 Intake/Output Inta
--- NOTE | 2020-09-06 12:22 | PM.IMPN ---
Progress Note: A&P Assessment and Plan (1) Acute on chronic systolic (congestive) heart failure: Code(s): I50.23 - Acute on chronic systolic (congestive) heart failure Status: Acute Assessment and Plan: has been diuresed appears to be close to euvolemic state appreciate cardiology note on spironolactone (2) Paroxysmal atrial fibrillation: Code(s): I48.0 - Paroxysmal atrial fibrillation Status: Acute Assessment and Plan: rate control no anticoagulation due to thrombocytopenia on amiodarone (3) Acute on chronic renal failure: Code(s): N17.9 - Acute kidney failure, unspecified; N18.9 - Chronic kidney disease, unspecified Status: Acute Assessment and Plan: appears to have plateaued continue to monitor appreciate nephrology note (4) Hypotension: Code(s): I95.9 - Hypotension, unspecified Status: Acute Assessment and Plan: patient with low ejection fraction proceed with caution (5) Aortic stenosis: Qualifiers: Cardiac valve disease etiology: etiology unspecified Qualified Code(s): I35.0 - Nonrheumatic aortic (valve) stenosis Code(s): I35.0 - Nonrheumatic aortic (valve) stenosis Status: Acute Assessment and Plan: will be evaluated in the outpatient setting continue to monitor low-dose beta-bia (6) Cardiomyopathy: Qualifiers: Cardiomyopathy type: unspecified Qualified Code(s): I42.9 - Cardiomyopathy, unspecified Code(s): I42.9 - Cardiomyopathy, unspecified Status: Acute Assessment and Plan: on spironolactone nuclear medicine myocardial perfusion test was not able to start Entresto (7) Tobacco abuse: Code(s): Z72.0 - Tobacco use Status: Acute Assessment and Plan: encouraged tobacco cessation (8) CMML (chronic myelomonocytic leukemia): Qualifiers: Leukemia Active/Remission status: without remission Qualified Code(s): C93.10 - 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 Code(s): C93.10 - 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 Status: Acute Assessment and Plan: will follow-up in the patient's (9) 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 Qualified Code(s): J43.9 - Emphysema, unspecified Code(s): J44.9 - Chronic obstructive pulmonary disease, unspecified Status: Chronic Assessment and Plan: not actively wheezing nebulizer treatments p.r.n. as needed (10) Dyspnea: Code(s): R06.00 - Dyspnea, unspecified Status: Acute Assessment and Plan: likely secondary to congestive heart failure (11) Leukocytosis: Code(s): D72.829 - Elevated white blood cell count, unspecified Status: Acute Assessment and Plan: patient with chronic myelomonocytic leukemia Subjective Date/time seen: 09/06/20 12:22 I am still short of breath Review of Systems Review of Systems: Narrative: patient states that he feels better for the most part but is still having shortness of breath, no new issues overnight Constitutional: Comments: no fevers no rigors noted Cardiovascular: Comments: shortness of breath Respiratory: Comments: no cough no sputum production Gastrointestinal: Comments: no nausea no vomiting no abdominal pain Musculoskeletal: Comments: no joint pain or muscle pain Integumentary/Breasts: Comments: no rash Neurologic: Comments: no sensorimotor deficit Exam Narrative: Exam Narrative: chronically ill-looking laying in bed Const: General: comfortable, no acute distress, well developed, alert and awake Nutritional Appearance: average body habitus Orientation/consciousness: patient oriented x3 HENMT: Head: normal to inspection, normocephalic and atraumatic Ears: hearing grossly normal bilaterally Face and sinus: nor
--- NOTE | 2020-09-06 12:25 | PCDIET ---
Weekly nutritional screen. Patient is tolerating current diet with adequate intake. No weight loss reported. No nutritional needs at this time.
[2020-09-06] MEDS: ATORVASTATIN 40 MG TABLET PO (20:18)
[2020-09-06] MEDS: FINASTERIDE 5 MG TABLET PO (20:18)
[2020-09-06] MEDS: TAMSULOSIN HCL 0.4 MG CAPSULE PO (20:18)
--- NOTE | 2020-09-06 21:00 | PC.NURSE ---
09/06/2099 21:00 Lopressor was not scanning. I called pharmacy and they were unable to solve problem. I was told by pharmacy i will have to administer without scanning. Lorri Liu and I verified it was the correct medication and dosage.
[2020-09-07] VITALS (19 sets, daily range): BP systolic 107–143; BP diastolic 46–61; PULSE 57–85; RESP 16–18; TEMP 35.8–36.5; O2SAT 93–97
[2020-09-07] MEDS: ALPRAZolam (*CRX) 0.5 MG TABLET PO (01:00)
--- NOTE | 2020-09-07 01:56 | PC.NURSE ---
09/05/2020 21:00 Lopressor not scanning. I called pharmacy and they were unable to to solve problem. I was told by pharmacy i will have to administer medications without scanning. Maria L Chung and I verified it was the correct medication and dosage.
[2020-09-07] MEDS: LEVOTHYROXINE SODIUM 50 MCG TABLET PO (05:58)
[2020-09-07] MEDS: DULoxetine HCL 30 MG CAPSULE.DR PO ×2 (10:01→20:59)
[2020-09-07] MEDS: PREGABALIN (*CRX) 50 MG CAPSULE PO ×2 (10:02→20:59)
[2020-09-07] MEDS: AMIODARONE HCL 200 MG TABLET PO (10:02)
[2020-09-07] MEDS: MIRTAZAPINE 30 MG TABLET PO (10:02)
--- NOTE | 2020-09-07 10:02 | PM.PNCARD ---
Progress Note: A&P Assessment and Plan (1) Chronic systolic (congestive) heart failure: Code(s): I50.22 - Chronic systolic (congestive) heart failure Status: Acute Assessment and Plan: CHF with reduced EF, EF 25%. Moderate symptomatic improvement, near euvolemic. Increase metoprolol to 12.5 mg p.o. b.i.d. Caution with spironolactone due to renal failure Since patient has renal failure at present with significantly elevated creatinine levels, will proceed with noninvasive ischemic evaluation with pharmacological MPI to check for any significant myocardial ischemia. This will help risk stratify the patient while we are waiting for his overall clinical condition including renal insufficiency to improve. Stress test is pending (2) Paroxysmal atrial fibrillation: Code(s): I48.0 - Paroxysmal atrial fibrillation Status: Acute Assessment and Plan: New problem of atrial fib, noted on telemetry/rhythm strips. Heart rate is controlled. Cannot anticoagulate because of thrombocytopenia. Continue amiodarone 200 mg p.o. daily BMP in a.m. (3) Aortic stenosis: Qualifiers: Cardiac valve disease etiology: etiology unspecified Qualified Code(s): I35.0 - Nonrheumatic aortic (valve) stenosis Code(s): I35.0 - Nonrheumatic aortic (valve) stenosis Status: Acute Assessment and Plan: Discussed with the patient. Patient will need evaluation by hematology oncology to assess his overall prognosis. If patient has reasonable life expectancy, then would recommend outpatient dobutamine echo to differentiate between pseudo versus true aortic stenosis in light of underlying LV systolic dysfunction. Thrombocytopenia may interfere with any TAVR plans as well. 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 New diagnosis. Progressive thrombocytopenia -- needs to be followed OPT FU planned. (7) Chest pain: Code(s): R07.9 - Chest pain, unspecified Status: Acute Assessment and Plan: No recurrent chest pain. Stable at present Subjective Date/time seen: 09/07/20 10:02 Interval history: Mr. Mohr is a pleasant 80 yo M admitted with dyspnea on exertion, pleural effusions, CHF, cardiomyopathy, aortic stenosis. Preliminary bone marrow results indicate patient have some sort of chronic monocytic leukemia. Final results apparently pending analysis at [facility] laboratory. 08/26/2020: Patient is sitting in bed eating his breakfast appears to be in no distress reports that his breathing is much better than it was on admission he still has a fair amount of lower extremity edema, penile and scrotal edema. This however does seem to be getting better now. Was started on Entresto 24/26 mg half a tablet daily. 08/27/2020: Patient has had trouble with low blood pressure this morning, in the 80s earlier, and most recently in 60's. No distress. Dobutamine and morning meds were held. Diuresed 1700 cc yesterday and already 2300 cc today. Patient happy to report his breathing is f
[2020-09-07] MEDS: lamoTRIgine 100 MG TABLET PO (10:05)
[2020-09-07] MEDS: allopurinoL 300 MG TABLET PO (10:05)
[2020-09-07] MEDS: guaiFENesin 12 HR 600 MG TABCR PO ×2 (10:05→20:59)
--- NOTE | 2020-09-07 12:06 | EST_ITS ---
Patient Info Name: John Mohr Age: 80 years : 1940 Gender: Male Ht: 70 in Wt: 166 lbs BSA: 1.93 m2 HR: 83 bpm BP: 145 / 64 mmHg Heart Rhythm: Sinus Rhythm Exam Date: 09/07/2020 8:40 AM Exam Location: [facility] Stress Patient Status: Inpatient Admit Date: 08/16/2020 Staff Ordering Physician: Sonu Ruiz MD Attending Provider: Yesika Hdz PA-C Referring Physician: Jairon Wellington MD; Exercise Technologist: Tiffanie Lau CT Exercise Physician: Jared Tilley MD Exam Type: CA stress juan w NM Study Info Indications - CONGESTIVE HEART FAILURE A regadenoson stress test was performed. Summary 1. Please correlate with nuclear medicine images, reported separately. 2. No abnormal ST-T wave changes with lexiscan. Protocol: Lexiscan Stress ECG Details Stage: REST Duration (min): 10 min : 33 sec HR (bpm): 65 SBP (mmHg): 145 DBP (mmHg): 64 Stage: STAGE 1 Duration (min): 1 min : 0 sec HR (bpm): 79 SBP (mmHg): 141 DBP (mmHg): 63 Stage: RECOVERY Duration (min): 1 min : 0 sec HR (bpm): 82 SBP (mmHg): 141 DBP (mmHg): 63 Stage: RECOVERY Duration (min): 2 min : 0 sec HR (bpm): 81 SBP (mmHg): 141 DBP (mmHg): 63 Stage: RECOVERY Duration (min): 3 min : 0 sec HR (bpm): 81 SBP (mmHg): 124 DBP (mmHg): 54 Stage: RECOVERY Duration (min): 3 min : 2 sec HR (bpm): 81 SBP (mmHg): 124 DBP (mmHg): 54 Rest HR: 65 bpm Peak HR: 84 bpm Rest Sys BP: 145 mmHg Peak Sys BP: 141 mmHg Max Pred HR: 138 bpm % Max Pred HR: 61 % Target HR: 117 bpm Max RPP: 11,844 bpm*mmHg Target HR Summary: Hemodynamic response to exercise was normal BP Response: Normal blood pressure response Termination Reason: Completed protocol Cardiac Symptoms: None Total Time: 1 min : 0 sec Rest Moore BP: 64 mmHg Peak Moore BP: 63 mmHg Total Dose: 0.4 mg Resting ECG Sinus bradycardia. Minor resting ST/T wave changes. Stress ECG No abnormal ST/T wave changes with exercise. Arrhythmias One PVCs. Report Signatures
[2020-09-07] MEDS: SPIRONOLACTONE 25 MG TABLET PO (12:46)
[2020-09-07] MEDS: BUMETANIDE 1 MG TABLET PO (12:46)
--- NOTE | 2020-09-07 14:11 | PC.NURSE ---
On 09/07/20, the student, [Anni Whitaker], provided care and completed [facility] documentation on this patient. I have reviewed the student's documentation and agree with the findings.
[2020-09-07] MEDS: IPRATROPIUM BR 0.02% INH SOLN 0.5 MG/2.5 ML VIAL INHALATION ×2 (14:20→20:24)
[2020-09-07] MEDS: ALBUTEROL SULFATE NEB 2.5 MG/0.5 ML INH INHALATION ×2 (14:20→20:24)
--- NOTE | 2020-09-07 14:25 | P.PNNP_ITS ---
Progress Note: A&P Assessment and Plan (1) ELZBIETA (acute kidney injury): Code(s): N17.9 - Acute kidney failure, unspecified Status: Acute Assessment and Plan: * unclear what baseline kidney function/creatinine is * however, suspect he has some underlying renal insufficiency due multiple risk factors [age, vascular disease, diuretics, component of cardiorenal syndrome(?)] * cysts on kidney from abdominal CT scan associated with atherosclerotic disease * although elevated BUN/azotemia concerning, would continue watchful waiting for now as perhaps better BP may help improve renal perfusion and overall kidney function * this may be a situation where we have to accept a higher creatinine given his need for diuretics/cardiac medications to keep his cardiac and volume status stable * follow repeat labs and UOP (2) Acute on chronic systolic (congestive) heart failure: Code(s): I50.23 - Acute on chronic systolic (congestive) heart failure Status: Acute Assessment and Plan: * as noted by Echo -- EF 20 - 25% * complicated by aortic stenosis as well * Cardiology following * back on bumex in conjunction with spironolactone * follow I/Os and respiratory status (3) Hypotension: Code(s): I95.9 - Hypotension, unspecified Status: Acute Assessment and Plan: * doing better at this time * due to cardiomyopathy versus overdiuresis(?) * follow hemodynamics off anti-HTN medications (4) Dyspnea: Code(s): R06.00 - Dyspnea, unspecified Status: Acute Assessment and Plan: * how much is related to COPD versus cardiomyopathy versus aortic stenosis(?) versus all of it... * diuretics restarted * already on nebulizer treatments and supplemental oxygen (5) Aortic stenosis: Qualifiers: Cardiac valve disease etiology: etiology unspecified Qualified Code(s): I35.0 - Nonrheumatic aortic (valve) stenosis Code(s): I35.0 - Nonrheumatic aortic (valve) stenosis Status: Acute Assessment and Plan: * Cardiology recommendations noted * will need further testing once acute medical issues stabilize (6) Leukocytosis: Code(s): D72.829 - Elevated white blood cell count, unspecified Status: Acute Assessment and Plan: * in association with anemia and thrombocytopenia * s/p bone marrow biopsy -- flow cytometry showed 9% myeloblasts 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 Subjective Date/time seen: 09/07/20 14:25 Still has shortness of breath but more so with activity/exertion as opposed to at rest; stress test done earlier today and tolerated procedure well; no other acute issues or problems voiced at this time; no events overnight or earlier this AM. Exam Narrative: Exam Narrative: General: elderly male in NAD Heart: normal S1 and S2; no rub Lungs: decreased at bases Abdomen: soft, nontender, nondistended, positive bowel sounds Extremities: no cyanosis or clubbing; trace edema Skin: no rash or nodules Objective Data Vital Signs Vital Signs: Vital Signs Temp Pulse Resp BP Pulse Ox 09/07/20 14:21 60 16 93 09/07/20 13:00 36.5 C 62 16 107/50 L 95 09/07/20 12:00 84 09/07/20 10:02 76 09/07/20 10:00 96 09/07/20 08:00 85 09/07/20 05:28 35.8 C L 83 18 143/61 H 96
--- NOTE | 2020-09-07 14:25 | PM.PNNEP ---
Progress Note: A&P Assessment and Plan (1) ELZBIETA (acute kidney injury): Code(s): N17.9 - Acute kidney failure, unspecified Status: Acute Assessment and Plan: unclear what baseline kidney function/creatinine is however, suspect he has some underlying renal insufficiency due multiple risk factors [age, vascular disease, diuretics, component of cardiorenal syndrome(?)] cysts on kidney from abdominal CT scan associated with atherosclerotic disease although elevated BUN/azotemia concerning, would continue watchful waiting for now as perhaps better BP may help improve renal perfusion and overall kidney function this may be a situation where we have to accept a higher creatinine given his need for diuretics/cardiac medications to keep his cardiac and volume status stable follow repeat labs and UOP (2) Acute on chronic systolic (congestive) heart failure: Code(s): I50.23 - Acute on chronic systolic (congestive) heart failure Status: Acute Assessment and Plan: as noted by Echo -- EF 20 - 25% complicated by aortic stenosis as well Cardiology following back on bumex in conjunction with spironolactone follow I/Os and respiratory status (3) Hypotension: Code(s): I95.9 - Hypotension, unspecified Status: Acute Assessment and Plan: doing better at this time due to cardiomyopathy versus overdiuresis(?) follow hemodynamics off anti-HTN medications (4) Dyspnea: Code(s): R06.00 - Dyspnea, unspecified Status: Acute Assessment and Plan: how much is related to COPD versus cardiomyopathy versus aortic stenosis(?) versus all of it... diuretics restarted already on nebulizer treatments and supplemental oxygen (5) Aortic stenosis: Qualifiers: Cardiac valve disease etiology: etiology unspecified Qualified Code(s): I35.0 - Nonrheumatic aortic (valve) stenosis Code(s): I35.0 - Nonrheumatic aortic (valve) stenosis Status: Acute Assessment and Plan: Cardiology recommendations noted will need further testing once acute medical issues stabilize (6) Leukocytosis: Code(s): D72.829 - Elevated white blood cell count, unspecified Status: Acute Assessment and Plan: in association with anemia and thrombocytopenia s/p bone marrow biopsy -- flow cytometry showed 9% myeloblasts 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 Subjective Date/time seen: 09/07/20 14:25 Still has shortness of breath but more so with activity/exertion as opposed to at rest; stress test done earlier today and tolerated procedure well; no other acute issues or problems voiced at this time; no events overnight or earlier this AM. Exam Narrative: Exam Narrative: General: elderly male in NAD Heart: normal S1 and S2; no rub Lungs: decreased at bases Abdomen: soft, nontender, nondistended, positive bowel sounds Extremities: no cyanosis or clubbing; trace edema Skin: no rash or nodules Objective Data Vital Signs Vital Signs: Vital Signs Temp Pulse Resp BP Pulse Ox 09/07/20 14:21 60 16 93 09/07/20 13:00 36.5 C 62 16 107/50 L 95 09/07/20 12:00 84 09/07/20 10:02 76 09/07/20 10:00 96 09/07/20 08:00 85 09/07/20 05:28 35.8 C L 83 18 143/61 H 96 09/07/20 04:00 58 L 09/07/20 02:00 35.8 C L 81 18 122/47 L 95 09/07/20 00:00 75 09/06/20 21:59 36.1 C L 80 18 132/68 91 09/06/20 20:23 82 09/06/20 20:14 54 L 20 09/06/20 20:13 57 L 18 92 09/06/20 20:08 57 L 20 09/06/20 20:00 77 98 09/06/20 18:00 36.2 C L 55 L 16 110/54 L 96 09/06/20 16:00 64 Intake/Output Intake/Output: Intake & Output 09/04/20 09/05/20 09/06/20 09/07/20 23:59 23:59 23:59 23:59 Intake Total 1320 1410 580 900 Output Total 800 875 700 400 Balance 520 535 -120 500
--- NOTE | 2020-09-07 17:00 | PM.IMPN ---
Progress Note: A&P Assessment and Plan (1) Leukocytosis: Code(s): D72.829 - Elevated white blood cell count, unspecified Status: Acute Assessment and Plan: Secondary to chronic myelogenous leukemia Will follow-up in the outpatient setting (2) Paroxysmal atrial fibrillation: Code(s): I48.0 - Paroxysmal atrial fibrillation Status: Acute Assessment and Plan: Patient noted to have new onset atrial fibrillation on rhythm strips on telemetry Rate control No anticoagulation due to thrombocytopenia Continue to monitor (3) Acute on chronic renal failure: Code(s): N17.9 - Acute kidney failure, unspecified; N18.9 - Chronic kidney disease, unspecified Status: Acute Assessment and Plan: Continue to monitor Multifactorial in etiology Appreciate nephrology (4) Hypotension: Code(s): I95.9 - Hypotension, unspecified Status: Acute Assessment and Plan: Improved (5) Acute on chronic systolic (congestive) heart failure: Code(s): I50.23 - Acute on chronic systolic (congestive) heart failure Status: Acute Assessment and Plan: Since to be euvolemic or near Appreciate cardiology Increase in beta-bia On spironolactone (6) CMML (chronic myelomonocytic leukemia): Qualifiers: Leukemia Active/Remission status: without remission Qualified Code(s): C93.10 - 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 Code(s): C93.10 - 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 Status: Acute Assessment and Plan: Will follow-up in a patient setting Supportive care Continue to monitor (7) Tobacco abuse: Code(s): Z72.0 - Tobacco use Status: Acute Assessment and Plan: Encouraged tobacco cessation (8) Aortic stenosis: Qualifiers: Cardiac valve disease etiology: etiology unspecified Qualified Code(s): I35.0 - Nonrheumatic aortic (valve) stenosis Code(s): I35.0 - Nonrheumatic aortic (valve) stenosis Status: Acute Assessment and Plan: Workup in the outpatient setting On beta-bia Continue to monitor (9) 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 Qualified Code(s): J43.9 - Emphysema, unspecified Code(s): J44.9 - Chronic obstructive pulmonary disease, unspecified Status: Chronic Assessment and Plan: Does not appear to be exacerbated Continue to monitor Subjective Date/time seen: 09/07/20 17:00 Patient states that he feels fine Review of Systems Review of Systems: Narrative: Is still having some shortness of breath Exam Narrative: Exam Narrative: Laying in bed Const: General: comfortable, no acute distress, well developed, alert and awake Nutritional Appearance: thin Orientation/consciousness: patient oriented x3 HENMT: Head: normal to inspection, normocephalic and atraumatic Ears: hearing grossly normal bilaterally Face and sinus: normal facial exam Eyes: General: appearance normal, both eyes and all related structures Pupils: Equal, round and reactive pupils present EOM: EOMs intact bilaterally Neck: Neck: full ROM, no lymphadenopathy and no JVD Thyroid: thyroid normal Lymphatic: no lymphadenopathy noted Resp: Effort & Inspection: normal respiratory effort and able to speak in complete sentences Auscultation: clear to auscultation bilaterally Cardio: Jugular venous distension: no JVD Rate: regular rate Rhythm: regular rhythm Heart sounds: S1 normal heart sound present and S2 normal heart sound present GI: GI Palp: Yes Soft to palpation and Yes No hepatosplenomegaly present : General: Yes deferred Skin: Rashes: no rashes Wounds: no wounds Neuro: General: patient oriented x3 and CN's II-XI intact bilaterally Cranial nerves: Yes CN's II-XII intact bilaterally and Yes Equal, round and reactive pupils present Cognition (Al
[2020-09-07] MEDS: METOPROLOL TARTRATE 12.5 MG TABLET PO (20:59)
[2020-09-07] MEDS: TAMSULOSIN HCL 0.4 MG CAPSULE PO (20:59)
[2020-09-07] MEDS: FINASTERIDE 5 MG TABLET PO (20:59)
[2020-09-07] MEDS: ATORVASTATIN 40 MG TABLET PO (20:59)
[2020-09-08] VITALS (20 sets, daily range): BP systolic 105–130; BP diastolic 49–68; PULSE 55–96; RESP 16–21; TEMP 35.8–36.3; O2SAT 93–100
[2020-09-08] MEDS: LEVOTHYROXINE SODIUM 50 MCG TABLET PO (06:16)
[2020-09-08 06:23] LABS: Potassium 4.3 mmol/L (3.4-5.0)
[2020-09-08 06:26] LABS: Anion Gap 8 mmol/L (8-16); Blood Urea Nitrogen 64 mg/dL (9-20); Calcium 8.8 mg/dL (8.4-10.2); Carbon Dioxide 29 mmol/L (22-30); Chloride 102 mmol/L (98-107); Estimated CRCL calculation 19 ml/min; Estimated Glomerular Filt Rate 22; Glucose 203 mg/dL (75-110); Sodium 139 mmol/L (137-145)
--- NOTE | 2020-09-08 07:15 | PCPTNOTE ---
The PT treatment was unable to be completed on 09/07/20. Will continue per Plan of Care frequency and duration.
[2020-09-08] MEDS: ALBUTEROL SULFATE NEB 2.5 MG/0.5 ML INH INHALATION ×3 (07:33→20:09)
[2020-09-08] MEDS: IPRATROPIUM BR 0.02% INH SOLN 0.5 MG/2.5 ML VIAL INHALATION ×3 (07:33→20:09)
[2020-09-08] MEDS: MIRTAZAPINE 30 MG TABLET PO (08:29)
[2020-09-08] MEDS: DULoxetine HCL 30 MG CAPSULE.DR PO ×2 (08:29→21:00)
[2020-09-08] MEDS: PREGABALIN (*CRX) 50 MG CAPSULE PO ×2 (08:29→20:59)
[2020-09-08] MEDS: SPIRONOLACTONE 25 MG TABLET PO (08:30)
[2020-09-08] MEDS: AMIODARONE HCL 200 MG TABLET PO (08:30)
[2020-09-08] MEDS: guaiFENesin 12 HR 600 MG TABCR PO ×2 (08:30→21:00)
[2020-09-08] MEDS: BUMETANIDE 1 MG TABLET PO (08:30)
[2020-09-08] MEDS: allopurinoL 300 MG TABLET PO (08:30)
[2020-09-08] MEDS: METOPROLOL TARTRATE 12.5 MG TABLET PO ×2 (08:32→20:59)
[2020-09-08] MEDS: lamoTRIgine 100 MG TABLET PO (08:32)
--- NOTE | 2020-09-08 09:10 | PM.PNCARD ---
Progress Note: A&P Assessment and Plan (1) Chronic systolic (congestive) heart failure: Code(s): I50.22 - Chronic systolic (congestive) heart failure Status: Acute Assessment and Plan: CHF with reduced EF, EF 25%. Moderate symptomatic improvement, near euvolemic. Continue metoprolol to 12.5 mg p.o. b.i.d. I am going to reduce his spironolactone to 12.5 mg daily due to renal failure Perfusion study showed a fixed defect. Moderate cardiomyopathy with ejection fraction 38%. At this point medical management will be pursued especially given the complexity of his health situation including severe thrombocytopenia, renal failure and leukemia which all make pursuing angiogram less than ideal at this point. Discharge planning at this point (2) Paroxysmal atrial fibrillation: Code(s): I48.0 - Paroxysmal atrial fibrillation Status: Acute Assessment and Plan: New problem of atrial fib, noted on telemetry/rhythm strips. Heart rate is controlled. Cannot anticoagulate because of thrombocytopenia. Continue amiodarone 200 mg p.o. daily (3) Aortic stenosis: Qualifiers: Cardiac valve disease etiology: etiology unspecified Qualified Code(s): I35.0 - Nonrheumatic aortic (valve) stenosis Code(s): I35.0 - Nonrheumatic aortic (valve) stenosis Status: Acute Assessment and Plan: Discussed with the patient. Patient will need evaluation by hematology oncology to assess his overall prognosis. If patient has reasonable life expectancy, then would recommend outpatient dobutamine echo to differentiate between pseudo versus true aortic stenosis in light of underlying LV systolic dysfunction. Thrombocytopenia may interfere with any TAVR plans as well. 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 New diagnosis. Progressive thrombocytopenia -- needs to be followed OPT FU planned. (7) Chest pain: Code(s): R07.9 - Chest pain, unspecified Status: Acute Assessment and Plan: No recurrent chest pain. Stable at present Subjective Date/time seen: 09/08/20 09:10 Interval history: Mr. Mohr is a pleasant 80 yo M admitted with dyspnea on exertion, pleural effusions, CHF, cardiomyopathy, aortic stenosis. Preliminary bone marrow results indicate patient have some sort of chronic monocytic leukemia. Final results apparently pending analysis at [facility] laboratory. 08/26/2020: Patient is sitting in bed eating his breakfast appears to be in no distress reports that his breathing is much better than it was on admission he still has a fair amount of lower extremity edema, penile and scrotal edema. This however does seem to be getting better now. Was started on Entresto 24/26 mg half a tablet daily. 08/27/2020: Patient has had trouble with low blood pressure this morning, in the 80s earlier, and most recently in 60's. No distress. Dobutamine and morning meds were held. Diuresed 1700 cc yesterday and already 2300 cc today. Patient happy to report his breathing is fine and his scrotal and leg edema impro
--- NOTE | 2020-09-08 10:57 | PM.PNPUL ---
Progress Note: A&P Assessment and Plan (1) Dyspnea: Code(s): R06.00 - Dyspnea, unspecified Status: Acute Assessment and Plan: 08/15 Patient with 2 months worsening XIAO. Etiology includes pneumonia, lung cancer, right pleural effusion, CHF. Agree with ceftriaxone and azithromycin for now. I have ordered a right pleural thoracentesis to assess for a complicated effusion and will send for chemistries, cultures and cytology to assess for cancer. I have ordered a BNP and will order a echocardiogram to assess LV, RV and valve function. Oncology consult also ordered as well. 08/16 improved dyspnea post thoracentesis of 1000 ml joseph fluid with normal pH, differential mac 61%, N11%, L28%, gram stain with no organisms and no WBC. Other chemistry pending. D dimer negative so unlikely PE, BNP elevated and echo pending. To have bone marrow biopsy later today. No focal infiltrates post thoracentesis, continue ceftriaxone and azithro for now. Cultures negative. 08/17 Remains with XIAO. No reaccumulation of right effusion on . Spoke with pathologist regarding pleural fluid and monocytic looking cells. Patient has 9% blasts on his flow cytometry of bone marrow on preliminary results, further studies at [facility] pending. Other etiologies of dyspnea include patient with LV EF 25-30%, moderate to severe with valve area 1.0 and mean gradient 15 with fluid overload. 08/18 Edema worsening, transudative pleural effusion with LDH 119/serum 539=0.22, T prot < 3/serum 6.0=>0.5, pH 7.41, glucose 108, amylase 40, cultures no growth and bacterial, fungal and AFB stains negative. Wheezes end expiratory today. Day 4 antibiotics. I suspect cardiac disease with fluid overload is major component of SOB, XIAO and wheezes. 08/19 Remains fluid positive with worsening oxygenation, now on 3L. Cardiology and hospitalist to aggressively diurese as tolerated by cardiac and renal systems. 08/20 Increased diuretic with good output. O2 at 2 L/min, lower. 08/21 Continue diuresis as tolerated by renal and cardiac systems (has cardiomyopathy and which will require further outpatient workup). 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 09/08 Plus 900 in last 5 days, continue diuresis as tolerated by renal and cardiac systems. I check CXR and BNP. Will discuss holding metoprolol with cardiology. 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 He has mild expiratory wheezes and I will start albuterol, ipratroprium and budesonide nebs for now. 08/16 Continue albuterol, ipratroprium and budesonide nebs for now. Wheezes persist. 08/17 Continued wheezes and I will start solumedrol 40 Q 6 today, continue albuterol, ipratropium and budesonide nebs for now. On ceftriaxone and azitho (day 2). 08/18 Improved wheezes and will continue solumedrol 40 Q 6 today, continue albuterol, ipratropium and budesonide nebs for now. D 3 antibiotics. 08/19 Continued wheezes despite 48 hours high dose steroids. Suspect wheezing and worsening oxygenation due to fluid overload and doubt related to COPD exacerbation and change to prednisone 50 Q day, continue albuterol, ipratropium and budesonide nebs for now. D4 antibiotics. DC azithro on 08/20 and continue ceftriaxone through 08/22. 08/22 DC prednisone later today after 6 days. continue albuterol, ipratropium and budesonide nebs for now. Last dose of ceftriaxone today. Spoke with son Tyrone regarding lung issues of COPD and fluid overload. He is aware of cancer in bone marrow as well. 08/23 Improving off systemic steroids and antibiotics. Will change albuterol and ipratroprium to Q 6 while awake and discontinue budesonide 0.5 mg
[2020-09-08 11:32] LABS: NT Pro B Type Natriuretic Pept 10400 PG/ML (5-100)
--- NOTE | 2020-09-08 13:12 | P.PNNP_ITS ---
Progress Note: A&P Assessment and Plan (1) ELZBIETA (acute kidney injury): Code(s): N17.9 - Acute kidney failure, unspecified Status: Acute Assessment and Plan: * unclear what baseline kidney function/creatinine is * however, suspect he has some underlying renal insufficiency due multiple risk factors [age, vascular disease, diuretics, component of cardiorenal syndrome(?)] * cysts on kidney from abdominal CT scan associated with atherosclerotic disease * although elevated BUN/azotemia concerning, would continue watchful waiting for now as perhaps better BP may help improve renal perfusion and overall kidney function * this may be a situation where we have to accept a higher creatinine given his need for diuretics/cardiac medications to keep his cardiac and volume status stable * follow repeat labs and UOP (2) Acute on chronic systolic (congestive) heart failure: Code(s): I50.23 - Acute on chronic systolic (congestive) heart failure Status: Acute Assessment and Plan: * as noted by Echo -- EF 20 - 25% * complicated by aortic stenosis as well * Cardiology following * back on bumex in conjunction with spironolactone * follow I/Os and respiratory status (3) Hypotension: Code(s): I95.9 - Hypotension, unspecified Status: Acute Assessment and Plan: * doing better at this time * due to cardiomyopathy versus overdiuresis(?) * follow hemodynamics off anti-HTN medications (4) Dyspnea: Code(s): R06.00 - Dyspnea, unspecified Status: Acute Assessment and Plan: * how much is related to COPD versus cardiomyopathy versus aortic stenosis(?) versus all of it... * diuretics restarted * Pulmonary recommendations noted (5) Aortic stenosis: Qualifiers: Cardiac valve disease etiology: etiology unspecified Qualified Code(s): I35.0 - Nonrheumatic aortic (valve) stenosis Code(s): I35.0 - Nonrheumatic aortic (valve) stenosis Status: Acute Assessment and Plan: * Cardiology recommendations noted * will need further testing once acute medical issues stabilize (6) Leukocytosis: Code(s): D72.829 - Elevated white blood cell count, unspecified Status: Acute Assessment and Plan: * in association with anemia and thrombocytopenia * s/p bone marrow biopsy -- flow cytometry showed 9% myeloblasts 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 Subjective Date/time seen: 09/08/20 13:12 Breathing/respiratory status seem to be doing a bit better after medication changes as noted by Pulmonary (certainly not any worse); no other acute issue or events voiced at this time. Exam Narrative: Exam Narrative: General: elderly male in NAD Heart: normal S1 and S2; no rub Lungs: few scattered wheezes; decreased at bases Abdomen: soft, nontender, nondistended, positive bowel sounds Extremities: no cyanosis or clubbing; trace edema Skin: warm and dry Objective Data Vital Signs Vital Signs: Vital Signs Temp Pulse Resp BP Pulse Ox 09/08/20 10:00 36.2 C L 66 18 130/54 L 94 09/08/20 08:00 66 09/08/20 07:42 70 16 09/08/20 07:36 93 09/08/20 07:33 63 16 09/08/20 06:00 35.8 C L 65 20 125/68 98 09/08/20 04:00 65 09/08/20 00:00 64 09/07/20 22:00 36.1 C L 57 L 18
--- NOTE | 2020-09-08 13:12 | PM.PNNEP ---
Progress Note: A&P Assessment and Plan (1) ELZBIETA (acute kidney injury): Code(s): N17.9 - Acute kidney failure, unspecified Status: Acute Assessment and Plan: unclear what baseline kidney function/creatinine is however, suspect he has some underlying renal insufficiency due multiple risk factors [age, vascular disease, diuretics, component of cardiorenal syndrome(?)] cysts on kidney from abdominal CT scan associated with atherosclerotic disease although elevated BUN/azotemia concerning, would continue watchful waiting for now as perhaps better BP may help improve renal perfusion and overall kidney function this may be a situation where we have to accept a higher creatinine given his need for diuretics/cardiac medications to keep his cardiac and volume status stable follow repeat labs and UOP (2) Acute on chronic systolic (congestive) heart failure: Code(s): I50.23 - Acute on chronic systolic (congestive) heart failure Status: Acute Assessment and Plan: as noted by Echo -- EF 20 - 25% complicated by aortic stenosis as well Cardiology following back on bumex in conjunction with spironolactone follow I/Os and respiratory status (3) Hypotension: Code(s): I95.9 - Hypotension, unspecified Status: Acute Assessment and Plan: doing better at this time due to cardiomyopathy versus overdiuresis(?) follow hemodynamics off anti-HTN medications (4) Dyspnea: Code(s): R06.00 - Dyspnea, unspecified Status: Acute Assessment and Plan: how much is related to COPD versus cardiomyopathy versus aortic stenosis(?) versus all of it... diuretics restarted Pulmonary recommendations noted (5) Aortic stenosis: Qualifiers: Cardiac valve disease etiology: etiology unspecified Qualified Code(s): I35.0 - Nonrheumatic aortic (valve) stenosis Code(s): I35.0 - Nonrheumatic aortic (valve) stenosis Status: Acute Assessment and Plan: Cardiology recommendations noted will need further testing once acute medical issues stabilize (6) Leukocytosis: Code(s): D72.829 - Elevated white blood cell count, unspecified Status: Acute Assessment and Plan: in association with anemia and thrombocytopenia s/p bone marrow biopsy -- flow cytometry showed 9% myeloblasts 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 Subjective Date/time seen: 09/08/20 13:12 Breathing/respiratory status seem to be doing a bit better after medication changes as noted by Pulmonary (certainly not any worse); no other acute issue or events voiced at this time. Exam Narrative: Exam Narrative: General: elderly male in NAD Heart: normal S1 and S2; no rub Lungs: few scattered wheezes; decreased at bases Abdomen: soft, nontender, nondistended, positive bowel sounds Extremities: no cyanosis or clubbing; trace edema Skin: warm and dry Objective Data Vital Signs Vital Signs: Vital Signs Temp Pulse Resp BP Pulse Ox 09/08/20 10:00 36.2 C L 66 18 130/54 L 94 09/08/20 08:00 66 09/08/20 07:42 70 16 09/08/20 07:36 93 09/08/20 07:33 63 16 09/08/20 06:00 35.8 C L 65 20 125/68 98 09/08/20 04:00 65 09/08/20 00:00 64 09/07/20 22:00 36.1 C L 57 L 18 118/46 L 97 09/07/20 20:59 64 09/07/20 20:33 75 18 09/07/20 20:28 79 18 95 09/07/20 20:24 79 18 09/07/20 20:00 63 97 09/07/20 18:00 35.9 C L 64 18 128/53 L 95 09/07/20 16:00 61 09/07/20 14:31 61 16 09/07/20 14:21 60 16 93 Intake/Output Intake/Output: Intake & Output 09/05/20 09/06/20 09/07/20 09/08/20 23:59 23:59 23:59 23:59 Intake Total 1410 580 950 340 Output Total 875 700 925 500 Balance 535 -120 25 -160 Meds/Results Medications: Active Medications Generic Name Dose Route Start Last
--- NOTE | 2020-09-08 14:20 | PCRCNOTE ---
Window of time for administration has passed. See next scheduled administration.
[2020-09-08] MEDS: BUDESONIDE RESPULE NEB 0.5 MG/2 ML AMP INHALATION ×2 (14:21→20:09)
[2020-09-08 16:24] LABS: Chloride Rand Ur 31 mmol/L (32-290); Chloride/Creatinine Rand Ur 32 (23-275); Creatinine Random Urine 97 mg/dL (20-320)
--- NOTE | 2020-09-08 18:00 | PM.IMPN ---
Progress Note: A&P Assessment and Plan (1) Acute on chronic systolic (congestive) heart failure: Code(s): I50.23 - Acute on chronic systolic (congestive) heart failure Status: Acute Assessment and Plan: much improved on the spironolactone on metolazone on beta-bia appreciate cardiology note continue to monitor strict i/o's (2) Paroxysmal atrial fibrillation: Code(s): I48.0 - Paroxysmal atrial fibrillation Status: Acute Assessment and Plan: rate control, on amiodarone not anticoagulated due to thrombocytopenia (3) Acute on chronic renal failure: Code(s): N17.9 - Acute kidney failure, unspecified; N18.9 - Chronic kidney disease, unspecified Status: Acute Assessment and Plan: continue to monitor strict i/o's appreciate nephrology note (4) Aortic stenosis: Qualifiers: Cardiac valve disease etiology: etiology unspecified Qualified Code(s): I35.0 - Nonrheumatic aortic (valve) stenosis Code(s): I35.0 - Nonrheumatic aortic (valve) stenosis Status: Acute Assessment and Plan: on beta-blockade tolerating diuresis (5) Cardiomyopathy: Qualifiers: Cardiomyopathy type: unspecified Qualified Code(s): I42.9 - Cardiomyopathy, unspecified Code(s): I42.9 - Cardiomyopathy, unspecified Status: Acute Assessment and Plan: might start Entresto defer to cardiology (6) CMML (chronic myelomonocytic leukemia): Qualifiers: Leukemia Active/Remission status: without remission Qualified Code(s): C93.10 - 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 Code(s): C93.10 - 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 Status: Acute Assessment and Plan: follow-up in the outpatient setting (7) 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 Qualified Code(s): J43.9 - Emphysema, unspecified Code(s): J44.9 - Chronic obstructive pulmonary disease, unspecified Status: Chronic Assessment and Plan: breathing treatments frequency changed by pulmonology started inhaler steroid as well appreciate pulmonology note (8) Tobacco abuse: Code(s): Z72.0 - Tobacco use Status: Acute Assessment and Plan: encouraged tobacco cessation (9) Leukocytosis: Code(s): D72.829 - Elevated white blood cell count, unspecified Status: Acute Assessment and Plan: secondary to CMML continue to monitor Subjective Date/time seen: 09/08/20 18:00 I feel better Review of Systems Review of Systems: Narrative: patient denies any issues Constitutional: Comments: no fevers no rigors no chills Cardiovascular: Comments: no chest pain Respiratory: Comments: denies any shortness of breath Gastrointestinal: Comments: abdominal pain no nausea no vomiting no diarrhea Musculoskeletal: Comments: no joint or muscle pain Neurologic: Comments: no sensorimotor deficit Exam Narrative: Exam Narrative: patient is lying in bed Const: General: comfortable, no acute distress, well developed, alert, awake and other ( chronically ill looking) Nutritional Appearance: average body habitus Orientation/consciousness: patient oriented x3 HENMT: Head: normal to inspection, normocephalic and atraumatic Ears: hearing grossly normal bilaterally Face and sinus: normal facial exam Eyes: General: appearance normal, both eyes and all related structures Pupils: Equal, round and reactive pupils present EOM: EOMs intact bilaterally Neck: Neck: full ROM, no lymphadenopathy and no JVD Thyroid: thyroid normal Lymphatic: no lymphadenopathy noted Resp: Effort & Inspection: normal respiratory effort and able to speak in complete sentences Auscultation: wheezes expiratory wheezes Cardio: Jugular venous distension: no JVD Rate: regular rate Rhythm:
[2020-09-08] MEDS: ATORVASTATIN 40 MG TABLET PO (21:00)
[2020-09-08] MEDS: FINASTERIDE 5 MG TABLET PO (21:00)
[2020-09-08] MEDS: TAMSULOSIN HCL 0.4 MG CAPSULE PO (21:00)
[2020-09-09] VITALS (26 sets, daily range): BP systolic 114–142; BP diastolic 42–57; PULSE 48–77; RESP 18–20; TEMP 36–36.7; O2SAT 92–98
[2020-09-09 05:46] LABS: Basophils Absolute Auto 0.3 K/mm3 (0.0-0.1); Basophils Percent Auto 0.7 % (0.2-1.2); Eosinophils Absolute Auto 0.1 K/mm3 (0-0.3); Eosinophils Percent Auto 0.2 % (0-4.4); Hematocrit 31.4 % (42.0-52.0); Hemoglobin 10.2 g/dL (14.0-18.0); Immature Granulocyte Absolute 1.82 K/mm3 (0.00-0.031); Immature Granulocyte Percent A 4.8 % (0-0.5); Immature Platelet Fraction Pct 13.6 % (0.9-11.2); Lymphocytes Absolute Auto 5.72 K/mm3 (0.9-3.2); Mean Corpuscular HGB Conc 32.5 g/dl (32-36); Mean Corpuscular Hemoglobin 31.9 pg (26-34); Mean Corpuscular Volume 98.1 fl (80-100); Mean Platelet Volume 13.5 fl (7.4-10.4); Monocytes Absolute Auto 18.5 K/mm3 (0.1-0.6); Monocytes Percent Auto 48.5 % (2.6-8.5); Neutrophils Absolute Auto 11.8 K/mm3 (1.3-6.7); Neutrophils Percent Auto 30.8 % (45.5-73.1); Nucleated Red Blood Cells Perc 0.1 % (0.0-0.2); Platelet Count Result 50 k/mm3 (150-375); Red Cell Distribution Width 18.8 % (11.5-14.5); White Blood Count 38.2 K/mm3 (4.5-10.0)
[2020-09-09 05:57] LABS: Anion Gap 9 mmol/L (8-16); Blood Urea Nitrogen 63 mg/dL (9-20); Calcium 8.5 mg/dL (8.4-10.2); Carbon Dioxide 25 mmol/L (22-30); Chloride 105 mmol/L (98-107); Estimated CRCL calculation 19 ml/min; Estimated Glomerular Filt Rate 21; Glucose 139 mg/dL (75-110); Sodium 139 mmol/L (137-145)
[2020-09-09] MEDS: LEVOTHYROXINE SODIUM 50 MCG TABLET PO (06:25)
[2020-09-09 06:37] LABS: Anisocytosis 1+ (NORMAL); Burr Cells 1+ (NORMAL); Platelet Estimate Decreased (Adequate); Poikilocytosis 1+ (NORMAL)
[2020-09-09] MEDS: IPRATROPIUM BR 0.02% INH SOLN 0.5 MG/2.5 ML VIAL INHALATION ×4 (08:18→20:00)
[2020-09-09] MEDS: ALBUTEROL SULFATE NEB 2.5 MG/0.5 ML INH INHALATION ×4 (08:18→20:00)
[2020-09-09] MEDS: BUDESONIDE RESPULE NEB 0.5 MG/2 ML AMP INHALATION ×2 (08:19→20:00)
[2020-09-09] MEDS: MIRTAZAPINE 30 MG TABLET PO (09:52)
[2020-09-09] MEDS: BUMETANIDE 1 MG TABLET PO (09:52)
[2020-09-09] MEDS: guaiFENesin 12 HR 600 MG TABCR PO ×2 (09:52→21:16)
[2020-09-09] MEDS: PREGABALIN (*CRX) 50 MG CAPSULE PO ×2 (09:52→21:15)
[2020-09-09] MEDS: AMIODARONE HCL 200 MG TABLET PO (09:52)
[2020-09-09] MEDS: DULoxetine HCL 30 MG CAPSULE.DR PO ×2 (09:53→21:15)
[2020-09-09] MEDS: METOPROLOL TARTRATE 12.5 MG TABLET PO ×2 (09:53→21:15)
[2020-09-09] MEDS: allopurinoL 300 MG TABLET PO (09:53)
[2020-09-09] MEDS: lamoTRIgine 100 MG TABLET PO (09:53)
--- NOTE | 2020-09-09 12:20 | PM.PNPUL ---
Progress Note: A&P Assessment and Plan (1) Dyspnea: Code(s): R06.00 - Dyspnea, unspecified Status: Acute Assessment and Plan: 08/15 Patient with 2 months worsening XIAO. Etiology includes pneumonia, lung cancer, right pleural effusion, CHF. Agree with ceftriaxone and azithromycin for now. I have ordered a right pleural thoracentesis to assess for a complicated effusion and will send for chemistries, cultures and cytology to assess for cancer. I have ordered a BNP and will order a echocardiogram to assess LV, RV and valve function. Oncology consult also ordered as well. 08/16 improved dyspnea post thoracentesis of 1000 ml joseph fluid with normal pH, differential mac 61%, N11%, L28%, gram stain with no organisms and no WBC. Other chemistry pending. D dimer negative so unlikely PE, BNP elevated and echo pending. To have bone marrow biopsy later today. No focal infiltrates post thoracentesis, continue ceftriaxone and azithro for now. Cultures negative. 08/17 Remains with XIAO. No reaccumulation of right effusion on . Spoke with pathologist regarding pleural fluid and monocytic looking cells. Patient has 9% blasts on his flow cytometry of bone marrow on preliminary results, further studies at [facility] pending. Other etiologies of dyspnea include patient with LV EF 25-30%, moderate to severe with valve area 1.0 and mean gradient 15 with fluid overload. 08/18 Edema worsening, transudative pleural effusion with LDH 119/serum 539=0.22, T prot < 3/serum 6.0=>0.5, pH 7.41, glucose 108, amylase 40, cultures no growth and bacterial, fungal and AFB stains negative. Wheezes end expiratory today. Day 4 antibiotics. I suspect cardiac disease with fluid overload is major component of SOB, XIAO and wheezes. 08/19 Remains fluid positive with worsening oxygenation, now on 3L. Cardiology and hospitalist to aggressively diurese as tolerated by cardiac and renal systems. 08/20 Increased diuretic with good output. O2 at 2 L/min, lower. 08/21 Continue diuresis as tolerated by renal and cardiac systems (has cardiomyopathy and which will require further outpatient workup). Hospitalist and market stall vendor managing. 09/08 Plus 900 in last 5 days, continue diuresis as tolerated by renal and cardiac systems. I check CXR and BNP. Will discuss holding metoprolol with cardiology. 09/09 Plus 10 ml, CXR with congestina dn fluid overload and BNP [id number]. Cardiology prefers to continue metoprolol. Fluid overload and cardiac condition definately contributing to wheezing and XIAO and cardiology and renal attempting to optimize treatment. 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 He has mild expiratory wheezes and I will start albuterol, ipratroprium and budesonide nebs for now. 08/16 Continue albuterol, ipratroprium and budesonide nebs for now. Wheezes persist. 08/17 Continued wheezes and I will start solumedrol 40 Q 6 today, continue albuterol, ipratropium and budesonide nebs for now. On ceftriaxone and azitho (day 2). 08/18 Improved wheezes and will continue solumedrol 40 Q 6 today, continue albuterol, ipratropium and budesonide nebs for now. D 3 antibiotics. 08/19 Continued wheezes despite 48 hours high dose steroids. Suspect wheezing and worsening oxygenation due to fluid overload and doubt related to COPD exacerbation and change to prednisone 50 Q day, continue albuterol, ipratropium and budesonide nebs for now. D4 antibiotics. DC azithro on 08/20 and continue ceftriaxone through 08/22. 08/22 DC prednisone later today after 6 days. continue albuterol, ipratropium and budesonide nebs for now. Last dose of ceftriaxone today. Spoke with
[2020-09-09] MEDS: SPIRONOLACTONE 12.5 MG TABLET PO (12:44)
[2020-09-09] MEDS: methylPREDNISolone SOD SUCC 40 MG VIAL IV PUSH ×3 (12:44→23:26)
--- NOTE | 2020-09-09 13:12 | PM.PNNEP ---
Progress Note: A&P Assessment and Plan (1) ELZBIETA (acute kidney injury): Code(s): N17.9 - Acute kidney failure, unspecified Status: Acute Assessment and Plan: unclear what baseline kidney function/creatinine is however, suspect he has some underlying renal insufficiency due multiple risk factors [age, vascular disease, diuretics, component of cardiorenal syndrome(?)] cysts on kidney from abdominal CT scan associated with atherosclerotic disease this may be a situation where we have to accept a higher creatinine given his need for diuretics/cardiac medications to keep his cardiac and volume status stable follow repeat labs and UOP (2) Acute on chronic systolic (congestive) heart failure: Code(s): I50.23 - Acute on chronic systolic (congestive) heart failure Status: Acute Assessment and Plan: as noted by Echo complicated by aortic stenosis as well Cardiology following back on bumex in conjunction with spironolactone follow I/Os and respiratory status (3) Hypotension: Code(s): I95.9 - Hypotension, unspecified Status: Acute Assessment and Plan: doing better at this time due to cardiomyopathy versus overdiuresis(?) follow hemodynamics hoping higher BP may provide better perfusion to his kidneys (4) Dyspnea: Code(s): R06.00 - Dyspnea, unspecified Status: Acute Assessment and Plan: how much is related to COPD versus cardiomyopathy versus aortic stenosis(?) versus all of it... diuretics restarted Pulmonary following and recommendations noted (5) Aortic stenosis: Qualifiers: Cardiac valve disease etiology: etiology unspecified Qualified Code(s): I35.0 - Nonrheumatic aortic (valve) stenosis Code(s): I35.0 - Nonrheumatic aortic (valve) stenosis Status: Acute Assessment and Plan: Cardiology recommendations noted will need further testing once acute medical issues stabilize (6) Leukocytosis: Code(s): D72.829 - Elevated white blood cell count, unspecified Status: Acute Assessment and Plan: in association with anemia and thrombocytopenia s/p bone marrow biopsy -- flow cytometry showed 9% myeloblasts 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 Subjective Date/time seen: 09/09/20 13:12 His respiratory status remains somewhat tenuous at this point; steroids added by Pulmonary earlier today given ongoing wheezing; edema seems stable; no other acute issues or problems voiced at this time. Exam Narrative: Exam Narrative: General: elderly male in NAD Heart: normal S1 and S2; no rub Lungs: few wheezes noted; decreased at bases Abdomen: soft, nontender, nondistended, positive bowel sounds Extremities: no cyanosis or clubbing; trace edema Skin: warm and intact Objective Data Vital Signs Vital Signs: Vital Signs Temp Pulse Resp BP Pulse Ox 09/09/20 12:00 62 09/09/20 10:00 36.0 C L 60 18 142/57 H 94 09/09/20 09:53 54 L 09/09/20 09:52 54 L 09/09/20 09:00 54 L 20 92 09/09/20 08:30 54 L 20 09/09/20 08:19 62 18 92 09/09/20 08:00 55 L 09/09/20 06:00 36.1 C L 60 18 139/53 L 96 09/09/20 04:00 48 L 09/09/20 02:00 36.4 C L 57 L 20 114/42 L 98 09/09/20 00:00 74 09/08/20 22:00 36.3 C L 55 L 21 H 125/49 L 100 09/08/20 20:59 60 09/08/20 20:32 59 L 18 09/08/20 20:12 58 L 18 09/08/20 20:11 93 09/08/20 20:00 60 98 09/08/20 18:00 36.2 C L 96 18 108/50 L 95 09/08/20 16:00 57 L 09/08/20 14:32 65 16 09/08/20 14:21 63 16 Intake/Output Intake/Output: Intake & Output 09/06/20 09/07/20 09/08/20 09/09/20 23:59 23:59 23:59 23:59 Intake Total 580 950 810 760 Output Total 700 925 800 500 Balance -120 25 10 260 Meds/Results Medications: Active Medications
--- NOTE | 2020-09-09 13:12 | P.PNNP_ITS ---
Progress Note: A&P Assessment and Plan (1) ELZBIETA (acute kidney injury): Code(s): N17.9 - Acute kidney failure, unspecified Status: Acute Assessment and Plan: * unclear what baseline kidney function/creatinine is * however, suspect he has some underlying renal insufficiency due multiple risk factors [age, vascular disease, diuretics, component of cardiorenal syndrome(?)] * cysts on kidney from abdominal CT scan associated with atherosclerotic disease * this may be a situation where we have to accept a higher creatinine given his need for diuretics/cardiac medications to keep his cardiac and volume status stable * follow repeat labs and UOP (2) Acute on chronic systolic (congestive) heart failure: Code(s): I50.23 - Acute on chronic systolic (congestive) heart failure Status: Acute Assessment and Plan: * as noted by Echo * complicated by aortic stenosis as well * Cardiology following * back on bumex in conjunction with spironolactone * follow I/Os and respiratory status (3) Hypotension: Code(s): I95.9 - Hypotension, unspecified Status: Acute Assessment and Plan: * doing better at this time * due to cardiomyopathy versus overdiuresis(?) * follow hemodynamics * hoping higher BP may provide better perfusion to his kidneys (4) Dyspnea: Code(s): R06.00 - Dyspnea, unspecified Status: Acute Assessment and Plan: * how much is related to COPD versus cardiomyopathy versus aortic stenosis(?) versus all of it... * diuretics restarted * Pulmonary following and recommendations noted (5) Aortic stenosis: Qualifiers: Cardiac valve disease etiology: etiology unspecified Qualified Code(s): I35.0 - Nonrheumatic aortic (valve) stenosis Code(s): I35.0 - Nonrheumatic aortic (valve) stenosis Status: Acute Assessment and Plan: * Cardiology recommendations noted * will need further testing once acute medical issues stabilize (6) Leukocytosis: Code(s): D72.829 - Elevated white blood cell count, unspecified Status: Acute Assessment and Plan: * in association with anemia and thrombocytopenia * s/p bone marrow biopsy -- flow cytometry showed 9% myeloblasts 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 Subjective Date/time seen: 09/09/20 13:12 His respiratory status remains somewhat tenuous at this point; steroids added by Pulmonary earlier today given ongoing wheezing; edema seems stable; no other acute issues or problems voiced at this time. Exam Narrative: Exam Narrative: General: elderly male in NAD Heart: normal S1 and S2; no rub Lungs: few wheezes noted; decreased at bases Abdomen: soft, nontender, nondistended, positive bowel sounds Extremities: no cyanosis or clubbing; trace edema Skin: warm and intact Objective Data Vital Signs Vital Signs: Vital Signs Temp Pulse Resp BP Pulse Ox 09/09/20 12:00 62 09/09/20 10:00 36.0 C L 60 18 142/57 H 94 09/09/20 09:53 54 L 09/09/20 09:52 54 L 09/09/20 09:00 54 L 20 92 09/09/20 08:30 54 L 20 09/09/20 08:19 62 18 92 09/09/20 08:00 55 L 09/09/20 06:00 36.1 C L 60 18 139/53 L 96 09/09/20 04:00 48 L 09/09/20 02:00 36.4 C L 57 L 20 114/42 L 98
--- NOTE | 2020-09-09 13:47 | PM.PNCARD ---
Progress Note: A&P Assessment and Plan (1) Chronic systolic (congestive) heart failure: Code(s): I50.22 - Chronic systolic (congestive) heart failure Status: Acute Assessment and Plan: CHF with reduced EF, EF 25%. Moderate symptomatic improvement, near euvolemic. Continue metoprolol to 12.5 mg p.o. b.i.d. continue spironolactone to 12.5 mg daily due to renal failure Perfusion study showed a fixed defect. Moderate cardiomyopathy with ejection fraction 38%. At this point medical management will be pursued especially given the complexity of his health situation including severe thrombocytopenia, renal failure and leukemia which all make pursuing angiogram less than ideal at this point. Discharge planning at this point (2) Paroxysmal atrial fibrillation: Code(s): I48.0 - Paroxysmal atrial fibrillation Status: Acute Assessment and Plan: New problem of atrial fib, noted on telemetry/rhythm strips. Heart rate is controlled. Cannot anticoagulate because of thrombocytopenia. Continue amiodarone 200 mg p.o. daily (3) Aortic stenosis: Qualifiers: Cardiac valve disease etiology: etiology unspecified Qualified Code(s): I35.0 - Nonrheumatic aortic (valve) stenosis Code(s): I35.0 - Nonrheumatic aortic (valve) stenosis Status: Acute Assessment and Plan: Discussed with the patient. Patient will need evaluation by hematology oncology to assess his overall prognosis. If patient has reasonable life expectancy, then would recommend outpatient dobutamine echo to differentiate between pseudo versus true aortic stenosis in light of underlying LV systolic dysfunction. Thrombocytopenia may interfere with any TAVR plans as well. 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 New diagnosis. Progressive thrombocytopenia -- needs to be followed OPT FU planned. (7) Chest pain: Code(s): R07.9 - Chest pain, unspecified Status: Acute Assessment and Plan: No recurrent chest pain. Stable at present Subjective Date/time seen: 09/09/20 13:47 Interval history: Mr. Mohr is a pleasant 80 yo M admitted with dyspnea on exertion, pleural effusions, CHF, cardiomyopathy, aortic stenosis. Preliminary bone marrow results indicate patient have some sort of chronic monocytic leukemia. Final results apparently pending analysis at [facility] laboratory. 08/26/2020: Patient is sitting in bed eating his breakfast appears to be in no distress reports that his breathing is much better than it was on admission he still has a fair amount of lower extremity edema, penile and scrotal edema. This however does seem to be getting better now. Was started on Entresto 24/26 mg half a tablet daily. 08/27/2020: Patient has had trouble with low blood pressure this morning, in the 80s earlier, and most recently in 60's. No distress. Dobutamine and morning meds were held. Diuresed 1700 cc yesterday and already 2300 cc today. Patient happy to report his breathing is fine and his scrotal and leg edema improved. Remains o
--- NOTE | 2020-09-09 17:27 | PM.IMPN ---
Progress Note: A&P Assessment and Plan (1) Acute on chronic renal failure: Code(s): N17.9 - Acute kidney failure, unspecified; N18.9 - Chronic kidney disease, unspecified Status: Acute Assessment and Plan: continue to monitor her BUN and creatinine patient is on Bumex and spironolactone appreciate nephrology note (2) Acute on chronic systolic (congestive) heart failure: Code(s): I50.23 - Acute on chronic systolic (congestive) heart failure Status: Acute Assessment and Plan: improved continue to monitor conservative management for now appreciate cardiology note (3) CMML (chronic myelomonocytic leukemia): Qualifiers: Leukemia Active/Remission status: without remission Qualified Code(s): C93.10 - 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 Code(s): C93.10 - 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 Status: Acute Assessment and Plan: will follow-up in the outpatient setting (4) Tobacco abuse: Code(s): Z72.0 - Tobacco use Status: Acute Assessment and Plan: encouraged tobacco cessation (5) Aortic stenosis: Qualifiers: Cardiac valve disease etiology: etiology unspecified Qualified Code(s): I35.0 - Nonrheumatic aortic (valve) stenosis Code(s): I35.0 - Nonrheumatic aortic (valve) stenosis Status: Acute Assessment and Plan: on beta-blockade (6) Cardiomyopathy: Qualifiers: Cardiomyopathy type: unspecified Qualified Code(s): I42.9 - Cardiomyopathy, unspecified Code(s): I42.9 - Cardiomyopathy, unspecified Status: Acute Assessment and Plan: medical management (7) 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 Qualified Code(s): J43.9 - Emphysema, unspecified Code(s): J44.9 - Chronic obstructive pulmonary disease, unspecified Status: Chronic Assessment and Plan: started on systemic steroids appreciate pulmonology note continue breathing treatments on supplemental oxygen Subjective Date/time seen: 09/09/20 17:27 I feel fine Review of Systems Review of Systems: Narrative: shortness of breath with activity Exam Narrative: Exam Narrative: patient is sitting by the edge of the bed tachypneic Const: General: well developed, alert, awake, acute distress mild and other ( chronically ill-looking) Nutritional Appearance: average body habitus Orientation/consciousness: patient oriented x3 HENMT: Head: normal to inspection, normocephalic and atraumatic Ears: hearing grossly normal bilaterally Face and sinus: normal facial exam Eyes: General: appearance normal, both eyes and all related structures Pupils: Equal, round and reactive pupils present EOM: EOMs intact bilaterally Neck: Neck: full ROM, no lymphadenopathy and no JVD Thyroid: thyroid normal Lymphatic: no lymphadenopathy noted Resp: Effort & Inspection: normal respiratory effort and able to speak in complete sentences Auscultation: wheezes ( diffused) Cardio: Jugular venous distension: no JVD Rate: regular rate Rhythm: regular rhythm Heart sounds: S1 normal heart sound present and S2 normal heart sound present GI: GI Palp: Yes Soft to palpation and Yes No hepatosplenomegaly present : General: Yes deferred Skin: Rashes: no rashes Wounds: no wounds Neuro: General: patient oriented x3 and CN's II-XI intact bilaterally Cranial nerves: Yes CN's II-XII intact bilaterally and Yes Equal, round and reactive pupils present Cognition (Neuro): normal cognition Speech: normal speech Gait exam (Neuro): Normal gait present Motor exam (neuro): 5/5 motor strength present throughout Extrem: General: normal to inspection, full ROM, no joint enlargement and pedal edema bilaterally ( pitting) Objective Data Vital Signs Vital Signs: Vital Signs - 24 hr 09/08/20 18
[2020-09-09] MEDS: ATORVASTATIN 40 MG TABLET PO (21:15)
[2020-09-09] MEDS: FINASTERIDE 5 MG TABLET PO (21:15)
[2020-09-09] MEDS: TAMSULOSIN HCL 0.4 MG CAPSULE PO (21:16)
[2020-09-10] VITALS (22 sets, daily range): BP systolic 107–135; BP diastolic 34–64; PULSE 63–81; RESP 18–28; TEMP 36–36.1; O2SAT 88–97
[2020-09-10] MEDS: LEVOTHYROXINE SODIUM 50 MCG TABLET PO (06:09)
[2020-09-10] MEDS: methylPREDNISolone SOD SUCC 40 MG VIAL IV PUSH ×3 (06:09→18:17)
[2020-09-10] MEDS: BUDESONIDE RESPULE NEB 0.5 MG/2 ML AMP INHALATION ×2 (08:13→19:54)
[2020-09-10] MEDS: IPRATROPIUM BR 0.02% INH SOLN 0.5 MG/2.5 ML VIAL INHALATION ×4 (08:14→19:54)
[2020-09-10] MEDS: ALBUTEROL SULFATE NEB 2.5 MG/0.5 ML INH INHALATION ×4 (08:14→19:53)
[2020-09-10] MEDS: PREGABALIN (*CRX) 50 MG CAPSULE PO ×2 (08:36→21:02)
[2020-09-10] MEDS: allopurinoL 300 MG TABLET PO (08:37)
[2020-09-10] MEDS: BUMETANIDE 1 MG TABLET PO (08:37)
[2020-09-10] MEDS: AMIODARONE HCL 200 MG TABLET PO (08:37)
[2020-09-10] MEDS: DULoxetine HCL 30 MG CAPSULE.DR PO ×2 (08:37→21:02)
[2020-09-10] MEDS: lamoTRIgine 100 MG TABLET PO (08:37)
[2020-09-10] MEDS: METOPROLOL TARTRATE 12.5 MG TABLET PO ×2 (08:38→21:01)
[2020-09-10] MEDS: MIRTAZAPINE 30 MG TABLET PO (08:38)
[2020-09-10] MEDS: guaiFENesin 12 HR 600 MG TABCR PO ×2 (08:38→21:02)
[2020-09-10] MEDS: SPIRONOLACTONE 12.5 MG TABLET PO (08:38)
--- NOTE | 2020-09-10 09:23 | P.PNNP_ITS ---
Progress Note: A&P Assessment and Plan (1) ELZBIETA (acute kidney injury): Code(s): N17.9 - Acute kidney failure, unspecified Status: Acute Assessment and Plan: * unclear what baseline kidney function/creatinine is * however, suspect he has some underlying renal insufficiency due multiple risk factors [age, vascular disease, diuretics, component of cardiorenal syndrome(?)] * cysts on kidney from abdominal CT scan associated with atherosclerotic disease * this may be a situation where we have to accept a higher creatinine given his need for diuretics/cardiac medications to keep his cardiac and volume status stable * follow repeat labs and UOP (2) Acute on chronic systolic (congestive) heart failure: Code(s): I50.23 - Acute on chronic systolic (congestive) heart failure Status: Acute Assessment and Plan: * improved/stable * as noted by Echo * complicated by aortic stenosis as well * Cardiology following * back on bumex in conjunction with spironolactone * follow I/Os and respiratory status (3) Hypotension: Code(s): I95.9 - Hypotension, unspecified Status: Acute Assessment and Plan: * doing better at this time * due to cardiomyopathy versus overdiuresis(?) * follow hemodynamics * hoping higher BP may provide better perfusion to his kidneys (4) Dyspnea: Code(s): R06.00 - Dyspnea, unspecified Status: Acute Assessment and Plan: * how much is related to COPD versus cardiomyopathy versus aortic stenosis(?) versus all of it... * diuretics restarted * Pulmonary following and recommendations noted (5) Aortic stenosis: Qualifiers: Cardiac valve disease etiology: etiology unspecified Qualified Code(s): I35.0 - Nonrheumatic aortic (valve) stenosis Code(s): I35.0 - Nonrheumatic aortic (valve) stenosis Status: Acute Assessment and Plan: * Cardiology recommendations noted * will need further testing once acute medical issues stabilize (6) Leukocytosis: Code(s): D72.829 - Elevated white blood cell count, unspecified Status: Acute Assessment and Plan: * in association with anemia and thrombocytopenia * s/p bone marrow biopsy -- flow cytometry showed 9% myeloblasts 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 Subjective Date/time seen: 09/10/20 09:23 Breathing seems to be doing better if not stable -- he only reports shortness of breath with minimal activity at this time; no apparent issues or problems overnight or earlier this AM; no distress noted. Exam Narrative: Exam Narrative: General: elderly male in NAD Heart: normal S1 and S2; no rub Lungs: decreased at bases Abdomen: soft, nontender, nondistended, positive bowel sounds Extremities: no cyanosis or clubbing; trace edema Skin: warm and intact Objective Data Vital Signs Vital Signs: Vital Signs Temp Pulse Resp BP Pulse Ox 09/10/20 08:28 76 20 09/10/20 08:14 72 20 91 09/10/20 06:00 36.1 C L 64 18 114/46 L 96 09/10/20 04:00 63 09/10/20 02:00 36.1 C L 63 18 135/48 L 97 09/10/20 00:00 66 09/09/20 22:00 36.1 C L 63 18 130/49 L 97 09/09/20 21:26 95 09/09/20 21:15 64 09/09/20 20:03 77 20 09/09/20 20:00 65 09/09/20 19:
--- NOTE | 2020-09-10 09:23 | PM.PNNEP ---
Progress Note: A&P Assessment and Plan (1) ELZBIETA (acute kidney injury): Code(s): N17.9 - Acute kidney failure, unspecified Status: Acute Assessment and Plan: unclear what baseline kidney function/creatinine is however, suspect he has some underlying renal insufficiency due multiple risk factors [age, vascular disease, diuretics, component of cardiorenal syndrome(?)] cysts on kidney from abdominal CT scan associated with atherosclerotic disease this may be a situation where we have to accept a higher creatinine given his need for diuretics/cardiac medications to keep his cardiac and volume status stable follow repeat labs and UOP (2) Acute on chronic systolic (congestive) heart failure: Code(s): I50.23 - Acute on chronic systolic (congestive) heart failure Status: Acute Assessment and Plan: improved/stable as noted by Echo complicated by aortic stenosis as well Cardiology following back on bumex in conjunction with spironolactone follow I/Os and respiratory status (3) Hypotension: Code(s): I95.9 - Hypotension, unspecified Status: Acute Assessment and Plan: doing better at this time due to cardiomyopathy versus overdiuresis(?) follow hemodynamics hoping higher BP may provide better perfusion to his kidneys (4) Dyspnea: Code(s): R06.00 - Dyspnea, unspecified Status: Acute Assessment and Plan: how much is related to COPD versus cardiomyopathy versus aortic stenosis(?) versus all of it... diuretics restarted Pulmonary following and recommendations noted (5) Aortic stenosis: Qualifiers: Cardiac valve disease etiology: etiology unspecified Qualified Code(s): I35.0 - Nonrheumatic aortic (valve) stenosis Code(s): I35.0 - Nonrheumatic aortic (valve) stenosis Status: Acute Assessment and Plan: Cardiology recommendations noted will need further testing once acute medical issues stabilize (6) Leukocytosis: Code(s): D72.829 - Elevated white blood cell count, unspecified Status: Acute Assessment and Plan: in association with anemia and thrombocytopenia s/p bone marrow biopsy -- flow cytometry showed 9% myeloblasts 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 Subjective Date/time seen: 09/10/20 09:23 Breathing seems to be doing better if not stable -- he only reports shortness of breath with minimal activity at this time; no apparent issues or problems overnight or earlier this AM; no distress noted. Exam Narrative: Exam Narrative: General: elderly male in NAD Heart: normal S1 and S2; no rub Lungs: decreased at bases Abdomen: soft, nontender, nondistended, positive bowel sounds Extremities: no cyanosis or clubbing; trace edema Skin: warm and intact Objective Data Vital Signs Vital Signs: Vital Signs Temp Pulse Resp BP Pulse Ox 09/10/20 08:28 76 20 09/10/20 08:14 72 20 91 09/10/20 06:00 36.1 C L 64 18 114/46 L 96 09/10/20 04:00 63 09/10/20 02:00 36.1 C L 63 18 135/48 L 97 09/10/20 00:00 66 09/09/20 22:00 36.1 C L 63 18 130/49 L 97 09/09/20 21:26 95 09/09/20 21:15 64 09/09/20 20:03 77 20 09/09/20 20:00 65 09/09/20 19:55 67 95 09/09/20 19:54 67 20 09/09/20 18:00 36.7 C 66 18 122/50 L 94 09/09/20 16:37 77 20 09/09/20 16:27 77 20 09/09/20 16:00 60 09/09/20 14:00 36.4 C 60 18 125/54 L 98 09/09/20 13:28 74 20 09/09/20 13:21 61 20 09/09/20 12:00 62 09/09/20 10:00 36.0 C L 60 18 142/57 H 94 09/09/20 09:53 54 L 09/09/20 09:52 54 L Intake/Output Intake/Output: Intake & Output 09/07/20 09/08/20 09/09/20 09/10/20 23:59 23:59 23:59 23:59 Intake Total 400 520 3552 680 Output Total 491 257 5784 600 Balance 25 10 420 80 Me
--- NOTE | 2020-09-10 09:31 | PCPTNOTE ---
Attempted patient this AM for therapy session who stated just returned to bed for the first time was awake all day. Wants to do therapy but after a few hours of rest. Will attempt again this afternoon.
--- NOTE | 2020-09-10 11:27 | PM.PNPUL ---
Progress Note: A&P Assessment and Plan (1) Dyspnea: Code(s): R06.00 - Dyspnea, unspecified Status: Acute Assessment and Plan: 08/15 Patient with 2 months worsening XIAO. Etiology includes pneumonia, lung cancer, right pleural effusion, CHF. Agree with ceftriaxone and azithromycin for now. I have ordered a right pleural thoracentesis to assess for a complicated effusion and will send for chemistries, cultures and cytology to assess for cancer. I have ordered a BNP and will order a echocardiogram to assess LV, RV and valve function. Oncology consult also ordered as well. 08/16 improved dyspnea post thoracentesis of 1000 ml joseph fluid with normal pH, differential mac 61%, N11%, L28%, gram stain with no organisms and no WBC. Other chemistry pending. D dimer negative so unlikely PE, BNP elevated and echo pending. To have bone marrow biopsy later today. No focal infiltrates post thoracentesis, continue ceftriaxone and azithro for now. Cultures negative. 08/17 Remains with XIAO. No reaccumulation of right effusion on . Spoke with pathologist regarding pleural fluid and monocytic looking cells. Patient has 9% blasts on his flow cytometry of bone marrow on preliminary results, further studies at [facility] pending. Other etiologies of dyspnea include patient with LV EF 25-30%, moderate to severe with valve area 1.0 and mean gradient 15 with fluid overload. 08/18 Edema worsening, transudative pleural effusion with LDH 119/serum 539=0.22, T prot < 3/serum 6.0=>0.5, pH 7.41, glucose 108, amylase 40, cultures no growth and bacterial, fungal and AFB stains negative. Wheezes end expiratory today. Day 4 antibiotics. I suspect cardiac disease with fluid overload is major component of SOB, XIAO and wheezes. 08/19 Remains fluid positive with worsening oxygenation, now on 3L. Cardiology and hospitalist to aggressively diurese as tolerated by cardiac and renal systems. 08/20 Increased diuretic with good output. O2 at 2 L/min, lower. 08/21 Continue diuresis as tolerated by renal and cardiac systems (has cardiomyopathy and which will require further outpatient workup). Hospitalist and site operations manager managing. 09/08 Plus 900 in last 5 days, continue diuresis as tolerated by renal and cardiac systems. I check CXR and BNP. Will discuss holding metoprolol with cardiology. 09/09 Plus 10 ml, CXR with congestina dn fluid overload and BNP 39200. Cardiology prefers to continue metoprolol. Fluid overload and cardiac condition definately contributing to wheezing and XIAO and cardiology and renal attempting to optimize treatment. 09/09 Plus 420 yesterday. 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 He has mild expiratory wheezes and I will start albuterol, ipratroprium and budesonide nebs for now. 08/16 Continue albuterol, ipratroprium and budesonide nebs for now. Wheezes persist. 08/17 Continued wheezes and I will start solumedrol 40 Q 6 today, continue albuterol, ipratropium and budesonide nebs for now. On ceftriaxone and azitho (day 2). 08/18 Improved wheezes and will continue solumedrol 40 Q 6 today, continue albuterol, ipratropium and budesonide nebs for now. D 3 antibiotics. 08/19 Continued wheezes despite 48 hours high dose steroids. Suspect wheezing and worsening oxygenation due to fluid overload and doubt related to COPD exacerbation and change to prednisone 50 Q day, continue albuterol, ipratropium and budesonide nebs for now. D4 antibiotics. DC azithro on 08/20 and continue ceftriaxone through 08/22. 08/22 DC prednisone later today after 6 days. continue albuterol, ipratropium and budesonide nebs for now. Last dose of ceftri
--- NOTE | 2020-09-10 14:24 | PM.IMPN ---
Progress Note: A&P Assessment and Plan (1) Acute on chronic systolic (congestive) heart failure: Code(s): I50.23 - Acute on chronic systolic (congestive) heart failure Status: Acute Assessment and Plan: diuresing near to euvolemic status continue strict I/O's (2) 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 Qualified Code(s): J43.9 - Emphysema, unspecified Code(s): J44.9 - Chronic obstructive pulmonary disease, unspecified Status: Chronic Assessment and Plan: on systemic steroids improved (3) Cardiomyopathy: Qualifiers: Cardiomyopathy type: unspecified Qualified Code(s): I42.9 - Cardiomyopathy, unspecified Code(s): I42.9 - Cardiomyopathy, unspecified Status: Acute Assessment and Plan: on the spironolactone on metolazone (4) Paroxysmal atrial fibrillation: Code(s): I48.0 - Paroxysmal atrial fibrillation Status: Acute Assessment and Plan: rate control not on anticoagulation due to thrombocytopenia (5) Acute on chronic renal failure: Code(s): N17.9 - Acute kidney failure, unspecified; N18.9 - Chronic kidney disease, unspecified Status: Acute Assessment and Plan: continue to monitor BUN and creatinine (6) CMML (chronic myelomonocytic leukemia): Qualifiers: Leukemia Active/Remission status: without remission Qualified Code(s): C93.10 - 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 Code(s): C93.10 - 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 Status: Acute Assessment and Plan: follow-up in the patient setting (7) Tobacco abuse: Code(s): Z72.0 - Tobacco use Status: Acute Assessment and Plan: encouraged tobacco cessation Subjective Date/time seen: 09/10/20 14:24 I feel fine Review of Systems Review of Systems: Narrative: patient denies any new issues Constitutional: Comments: no fevers no rigors no chills Cardiovascular: Comments: no chest pain Respiratory: Comments: mild shortness of breath Gastrointestinal: Comments: no nausea no vomiting no diarrhea Musculoskeletal: Comments: no no joint or muscle pain Integumentary/Breasts: Comments: no rashes Neurologic: Comments: no sensorimotor deficit Exam Narrative: Exam Narrative: laying in bed Const: General: comfortable, no acute distress, well developed, alert and awake Nutritional Appearance: average body habitus Orientation/consciousness: patient oriented x3 HENMT: Head: normal to inspection, normocephalic and atraumatic Ears: hearing grossly normal bilaterally Face and sinus: normal facial exam Eyes: General: appearance normal, both eyes and all related structures Pupils: Equal, round and reactive pupils present EOM: EOMs intact bilaterally Neck: Neck: full ROM, no lymphadenopathy and no JVD Thyroid: thyroid normal Lymphatic: no lymphadenopathy noted Resp: Effort & Inspection: normal respiratory effort and able to speak in complete sentences Auscultation: wheezes scattered wheezes Cardio: Jugular venous distension: no JVD Rate: regular rate Rhythm: regular rhythm Heart sounds: S1 normal heart sound present and S2 normal heart sound present GI: GI Palp: Yes Soft to palpation and Yes No hepatosplenomegaly present : General: Yes deferred Skin: Rashes: no rashes Wounds: no wounds Neuro: General: patient oriented x3 and CN's II-XI intact bilaterally Cranial nerves: Yes CN's II-XII intact bilaterally and Yes Equal, round and reactive pupils present Cognition (Neuro): normal cognition Speech: normal speech Gait exam (Neuro): Normal gait present Motor exam (neuro): 5/5 motor strength present throughout Extrem: General: normal to inspection, full ROM, no joint enlargement and no pedal edema Objective Data Vital Signs Vital Signs: Cherry
[2020-09-10] MEDS: FINASTERIDE 5 MG TABLET PO (21:01)
[2020-09-10] MEDS: ATORVASTATIN 40 MG TABLET PO (21:01)
[2020-09-10] MEDS: TAMSULOSIN HCL 0.4 MG CAPSULE PO (21:02)
[2020-09-11] VITALS (18 sets, daily range): BP systolic 114–136; BP diastolic 41–56; PULSE 65–78; RESP 16–22; TEMP 36–36.4; O2SAT 92–96
[2020-09-11] MEDS: methylPREDNISolone SOD SUCC 40 MG VIAL IV PUSH ×2 (00:10→05:36)
[2020-09-11] MEDS: LEVOTHYROXINE SODIUM 50 MCG TABLET PO (05:36)
--- NOTE | 2020-09-11 07:47 | PM.PNCARD ---
Progress Note: A&P Additional Plan 80-year-old man with aortic valve stenosis LV systolic dysfunction, suspect coronary artery disease and decompensated congestive heart failure. On his current regimen he appears to be essentially euvolemic and appears to be optimized as far as I can tell. Plan for disposition is difficult/unclear. Agree with DrMiguel Ángel wilkins is notes that he given his malignancy is really not a reasonable candidate for aggressive/invasive cardiac procedures. No additional specific cardiac recommendations that I can think of to improve this situation. If this is going to be his baseline his disposition needs to obviously take that into account.. Arpan Mcadams MD [facility] Subjective Date/time seen: Date of service: 09/11/20 07:47 Interval history: Mr. Mohr is a pleasant 80 yo M admitted with dyspnea on exertion, pleural effusions, CHF, cardiomyopathy, aortic stenosis. Preliminary bone marrow results indicate patient have some sort of chronic monocytic leukemia. Final results apparently pending analysis at [facility] laboratory. 08/26/2020: Patient is sitting in bed eating his breakfast appears to be in no distress reports that his breathing is much better than it was on admission he still has a fair amount of lower extremity edema, penile and scrotal edema. This however does seem to be getting better now. Was started on Entresto 24/26 mg half a tablet daily. 08/27/2020: Patient has had trouble with low blood pressure this morning, in the 80s earlier, and most recently in 60's. No distress. Dobutamine and morning meds were held. Diuresed 1700 cc yesterday and already 2300 cc today. Patient happy to report his breathing is fine and his scrotal and leg edema improved. Remains on O2. 08/28/2020: Feeling good this morning, no shortness breath or dizziness when up to the bathroom. Lower extremity edema and scrotal edema has improved. BP is better this morning. Remains on 2 L nasal prong. Bumex resumed yesterday afternoon, Good diuresis yesterday, -[address] Maza, going to start physical therapy. No BMP yet today. 08/29/2020: Patient continues to diurese well. He offers no significant complaints no longer short of breath. Has minimal lower extremity edema at this time. Told patient that it is not likely that this will completely resolve at the time of his discharge. No further problems with hypotension after Entresto was discontinued. 08/30/2020-Patient reports improvement in shortness of breath. Denies chest pain, dizziness, palpitations. 08/31/2020: Patient feels pretty well, up and about in his room with no shortness of breath or lightheadedness. Mentioned some pleuritic CP, an ache, in center of chest that started this a.m. Says he coughs a lot in the morning, brings up milky sputum. Still has some edema. Still on oxygen, 2 L. No recent BMP; ordered. V-Q scan was neg for PE. Date of service 09/01/2020: Patient went into atrial fibrillation last night with a controlled ventricular response, converted to sinus rhythm. Patient feels he is back to normal except when he tries to walk ?all hell breaks loose.? He gets very weak and shaky and has poor balance. Denies any troubles with lightheadedness or shortness of breath. No further CP. Physical tx working w/ pt. Date of service 09/01/2020: Patient is very comfortable sleeping flat in bed when I entered the room to see him upon awakening offers no significant complaints. No longer having any shortness of breath. As noted in the chart he had some significant visual hallucinations last evening for which the not turn S2 was asked to see him. Date of service 09/03/2020: He feels more short of breath today. No chest pain. Swelling is still gone Date of service 09/05/2020: Worsening shortness of breath today. No chest pain or swelling Date of service 09/06/2020-patient lying on the bed. He reports minimal improveme
[2020-09-11] MEDS: BUDESONIDE RESPULE NEB 0.5 MG/2 ML AMP INHALATION (08:11)
[2020-09-11] MEDS: IPRATROPIUM BR 0.02% INH SOLN 0.5 MG/2.5 ML VIAL INHALATION (08:11)
[2020-09-11] MEDS: ALBUTEROL SULFATE NEB 2.5 MG/0.5 ML INH INHALATION (08:12)
[2020-09-11] MEDS: METOPROLOL TARTRATE 12.5 MG TABLET PO ×2 (08:54→20:18)
[2020-09-11] MEDS: DULoxetine HCL 30 MG CAPSULE.DR PO ×2 (08:54→20:17)
[2020-09-11] MEDS: allopurinoL 300 MG TABLET PO (08:55)
[2020-09-11] MEDS: MIRTAZAPINE 30 MG TABLET PO (08:55)
[2020-09-11] MEDS: lamoTRIgine 100 MG TABLET PO (08:55)
[2020-09-11] MEDS: AMIODARONE HCL 200 MG TABLET PO (08:56)
[2020-09-11] MEDS: guaiFENesin 12 HR 600 MG TABCR PO ×2 (08:56→20:18)
[2020-09-11] MEDS: BUMETANIDE 1 MG TABLET PO (08:56)
[2020-09-11] MEDS: SPIRONOLACTONE 12.5 MG TABLET PO (08:57)
[2020-09-11] MEDS: PREGABALIN (*CRX) 50 MG CAPSULE PO ×2 (09:02→20:18)
--- NOTE | 2020-09-11 10:48 | PM.PNPUL ---
Progress Note: A&P Assessment and Plan (1) Dyspnea: Code(s): R06.00 - Dyspnea, unspecified Status: Acute Assessment and Plan: 08/15 Patient with 2 months worsening XIAO. Etiology includes pneumonia, lung cancer, right pleural effusion, CHF. Agree with ceftriaxone and azithromycin for now. I have ordered a right pleural thoracentesis to assess for a complicated effusion and will send for chemistries, cultures and cytology to assess for cancer. I have ordered a BNP and will order a echocardiogram to assess LV, RV and valve function. Oncology consult also ordered as well. 08/16 improved dyspnea post thoracentesis of 1000 ml joseph fluid with normal pH, differential mac 61%, N11%, L28%, gram stain with no organisms and no WBC. Other chemistry pending. D dimer negative so unlikely PE, BNP elevated and echo pending. To have bone marrow biopsy later today. No focal infiltrates post thoracentesis, continue ceftriaxone and azithro for now. Cultures negative. 08/17 Remains with XIAO. No reaccumulation of right effusion on . Spoke with pathologist regarding pleural fluid and monocytic looking cells. Patient has 9% blasts on his flow cytometry of bone marrow on preliminary results, further studies at [facility] pending. Other etiologies of dyspnea include patient with LV EF 25-30%, moderate to severe with valve area 1.0 and mean gradient 15 with fluid overload. 08/18 Edema worsening, transudative pleural effusion with LDH 119/serum 539=0.22, T prot < 3/serum 6.0=>0.5, pH 7.41, glucose 108, amylase 40, cultures no growth and bacterial, fungal and AFB stains negative. Wheezes end expiratory today. Day 4 antibiotics. I suspect cardiac disease with fluid overload is major component of SOB, XIAO and wheezes. 08/19 Remains fluid positive with worsening oxygenation, now on 3L. Cardiology and hospitalist to aggressively diurese as tolerated by cardiac and renal systems. 08/20 Increased diuretic with good output. O2 at 2 L/min, lower. 08/21 Continue diuresis as tolerated by renal and cardiac systems (has cardiomyopathy and which will require further outpatient workup). Hospitalist and forensic medical examiner managing. 09/08 Plus 900 in last 5 days, continue diuresis as tolerated by renal and cardiac systems. I check CXR and BNP. Will discuss holding metoprolol with cardiology. 09/09 Plus 10 ml, CXR with congestina dn fluid overload and BNP 72923. Cardiology prefers to continue metoprolol. Fluid overload and cardiac condition definately contributing to wheezing and XIAO and cardiology and renal attempting to optimize treatment. 09/10 Plus 420 yesterday. 09/11 minus 635 yesterday (2) 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 Qualified Code(s): J43.9 - Emphysema, unspecified Code(s): J44.9 - Chronic obstructive pulmonary disease, unspecified Status: Chronic Assessment and Plan: 08/15 Patient with long history of tobacco (66 PY) and paraseptal emphysema on CT scan 08/14/2020. He has mild expiratory wheezes and I will start albuterol, ipratroprium and budesonide nebs for now. 08/16 Continue albuterol, ipratroprium and budesonide nebs for now. Wheezes persist. 08/17 Continued wheezes and I will start solumedrol 40 Q 6 today, continue albuterol, ipratropium and budesonide nebs for now. On ceftriaxone and azitho (day 2). 08/18 Improved wheezes and will continue solumedrol 40 Q 6 today, continue albuterol, ipratropium and budesonide nebs for now. D 3 antibiotics. 08/19 Continued wheezes despite 48 hours high dose steroids. Suspect wheezing and worsening oxygenation due to fluid overload and doubt related to COPD exacerbation and change to prednisone 50 Q day, continue albuterol, ipratropium and budesonide nebs for now. D4 antibiotics. DC azithro on 08/20 and continue ceftriaxone through 08/22. 08/22 DC prednisone later today after 6 days. continue albuterol, ipratropium and budesonide nebs for
[2020-09-11] MEDS: FLUTICASONE/UMECLIDIN/VILANTER 100-62.5-25 MCG ELLIPTA 1 PUFF INHALATION (12:08)
[2020-09-11] MEDS: predniSONE 20 MG TABLET 40 MG PO (12:09)
--- NOTE | 2020-09-11 13:02 | PM.PNNEP ---
Progress Note: A&P Assessment and Plan (1) ELZBIETA (acute kidney injury): Code(s): N17.9 - Acute kidney failure, unspecified Status: Acute Assessment and Plan: unclear what baseline kidney function/creatinine is however, suspect he has some underlying renal insufficiency due multiple risk factors [age, vascular disease, diuretics, component of cardiorenal syndrome(?)] cysts on kidney from abdominal CT scan associated with atherosclerotic disease this may be a situation where we have to accept a higher creatinine given his need for diuretics/cardiac medications to keep his cardiac and volume status stable follow repeat labs and UOP - no recent labs so will check tomorrow AM (2) Acute on chronic systolic (congestive) heart failure: Code(s): I50.23 - Acute on chronic systolic (congestive) heart failure Status: Acute Assessment and Plan: improved/stable as noted by Echo complicated by aortic stenosis as well Cardiology following back on bumex in conjunction with spironolactone follow I/Os and respiratory status (3) Hypotension: Code(s): I95.9 - Hypotension, unspecified Status: Acute Assessment and Plan: doing better at this time due to cardiomyopathy versus overdiuresis(?) follow hemodynamics hoping higher BP may provide better perfusion to his kidneys (4) Dyspnea: Code(s): R06.00 - Dyspnea, unspecified Status: Acute Assessment and Plan: how much is related to COPD versus cardiomyopathy versus aortic stenosis(?) versus all of it... diuretics restarted Pulmonary following and recommendations noted (5) Aortic stenosis: Qualifiers: Cardiac valve disease etiology: etiology unspecified Qualified Code(s): I35.0 - Nonrheumatic aortic (valve) stenosis Code(s): I35.0 - Nonrheumatic aortic (valve) stenosis Status: Acute Assessment and Plan: Cardiology recommendations noted will need further testing once acute medical issues stabilize (6) Leukocytosis: Code(s): D72.829 - Elevated white blood cell count, unspecified Status: Acute Assessment and Plan: in association with anemia and thrombocytopenia s/p bone marrow biopsy -- flow cytometry showed 9% myeloblasts 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 Subjective Date/time seen: 09/11/20 13:02 Respiratory status seems to be doing better; per nursing, ambulating better without wheezing or shortness of breath; no other acute issues or problems voiced at this time; no events overnight or earlier this AM. Exam Narrative: Exam Narrative: General: elderly male in NAD Heart: normal S1 and S2; no rub Lungs: decreased at bases Abdomen: soft, nontender, nondistended, positive bowel sounds Extremities: no cyanosis or clubbing; trace edema Skin: no rash Objective Data Vital Signs Vital Signs: Vital Signs Temp Pulse Resp BP Pulse Ox 09/11/20 12:00 65 09/11/20 09:59 36.0 C L 75 20 114/41 L 95 09/11/20 09:02 20 95 09/11/20 08:56 78 09/11/20 08:54 78 09/11/20 08:22 75 20 09/11/20 08:12 75 20 92 09/11/20 08:00 70 09/11/20 06:00 36.1 C L 70 16 133/45 L 96 09/11/20 04:00 74 09/11/20 02:00 36.2 C L 72 16 128/47 L 95 09/11/20 00:00 75 09/10/20 22:00 36.0 C L 81 28 H 129/64 94 09/10/20 21:01 75 09/10/20 21:00 94 09/10/20 20:12 77 20 92 09/10/20 20:00 75 09/10/20 19:45 74 20 88 L 09/10/20 18:00 36.1 C L 70 20 120/50 L 93 09/10/20 16:41 75 20 09/10/20 16:30 72 20 09/10/20 16:00 76 Intake/Output Intake/Output: Intake & Output 09/08/20 09/09/20 09/10/20 09/11/20 23:59 23:59 23:59 23:59 Intake Total 810 1520 980 300 Output Total 800 1100 1615 Balance 10 420 -635 300 Meds/Results Medications: Ac
--- NOTE | 2020-09-11 13:02 | P.PNNP_ITS ---
Progress Note: A&P Assessment and Plan (1) ELZBIETA (acute kidney injury): Code(s): N17.9 - Acute kidney failure, unspecified Status: Acute Assessment and Plan: * unclear what baseline kidney function/creatinine is * however, suspect he has some underlying renal insufficiency due multiple risk factors [age, vascular disease, diuretics, component of cardiorenal syndrome(?)] * cysts on kidney from abdominal CT scan associated with atherosclerotic disease * this may be a situation where we have to accept a higher creatinine given his need for diuretics/cardiac medications to keep his cardiac and volume status stable * follow repeat labs and UOP - no recent labs so will check tomorrow AM (2) Acute on chronic systolic (congestive) heart failure: Code(s): I50.23 - Acute on chronic systolic (congestive) heart failure Status: Acute Assessment and Plan: * improved/stable * as noted by Echo * complicated by aortic stenosis as well * Cardiology following * back on bumex in conjunction with spironolactone * follow I/Os and respiratory status (3) Hypotension: Code(s): I95.9 - Hypotension, unspecified Status: Acute Assessment and Plan: * doing better at this time * due to cardiomyopathy versus overdiuresis(?) * follow hemodynamics * hoping higher BP may provide better perfusion to his kidneys (4) Dyspnea: Code(s): R06.00 - Dyspnea, unspecified Status: Acute Assessment and Plan: * how much is related to COPD versus cardiomyopathy versus aortic stenosis(?) versus all of it... * diuretics restarted * Pulmonary following and recommendations noted (5) Aortic stenosis: Qualifiers: Cardiac valve disease etiology: etiology unspecified Qualified Code(s): I35.0 - Nonrheumatic aortic (valve) stenosis Code(s): I35.0 - Nonrheumatic aortic (valve) stenosis Status: Acute Assessment and Plan: * Cardiology recommendations noted * will need further testing once acute medical issues stabilize (6) Leukocytosis: Code(s): D72.829 - Elevated white blood cell count, unspecified Status: Acute Assessment and Plan: * in association with anemia and thrombocytopenia * s/p bone marrow biopsy -- flow cytometry showed 9% myeloblasts 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 Subjective Date/time seen: 09/11/20 13:02 Respiratory status seems to be doing better; per nursing, ambulating better without wheezing or shortness of breath; no other acute issues or problems voiced at this time; no events overnight or earlier this AM. Exam Narrative: Exam Narrative: General: elderly male in NAD Heart: normal S1 and S2; no rub Lungs: decreased at bases Abdomen: soft, nontender, nondistended, positive bowel sounds Extremities: no cyanosis or clubbing; trace edema Skin: no rash Objective Data Vital Signs Vital Signs: Vital Signs Temp Pulse Resp BP Pulse Ox 09/11/20 12:00 65 09/11/20 09:59 36.0 C L 75 20 114/41 L 95 09/11/20 09:02 20 95 09/11/20 08:56 78 09/11/20 08:54 78 09/11/20 08:22 75 20 09/11/20 08:12 75 20 92 09/11/20 08:00 70 09/11/20 06:00 36.1 C L 70 16 133/45 L 96 09/11/20 04:00 74 09/11/20 02:00 36.2 C L 72
--- NOTE | 2020-09-11 16:04 | PM.IMPN ---
Progress Note: A&P Assessment and Plan (1) Acute on chronic systolic (congestive) heart failure: Code(s): I50.23 - Acute on chronic systolic (congestive) heart failure Status: Acute Assessment and Plan: patient seems to be euvolemic currently on bumetanide and spironolactone continue to monitor her daily intake and output (2) Leukocytosis: Code(s): D72.829 - Elevated white blood cell count, unspecified Status: Acute Assessment and Plan: likely secondary to CMML (3) Cardiomyopathy: Qualifiers: Cardiomyopathy type: unspecified Qualified Code(s): I42.9 - Cardiomyopathy, unspecified Code(s): I42.9 - Cardiomyopathy, unspecified Status: Acute Assessment and Plan: patient will be worked up in the outpatient setting patient needs oncology workup for his CMML appreciate cardiology note (4) Paroxysmal atrial fibrillation: Code(s): I48.0 - Paroxysmal atrial fibrillation Status: Acute Assessment and Plan: rate controlled (5) Aortic stenosis: Qualifiers: Cardiac valve disease etiology: etiology unspecified Qualified Code(s): I35.0 - Nonrheumatic aortic (valve) stenosis Code(s): I35.0 - Nonrheumatic aortic (valve) stenosis Status: Acute Assessment and Plan: on beta blockade (6) Acute on chronic renal failure: Code(s): N17.9 - Acute kidney failure, unspecified; N18.9 - Chronic kidney disease, unspecified Status: Acute Assessment and Plan: continue to monitor BUN and creatinine appreciate nephrology note (7) 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 Qualified Code(s): J43.9 - Emphysema, unspecified Code(s): J44.9 - Chronic obstructive pulmonary disease, unspecified Status: Chronic Assessment and Plan: patient is off of systemic steroids started on p.o. steroids appreciate pulmonology note (8) Tobacco abuse: Code(s): Z72.0 - Tobacco use Status: Acute Assessment and Plan: encouraged tobacco cessation (9) Dyspnea on exertion: Code(s): R06.00 - Dyspnea, unspecified Status: Acute Assessment and Plan: improved (10) CMML (chronic myelomonocytic leukemia): Qualifiers: Leukemia Active/Remission status: without remission Qualified Code(s): C93.10 - 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 Code(s): C93.10 - 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 Status: Acute Assessment and Plan: follow-up in the outpatient setting bone marrow biopsy has been done with follow-up with Hematology-Oncology Subjective Date/time seen: 09/11/20 16:04 I feel fine Review of Systems Review of Systems: Narrative: patient denies any issues currently Exam Narrative: Exam Narrative: laying in bed Const: General: comfortable, no acute distress, well developed, alert, awake and other ( chronically ill-looking) Nutritional Appearance: average body habitus Orientation/consciousness: patient oriented x3 HENMT: Head: normal to inspection, normocephalic and atraumatic Ears: hearing grossly normal bilaterally Face and sinus: normal facial exam Eyes: General: appearance normal, both eyes and all related structures Pupils: Equal, round and reactive pupils present EOM: EOMs intact bilaterally Neck: Neck: full ROM, no lymphadenopathy and no JVD Thyroid: thyroid normal Lymphatic: no lymphadenopathy noted Resp: Effort & Inspection: normal respiratory effort and able to speak in complete sentences Auscultation: clear to auscultation bilaterally Cardio: Jugular venous distension: no JVD Rate: regular rate Rhythm: regular rhythm Heart sounds: S1 normal heart sound present and S2 normal heart sound present GI: GI Palp: Yes Soft to palpation and Yes No hepatosplenomegaly present : G
[2020-09-11] MEDS: ATORVASTATIN 40 MG TABLET PO (20:18)
[2020-09-11] MEDS: FINASTERIDE 5 MG TABLET PO (20:18)
[2020-09-11] MEDS: TAMSULOSIN HCL 0.4 MG CAPSULE PO (20:18)
[2020-09-11] MEDS: ALPRAZolam (*CRX) 0.5 MG TABLET PO (23:37)
[2020-09-12] VITALS (14 sets, daily range): BP systolic 117–126; BP diastolic 44–69; PULSE 63–86; RESP 16–18; TEMP 36.1–36.3; O2SAT 84–97
[2020-09-12] MEDS: LEVOTHYROXINE SODIUM 50 MCG TABLET PO (05:52)
--- NOTE | 2020-09-12 08:09 | PM.PNPUL ---
Progress Note: A&P Assessment and Plan (1) Dyspnea: Code(s): R06.00 - Dyspnea, unspecified Status: Acute Assessment and Plan: 08/15 Patient with 2 months worsening XIAO. Etiology includes pneumonia, lung cancer, right pleural effusion, CHF. Agree with ceftriaxone and azithromycin for now. I have ordered a right pleural thoracentesis to assess for a complicated effusion and will send for chemistries, cultures and cytology to assess for cancer. I have ordered a BNP and will order a echocardiogram to assess LV, RV and valve function. Oncology consult also ordered as well. 08/16 improved dyspnea post thoracentesis of 1000 ml joseph fluid with normal pH, differential mac 61%, N11%, L28%, gram stain with no organisms and no WBC. Other chemistry pending. D dimer negative so unlikely PE, BNP elevated and echo pending. To have bone marrow biopsy later today. No focal infiltrates post thoracentesis, continue ceftriaxone and azithro for now. Cultures negative. 08/17 Remains with XIAO. No reaccumulation of right effusion on . Spoke with pathologist regarding pleural fluid and monocytic looking cells. Patient has 9% blasts on his flow cytometry of bone marrow on preliminary results, further studies at [facility] pending. Other etiologies of dyspnea include patient with LV EF 25-30%, moderate to severe with valve area 1.0 and mean gradient 15 with fluid overload. 08/18 Edema worsening, transudative pleural effusion with LDH 119/serum 539=0.22, T prot < 3/serum 6.0=>0.5, pH 7.41, glucose 108, amylase 40, cultures no growth and bacterial, fungal and AFB stains negative. Wheezes end expiratory today. Day 4 antibiotics. I suspect cardiac disease with fluid overload is major component of SOB, XIAO and wheezes. 08/19 Remains fluid positive with worsening oxygenation, now on 3L. Cardiology and hospitalist to aggressively diurese as tolerated by cardiac and renal systems. 08/20 Increased diuretic with good output. O2 at 2 L/min, lower. 08/21 Continue diuresis as tolerated by renal and cardiac systems (has cardiomyopathy and which will require further outpatient workup). Hospitalist and die inspector managing. 09/08 Plus 900 in last 5 days, continue diuresis as tolerated by renal and cardiac systems. I check CXR and BNP. Will discuss holding metoprolol with cardiology. 09/09 Plus 10 ml, CXR with congestina dn fluid overload and BNP [id number]. Cardiology prefers to continue metoprolol. Fluid overload and cardiac condition definately contributing to wheezing and XIAO and cardiology and renal attempting to optimize treatment. 09/10 Plus 420 yesterday. 09/11 minus 635 yesterday. optimizes per cardiology (2) 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 Qualified Code(s): J43.9 - Emphysema, unspecified Code(s): J44.9 - Chronic obstructive pulmonary disease, unspecified Status: Chronic Assessment and Plan: 08/15 Patient with long history of tobacco (66 PY) and paraseptal emphysema on CT scan 08/14/2020. He has mild expiratory wheezes and I will start albuterol, ipratroprium and budesonide nebs for now. 08/16 Continue albuterol, ipratroprium and budesonide nebs for now. Wheezes persist. 08/17 Continued wheezes and I will start solumedrol 40 Q 6 today, continue albuterol, ipratropium and budesonide nebs for now. On ceftriaxone and azitho (day 2). 08/18 Improved wheezes and will continue solumedrol 40 Q 6 today, continue albuterol, ipratropium and budesonide nebs for now. D 3 antibiotics. 08/19 Continued wheezes despite 48 hours high dose steroids. Suspect wheezing and worsening oxygenation due to fluid overload and doubt related to COPD exacerbation and change to prednisone 50 Q day, continue albuterol, ipratropium and budesonide nebs for now. D4 antibiotics. DC azithro on 08/20 and continue ceftriaxone through 08/22. 08/22 DC prednisone later today after 6 days. continue albuterol, ipratrop
[2020-09-12] MEDS: guaiFENesin 12 HR 600 MG TABCR PO (08:50)
[2020-09-12] MEDS: BUMETANIDE 1 MG TABLET PO (08:50)
[2020-09-12] MEDS: DULoxetine HCL 30 MG CAPSULE.DR PO (08:50)
[2020-09-12] MEDS: predniSONE 20 MG TABLET 40 MG PO (08:50)
[2020-09-12] MEDS: FLUTICASONE/UMECLIDIN/VILANTER 100-62.5-25 MCG ELLIPTA 1 PUFF INHALATION (08:51)
[2020-09-12] MEDS: lamoTRIgine 100 MG TABLET PO (08:51)
[2020-09-12] MEDS: allopurinoL 300 MG TABLET PO (08:51)
[2020-09-12] MEDS: AMIODARONE HCL 200 MG TABLET PO (08:51)
[2020-09-12] MEDS: MIRTAZAPINE 30 MG TABLET PO (08:51)
[2020-09-12] MEDS: METOPROLOL TARTRATE 12.5 MG TABLET PO (08:51)
[2020-09-12] MEDS: PREGABALIN (*CRX) 50 MG CAPSULE PO (08:52)
--- NOTE | 2020-09-12 09:24 | P.PNNP_ITS ---
Progress Note: A&P Assessment and Plan (1) ELZBIETA (acute kidney injury): Code(s): N17.9 - Acute kidney failure, unspecified Status: Acute Assessment and Plan: * unclear what baseline kidney function/creatinine is * cysts on kidney from abdominal CT scan associated with atherosclerotic disease * Urine electrolytes are non pre renal * He has some proteinuria. * The patient has acute kidney injury. Etiology is unclear. No labs were ordered for today. Will order some now. * Consider backing off on diuretics? (2) Acute on chronic systolic (congestive) heart failure: Code(s): I50.23 - Acute on chronic systolic (congestive) heart failure Status: Acute Assessment and Plan: * improved/stable * as noted by Echo * complicated by aortic stenosis as well * Cardiology following * back on bumex in conjunction with spironolactone and metolazone * Volume status looks much better now. (3) Hypotension: Code(s): I95.9 - Hypotension, unspecified Status: Acute Assessment and Plan: * doing better at this time * due to cardiomyopathy versus overdiuresis(?) * follow hemodynamics * hoping higher BP may provide better perfusion to his kidneys (4) Dyspnea: Code(s): R06.00 - Dyspnea, unspecified Status: Acute Assessment and Plan: * how much is related to COPD versus cardiomyopathy versus aortic stenosis(?) versus all of it... * diuretics restarted * Pulmonary following and recommendations noted (5) Aortic stenosis: Qualifiers: Cardiac valve disease etiology: etiology unspecified Qualified Code(s): I35.0 - Nonrheumatic aortic (valve) stenosis Code(s): I35.0 - Nonrheumatic aortic (valve) stenosis Status: Acute Assessment and Plan: * Cardiology recommendations noted * will need further testing once acute medical issues stabilize (6) Leukocytosis: Code(s): D72.829 - Elevated white blood cell count, unspecified Status: Acute Assessment and Plan: * in association with anemia and thrombocytopenia * s/p bone marrow biopsy -- flow cytometry showed 9% myeloblasts concerning for myelodysplasia/myeloproliferative disorder * to follow-up with Hem/Onc as an outpatient Subjective Date/time seen: 09/12/20 09:24 Interval history: John is feeling better. His swelling is way down. He still has some shortness of breath with any exertion. He is on oxygen now and there a looking in to him having home oxygen therapy as well. Review of Systems Cardiovascular: Cardiovascular: Reports no additional cardiovascular complaints Respiratory: Respiratory: Reports no additional respiratory complaints Gastrointestinal: Gastrointestinal: Reports no additional gastrointestinal complaints Genitourinary: Genitourinary: Reports no additional male genitourinary complaints Exam Narrative: Exam Narrative: General: elderly male in NAD Heart: normal S1 and S2; no rub or gallop Lungs: decreased at bases Abdomen: soft, nontender, nondistended, positive bowel sounds Extremities: no cyanosis or clubbing; trace edema Skin: no rash or subcu nodules Objective Data Vital Signs Vital Signs: Vital Signs - 24 hr 09/11/20 09:59 09/11/20 12:00 09/11/20 14:00 Temperature 36.0 C L 36.0 C L Pulse Rate 75 65 72 Respiratory Rate 20 22 H Blood Pressure 114/41 L 118/47 L
--- NOTE | 2020-09-12 09:24 | PM.PNNEP ---
Progress Note: A&P Assessment and Plan (1) ELZBIETA (acute kidney injury): Code(s): N17.9 - Acute kidney failure, unspecified Status: Acute Assessment and Plan: unclear what baseline kidney function/creatinine is cysts on kidney from abdominal CT scan associated with atherosclerotic disease Urine electrolytes are non pre renal He has some proteinuria. The patient has acute kidney injury. Etiology is unclear. No labs were ordered for today. Will order some now. Consider backing off on diuretics? (2) Acute on chronic systolic (congestive) heart failure: Code(s): I50.23 - Acute on chronic systolic (congestive) heart failure Status: Acute Assessment and Plan: improved/stable as noted by Echo complicated by aortic stenosis as well Cardiology following back on bumex in conjunction with spironolactone and metolazone Volume status looks much better now. (3) Hypotension: Code(s): I95.9 - Hypotension, unspecified Status: Acute Assessment and Plan: doing better at this time due to cardiomyopathy versus overdiuresis(?) follow hemodynamics hoping higher BP may provide better perfusion to his kidneys (4) Dyspnea: Code(s): R06.00 - Dyspnea, unspecified Status: Acute Assessment and Plan: how much is related to COPD versus cardiomyopathy versus aortic stenosis(?) versus all of it... diuretics restarted Pulmonary following and recommendations noted (5) Aortic stenosis: Qualifiers: Cardiac valve disease etiology: etiology unspecified Qualified Code(s): I35.0 - Nonrheumatic aortic (valve) stenosis Code(s): I35.0 - Nonrheumatic aortic (valve) stenosis Status: Acute Assessment and Plan: Cardiology recommendations noted will need further testing once acute medical issues stabilize (6) Leukocytosis: Code(s): D72.829 - Elevated white blood cell count, unspecified Status: Acute Assessment and Plan: in association with anemia and thrombocytopenia s/p bone marrow biopsy -- flow cytometry showed 9% myeloblasts concerning for myelodysplasia/myeloproliferative disorder to follow-up with Hem/Onc as an outpatient Subjective Date/time seen: 09/12/20 09:24 Interval history: John is feeling better. His swelling is way down. He still has some shortness of breath with any exertion. He is on oxygen now and there a looking in to him having home oxygen therapy as well. Review of Systems Cardiovascular: Cardiovascular: Reports no additional cardiovascular complaints Respiratory: Respiratory: Reports no additional respiratory complaints Gastrointestinal: Gastrointestinal: Reports no additional gastrointestinal complaints Genitourinary: Genitourinary: Reports no additional male genitourinary complaints Exam Narrative: Exam Narrative: General: elderly male in NAD Heart: normal S1 and S2; no rub or gallop Lungs: decreased at bases Abdomen: soft, nontender, nondistended, positive bowel sounds Extremities: no cyanosis or clubbing; trace edema Skin: no rash or subcu nodules Objective Data Vital Signs Vital Signs: Vital Signs - 24 hr 09/11/20 09:59 09/11/20 12:00 09/11/20 14:00 Temperature 36.0 C L 36.0 C L Pulse Rate 75 65 72 Respiratory Rate 20 22 H Blood Pressure 114/41 L 118/47 L Pulse Oximetry 95 96 09/11/20 16:00 09/11/20 18:00 09/11/20 20:00 Temperature 36.4 C L Pulse Rate 70 69 70 Respiratory Rate 18 Blood Pressure 119/43 L Pulse Oximetry 96 95 09/11/20 20:18 09/11/20 21:31 09/12/20 00:00 Temperature 36.2 C L Pulse Rate 72 70 66 Respiratory Rate 16 Blood Pressure 136/56 L Pulse Oximetry 95 09/12/20 02:00 09/12/20 04:00 09/12/20 05:16 Temperature 36.1 C L 36.3 C L Pulse Rate 65 63 65 Respiratory Rate 16 16 Blood Pressure 117/44 L 117/54 L Pulse Oximetry 94 97 09/12/20 08:51 Temperature Pulse Rate 74 Re
[2020-09-12 09:57] LABS: Anion Gap 9 mmol/L (8-16); Blood Urea Nitrogen 51 mg/dL (9-20); Calcium 8.5 mg/dL (8.4-10.2); Carbon Dioxide 25 mmol/L (22-30); Chloride 103 mmol/L (98-107); Estimated CRCL calculation 22 ml/min; Estimated Glomerular Filt Rate 25; Glucose 337 mg/dL (75-110); Potassium 3.6 mmol/L (3.4-5.0); Sodium 137 mmol/L (137-145)
--- NOTE | 2020-09-12 11:31 | HOMEO2EVAL ---
Home Oxygen Evaluation RC: Home Oxygen (O2) Evaluation Start: 09/12/20 09:22 Freq: ONCE Status: Active Protocol: RPE Activity Type Activity Date Activity User E-Sign Co-Sign Detail Recorded Client Recorded Date Recorded By Document 09/12/20 10:53 KRM [email or web address] 09/12/20 11:30 KRM Document 09/12/20 10:54 KRM [email or web address] 09/12/20 11:30 KRM Document 09/12/20 10:55 KRM [email or web address] 09/12/20 11:30 KRM Document 09/12/20 10:57 KRM [email or web address] 09/12/20 11:30 KRM Document 09/12/20 10:58 KRM [email or web address] 09/12/20 11:30 KRM 09/12/20 09/12/20 09/12/20 10:53 10:54 10:55 Home O2 Evaluation Test Phase Resting Exercise Exercise Oxygen Delivery Room Air Room Air Nasal Cannula Oxygen Flow Rate (L/min) 1 Pulse Oximetry (90-100 %) 89 L 86 L 86 L Pulse Rate (60-100 beats/min) 69 70 86 Activity Tolerance Good Good Ambulation Distance (feet) Treatment Charges O2 Evaluation - Inpatient 09/12/20 09/12/20 10:57 10:58 Home O2 Evaluation Test Phase Exercise Exercise Oxygen Delivery Nasal Cannula Nasal Cannula Oxygen Flow Rate (L/min) 2 3 Pulse Oximetry (90-100 %) 84 L 90 Pulse Rate (60-100 beats/min) 86 72 Activity Tolerance Good Good Ambulation Distance (feet) 200 Treatment Charges
--- NOTE | 2020-09-12 11:38 | PCRCNOTE ---
HOME OXYGEN EVALUATION DONE. PT. REQUIRES 3LPM WITH ACTIVITY. SET PT. UP WITH [facility]. TANK WILL BE DELIVERED TODAY.
--- NOTE | 2020-09-12 12:09 | PM.DS ---
DS: Admitting Diagnosis Admitting Diagnosis Admitting Diagnosis: (1) Dyspnea: (2) COPD (chronic obstructive pulmonary disease): DS: Discharge Diagnosis Discharge Diagnosis (1) Cardiomyopathy: Qualifiers: Cardiomyopathy type: unspecified Qualified Code(s): I42.9 - Cardiomyopathy, unspecified Code(s): I42.9 - Cardiomyopathy, unspecified Status: Acute Assessment and Plan: Patient is a further workup however due to new onset myeloproliferative disease he has been put on hold will follow-up in outpatient setting continue current management (2) CMML (chronic myelomonocytic leukemia): Qualifiers: Leukemia Active/Remission status: without remission Qualified Code(s): C93.10 - 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 Code(s): C93.10 - 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 Status: Acute Assessment and Plan: Patient is status post bone marrow and will follow-up biopsy results and management in the outpatient setting with Hematology-Oncology (3) Leukocytosis: Code(s): D72.829 - Elevated white blood cell count, unspecified Status: Acute Assessment and Plan: Secondary to myeloproliferative disorder (4) Paroxysmal atrial fibrillation: Code(s): I48.0 - Paroxysmal atrial fibrillation Status: Acute Assessment and Plan: Rate control on amiodarone (5) Acute on chronic renal failure: Code(s): N17.9 - Acute kidney failure, unspecified; N18.9 - Chronic kidney disease, unspecified Status: Acute Assessment and Plan: Will follow-up in outpatient setting On metolazone and bumetanide (6) Hypotension: Code(s): I95.9 - Hypotension, unspecified Status: Acute Assessment and Plan: Improved (7) Tobacco abuse: Code(s): Z72.0 - Tobacco use Status: Acute Assessment and Plan: Encouraged tobacco cessation (8) Aortic stenosis: Qualifiers: Cardiac valve disease etiology: etiology unspecified Qualified Code(s): I35.0 - Nonrheumatic aortic (valve) stenosis Code(s): I35.0 - Nonrheumatic aortic (valve) stenosis Status: Acute Assessment and Plan: Stable Follow-up in outpatient setting (9) 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 Qualified Code(s): J43.9 - Emphysema, unspecified Code(s): J44.9 - Chronic obstructive pulmonary disease, unspecified Status: Chronic Assessment and Plan: Patient had a course of systemic steroids which which improved greatly Will complete a taper of prednisone in the outpatient setting Discharged on Tregy Ellipta Will follow-up with pulmonology DS: Summary Hospital Course Reason for hospitalization: Shortness of breath Hospital Course: Hospital course: This is an 80-year-old male with past medical history significant for tobacco dependence, COPD emphysema, aortic stenosis, atrial fibrillation: Patient presented to the hospital initially due to worsening shortness of breath. He was treated as a COPD exacerbation. Patient became hypotensive and Cardiology was consulted and echocardiogram showed ejection fraction of 15% to 20%. However for the testing was halted after patient was found to have elevated white count and underwent bone marrow biopsy which is compatible with chronic myelomonocytic leukemia which is acute onset. Patient had prolonged hospitalist due to ongoing hypotension, shortness of breath, significant edema of bilateral lower extremity and scrotal area. Patient also with significant pleural effusion for which he underwent thoracentesis. He had some elevation of BUN and creatinine as well. Patient's blood pressure improved and he was successfully diuresed to near euvolemia. Consults obtained: Cardiology, Hematology-Oncology, pulmonology and Nephrology. Proced
== END 2020-09-12 18:58 | disposition home health service (06) | DRG 840 ==
LOC: ANH2MED 09-14 11:51 → ANHIMU 09-14 11:51
PROVIDERS: Internal Medicine; Internal Medicine Cardiovascular Disease; Internal Medicine Nephrology; Internal Medicine Pulmonary Disease; Physician Assistant; Radiology Diagnostic Radiology; Admitting Provider Internal Medicine; PCP Family Medicine; Referring Provider Internal Medicine Hematology & Oncology; Visit Provider Internal Medicine
PROC: 07DR3ZX Extraction of Iliac Bone Marrow, Percutaneous Approach, Diagnostic (ICD-10-PCS; principal; 2020-08-16 10:30)
DX: C93.10 Chronic 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 (principal); I50.23 Acute on chronic systolic (congestive) heart failure; J18.9 Pneumonia, unspecified organism; I42.9 Cardiomyopathy, unspecified; N17.9 Acute kidney failure, unspecified; J90 Pleural effusion, not elsewhere classified; Z20.822 Contact with and (suspected) exposure to COVID-19; J43.9 Emphysema, unspecified; I48.0 Paroxysmal atrial fibrillation; N18.9 Chronic kidney disease, unspecified; K40.90 Unilateral inguinal hernia, without obstruction or gangrene, not specified as recurrent; I35.0 Nonrheumatic aortic (valve) stenosis; I95.9 Hypotension, unspecified; R44.1 Visual hallucinations; E03.9 Hypothyroidism, unspecified; D64.9 Anemia, unspecified; G62.9 Polyneuropathy, unspecified; R59.1 Generalized enlarged lymph nodes; R09.02 Hypoxemia; M10.9 Gout, unspecified; R91.8 Other nonspecific abnormal finding of lung field; E78.5 Hyperlipidemia, unspecified; N40.0 Benign prostatic hyperplasia without lower urinary tract symptoms; D47.3 Essential (hemorrhagic) thrombocythemia; F17.210 Nicotine dependence, cigarettes, uncomplicated; Z95.820 Peripheral vascular angioplasty status with implants and grafts
CPT/HCPCS: 32555; 36415; 36600; 38222; 71045; 71046; 76775; 78452; 78582; 80048; 80053; 80069; 82150; 82375; 82436; 82570; 82607; 82728; 82746; 82805; 82945; 82948; 83036; 83050; 83540; 83550; 83615; 83735; 83880; 83986; 84100; 84156; 84157; 84300; 84439; 84443; 84480; 84484; 84550; 85025; 85027; 85049; 85055; 85380; 85610; 85730; 85999; 87015; 87040; 87070; 87075; 87086; 87102; 87116; 87205; 87206; 87804; 88104; 88108; 88184; 88185; 88305; 88311; 88313; 88342; 88360; 88364; 88365; 89051; 93005; 93017; 93306; 94618; 94640; 94762; 96361; 96365; 96367; 97110; 97116; 97161; 97165; 97168; 97530; 97535; A9270; A9502; A9540; A9558; C9803; G0378; J0456; J0696; J1250; J1815; J1940; J2785; J2920; J3010; J7030; J7040; J7050; J7060; J7512; U0003; U0005